=== PATIENT | female | born 1980 | race Caucasian/White ===

== ENCOUNTER 2023-01-30 20:04 | Outpatient (REF) | payer OTHER, SELFPAY ==
[2023-02-04 21:07] LABS: Age Gdln ACOG Testing Note (.); HPV Aptima Negative (Negative); IGP, Aptima HPV, rfx 16/18,45 Note (.)
== END 2023-01-30 20:05 | disposition home or self-care (01) ==
LOC: LAB 20:04
PROVIDERS: PCP Family Medicine; Visit Provider Obstetrics & Gynecology
DX: Z12.4 Encounter for screening for malignant neoplasm of cervix (principal); Z11.51 Encounter for screening for human papillomavirus (HPV)
CPT/HCPCS: 87624; G0145

== ENCOUNTER 2023-10-17 07:52 | Outpatient (OUT) | payer OTHER, SELFPAY ==
[2023-10-17 08:34] LABS: Basophils Absolute Auto 0.1 10^3/uL (0.0-0.1); Basophils Percent Auto 1.1 % (0.2-2.0); Eosinophils Absolute Auto 0.3 10^3/uL (0.0-0.7); Hematocrit 36.7 % (36.0-48.0); Hemoglobin 11.1 g/dL (12.0-16.0); Immature Granulocytes Abs Auto 0.08 10^3/uL (0.00-0.03); Immature Granulocytes Pct Auto 0.9 % (0.0-0.5); Lymphocytes Absolute Auto 2.3 10^3/uL (1.2-3.8); Lymphocytes Percent Auto 27.1 % (20.5-60.0); Mean Corpuscular HGB Conc 30.2 g/dL (29.9-35.2); Mean Corpuscular Hemoglobin 24.9 pg (26.7-34.0); Mean Corpuscular Volume 82.5 fL (81.0-99.0); Mean Platelet Volume 9.1 fL (9.5-13.5); Monocytes Absolute Auto 0.6 10^3/uL (0.3-0.8); Monocytes Percent Auto 6.9 % (1.7-12.0); Neutrophils Absolute Auto 5.2 10^3/uL (1.4-6.5); Platelet Count 395 10^3/uL (150-450); Red Blood Count 4.45 10^6/uL (4.20-5.40); Red Cell Distribution Width 15.3 % (11.0-15.0); White Blood Count 8.4 10^3/uL (4.0-11.0)
[2023-10-17 09:47] LABS: Alanine Aminotransferase 35 U/L (14-59); Albumin Globulin Ratio 0.8; Albumin Level 3.2 g/dL (3.4-5.0); Alkaline Phosphatase 93 U/L (46-116); Anion Gap 12.9; Aspartate Amino Transferase 21 U/L (15-37); BUN Creatinine Ratio 9.9; Bilirubin Total 0.5 mg/dL (0.2-1.0); Calcium 8.5 mg/dL (8.5-10.1); Carbon Dioxide 27.2 mmol/L (21.0-32.0); Chloride 104 mmol/L (98-107); Cholesterol 186 mg/dL (<=200); Estimated GFR (African America >60 (>=60); Estimated GFR (Non-African Ame >60 (>=60); Globulin 4.1 g/dL; Glucose 149 mg/dL (74-106); HDL Cholesterol 46 mg/dL (40-60); LDL Cholesterol Calculated 112.2 mg/dL; Potassium 4.1 mmol/L (3.5-5.1); Sodium 140 mmol/L (136-145); Thyroid Stimulating Hormone 2.534 uIU/mL (0.358-3.740); Total Protein 7.3 g/dL (6.4-8.2); Triglycerides 139 mg/dL (<=150); VLDL CHOLESTEROL 27.8 mg/dL
[2023-10-17 09:58] LABS: Mono Screen NEGATIVE (NEGATIVE)
[2023-10-17 10:27] LABS: Free T4 0.98 ng/dL (0.76-1.46)
[2023-10-17 11:26] LABS: Estimated Average Glucose 148 mg/dL; Glycohemoglobin A1C 6.8 % (4.5-6.2)
== END 2023-10-17 07:53 | disposition home or self-care (01) ==
LOC: LAB 07:55
PROVIDERS: PCP Family Medicine; Visit Provider Family Medicine
DX: Z00.00 Encounter for general adult medical examination without abnormal findings (principal); M79.7 Fibromyalgia; R53.83 Other fatigue
CPT/HCPCS: 36415; 80053; 80061; 83036; 84439; 84443; 85025; 86308

== ENCOUNTER 2024-03-03 18:29 | Outpatient (REF) | payer OTHER, SELFPAY | END 2024-03-03 18:30 | disposition home or self-care (01) | LOC: LAB 18:29 | PROVIDERS: PCP Family Medicine; Visit Provider Obstetrics & Gynecology | DX: Z01.419 Encounter for gynecological examination (general) (routine) without abnormal findings (principal) | CPT/HCPCS: 87624; 88175 ==

== ENCOUNTER 2024-10-14 08:58 | Outpatient (OUT) | payer OTHER, SELFPAY ==
[2024-10-14 09:41] LABS: Basophils Absolute Auto 0.1 10^3/uL (0.0-0.1); Eosinophils Absolute Auto 0.3 10^3/uL (0.0-0.7); Hemoglobin 12.5 g/dL (12.0-16.0); Immature Granulocytes Abs Auto 0.16 10^3/uL (0.00-0.03); Immature Granulocytes Pct Auto 1.4 % (0.0-0.5); Lymphocytes Absolute Auto 2.7 10^3/uL (1.2-3.8); Lymphocytes Percent Auto 23.2 % (20.5-60.0); Mean Corpuscular HGB Conc 31.3 g/dL (29.9-35.2); Mean Corpuscular Hemoglobin 25.2 pg (26.7-34.0); Mean Corpuscular Volume 80.5 fL (81.0-99.0); Mean Platelet Volume 9.2 fL (9.5-13.5); Monocytes Absolute Auto 0.7 10^3/uL (0.3-0.8); Monocytes Percent Auto 6.1 % (1.7-12.0); Neutrophils Absolute Auto 7.5 10^3/uL (1.4-6.5); Neutrophils Percent Auto 65.3 % (43.0-75.0); Platelet Count 383 10^3/uL (150-450); Red Blood Count 4.97 10^6/uL (4.20-5.40); Red Cell Distribution Width 14.9 % (11.0-15.0); White Blood Count 11.4 10^3/uL (4.0-11.0)
[2024-10-14 10:11] LABS: Estimated Average Glucose 217 mg/dL; Glycohemoglobin A1C 9.2 % (4.5-6.2)
[2024-10-14 10:34] LABS: Anion Gap 12.9; BUN Creatinine Ratio 10.3; Carbon Dioxide 26.1 mmol/L (21.0-32.0); Chloride 100 mmol/L (98-107); Estimated GFR (African America >60 (>=60 mL/min/1.73m^2); Estimated GFR (Non-African Ame >60 (>=60 mL/min/1.73m^2); Glucose 216 mg/dL (74-106); Sodium 135 mmol/L (136-145); TSH W/ REFLEX FT4 3.381 uIU/mL (0.358-3.740)
== END 2024-10-14 08:59 | disposition home or self-care (01) ==
LOC: LAB 09:02
PROVIDERS: PCP Family Medicine; Visit Provider Family Medicine
DX: R53.82 Chronic fatigue, unspecified (principal); E11.65 Type 2 diabetes mellitus with hyperglycemia
CPT/HCPCS: 36415; 80048; 83036; 84443; 85025

== ENCOUNTER 2024-10-17 08:33 | Outpatient (OUT) | payer OTHER, SELFPAY ==
--- OUTSIDE RECORDS SUMMARY | 2024-10-17 08:37 | XMS_ITS | CCD ---
Author Organization [facility] Care Team Providers Care [place] Manager Name Role Phone Caitlin Coronel Unavailable Jessica Ruiz Unavailable Unavailable Unavailable Sara, Dr. Jessica Mcconnell Primary Care Unav ailable Juvenal, Julieta Attending Unavailable RUIZ, DR JESSICA Manuel Admitting Unavailable RUIZ, DR JESSICA Manuel Attending Unavailable ALVIN, DR SAMANTHA Wolfe Consulting Unavailable RUIZ, DR JESSICA Manuel Primary Care Unavailable RUIZ, DR JESSICA Manuel Consulting Unavailable RUIZ, DR JESSICA Manuel Attending Unavailable RUIZ, DR JESSICA Manuel Consulting Unavailable RUIZ, DR JESSICA Manuel Primary Care Unavailable RUIZ, DR JESSICA Manuel Admitting Unavailable NORMA, DAVID Admitting Unavailable NORMA, DAVID Attending Unavailable NORMA, DAVID Consulting Unavailable RUIZ, DR JESSICA Manuel Primary Care Unavailable RUSSELL ., DR COTO Attending Unavailable HAY ., DR COTO Consulting Unavailable HAY ., DR COTO Admitting Unavailable RUIZ, DR JESSICA Manuel Primary Care Unavailable JUAN ALBERTO MATHEW Consulting Unavailable Jessica Ruiz Unavailable Sara, Dr. Jessica Mcconnell Primary Care Unav ailpresley Sanford, Dr. Rendon Attending Unavailable Sara, Dr. Jessica Mcconnell Referring Unav ailable aSra, Dr. Jessica Mcconnell Primary Care Unav ailpresley Sanford, Dr. Rendon Referring Unavailable Juvenal, Dr. Rendon Attending Unavailable Sara, Dr. Jessica Mcconnell Primary Care Unav MD Jessica Thomson Primary Care Provider MONIQUE Mckeon Attending Provider Jessica Ruiz MD Primary Care Provider [phone] Jessica Ruiz MD Unavailable MD Jessica Ruiz Attending Provider [facility] Attending Unavailable JOHNNY OLEA Attending Unavailable JOHNNY OLEA Referring Unavailable JESSICA RUIZ Primary Care Unavailable SAMANTHA PITTS JR Attending Unavailable JESSICA RUIZ Primary Care Unavailable SAMANTHA PITTS JR Referring Unavailable SAMANTHA PITTS JR Attending Unavailable SAMANTHA PITTS JR Attending Unavailable JESSICA RUIZ Primary Care Unavailable Jessica Ruiz MD Primary Care Provider Jayden Pineda DO Emergency Provider [phone] Jessica Ruiz Attending Unavailable Jessica Ruiz Primary Care Unavailable Jessica Ruiz Admitting Unavailable Neha Mckeon Attending Unavailable Neha Mckeon Admitting Unavailable Jessica Ruiz Primary Care Unavailable Jayden Pineda Attending Unavailable Jayden Pineda Admitting Unavailable Jessica Ruiz Primary Care Unavailable Allergies Allergy Classification Reported Allergen(s) Allergy Type Date of Onset Reaction(s) Facility (2 sources) patient allergy list reviewed by nurse or physicia Propensity to adverse reactions Comment:Done [facility] Other (2 sources) Allergies Reconciled Propensity to adverse reactions Unknown [facility] Other Medications Current Medications Medication Drug Class(es) Dates Sig (Normalized) Sig (Original) Blood Sugar Diagnostic (1 source) Start: 02-18-2024 Blood Sugar Diagnostic Active 0 .Route February 18, 2024 12:00am As directed - test daily Blood-Glucose Meter (2 sources) Start: 11-14-2023 Blood-Glucose Meter Active 0 .Route November 14, 2023 12:00am As directed Blood-Glucose Meter kit (1 source) Start: 11-14-2023 Blood-Glucose Meter kit Active 0 .Route November 14, 2023 12:00am As directed dicyclomine hydrochloride 20 mg oral tablet (5 sources) Anticholinergic Start: 02-18-2024 End: 05-18-2024 take 1 tablet by mouth twice daily dicyclomine (BENTYL) 20 mg tablet Take 1 tablet by mouth two times a day. 60 tablet 2 02/18/2024 05/18/2024 Active DULoxetine 60 mg delayed release oral capsule (20 sources) Serotonin and Norepinephrine Reuptake Inhibitor Start: 09-25-2023 End: 10-14-2024 take 1 capsule by mouth once daily Duloxetine 60 mg capsule,delayed release(DR/EC) Active 0 .ROUTE .COMPLEX October 14, 2024 8:25am TAKE 1 CAPSULE BY MOUTH EVERY DAY Start: 02-19-2015 End: 09-25-2023 take 1 capsule by mouth once daily Duloxetine 60 mg capsule,delayed release(DR/EC) Discontinued 60 MG PO Daily September 23, 2023 1:00am September 25, 2023 3:27pm take 1 capsule by [facility] every twenty-four hours Cymbalta 30 MG 1 cap(s) Orally Once a day Active glipiZIDE er 5 mg 24 hr extended release oral tablet (10 sources) Sulfonylurea Start: 03-31-2024 End: 04-28-2024 take 1 tablet by mouth once daily Glipizide 5 mg tablet extended release 24hr Active 0 .ROUTE .COMPLEX April 28, 2024 8:23am TAKE 1 TABLET BY MOUTH EVERY DAY Start: 02-18-2024 End: 08-07-2024 take 1 tablet by mouth once daily Glipizide 5 mg tablet extended release 24hr Discontinued 5 MG PO Daily February 18, 2024 12:00am March 31, 2024 8:38am hyoscyamine sulfate 0.125 mg sublingual tablet (1 source) Start: 08-07-2024 take 0.125 mg under the tongue every four hours as needed hyoscyamine sublingual (LEVSIN/SL) 0.125 mg Dissolve 1 tablet under the tongue every 4 hours as needed. 60 tablet 2 08/07/2024 Active Multivitamin Adult - (3 sources) Multivitamin Socrates lt - Orally Active omeprazole 40 mg delayed release oral capsule (20 sources) Proton Pump Inhibitor Start: 04-30-2024 take 1 capsule by mouth twice daily omeprazole (PRILOSEC) 40 mg capsule take 1 capsule by mouth twice a day 60 capsule 3 04/30/2024 Active Start: 12-02-2023 End: 07-09-2024 take 1 capsule by mouth once daily Omeprazole 40 mg capsule,delayed release(DR/EC) Active 0 .ROUTE .COMPLEX July 09, 2024 9:51am TAKE 1 CAPSULE BY MOUTH EVERY DAY Start: 09-23-2023 End: 12-02-2023 take 1 capsule by mouth once daily Omeprazole 40 mg capsule,delayed release(DR/EC) Discontinued 40 MG PO Daily September 23, 2023 1:00am December 02, 2023 12:46pm Start: 02-17-2017 End: 04-18-2024 take 1 capsule by mouth twice daily omeprazole (PRILOSEC) 40 mg capsule Take 1 capsule by mouth two times a day. 60 capsule 1 02/18/2024 04/18/2024 Active Start: 02-29-2016 take 1 capsule by mo uth every twenty-four hours Omeprazole 40 mg 1 capsule Orally Once a day for 30 days inform patient need follow up office visit no more refills Feb, Active Start: 01-04-2016 End: 02-18-2024 take 1 tablet by mouth once daily Omeprazole Magnesium (PRILOSEC OTC) 20 mg tablet Take 1 tablet by mouth once daily. 0 01/04/2016 02/18/2024 Discontinued paxlovid (300/100) 20 x 150 mg & 10 x 100mg tablet therapy pack (1 source) Start: 08-23-2023 take 3 tablets by mouth every twelve hours Paxlovid (300/100) 20 x 150 MG & 10 x 100MG 3 tablets Orally Twice a day for 5 day(s) Aug, Active Semaglutide (1 source) Start: 10-14-2024 Semaglutide (O zempic) 0.25 mg or 0.5 mg (2 mg/3 mL) pen injector Active 0.5 MG SUBCUT every week October 14, 2024 12:00am for 4 weeks Completed/Discontinued Medications Medication Drug Class(es) Dates Sig (Normalized) Sig (Original) Blood-Glucose Sensor (Dexcom G6 Sensor) device (3 sources) Start: 11-12-2023 End: 11-14-2023 Blood-Glucose Sensor (Dexcom G6 Sensor) device Discontinued 0 .Route November 12, 2023 12:00am November 14, 2023 11:00am As directed busPIRone hydrochloride 5 mg oral tablet (3 sources) Start: 09-24-2023 End: 05-21-2024 take 1 tablet by mouth twice daily Buspirone 5 mg tablet Discontinued 5 MG PO Twice daily September 24, 2023 1:00am May 21, 2024 3:06pm metFORMIN hydrochloride 1000 mg oral tablet (20 sources) Biguanide Start: 12-10-2023 End: 02-18-2024 take 1 tablet by mouth twice daily Metformin 1,000 mg tablet Discontinued 1000 MG PO Twice daily 60 December 26, 2023 11:47am February 18, 2024 9:27am Start: 11-13-2023 End: 08-07-2024 take 2 tablets by mouth every hour metFORMIN ER (GLUCOPHAGE XR) 500 mg 24 hr tablet Take 2 tablets by mouth every afternoon. 11/13/2023 08/07/2024 Discontinued Start: 11-12-2023 End: 12-10-2023 take 1 tablet by mouth once daily Metformin 1,000 mg tablet extended release 24 hr Discontinued 1000 MG PO Daily December 09, 2023 3:17pm December 10, 2023 1:22pm metFORMIN HCl Ac tive Metoprolol (3 sources) beta-Adrenergic Edyta Metoprol ol Succinate Not-Taking/PRN Metoprolol Succi viv Not-Taking Metoprolol Succi viv Active Ozempic (0.25 or 0.5 MG/DOSE) 2 MG/3ML Subcutaneous Solution Pen-injector (1 source) Start: 10-23-2022 Ozempic (0.25 or 0.5 MG/DOSE) 2 MG/3ML Subcutaneous Solution Pen-injector Quantity: 3 Refills: 0 Ordered: 23-Oct-2022 DO Start : 23-Oct-2022 Active predniSONE 20 mg oral tablet (3 sources) Start: 10-03-2023 End: 02-18-2024 take 1 tablet by mouth twice daily Prednisone 20 mg tablet Discontinued 20 MG PO Twice daily October 03, 2023 12:00am February 18, 2024 9:18am 1000 ml sodium chloride 9 mg/ml injection (1 source) Start: 03-10-2024 End: 03-27-2024 take 30 mL intravenously every hour 30 mL/hr, INTRAVENOUS, CONTINUOUS, Starting on Sat03/10/24 at 0830, Until Sat03/27/24 at 1749, Preprocedure spironolactone 25 mg oral tablet (5 sources) Aldosterone Antagonist Start: 10-08-2022 take 1 tablet by mouth once daily Spironolactone 25 MG Oral Tablet TAKE 1 TABLET DAILY. Quantity: 90 Refills: 3 Ordered: 08-Oct-2022 Julieta Sanford MD Start : 08-Oct-2022 Active sucralfate 1000 mg oral tablet (3 sources) Aluminum Complex Start: 03-13-2024 End: 08-07-2024 take 1 tablet by mouth three times daily sucralfate (CARAFATE) 1 gram tablet Take 1 tablet by mouth three times a day. 90 tablet 03/13/2024 08/07/2024 Discontinued Tirzepatide (3 sources) Start: 10-19-2023 End: 02-18-2024 Tirzepatide (Mounjaro) 2.5 mg/0.5 mL pen injector Discontinued 2.5 MG SUBCUT every week 2 October 19, 2023 12:00am February 18, 2024 9:19am Start: 10-19-2023 Tirzepatide (M ounjaro) 2.5 mg/0.5 mL pen injector Active 2.5 MG SUBCUT every week 2 October 19, 2023 12:00am Problems Active Problems Problem Classification Problem Date Documented Da te Episodic/Chronic Abdominal hernia (3 sources) Hiatal hernia; Translations: [Diaphragmatic hernia without obstruction or gangrene] Episodic Abdominal pain (8 sources) Right upper quadrant pain; Translations: [Right upper quadrant pain] 09-23-2023 Episodic Acute bronchitis (2 sources) Acute bronchitis; Translations: [Acute bronchitis, unspecified] Episodic Administrative/social admission (1 source) Follow-up status; Translations: [Other specified counseling] Episodic Anxiety disorders (5 sources) Anxiety disorder; Translations: [Anxiety disorder, unspecified] 09-23-2023 Chronic Cardiac dysrhythmias (16 sources) Palpitations; Translations: [Palpitations] Onset: 6 09-23-2023 Episodic Conditions associated with dizziness or vertigo (5 sources) Dizziness and giddiness; Translations: [Dizziness and giddiness] 09-23-2023 Episodic Diabetes mellitus with complications (7 sources) Hyperglycemia due to type 2 diabetes mellitus; Translations: [Type 2 diabetes mellitus with hyperglycemia] 09-23-2023 Chronic Diabetes mellitus without complication (6 sources) Increased glucose level; Translations: [Other abnormal glucose] 10-15-2024 Episodic Esophageal disorders (20 sources) Diffuse spasm of esophagus; Translations: [Dyskinesia of esophagus] Onset: 3 09-23-2023 Chronic Essential hypertension (6 sources) Essential (primary) hypertension; Translations: [Essential hypertension] Onset: 2 09-23-2023 Chronic Gastrointestinal hemorrhage (3 sources) Hematochezia; Translations: [Melena] Episodic Headache; including migraine (1 source) Migraine without aura; Translations: [Migraine without aura, not intractable, without status migrainosus] 06-01-2024 Chronic Inflammation; infection of eye (except that caused by tuberculosis or sexually transmitteddisease) (2 sources) Chronic allergic conjunctivitis; Translations: [Other chronic allergic conjunctivitis] Onset: 4 Chronic Malaise and fatigue (4 sources) Fatigue; Translations: [Other fatigue] 09-24-2023 Episodic Menstrual disorders (6 sources) Dysmenorrhea; Translations: [Dysmenorrhea, unspecified] Onset: 6 Chronic Mood disorders (5 sources) Moderate recurrent major depression; Translations: [Major depressive disorder, recurrent, moderate] Onset: 8 09-23-2023 Chronic Mycoses (2 sources) Candidiasis; Translations: [Candidiasis, unspecified] Episodic Neoplasms of unspecified nature or uncertain behavior (5 sources) Carcinoid tumor of stomach; 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, intestines, and rectum] Onset: 6 Resolved: 2 09-23-2023 Episodic Other acquired deformities (2 sources) Spondylolysis; Translations: [Spondylolysis, lumbar region] 02-18-2024 Episodic Other aftercare (1 source) 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 supervisor intermediates (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; Translations: [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] Onset: 3 Episodic Other aftercare (2 sources) History and physical examination, follow-up; Translations: [Encounter for follow-up examination after completed treatment for conditions other than malignant neoplasm] Episodic Other and unspecified benign neoplasm (3 sources) History of polyp of colon; Translations: [Personal history of colonic polyps] 02-18-2024 Episodic Other circulatory disease (10 sources) Elevated blood-pressure reading without diagnosis of hypertension; Translations: [Elevated blood pressure reading without diagnosis of hypertension] 09-23-2023 Episodic Other connective tissue disease (5 sources) Fibromyalgia; Translations: [Fibromyalgia] 09-23-2023 Episodic Other connective tissue disease (1 source) Fibromyalgia; Translations: [Myalgia and myositis, unspecified] 02-18-2024 Episodic Other female genital disorders (2 sources) Dyspareunia; Translations: [Unspecified dyspareunia] Chronic Other female genital disorders (2 sources) Noninflammatory disorder of the vagina; Translations: [Other specified noninflammatory disorders of vagina] Episodic Other female genital disorders (5 sources) Cyst of vulva; Translations: [Vulvar cyst] 09-23-2023 Episodic Other gastrointestinal disorders (3 sources) Irritable bowel syndrome; Translations: [Irritable bowel syndrome without diarrhea] 02-18-2024 Chronic Other gastrointestinal disorders (1 source) Irritable bowel syndrome with diarrhea; Translations: [Irritable bowel syndrome with diarrhea] 08-07-2024 Chronic Other gastrointestinal disorders (3 sources) Diarrhea; Translations: [Diarrhea, unspecified] Episodic Other gastrointestinal disorders (6 sources) Urgent desire for stool; Translations: [Fecal urgency] 09-23-2023 Episodic Other injuries and conditions due to external causes (1 source) Other injury of unspecified body region, initial encounter Episodic Other liver diseases (1 source) Inflammatory disease of liver; Translations: [Inflammatory liver disease, unspecified] 10-15-2024 Chronic Other lower respiratory disease (5 sources) Dyspnea on exertion; Translations: [Shortness of breath] Episodic Other lower respiratory disease (1 source) Shortness of breath; Translations: [Shortness of breath] Onset: 3 Episodic Other nutritional; endocrine; and metabolic disorders (3 sources) Obese class I; Translations: [Body mass index (BMI) 34.0-34.9, adult] Chronic Other nutritional; endocrine; and metabolic disorders (11 sources) Obese class II; Translations: [Body mass index (BMI) 36.0-36.9, adult] Onset: 8 Chronic Other nutritional; endocrine; and metabolic disorders (7 sources) Obesity; Translations: [Obesity, unspecified] Onset: 2 Chronic Other nutritional; endocrine; and metabolic disorders (2 sources) Morbid obesity; Translations: [Morbid (severe) obesity due to excess calories] Onset: 7 Chronic Other nutritional; endocrine; and metabolic disorders (2 sources) Body mass index 30+ - obesity; Translations: [Body mass index 36.0-36.9, adult] Onset: 7 Chronic Other screening for suspected conditions (not mental disorders or infectious disease) (17 sources) Electrocardiogram abnormal; Translations: [Nonspecific abnormal electrocardiogram [ECG] [EKG]] Onset: 2 Episodic Residual codes; unclassified (2 sources) Postprocedural state finding; Translations: [Other specified postprocedural states] Episodic Residual codes; unclassified (5 sources) Insomnia; Translations: [Insomnia, unspecified] 09-23-2023 Episodic Residual codes; unclassified (3 sources) Acquired absence of cervix and uterus; Translations: [Acquired absence of both cervix and uterus] 09-23-2023 Episodic Viral infection (2 sources) Herpes zoster without complication; Translations: [Zoster without complications] Episodic Past or Other Problems Problem Classification Problem Date Documented Da te Episodic/Chronic Headache; including migraine (5 sources) Headache; Translations: [Headache, unspecified] Onset: 11-11-2015 09-23-2023 Episodic Nonspecific chest pain (18 sources) Chest pain; Translations: [Chest pain, unspecified] Onset: 01-04-2016 Episodic Other acquired deformities (2 sources) Spondylolysis, lumbar region; Translations: [Acquired spondylolisthesis] Onset: 03-16-2024 02-18-2024 Episodic Other and unspecified benign neoplasm (1 source) Personal history of colonic polyps; Translations: [Personal history of colonic polyps] Onset: 03-10-2024 Episodic Other inflammatory condition of skin (2 sources) Generalized pruritus ; Translations: [Other pruritus] Onset: 12-05-2016 Episodic Other nervous system disorders (2 sources) Altered sensation of skin; Translations: [Disturbance of skin sensation] Onset: 11-11-2015 Episodic Other nutritional; endocrine; and metabolic disorders (5 sources) Abnormal weight gain; Translations: [Abnormal weight gain] Onset: 10-30-2021 09-23-2023 Episodic Unclassified (5 sources) Patient status finding; Translations: [Patient new to provider] Unclassified (5 sources) Never smoked tobacco; Translations: [Never a smoker] Viral infection (1 source) COVID-19 Results Test Name Value Interpretation Reference Range Facility Alanine aminotransferase [En zymatic activity/volume] in Serum or PlasmaOrdered By: Jayden Pineda on 10-15-2024 ALT [Catalytic activity/Vol] Alanine aminotransferase [Enzymatic activity/volume] in Serum or Plasma High 7-52 [facility] Albumin [Mass/volume] in Ser um or Plasma by Bromocresol green (BCG) dye binding methoOrdered By: Jayden Pineda on 10-15-2024 Albumin BCG dye [Mass/Vol] Albumin [Mass/volume] in Serum or Plasma by Bromocresol green (BCG) dye binding metho 3.5-5.7 [facility] Alkaline phosphatase [Enzyma tic activity/volume] in Serum or PlasmaOrdered By: Jayden Pineda on 10-15-2024 ALP [Catalytic activity/Vol] Alkaline phosphatase [Enzymatic activity/volume] in Serum or Plasma High 34-104 [facility] Appearance of UrineOrdered B y: Jayden Pineda on 10-15-2024 Appearance (U) Urine appearance Abnormal Clear [facility] Aspartate aminotransferase [ Enzymatic activity/volume] in Serum or PlasmaOrdered By: Jayden Pineda on 10-15-2024 AST [Catalytic activity/Vol] Aspartate aminotransferase [Enzymatic activity/volume] in Serum or Plasma High 13-39 [facility] Bacteria [Presence] in Urine by AutomatedOrdered By: Jayden Pineda on 10-15-2024 Bacteria Auto Ql (U) Bacteria [Presence] in Urine by Automated None Seen [facility] Basic Metabolic Panelon 09-20 Anion gap [Moles/Vol] 10.8 mmol/L Normal 6.0-15.0 [facility] Comment on above: Performed By: #### H EPATIC, LIPASE, BMP, CBC #### [facility] [address] Calcium [Mass/Vol] 9.2 mg/dL Normal 8.6-10.3 [facility] Comment on above: Performed By: #### H EPATIC, LIPASE, BMP, CBC #### [address] Chloride [Moles/Vol] 102 mmol/L Normal 98-107 [facility] Comment on above: Performed By: #### H EPATIC, LIPASE, BMP, CBC #### [address] CO2 [Moles/Vol] 25.2 mmol/L Normal 21.0-31.0 [facility] Comment on above: Performed By: #### H EPATIC, LIPASE, BMP, CBC #### [address] Creatinine [Mass/Vol] 0.81 mg/dL Normal 0.60-1.20 [facility] Comment on above: Performed By: #### H EPATIC, LIPASE, BMP, CBC #### [place] [address] [place] Creatinine Clr Calc Pharmacy 112.84 Normal [facility] Comment on above: Performed By: #### H EPATIC, LIPASE, BMP, CBC #### [place] [address] [place] GFR/1.73 sq M.predicted MDRD (S/P/Bld) [Vol rate/Area] mL/min/{1.73_m2} Normal [facility] Comment on above: Performed By: #### H EPATIC, LIPASE, BMP, CBC #### [address] Glucose [Mass/Vol] 209 mg/dL High 70-100 [facility] Comment on above: Result Comment: [place] Glucose Reference Range is dependent on time and content of last meal. Glucose of more than 200 mg/dL in a nonstressed, ambulatory subject supports the diagnosis of Diabetes Mellitus. ADA recommended reference range Performed By: #### H EPATIC, LIPASE, BMP, CBC #### [address] Potassium [Moles/Vol] 4.0 mmol/L Normal 3.5-5.1 [facility] Comment on above: Performed By: #### H EPATIC, LIPASE, BMP, CBC #### [address] [place] [address] [place] Sodium [Moles/Vol] 134 mmol/L Low 136-145 [facility] Comment on above: Performed By: #### H EPATIC, LIPASE, BMP, CBC #### [facility] [address] Urea nitrogen [Mass/Vol] 11 mg/dL Normal 7-25 [facility] Comment on above: Performed By: #### H EPATIC, LIPASE, BMP, CBC #### [facility] [address] Basophils Auto (Bld) [#/Vol] Ordered By: Jayden Pinead on 10-15-2024 Basophils (Bld) [#/Vol] Automated basoph il count 0.0-0.2 [facility] Basophils/100 WBC Auto (Bld) Ordered By: Jayden Pineda on 10-15-2024 Basophils/100 WBC (Bld) Automated basophil % . [facility] Bilirubin Test strip Ql (U)O rdered By: Jayden Pineda on 10-15-2024 Bilirubin Ql (U) Bilirubin.total [Presence] in Urine by Test strip Negative [facility] Bilirubin.direct [Mass/volum e] in Serum or PlasmaOrdered By: Jayden Pineda on 10-15-2024 Bilirubin.direct [Mass/Vol] Bilirubin.direct [Mass/volume] in Serum or Plasma 0.03-0.18 [facility] Bilirubin.total [Mass/volume ] in Serum or PlasmaOrdered By: Jayden Pienda on 10-15-2024 Bilirubin [Mass/Vol] Bilirubin.total [Mass/volume] in Serum or Plasma 0.3-1.0 [facility] Calcium [Mass/volume] in Ser um or PlasmaOrdered By: Jayden Pineda on 10-15-2024 Calcium [Mass/Vol] Calcium [Mass/volume ] in Serum or Plasma 8.6-10.3 [facility] Carbon dioxide, total [Moles /volume] in Serum or PlasmaOrdered By: Jayden Pineda on 10-15-2024 CO2 [Moles/Vol] Carbon dioxide, tota l [Moles/volume] in Serum or Plasma 21.0-31.0 [facility] Chloride [Moles/volume] in S luis alberto or PlasmaOrdered By: Jayden Pineda on 10-15-2024 Chloride [Moles/Vol] Chloride [Moles/volume] in Serum or Plasma 98-107 [facility] Color Auto (U)Ordered By: Pierce Pineda on 10-15-2024 Color (U) Color of Urine by Auto Yellow [facility]Former[facility] Complete Blood Count Auto Di ffon 10-15-2024 Basophils (Bld) [#/Vol] 0.0 10*3/uL Normal 0.0-0.2 [facility] Comment on above: Result Comment: PERF ORMED BY: [place] [address] PATHOLOGIST ANIMAL GENETICIST BERNIE VICK M.D. Performed By: #### H EPATIC, LIPASE, BMP, CBC #### [address] Basophils/100 WBC (Bld) 0.2 % Normal . T rajinder [facility] Comment on above: Performed By: #### H EPATIC, LIPASE, BMP, CBC #### [address] Eosinophils (Bld) [#/Vol] 0.2 10*3/uL Normal 0.0-0.45 [facility] Comment on above: Performed By: #### H EPATIC, LIPASE, BMP, CBC #### [address] Eosinophils/100 WBC (Bld) 2.2 % Normal . [facility] Comment on above: Performed By: #### H EPATIC, LIPASE, BMP, CBC #### [address] Erythrocyte distribution width (RBC) [Ratio] 15.8 % High 11.9-15.3 [facility] Comment on above: Performed By: #### H EPATIC, LIPASE, BMP, CBC #### [address] Hematocrit (Bld) [Volume fraction] 38.0 % Normal 34.0-46.4 [facility] Comment on above: Performed By: #### H EPATIC, LIPASE, BMP, CBC #### [address] Hemoglobin (Bld) [Mass/Vol] 12.2 g/dL Normal 11.8-15.4 [facility] Comment on above: Performed By: #### H EPATIC, LIPASE, BMP, CBC #### [address] Lymphocytes (Bld) [#/Vol] 2.4 10*3/uL Normal 1.00-4.8 [facility] Comment on above: Performed By: #### H EPATIC, LIPASE, BMP, CBC #### [address] Lymphocytes/100 WBC (Bld) 25.1 % Normal . [facility] Comment on above: Performed By: #### H EPATIC, LIPASE, BMP, CBC #### [address] MCH (RBC) [Entitic mass] 25.2 pg Normal 24.7-34.3 [facility] Comment on above: Performed By: #### H EPATIC, LIPASE, BMP, CBC #### [address] MCV (RBC) [Entitic vol] 78.5 fL Low 80-100 T [facility] Comment on above: Performed By: #### H EPATIC, LIPASE, BMP, CBC #### [address] Mean Corpuscular HGB Conc 32.1 g/dL Normal 32.0-35.0 [facility] Comment on above: Performed By: #### H EPATIC, LIPASE, BMP, CBC #### [address] Monocytes (Bld) [#/Vol] 0.6 10*3/uL Normal 0.0-0.8 [facility] Comment on above: Performed By: #### H EPATIC, LIPASE, BMP, CBC #### [address] Monocytes/100 WBC (Bld) 22.59 % High 0.00-20.00 [facility] Comment on above: Result Comment: For adults in ED, MDW > 20.0 may be associated with a higher risk of sepsis during the first 12 hrs of hospital admission Performed By: #### H EPATIC, LIPASE, BMP, CBC #### [address] Monocytes/100 WBC (Bld) 5.7 % Normal . [facility] Comment on above: Performed By: #### H EPATIC, LIPASE, BMP, CBC #### [address] Neutrophils (Bld) [#/Vol] 6.5 10*3/uL Normal 1.8-7.7 [facility] Comment on above: Performed By: #### H EPATIC, LIPASE, BMP, CBC #### [address] Neutrophils/100 WBC (Bld) 66.8 % Normal . [facility] Comment on above: Performed By: #### H EPATIC, LIPASE, BMP, CBC #### [address] NRBC% 0.1 /100{WBC} Normal 0-0.5 [facility] Comment on above: Performed By: #### H EPATIC, LIPASE, BMP, CBC #### [address] Platelet mean volume (Bld) [Entitic vol] 7.0 fL Normal 6.3-10.7 [facility] Comment on above: Performed By: #### H EPATIC, LIPASE, BMP, CBC #### [place] [address] [place] Platelets (Bld) [#/Vol] 366 10*3/uL Normal 150-450 [facility] Comment on above: Performed By: #### H EPATIC, LIPASE, BMP, CBC #### [facility] [address] [place] [address] [place] RBC (Bld) [#/Vol] 4.84 10*6/uL Normal 3.60-5.00 [facility] Comment on above: Performed By: #### H EPATIC, LIPASE, BMP, CBC #### [facility] [address] [place] [address] [place] WBC (Bld) [#/Vol] 9.7 10*3/uL Normal 3.8-11.6 [facility] Comment on above: Performed By: #### H EPATIC, LIPASE, BMP, CBC #### [facility] [address] [place] [address] [place] Creatinine [Mass/volume] in Serum or PlasmaOrdered By: Jayden Pineda on 10-15-2024 Creatinine [Mass/Vol] Creatinine [Mass/volume] in Serum or Plasma 0.60-1.20 [facility] Crystals.amorphous [Presence ] in Urine by Computer assisted methodOrdered By: Jayden Pineda on 10-15-2024 Crystals.amorphous Computer assisted Ql (U) Crystals.amorphous [Presence] in Urine by Computer assisted method [facility] Dipstick and Microscopicon 0 10-15-2024 Amorphous Crystal,Urine Rare Normal T he [facility] Comment on above: Order Comment: Name Collection Type:: Clean-Voided Midstream Performed By: #### U HCG, ADDONUAPLUS, CUU #### [address] Appearance (U) Cloudy Critically abnormal Clear [facility] Comment on above: Order Comment: Name Collection Type:: Clean-Voided Midstream Performed By: #### U HCG, ADDONUAPLUS, CUU #### [facility] [address] [place] [address] [place] Bacteria,Urine None Seen Normal None Seen [facility] Comment on above: Order Comment: Name Collection Type:: Clean-Voided Midstream Performed By: #### U HCG, ADDONUAPLUS, CUU #### [place] [address] [place] Bilirubin,Urine Negative Normal Negative [facility] Comment on above: Order Comment: Name Collection Type:: Clean-Voided Midstream Performed By: #### U HCG, ADDONUAPLUS, CUU #### [facility] [address] [place] [address] Color (U) Yellow Normal Yellow [facility] Comment on above: Order Comment: Name Collection Type:: Clean-Voided Midstream Performed By: #### U HCG, ADDONUAPLUS, CUU #### [facility] [address] [place] [address] Glucose Ql (U) 50 mg/dL High Normal [facility] Comment on above: Order Comment: Name Collection Type:: Clean-Voided Midstream Performed By: #### U HCG, ADDONUAPLUS, CUU #### [facility] [address] [place] [address] [place] Hyaline Casts,Urine 0-8 Normal 0-8 [facility] Comment on above: Order Comment: Name Collection Type:: Clean-Voided Midstream Performed By: #### U HCG, ADDONUAPLUS, CUU #### [facility] [address] [place] [address] [place] Ketones Ql (U) 1+ High Negative [facility] Comment on above: Order Comment: Name Collection Type:: Clean-Voided Midstream Performed By: #### U HCG, ADDONUAPLUS, CUU #### [facility] [address] [place] [address] [place] Leukocyte esterase Test strip Ql (U) 1+ High Negative [facility] Comment on above: Order Comment: Name Collection Type:: Clean-Voided Midstream Performed By: #### U HCG, ADDONUAPLUS, CUU #### [facility] [address] [place] [address] [place] Mucus,Urine 2+ Critically abnormal [facility] Comment on above: Order Comment: Name Collection Type:: Clean-Voided Midstream Performed By: #### U HCG, ADDONUAPLUS, CUU #### [facility] [address] [place] [address] [place] Nitrite,Urine Negative Normal Negative [facility] Comment on above: Order Comment: Name Collection Type:: Clean-Voided Midstream Performed By: #### U HCG, ADDONUAPLUS, CUU #### [address] Occult Blood,Urine Negative Normal Negative [facility] Comment on above: Order Comment: Name Collection Type:: Clean-Voided Midstream Performed By: #### U HCG, ADDONUAPLUS, CUU #### [address] pH (U) 5.5 [pH] Normal 5.0-9.0 [facility] Comment on above: Order Comment: Name Collection Type:: Clean-Voided Midstream Performed By: #### U HCG, ADDONUAPLUS, CUU #### [address] Protein (U) [Mass/Vol] 20 mg/dL High Negative Th e [facility] Comment on above: Order Comment: Name Collection Type:: Clean-Voided Midstream Performed By: #### U HCG, ADDONUAPLUS, CUU #### [address] RBC,Urine 5-9 High 0-4 [facility] Comment on above: Order Comment: Name Collection Type:: Clean-Voided Midstream Performed By: #### U HCG, ADDONUAPLUS, CUU #### [place] [address] [place] Specificy [place],Urine 1.026 Normal 1.001-1.030 [facility] Comment on above: Order Comment: Name Collection Type:: Clean-Voided Midstream Performed By: #### U HCG, ADDONUAPLUS, CUU #### [place] [address] [place] Squamous Epithelial Cell,Urine 5-9 High 0-2 [facility] Comment on above: Order Comment: Name Collection Type:: Clean-Voided Midstream Performed By: #### U HCG, ADDONUAPLUS, CUU #### [address] Urobilinogen,Urine 2 mg/dL High Normal [facility] Comment on above: Order Comment: Name Collection Type:: Clean-Voided Midstream Performed By: #### U HCG, ADDONUAPLUS, CUU #### [facility] [address] [place] [address] [place] WBC,Urine 10-19 High 0-4 [facility] Comment on above: Order Comment: Name Collection Type:: Clean-Voided Midstream Performed By: #### U HCG, ADDONUAPLUS, CUU #### [facility] [address] [place] [address] [place] Eosinophils Auto (Bld) [#/Vo l]Ordered By: Jayden Pineda on 10-15-2024 Eosinophils (Bld) [#/Vol] Automated eosinophil count 0.0-0.45 [facility] Eosinophils/100 WBC Auto (Bl d)Ordered By: Jayden Pineda on 10-15-2024 Eosinophils/100 WBC (Bld) Automated eosinophil % . [facility] Epithelial cells.squamous [# /area] in Urine sediment by Automated countOrdered By: Jayden Pineda on 10-15-2024 Epithelial cells.squamous Auto (Urine sed) [#/Area] Epithelial cells.squamous [#/area] in Urine sediment by Automated count High 0-2 [facility] Erythrocyte distribution wid th Auto (RBC) [Ratio]Ordered By: Jayden Pineda on 10-15-2024 Erythrocyte distribution width (RBC) [Ratio] Erythrocyte distribution width [Ratio] by Automated count High 11.9-15.3 [facility] Erythrocytes [#/area] in Uri ne sediment by Automated countOrdered By: Jayden Pineda on 10-15-2024 RBC Auto (Urine sed) [#/Area] Erythrocytes [#/area] in Urine sediment by Automated count High 0-4 [facility] Globulin Calc (S) [Mass/Vol] Ordered By: Jayden Pineda on 10-15-2024 Globulin (S) [Mass/Vol] Serum globulin measurement by calculation (mass/volume) [facility] Glucose Poct Glucometerson 0 10-15-2024 Glucose [Mass/Vol] 167 mg/dL Normal [facility] Comment on above: Result Comment: [place] Glucose Reference Range is dependent on time and content of last meal. Glucose of more than 200 mg/dL in a nonstressed, ambulatory subject supports the diagnosis of Diabetes Mellitus. PERFORMED BY: [place] [address] PATHOLOGIST ANIMAL GENETICIST BERNIE VICK M.D. Performed By: #### U HCG, ADDONUAPLUS, CUU #### [facility] [address] [place] [address] Glucose [Mass/Vol] 234 mg/dL Normal [facility] Comment on above: Result Comment: [facility] Glucose Reference Range is dependent on time and content of last meal. Glucose of more than 200 mg/dL in a nonstressed, ambulatory subject supports the diagnosis of Diabetes Mellitus. PERFORMED BY: [place] [id number] PATHOLOGIST ANIMAL GENETICIST BERNIE VICK M.D. Performed By: #### U HCG, ADDONUAPLUS, CUU #### [facility] [address] [place], [place] [id number] [facility] Glucose [Mass/volume] in Ser um or PlasmaOrdered By: Jayden Pineda on 10-15-2024 Glucose [Mass/Vol] Glucose [Mass/volume ] in Serum or Plasma High 70-100 [facility] Comment on above: ADA recommended refe rence rangeRandom Glucose Reference Range is dependent on time and content of last meal. Glucose of more than 200 mg/dL in a nonstressed, ambulatory subject supports the diagnosis of Diabetes Mellitus. Glucose [Mass/volume] in Uri ne by Test stripOrdered By: Jayden Pineda on 10-15-2024 Glucose Test strip (U) [Mass/Vol] Glucose [Mass/volume] in Urine by Test strip High Normal [facility] HCG ( test) IA.rapi d Ql (U)Ordered By: Jayden Pineda on 10-15-2024 HCG ( test) Ql (U) Urine human chorionic gonadotropin (hCG) detection by immunoassay [facility] HCG,Urineon 10-15-2024 Beta HCG ( test) Ql (U) Negative Normal [facility] Comment on above: Order Comment: Name Collection Type:: Clean-Voided Midstream Result Comment: PERF ORMED BY: [place] [address] PATHOLOGIST ANIMAL GENETICIST BERNIE VICK M.D. Performed By: #### U HCG, ADDONUAPLUS, CUU #### [address] Hematocrit Auto (Bld) [Volum e fraction]Ordered By: Jayden Pineda on 10-15-2024 Hematocrit (Bld) [Volume fraction] Hematocrit [Volume Fraction] of Blood by Automated count 34.0-46.4 [facility] Hemoglobin Test strip Ql (U) Ordered By: Jayden Pineda on 10-15-2024 Hemoglobin Ql (U) Hemoglobin [Presence ] in Urine by Test strip Negative [facility] Hemoglobin [Mass/volume] in BloodOrdered By: Jayden Pineda on 10-15-2024 Hemoglobin (Bld) [Mass/Vol] Hemoglobin [Mass/volume] in Blood 11.8-15.4 [facility] Hepatic Panelon 10-15-2024 Albumin [Mass/Vol] 4.1 g/dL Normal 3.5-5.7 [facility] Comment on above: Performed By: #### H EPATIC, LIPASE, BMP, CBC #### [address] Albumin/Globulin [Mass ratio] 1.1 {ratio} Normal [facility] Comment on above: Performed By: #### H EPATIC, LIPASE, BMP, CBC #### [place] [address] [place] ALP [Catalytic activity/Vol] 110 U/L High 34-104 [facility] Comment on above: Performed By: #### H EPATIC, LIPASE, BMP, CBC #### [address] ALT [Catalytic activity/Vol] 67 U/L High 7-52 [facility] Comment on above: Performed By: #### H EPATIC, LIPASE, BMP, CBC #### [address] AST [Catalytic activity/Vol] 106 U/L High 13-39 [facility] Comment on above: Performed By: #### H EPATIC, LIPASE, BMP, CBC #### [address] Bilirubin [Mass/Vol] 0.6 mg/dL Normal 0.3-1.0 [facility] Comment on above: Performed By: #### H EPATIC, LIPASE, BMP, CBC #### [address] Bilirubin,Indirect 0.5 mg/dL Normal [facility] Comment on above: Performed By: #### H EPATIC, LIPASE, BMP, CBC #### [address] Bilirubin.indirect [Mass/Vol] 0.10 mg/dL Normal 0.03-0.18 [facility] Comment on above: Performed By: #### H EPATIC, LIPASE, BMP, CBC #### [address] Globulin (S) [Mass/Vol] 3.7 g/dL Normal T he [facility] Comment on above: Performed By: #### H EPATIC, LIPASE, BMP, CBC #### [address] Protein [Mass/Vol] 7.8 g/dL Normal 6.4-8.9 [facility] Comment on above: Performed By: #### H EPATIC, LIPASE, BMP, CBC #### [address] Hyaline casts [#/area] in Ur ine sediment by Automated countOrdered By: Jayden Pineda on 10-15-2024 Hyaline casts Auto (Urine sed) [#/Area] Hyaline casts [#/area] in Urine sediment by Automated count 0-8 [facility] Ketones Test strip Ql (U)Ord ered By: Jayden Pineda on 10-15-2024 Ketones Ql (U) Ketones [Presence] i n Urine by Test strip High Negative [facility] Leukocyte esterase [Presence ] in Urine by Test stripOrdered By: Jayden Pineda on 10-15-2024 Leukocyte esterase Test strip Ql (U) Leukocyte esterase [Presence] in Urine by Test strip High Negative [facility] Leukocytes [#/area] in Urine sediment by Automated countOrdered By: Jayden Pineda on 10-15-2024 WBC Auto (Urine sed) [#/Area] Leukocytes [#/area] in Urine sediment by Automated count High 0-4 [facility] Leukocytes [#/volume] correc jeff for nucleated erythrocytes in Blood by Automated counOrdered By: Jayden Pineda on 10-15-2024 WBC corrected for nucl RBC Auto (Bld) [#/Vol] Leukocytes [#/volume] corrected for nucleated erythrocytes in Blood by Automated coun 3.8-11.6 [facility] Lipaseon 10-15-2024 Lipase [Catalytic activity/Vol] 10.0 U/L Low 11.0-82.0 [facility] Comment on above: Result Comment: PERF ORMED BY: [place] [address] PATHOLOGIST ANIMAL GENETICIST BERNIE VICK M.D. Performed By: #### U COLLEEN NULL CUU #### [address] Lipase [Enzymatic activity/v olume] in Serum or PlasmaOrdered By: Jayden Pineda on 10-15-2024 Lipase [Catalytic activity/Vol] Lipase [Enzymatic activity/volume] in Serum or Plasma Low 11.0-82.0 [facility] Lymphocytes Auto (Bld) [#/Vo l]Ordered By: Jayden Pineda on 10-15-2024 Lymphocytes (Bld) [#/Vol] Lymphocytes [#/volume] in Blood by Automated count 1.00-4.8 [facility] Lymphocytes/100 WBC Auto (Bl d)Ordered By: Jayden Pineda on 10-15-2024 Lymphocytes/100 WBC (Bld) Lymphocytes/100 leukocytes in Blood by Automated count . [facility] MCH Auto (RBC) [Entitic mass ]Ordered By: Jayden Pineda on 10-15-2024 MCH (RBC) [Entitic mass] MCH [Entitic mass] by Automated count 24.7-34.3 [facility] MCHC Auto (RBC) [Mass/Vol]Or dered By: Jayden Pineda on 10-15-2024 MCHC (RBC) [Mass/Vol] MCHC [Mass/volume] by Automated count 32.0-35.0 [facility] MCV Auto (RBC) [Entitic vol] Ordered By: Jayden Pineda on 10-15-2024 MCV (RBC) [Entitic vol] MCV [Entitic vol ume] by Automated count Low 80-100 [facility] Monocyte distribution width [Entitic volume] in Blood by AutomatedOrdered By: Jayden Pineda on 10-15-2024 Monocyte distribution width Auto (Bld) [Entitic vol] Monocyte distribution width [Entitic volume] in Blood by Automated High 0.00-20.00 [facility] Comment on above: For adults in ED, MD W > 20.0 may be associated with a higher risk of sepsis during the first 12 hrs of hospital admission Monocytes Auto (Bld) [#/Vol] Ordered By: Jayden Pineda on 10-15-2024 Monocytes (Bld) [#/Vol] Automated blood monocyte count 0.0-0.8 [facility] Monocytes/100 WBC Auto (Bld) Ordered By: Jayden Pineda on 10-15-2024 Monocytes/100 WBC (Bld) Automated monocyte % . [facility] Mucus [Presence] in Urine by AutomatedOrdered By: Jayden Pineda on 10-15-2024 Mucus Auto Ql (U) Mucus [Presence] in Urine by Automated Abnormal [facility] Neutrophils Auto (Bld) [#/Vo l]Ordered By: Jayden Pineda on 10-15-2024 Neutrophils (Bld) [#/Vol] Neutrophils [#/volume] in Blood by Automated count 1.8-7.7 [facility] Neutrophils/100 WBC Auto (Bl d)Ordered By: Jayden Pineda on 10-15-2024 Neutrophils/100 WBC (Bld) Automated neutrophil % . [facility] Nitrite Test strip Ql (U)Ord ered By: Jayden Pineda on 03-27-2025 Nitrite Ql (U) Nitrite [Presence] i n Urine by Test strip Negative [facility] No Panel InformationOrdered By: Jayden Pineda on 10-15-2024 Estimated GFR (CKD-EPI) > 60.0 mL/Min [facility] Creatinine Clearance (Chem 112.84 [facility] Nucleated erythrocytes [Pres ence] in Blood by Automated countOrdered By: Jayden Pineda on 10-15-2024 Nucleated RBC Auto Ql (Bld) Nucleated erythrocytes [Presence] in Blood by Automated count 0-0.5 [facility] Platelet mean volume Auto (B ld) [Entitic vol]Ordered By: Jayden Pineda on 10-15-2024 Platelet mean volume (Bld) [Entitic vol] Platelet mean volume [Entitic volume] in Blood by Automated count 6.3-10.7 [facility] Platelets Auto (Bld) [#/Vol] Ordered By: Jayedn Pineda on 10-15-2024 Platelets (Bld) [#/Vol] Platelets [#/vol ume] in Blood by Automated count 150-450 [facility] Potassium [Moles/volume] in Serum or PlasmaOrdered By: Jayden Pineda on 10-15-2024 Potassium [Moles/Vol] Potassium [Moles/volume] in Serum or Plasma 3.5-5.1 [facility] Protein Test strip (U) [Mass /Vol]Ordered By: Jayden Pineda on 10-15-2024 Protein (U) [Mass/Vol] Protein [Mass/vol ume] in Urine by Test strip High Negative [facility] Protein [Mass/volume] in Ser um or PlasmaOrdered By: Jayden Pineda on 10-15-2024 Protein [Mass/Vol] Protein [Mass/volume ] in Serum or Plasma 6.4-8.9 [facility] RBC Auto (Bld) [#/Vol]Ordere d By: Jayden Pineda on 10-15-2024 RBC (Bld) [#/Vol] Erythrocytes [#/volume] in Blood by Automated count 3.60-5.00 [facility] Serum or plasma albumin/glob ulin mass ratioOrdered By: Jayden Pineda on 10-15-2024 Albumin/Globulin [Mass ratio] Serum or plasma albumin/globulin mass ratio [facility] Serum or plasma anion gap de terminationOrdered By: Jayden Pineda on 10-15-2024 Anion gap [Moles/Vol] Serum or plasma an ion gap determination 6.0-15.0 [facility] Serum or plasma non-glucuron idated bilirubin measurement (mass/volume)Ordered By: Jayden Pineda on 10-15-2024 Bilirubin.indirect [Mass/Vol] Serum or plasma non-glucuronidated bilirubin measurement (mass/volume) [facility] Sodium [Moles/volume] in Ser um or PlasmaOrdered By: Jayden Pineda on 10-15-2024 Sodium [Moles/Vol] Sodium [Moles/volume ] in Serum or Plasma Low 136-145 [facility] Specific gravity Test strip (U) [Rel density]Ordered By: Jayden Pineda on 10-15-2024 Specific gravity (U) [Rel density] Specific gravity of Urine by Test strip 1.001-1.030 [facility] Urea nitrogen [Mass/volume] in Serum or PlasmaOrdered By: Jayden Pineda on 10-15-2024 Urea nitrogen [Mass/Vol] Urea nitrogen [Mass/volume] in Serum or Plasma 7-25 [facility] Urine Cultureon 10-15-2024 Bacteria identified Cx Nom (U) 75,000 colonies/ml mixed bacterial skin contaminants 1 Day PERFORMED BY: [place] [address] PATHOLOGIST ANIMAL GENETICIST BERNIE VICK M.D. Normal [facility] Comment on above: Performed By: #### U HCG, ADDONUAPLUS, CUU #### [facility] [address] [place] [address] Urobilinogen Test strip (U) [Mass/Vol]Ordered By: Jayden Pineda on 10-15-2024 Urobilinogen (U) [Mass/Vol] Urobilinogen [Mass/volume] in Urine by Test strip High Normal [facility] WBC Auto (Bld) [#/Vol]Ordere d By: Jayden Pineda on 10-15-2024 WBC (Bld) [#/Vol] Leukocytes [#/volume ] in Blood by Automated count 3.8-11.6 [facility] pH Test strip (U)Ordered By: Jayden Pineda on 10-15-2024 pH (U) pH of Urine by Test strip 5.0-9.0 [facility] Basophils Auto (Bld) [#/Vol] on 10-14-2024 Basophils (Bld) [#/Vol] Automated basoph il count 0.0-0.1 [facility] Basophils/100 WBC Auto (Bld) on 10-14-2024 Basophils/100 WBC (Bld) Automated basophil % 0. 2-2.0 [facility] Eosinophils/100 WBC Auto (Bl d)on 10-14-2024 Eosinophils/100 WBC (Bld) Automated eosinophil % 0.9-7.0 [facility] Erythrocyte distribution wid th Auto (RBC) [Ratio]on 10-14-2024 Erythrocyte distribution width (RBC) [Ratio] Erythrocyte distribution width [Ratio] by Automated count 11.0-15.0 [facility] Estimated glomerular filtrat ion rate (GFR) non- Americanon 10-14-2024 GFR/1.73 sq M.predicted among non-blacks MDRD (S/P/Bld) [Vol rate/Area] Estimated glomerular filtration rate (GFR) non- >=60 mL/min/1.73 m 2 [facility] Glucose mean value [Mass/vol ume] in Blood Estimated from glycated hemoglobinon 10-14-2024 Average glucose Estimated from glycated hemoglobin (Bld) [Mass/Vol] Glucose mean value [Mass/volume] in Blood Estimated from glycated hemoglobin [facility] Hematocrit Auto (Bld) [Volum e fraction]on 10-14-2024 Hematocrit (Bld) [Volume fraction] Hematocrit [Volume Fraction] of Blood by Automated count 36.0-48.0 [facility] Hemoglobin A1c percentageon 10-14-2024 HbA1c (Bld) [Mass fraction] Hemoglobin A1c percentage High 4.5-6.2 [facility] Comment on above: ADA RECOMMENDED LIMI T 4.0 - 6.0ADA THERAPEUTIC TARGET < 7.0ACTION SUGGESTED> 7.0 Hemoglobin [Mass/volume] in Bloodon 10-14-2024 Hemoglobin (Bld) [Mass/Vol] Hemoglobin [Mass/volume] in Blood 12.0-16.0 [facility] Laboratory - Chemistry and C hemistry - challengeon 10-14-2024 Calcium [Mass/Vol] 9.0 mg/dL 8.5-10.1 [facility] Chloride [Moles/Vol] 100 mmol/L 98-107 [facility] CO2 [Moles/Vol] 26.1 mmol/L 21.0-32.0 [facility] Creatinine [Mass/Vol] 0.97 mg/dL 0.55-1.02 [facility] GFR/1.73 sq M.predicted MDRD (S/P/Bld) [Vol rate/Area] mL/min/{1.73_m2} >=60 mL/min/1.73 m 2 [facility] Glucose [Mass/Vol] 216 mg/dL High 74-106 [facility] Potassium [Moles/Vol] 4.0 mmol/L 3.5-5.1 [facility] Sodium [Moles/Vol] 135 mmol/L Low 136-145 [facility] TSH Qn 3.381 m[IU]/L 0.358-3.740 [facility] Urea nitrogen [Mass/Vol] 10.0 mg/dL 7.0-18.0 [facility] Urea nitrogen/Creatinine [Mass ratio] 10.3 mg/mg [facility] Laboratory - Hematology and Cell countson 10-14-2024 Immature granulocytes/100 WBC (Bld) 1.4 % High 0.0-0.5 [facility] Leukocytes [#/volume] correc jeff for nucleated erythrocytes in Blood by Automated counon 10-14-2024 WBC corrected for nucl RBC Auto (Bld) [#/Vol] Leukocytes [#/volume] corrected for nucleated erythrocytes in Blood by Automated coun High 4.0-11.0 [facility] Lymphocytes Auto (Bld) [#/Vo l]on 10-14-2024 Lymphocytes (Bld) [#/Vol] Lymphocytes [#/volume] in Blood by Automated count 1.2-3.8 [facility] Lymphocytes/100 WBC Auto (Bl d)on 10-14-2024 Lymphocytes/100 WBC (Bld) Lymphocytes/100 leukocytes in Blood by Automated count 20.5-60.0 [facility] MCH Auto (RBC) [Entitic mass ]on 10-14-2024 MCH (RBC) [Entitic mass] MCH [Entitic mass] by Automated count Low 26.7-34.0 [facility] MCHC Auto (RBC) [Mass/Vol]on 10-14-2024 MCHC (RBC) [Mass/Vol] MCHC [Mass/volume] by Automated count 29.9-35.2 [facility] MCV Auto (RBC) [Entitic vol] on 10-14-2024 MCV (RBC) [Entitic vol] MCV [Entitic vol ume] by Automated count Low 81.0-99.0 [facility] Monocytes Auto (Bld) [#/Vol] on 10-14-2024 Monocytes (Bld) [#/Vol] Automated blood monocyte count 0.3-0.8 [facility] Monocytes/100 WBC Auto (Bld) on 10-14-2024 Monocytes/100 WBC (Bld) Automated monocyte % 1. 7-12.0 [facility] Neutrophils Auto (Bld) [#/Vo l]on 10-14-2024 Neutrophils (Bld) [#/Vol] Neutrophils [#/volume] in Blood by Automated count High 1.4-6.5 [facility] Neutrophils/100 WBC Auto (Bl d)on 10-14-2024 Neutrophils/100 WBC (Bld) Automated neutrophil % 43.0-75.0 [facility] No Panel Informationon 10-14 Eosinophils # (Auto) 0.3 10 3/uL 0.0-0.7 [facility] Immature Granulocyte # (Auto) 0.16 10 3/uL High 0.00-0.03 [facility] Platelet mean volume Auto (B ld) [Entitic vol]on 10-14-2024 Platelet mean volume (Bld) [Entitic vol] Platelet mean volume [Entitic volume] in Blood by Automated count Low 9.5-13.5 [facility] Platelets Auto (Bld) [#/Vol] on 10-14-2024 Platelets (Bld) [#/Vol] Platelets [#/vol ume] in Blood by Automated count 150-450 [facility] RBC Auto (Bld) [#/Vol]on RBC (Bld) [#/Vol] Erythrocytes [#/volume] in Blood by Automated count 4.20-5.40 [facility] Serum or plasma anion gap de terminationon 10-14-2024 Anion gap [Moles/Vol] Serum or plasma an ion gap determination [facility] CNOVon 08-07-2024 CNOV [facility] MAMADOU LOWERY ([id number]) 1980 F Date Time Provider Department 08/07/24 9:40 AM SAMANTHA PITTS JR [facility] During your visit today, we recorded the following information about you: Pulse Blood pressure Weight Height 92/minute 125/83 113.4 kg 1.651 m Samantha Pitts Jr., DO 08/07/2024 10:24 AM Signed Patient presents with: Follow Up HPI: Mamadou Lowery, 43 year old female, with personal history of colon polyps and GERD. In 2015 she underwent a colonoscopy revealing a large villous adenoma. Followup colonoscopy in 2016 was unremarkable. EGD in 2015 showed esophagitis. Repeat EGD and colonoscopy in February revealed GERD, gastric polyps, small hiatal hernia, and unremarkable colonoscopy. She remains on omeprazole 40 mg twice daily and GERD is stable. IBS-D stable with dietary control. Previously on dicyclomine which did provide some benefit. History of cholecystectomy but limited benefit with colestipol. Negative family history. Past GI workup 03/10/24 Upper GI endoscopy/colonoscopy were done for Heartburn, Esophageal reflux, High risk colon cancer surveillance: Personal history of colonic polyps per Samantha Pitts Jr, DO - Normal esophagus. - Z-line variable, 36 cm from the incisors. Biopsied. - Small hiatal hernia. - Multiple gastric polyps. Resected and retrieved. - Normal examined duodenum The digital rectal exam was normal. The terminal ileum appeared normal. A few small-mouthed diverticula were found in the sigmoid colon. No additional abnormalities were found on retroflexion. Path as follows: A. Gastric polyp, biopsy: - Fundic gland polyp. - Negative for dysplasia. B. Distal esophagus, biopsy: - Fragments of unremarkable squamous mucosa and mildly inflamed cardiofundic-type mucosa. - No evidence of intestinal metaplasia or dysplasia. - No evidence of eosinophilia. 02/18/24 Last office visit notes as follows: Mamadou Lowery, 43 year old female, presents in the office today for personal history of colon polyps and GERD. In 2015 she underwent a colonoscopy revealing a large villous adenoma. Followup colonoscopy in 2017 was unremarkable and due for colonoscopy now. Last EGD was 2015 showing esophagitis. She remains on omeprazole 40 mg daily but having breakthrough. She also has issues with alternating constipation and diarrhea since cholecystectomy. Limited benefit with colestipol previously. Negative family history. 09/11/23 -noted in care everywhere Pt reports she has to get colonoscopy every 5 years d.t hx of villous adenoma polyp. Sees Dr. Pitts/GI next colonoscopy is due this year. PAST MEDICAL HISTORY Diagnosis Date Diabetes (HCC) Fibromyalgia IBS (irritable bowel syndrome) Palpitations Spondylosis PAST SURGICAL HISTORY Procedure Laterality Date ABDOMINAL SURGERY HX CHOLECYSTECTOMY 07/22/2005 HYSTERECTOMY HX Current Outpatient Medications on File Prior to Visit Medication Sig omeprazole (PRILOSEC) 40 mg capsule take 1 capsule by mouth twice a day sucralfate (CARAFATE) 1 gram tablet Take 1 tablet by mouth three times a day. DULoxetine (CYMBALTA) 60 mg capsule TAKE 1 CAPSULE BY MOUTH EVERY DAY Oral for 90 Days metFORMIN ER (GLUCOPHAGE XR) 500 mg 24 hr tablet Take 2 tablets by mouth every afternoon. glipiZIDE (GLUCOTROL XL) 5 mg 24 hr tablet Take 5 mg by mouth once daily. No current facility-administered medications on file prior to visit. Allergies: No Known Allergies Review of Systems Constitutional: Negative for chills, fatigue and fever. HENT: Negative for hearing loss, nosebleeds, tinnitus and trouble swallowing. Eyes: Negative for visual disturbance. Respiratory: Negative for cough, shortness of breath and wheezing. Cardiovascular: Negative for chest pain and palpitations. Gastrointestinal: Positive for abdominal pain and diarrhea. Negative for abdominal distention, blood in stool, constipation, nausea and vomiting. Endocrine: Negative for polyphagia. Genitourinary: Negative for dysuria, frequency and hematuria. Musculoskeletal: Negative for arthralgias and joint swelling. Skin: Negative for pallor and rash. Neurological: Negative for dizziness, tremors, seizures, syncope and headaches. Hematological: Does not bruise/bleed easily. BP 125/83 Pulse 92 Ht 165.1 cm (5' 5 ) Wt 113.4 kg (250 lb) SpO2 100% BMI 41.60 kg/m? Physical Exam Constitutional: General: She is not in acute distress. HENT: Mouth/Throat: Pharynx: Oropharynx is clear. Eyes: Conjunctiva/sclera: Conjunctivae normal. Cardiovascular: Rate and Rhythm: Normal rate and regular rhythm. Pulmonary: Effort: Pulmonary effort is normal. Breath sounds: Normal breath sounds. Abdominal: General: Bowel sounds are normal. There is no distension. Palpations: Abdomen is soft. Tenderness: There is no abdomin (more content not included)... Normal [facility] BI MAMMOGRAM SCREENING TOMOS YNTHESIS BILATERALon 05-18-2024 BI MAMMOGRAM SCREENING TOMOSYNTHESIS BILATERAL This is a summary report. The complete report is available in the patient's medical record. If you cannot access the medical record, please contact the sending organization for a detailed fax or copy. Examination: BI MAMMOGRAM SCREENING TOMOSYNTHESIS BILATERAL Clinical History: screen for breast cancer Technique: Screening digital mammography study of both breasts was performed with 2-D and 3-D tomosynthesis imaging. Study was compared to the prior exam dated 05/08/2023. Findings: There is no evidence of interval dominant spiculated mass, grouped microcalcifications, or skin thickening which would be suggestive of malignancy. IMPRESSION: Impression: No specific evidence of malignancy seen in either breast. Breast Density: The breasts are almost entirely fatty BiRads: BIRADS 2 - Benign Recommended follow-up: Routine Screening Mamm ELECTRONICALLY SIGNED BY: Emmanuel Gamboa M.D. Normal Not Available Jm 03-17-2024 [facility] MAMADOU LOWERY ([id number]) 1980 F Date Time Provider Department 03/17/24 SAMANTHA PITTS JR During your visit today, we recorded the following information about you: Indira Drake MA 03/17/2024 12:51 PM Signed ----- Message from Liv Romeo sent at 03/13/2024 1:49 PM EDT ----- ----- Message ----- From: Samantha Pitts Jr., DO Sent: 03/13/2024 7:57 AM EDT To: Liv Castelan RN Esophagitis noted, maintain omeprazole, start Carafate for 4 wks. Colonoscopy recommended in 5 yrs. DO Brian Lincoln Jr., Renee, MA 03/17/2024 12:51 PM Signed Recall entered Allergies As of Date: 03/17/2024 (No Known Allergies) Date Reviewed: 03/10/2024 Reviewed by: Dakotah Del Castillo, RN - Fully Assessed Prescriptions as of 03/17/2024 - sucralfate (CARAFATE) 1 gram tablet Take 1 tablet by mouth three times a day. - DULoxetine (CYMBALTA) 60 mg capsule TAKE 1 CAPSULE BY MOUTH EVERY DAY Oral for 90 Days - metFORMIN ER (GLUCOPHAGE XR) 500 mg 24 hr tablet Take 2 tablets by mouth every afternoon. - glipiZIDE (GLUCOTROL XL) 5 mg 24 hr tablet Take 5 mg by mouth once daily. - omeprazole (PRILOSEC) 40 mg capsule Take 1 capsule by mouth two times a day. - dicyclomine (BENTYL) 20 mg tablet Take 1 tablet by mouth two times a day. Facility-Administered Medications as of 03/17/2024 - lidocaine (PF) 10 mg/mL (1 %) 1-2 mg injection (XYLOCAINE) - NaCl 0.9% iv infusion Problem List As Of Date 03/17/2024 Noted Resolved Palpitations [R00.2] 01/04/2016 Precordial pain [R07.2] 01/04/2016 Encounter Status:Closed by INDIRA DRAKE on 03/17/24 [facility] 03-16-2024 [facility] Telephone (AMADO) SKYLERMAMADOU Ashley ([id number]) 1980 F Date Time Provider Department 03/16/24 SAMANTHA PITTS JR During your visit today, we recorded the following information about you: Indira Drake MA 03/16/2024 9:10 AM Signed ----- Message from Liv Romeo sent at 03/13/2024 1:49 PM EDT ----- ----- Message ----- From: Samantha Pitts Jr., DO Sent: 03/13/2024 7:57 AM EDT To: Liv Castelan RN Esophagitis noted, maintain omeprazole, start Carafate for 4 wks. Colonoscopy recommended in 5 yrs. DO Brian Lincoln Jr., Renee, MA 03/16/2024 9:10 AM Signed Recall entered Allergies As of Date: 03/16/2024 (No Known Allergies) Date Reviewed: 03/10/2024 Reviewed by: Dakotah Del Castillo, RN - Fully Assessed Prescriptions as of 03/16/2024 - sucralfate (CARAFATE) 1 gram tablet Take 1 tablet by mouth three times a day. - DULoxetine (CYMBALTA) 60 mg capsule TAKE 1 CAPSULE BY MOUTH EVERY DAY Oral for 90 Days - metFORMIN ER (GLUCOPHAGE XR) 500 mg 24 hr tablet Take 2 tablets by mouth every afternoon. - glipiZIDE (GLUCOTROL XL) 5 mg 24 hr tablet Take 5 mg by mouth once daily. - omeprazole (PRILOSEC) 40 mg capsule Take 1 capsule by mouth two times a day. - dicyclomine (BENTYL) 20 mg tablet Take 1 tablet by mouth two times a day. Facility-Administered Medications as of 03/16/2024 - lidocaine (PF) 10 mg/mL (1 %) 1-2 mg injection (XYLOCAINE) - NaCl 0.9% iv infusion Problem List As Of Date 03/16/2024 Noted Resolved Palpitations [R00.2] 01/04/2016 Precordial pain [R07.2] 01/04/2016 Encounter Status:Closed by INDIRA DRAKE on 03/16/24 Normal [facility] XR lumbar spine AP/LAT/FLX/E XTon 03-16-2024 XR lumbar spine AP/LAT/FLX/EXT [facility] [place] [address] [place] [address] XRay Report Signed Patient: Mamadou Lowery MR#: [id number] : 1980 Acct:[id number] Age/Sex: 43 / F ADM Date: 03/16/24 Loc: XD Room: Type: [facility] Attending Dr: Jessica Ruiz MD Copies to: Jessica Ruiz MD Ordering Provider: Jessica Ruiz MD Date of Service: 03/16/24 XR/XR lumbar spine AP/LAT/FLX/EXT: 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 There is subtle rotatory dextroscoliotic curvature. L5 limbus vertebra is again visualized. No developing compression fractures are seen. No displacement or instability is noted. There is slight disc space narrowing at L4-5. Tiny endplate spurs are seen, greatest in the thoracolumbar region. There is lower lumbar facet hypertrophy. The SI joints are intact and show minimal sclerosis. No paraspinal soft tissue abnormalities are present. 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 MILD DEGENERATIVE CHANGE. Impression dictated by: Pat Lee M.D.03/16/2024 7:40 PM Dictation Location: [facility] Transcribed By: [facility] 03/16/241939 Dictated By: Pat Lee MD 03/16/241936 Signed By: 03/16/241939 [facility] SURGICAL PATHOLOGYOrdered By : Truman Arroyo on 03-12-2024 Case Report Surgical Pathology Report Case: [id number] Authorizing Provider: Samantha Pitts Jr., DO Collected: 03/10/2024 08:58 AM Ordering Location: [facility] Received: 03/10/2024 10:36 PM [facility] Pathologist: Truman Arroyo MD Specimens: A) - Stomach, Polyp, Biopsy B) - Esophagus, Distal, Biopsy, hx of gerd [facility] Work Phone: FINAL DIAGNOSIS [id number] Ml udcyLjSPBveXRbL3Xsyiyq AEoiAA8lDL8vzQbrmSSeqG OiIQQiUcRmh3fov661vJPm s3udLNZOjxkmsSx4lFntK8 6eb6T8KljtR13dfLJwZEB6 DDZvMQRzkMOvLNHvMOD3FT PbzOBgO1fbQNApDE2snsus FHyvPMauJCYlaIO1GUDpvE NaP8JqWFOaPBdyYNCreqw6 ZqSqMq0yeKZkhXrsIHijXO AcRMQeQGboKUBtTqXkWN6f B7EukOErUtIhn9i6kXdcXw zjbTN5LytxMSUcPRCyGOP0 itZvXsXukXFfXJNbk4g7yZ 2krXRhTG3jHCFTYTiznJp3 DBWfv1AqBFydnLznl6yiPd nrHBFnlENwANStOCBgh1Kh oALqy40xwHKvpNWaMXAva8 DucWjijRZuTQ4vZJCVroVs nTWvwSVan2UjqF1vAM4vul taNvueWWIukOQtx3JgPP23 B28nTXIravQjuUguXDd5DG nbDerfmJGxFQOkbtLge4N6 coIaNz62lUCoBN48C85wPX 5gcYHtEL7pZJLCctLohztu DL7jPMIgHiPywpMnd4Wazs XwWJ9pgGDbmXNcvCKfg5Ag VEnmpOnjd7jnQdQskJGvPG 3dYVZJkkUvqhiiTW9kPLOh CzGav6Pvhe7uuXdimZDgAS FudnrvXKNzSfFYD44oFmL7 LzIyLzIwMjQgXHBhcn0= [facility] Work Phone: Gross Description n6wnmPSrIGBjyWXAVJD0 MD PiLI2hxDbswYg0uGcbJSXv plU2rJRwENkaf8uoJBJ3c7 gxfaHYVjvwXDKjKV1xEUrt VZPrWJ4sObZpXOUkHvHtEQ BhcGVydzEyMjQwXHBhcGVy qJS3OTIjXR4kyiqqNYpaGY beMYBtiuO0VIRmwUWwB5Hm QPOxZM0hxgjcNVZ5VFJLWk dbWc8anQSwyHbnGmPwEaBz ODRoJNWpNTKke9ptwnQAez yaaNr9lF2LTTEjH7GpJB8J w9kcBXUroTHoGUI1ARkjg4 ajIJlmLMH0LVLaMAWrROLl LU9ALqIrLHioBQi2QmQ1Vc C6SFu8ZOLLPHWqNIJ2WgF6 KKFyOKp1YQxiCTlqgNEbSP HpVMHfGDRuCPcxonM5i7tp AKPplMDzOUD3UMubw3zvHP nqPGF2WIAtKxRuHSJqBE2R YvGwGPqsLLe7XyF1KdO5AV h4UIVNQvDoPrItZXR4FYQ4 VhMxFAh8BYl5FOwYSeQtBy N7FCVlWUT5VQK4SPU5DOQp XHQgMiBcXHNzIDMgXFxmbC DvKW1blWxaCLBkLH1TTIVl CUscJAOcUnIdCF8vJ2LbvI SvvXaoNX6dkMPqAGWhl3Fg eVxsdHJjaFxwYXIgDQpccG FyZCANClxwbGFpblxsdHJj kGfnjgYpCYVnjPMXCSW4AH 0bZOXAZmsiwHHpCDQab9Cm MFxlcGljWHNhMzAgDQpcZn MyMCBSZWNlaXZlZCBpbiBm m4KqWFyoepRvpvNpxShbKA GsDYMmqpZdOoT0WJ3rTHYb DvAkaDzto0AbPQGdU1ErO0 K9hD3kVKJyJSXtDSZ2SCLy GrZ3KUHcFGSecJ0pPW80LI zysOUvwEKqvMQ0YZPueW4w q72rWUIcz8RfpYGwUv5SAU HhzVGQSGC8XJ6eSCheSNCm F3JlW4AfieE7OMDkvfPUTr oaQbtmkQqdy9GogSCtSRWp IFxcaWQgNTEwMDIgXFxkYi FUCdTuUgC9YVJ1VqY4BHSb KCp6PVosB7SRHIAwVXU7QW niZTE1BtY4KZa0UROCZd0k MGS5CcSpHmg2XXwjPMA6XV rnORh9GIYgMZckwtOcHAqv TlukGPsxW43ogOEjSVraVa EyVGheeApeXHFkGYB7DF9V KKPmVcHaLn8aXDVroKtrF2 WaBXNLhDW1SYpyEGLpk3Wm eVxwYXIgDQpccGFyZCANCl xwbGFpblxsdHJjaFxmczIy DRZggRRZITD0GW3zYYGGGz ittXNiIWMoc6IsCEalfFxg WHNiMzAgDQpcZnMyMCBSZW OcwTTbYWYmpxKis8QuVHba biBhcmUgdHdvIHBpZWNlcy WiTeC5ST3jgT5vePVzFPwo tWEeFMIpv5K8DBWaa1F6EM MmS4ebXBjtuOpjUaP0tvNy LjYgeCAwLjIgeCAwLjEgY2 1nGPXxhMMdhJaus0LncKu5 xXUpOCkjAM9hKFCyEHTiFQ V5BC0wVMEtjgHLJjbfUPKa RJt3afMljlIUBedfMOIwFP oWJtJNjWh3e5LgFyKtLERp MjQgMjowNCBBTVxwYXIgDQ xhgOUbZK4ZWHLvZpWvYWPa W6bwZCEmYP0FQ1Mnw4InYY pjkJuiTGZbq77mvAVhPf1b oUKqIFR1USPwDPGuwPSdSQ KHdLpkhRZrSLy3UGDfRKIz iVuaSES8BT2iYBFrCCWxnD BeNLrjW3izLIAeVQZGBcnl qTblVnVbpQZmQaR5BXSbzW FcFWA7QZ9apVncUAViW4Tp Z4KehsU8YOYktlVJDzfdTA SzXJ9ZFCArGyCfWRw3 [facility] Work Phone: Performing Lab e9pbyVOlZFOkmOHiFtXs AZ ZsPTBvz9joCHKfuEZeUnIa MzNcZnRuYmpcdWMxXGRlZm Iar5ume965kQEiy7waKMBk KlU8vBZyNUKloNQvS211NQ DrHZzya3had0FlZTOudXGg k4M3MPPUetiqwKt2hOhbL7 9jl8B3IcbyC4foDCBvZZRj U4WlCQ8kFWFiXre3TSS8MN K7XLBtUIRjG0RvGJ9xWZCe pJKxVGs6x2pewLicXLHlRA S5t9dsRBvsfyByTF3oxm7x gYf9i5iopaJpXZFwDYWdcO UYMFRgN6ZiaSdiWc8uoWs8 rNlbPuprYOZ2Cti3EO6vqc 41ddn7cEohLHXbtyrvKbI4 AItxJXObkbagBEj6JJssSP OoiGF7HGUeiVDwZ3VcPVQd XR8jwzx4DVA7BEltMJMsUr O6XWQptNEsSVKzvDerMHox v677PWO4YeMsGQ8mH3Tbz7 B2gQ1iiNMhDOXtuIXnZiVn ECFyqu1kuCIuMSfys2DlEX J9xuE7zUFfwIUtKEKqTK01 Xatcj6FkRafcu9PvC73nwH D5VNzuw0qrGY3mKtB0vcVk QKnqx7ymeI2qMpC9DCrvCL 8kQC5zQWQfaX0skzsiPFHd YnJkcmhlYWRccGdicmRyZm 1rtZmdSFF5NAtwK6goqT3n AaY6AZjfB7xauJ0qYNr7RE xuiDN9DLGjoS2nNI3bqrhw u9zsHLqxYBquYKOxjvB3by O7ZLUsoTKhG1TomG8uQUPh RI4kmnpxs5xtVBJ3PFkdQO IuNST7AvHzBUOvw5Nwpzm8 RuKkk0KcfRQaCOrpT15ms4 87ZFMscvDkA8xveCJxviql cETpyesqCRmahaJ9TQHsRU BsYWluXGYxXGZzMjJcbGFu ZzEwMzNcaGljaFxmMVxkYm FzRWIjXErwW7mlAxAyNuPa XcHLoFXkpl7vhCqyXRsweS JnsKAywNL4aC2jDZVjodSy jj9qJWEjbWXZuIW1CMdovg IdY4ztxjvsBJJdHUUpd78c FYeuYeI8KBGeU1BbXHGcTu 9lSEakYwOcZ6v7i81eLGXI QRJ4RDCdCpRaSHUTWCtCGo PfFnXiJSu4JAn4MCIcqxhs VFTsjSmwcS9uHqRnLiHuQo syLO7cNPRqK4majAPfABRv AOIkW5lyEhPdaG4mbGvbVH xjZjJcZnMyMlxsdHJjaCBM OLYybbO6x1P4CYdqlZWbds xmMVxmczIyXGxhbmcxMDMz JLokQ8jdPlAeWLCubOocGH ldy1ImBMGkPOGdWwEuBArl GCT5b1H5TD8cktbnTGpdnE IouY1xNP4eJJ9ixSSkaB== [facility] Work Phone: [facility] Work Phone: ANES POSTPROC EVALon 024 ANES POSTPROC EVAL HNO ID: [id number] Author: KARTHIKEYAN SILVA APRN.NAIL STICKER Service: ? Author Type: Nurse Engineering Surveyor Type: Anesthesia Postprocedure Evaluation Filed: 03/10/2024 09:28 Note Text: POST ANESTHESIA EVALUATION NOTE : 1980 Procedure Summary Date: 03/10/24 Room / Location: [facility] Anesthesia Start: 853 Anesthesia Stop: 920 Procedures: EGD DIAGNOSTIC COLONOSCOPY DIAGNOSTIC Diagnosis: Gastroesophageal reflux disease, unspecified whether esophagitis present Personal history of colonic polyps (Heartburn) (High risk colon cancer surveillance: Personal history of colonic polyps) Scheduled Providers: Samantha Pitts Jr., DO; Paulette Monroe RN Responsible Provider: Karthikeyan Silva APRN.NAIL STICKER Anesthesia Type: MAC ASA Status: 3 Anesthesia Type: MAC Last Vitals Vitals Value Taken Time BP 139/88 03/10/24 0926 Temp 03/10/24 0926 Pulse 86 03/10/24 0926 Resp 24 03/10/24 0926 SpO2 97 03/10/24 09 Post Anesthesia Patient Status Patient Evaluation: bedside. Anticipated Disposition: phase 2 then home. Neurological Status: aware and responsive. Pulmonary Status: breathing comfortably on room air Airway Control: returned to baseline unsupported. Cardiovascular Status: stable. Pain Management: clinically adequate Postoperative Hydration: acceptable. Intraoperative Events: no significant anesthesia events Post Operative Nausea/Vomiting Status: no significant post operative nausea or vomiting Recommendation: continue current plan of care. Anesthesia Observations No Documentation SIGNATURE: Karthikeyan Silva APRN.NAIL STICKER PATIENT NAME: Mamadou Lowery DATE: March 10, 2024 TIME: 9:26 AM CSN: [id number] Normal [facility] ANES PRE-OPon 03-10-2024 ANES PRE-OP HNO ID: [id number] Author: KARTHIKEYAN SILVA APRN.NAIL STICKER Service: ? Author Type: Nurse Engineering Surveyor Type: Anesthesia Preprocedure Evaluation Filed: 03/10/2024 08:47 Note Text: ANESTHESIOLOGY DAY OF SURGERY NOTE : 1980 Procedure Information Date/Time: 03/10/24 0845 Scheduled providers: Samantha Pitts Jr., DO; Pauletet Monroe RN Procedures: EGD DIAGNOSTIC COLONOSCOPY DIAGNOSTIC Location: [facility] [place] Estimated body mass index is 41.27 kg/m? as calculated from the following: Height as of this encounter: 165.1 cm (5' 5 ). Weight as of this encounter: 112.5 kg (248 lb). Most recent hematocrit and potassium results: No results found for this basename: HCT,HEMATOCRIT,K,POTAS SIUM Relevant Problems No relevant active problems GERD Diabetes, morbid obesity I - PHYSICAL EVALUATION AIRWAY Patient intubated: No. Tracheostomy tube not present Mallampati: III. TM distance: >3 FB. Neck ROM: full ROM without neurological symptoms. Mouth opening: adequate. Short neck: no. Thick neck: no Isabel present: no DENTAL Dental findings: teeth intact. II - ANESTHESIA PLAN ASA Score: 3 Anesthetic Plan: MAC The patient is not a current smoker. NPO Status: adequate Beta Edyta Monitoring Plan Monitoring plan: standard ASA. Post Procedure Analgesic Plan Postoperative analgesic plan: per surgical service. Informed Consent Anesthetic risks, benefits, alternatives, personnel and consent discussed: yes. Patient / Responsible [employer] Party agrees to proceed: yes Patient / Surrogate agrees to blood products: blood products not planned DNR status not reviewed with patient and/or family prior to surgery. Significant changes in the patient condition since the History and Physical, not otherwise documented in primary service progress note: no. Potential Anesthesia issues that may suggest increased risk of complications or contraindication to planned procedure: none. Vitals Value Taken Time BP 155/87 03/10/24 0816 Pulse 85 03/10/24 0816 Resp 16 03/10/24 0816 Temp SpO2 99 % 03/10/24 0816 Outpatient Medications as of 03/10/2024 Medication Sig metFORMIN ER (GLUCOPHAGE XR) 500 mg 24 hr tablet Take 2 tablets by mouth every afternoon. glipiZIDE (GLUCOTROL XL) 5 mg 24 hr tablet Take 5 mg by mouth once daily. omeprazole (PRILOSEC) 40 mg capsule Take 1 capsule by mouth two times a day. dicyclomine (BENTYL) 20 mg tablet Take 1 tablet by mouth two times a day. DULoxetine (CYMBALTA) 60 mg capsule TAKE 1 CAPSULE BY MOUTH EVERY DAY Oral for 90 Days Facility-Administered Medications as of 03/10/2024 Medication Dose Route Frequency lidocaine (PF) 10 mg/mL (1 %) 1-2 mg injection (XYLOCAINE) 0.1-0.2 mL INTRADERMAL PRN NaCl 0.9% iv infusion 30 mL/hr INTRAVENOUS CONTINUOUS I have interviewed and examined the patient. I have reviewed the medical record and/or the pre-anesthesia evaluation, pertinent labs, and test results. This contains updated information obtained within 48 hours of Surgery/Procedure. SIGNATURE: Karthikeyan Silva APRN.[employer] PATIENT NAME: Mamadou Lowery DATE: March 10, 2024 TIME: 8:44 AM CSN: [id number] Normal [facility] Colonoscopyon 03-10-2024 Colonoscopy [facility] Patient Name: Mamadou Lowery Procedure Date: 03/10/2024 9:05 AM Date of : 1980 Admit Type: Outpatient Age: 43 Gender: Female Note Status: Finalized Attending MD: Samantha Pitts Jr, DO, [id number] Procedure: Colonoscopy Indications: High risk colon cancer surveillance: Personal history of colonic polyps Providers: Samantha Pitts Jr, DO Patient Profile: This is a 43 year old female. Refer to note in patient chart for documentation of history and physical. Last Colonoscopy: 5 years ago. Referring Physician: Samantha Pitts Jr, DO (Referring MD) Medicines: Propofol per Anesthesia, Monitored Anesthesia Care Complications: No immediate complications. Requesting Provider: Procedure: Pre-Anesthesia Assessment: - Prior to the procedure, a History and Physical was performed, and patient medications and allergies were reviewed. The patient's tolerance of previous anesthesia was also reviewed. The risks and benefits of the procedure and the sedation options and risks were discussed with the patient. All questions were answered, and informed consent was obtained. Prior Anticoagulants: The patient has taken no anticoagulant or antiplatelet agents. ASA Grade Assessment: III - A patient with severe systemic disease. After reviewing the risks and benefits, the patient was deemed in satisfactory condition to undergo the procedure. After I obtained informed consent, the scope was passed under direct vision. Throughout the procedure, the patient's blood pressure, pulse, and oxygen saturations were monitored continuously. The Colonoscope was introduced through the anus and advanced to the terminal ileum, with identification of the appendiceal orifice and IC valve. The colonoscopy was performed without difficulty. The patient tolerated the procedure well. The quality of the bowel preparation was excellent. The entire colon was well visualized. The terminal ileum, ileocecal valve, appendiceal orifice, and rectum were photographed. Scope Withdrawal Time: 0 hours 8 minutes 13 seconds Total Procedure Duration: 0 hours 12 minutes 52 seconds Findings: The digital rectal exam was normal. The terminal ileum appeared normal. A few small-mouthed diverticula were found in the sigmoid colon. No additional abnormalities were found on retroflexion. Moderate Sedation: MAC anesthesia was administered by the anesthesia team. Impression: - The examined portion of the ileum was normal. - Diverticulosis in the sigmoid colon. - No specimens collected. Recommendation: - Discharge patient to home. - Resume regular diet. - Continue present medications. - Repeat colonoscopy in 5 years for surveillance. - Patient has a contact number available for emergencies. The signs and symptoms of potential delayed complications were discussed with the patient. Return to normal activities tomorrow. Written discharge instructions were provided to the patient. Procedure Code(s): --- Professional --- G0105, Colorectal cancer screening; colonoscopy on individual at high risk Diagnosis Code(s): --- Professional --- Z12.11, Encounter for screening for malignant neoplasm of colon Z86.010, Personal history of colonic polyps K57.30, Diverticulosis of large intestine without perforation or abscess without bleeding CPT copyright 2020 [employer]. All rights reserved. The codes documented in this report are preliminary and upon web development manager review may be revised to meet current compliance requirements. Attending Participation: I personally performed the entire procedure. MD Samantha Santa Jr, DO 03/10/2024 9:25:11 AM This report has been signed electronically by Samantha Pitts Jr, DO Number of Addenda: 0 Note Initiated On: 03/10/2024 9:05 AM Procedure Start: 9:07:08 AM Procedure End: 9:20:00 AM Normal [facility] EGD Study observation Narrat rafa 03-10-2024 [facility] Gastrointestinal Endoscopy Patient Name: Mamadou Lowery Procedure Date: 03/10/2024 8:41 AM Date of : 1980 Admit Type: Outpatient Age: 43 Gender: Female Note Status: Finalized Attending MD: Samantha Pitts Jr, DO, [id number] Procedure: Upper GI endoscopy Indications: Heartburn, Esophageal reflux Providers: Samantha Pitts Jr, DO Patient Profile: This is a 43 year old female. Refer to note in patient chart for documentation of history and physical. Referring Physician: Samantha Pitts Jr, DO (Referring MD) Medicines: Propofol per Anesthesia, Monitored Anesthesia Care Complications: No immediate complications. Requesting Provider: Procedure: Pre-Anesthesia Assessment: - Prior to the procedure, a History and Physical was performed, and patient medications and allergies were reviewed. The patient's tolerance of previous anesthesia was also reviewed. The risks and benefits of the procedure and the sedation options and risks were discussed with the patient. All questions were answered, and informed consent was obtained. Prior Anticoagulants: The patient has taken no anticoagulant or antiplatelet agents. ASA Grade Assessment: III - A patient with severe systemic disease. After reviewing the risks and benefits, the patient was deemed in satisfactory condition to undergo the procedure. After obtaining informed consent, the endoscope was passed under direct vision. Throughout the procedure, the patient's blood pressure, pulse, and oxygen saturations were monitored continuously. The Endoscope was introduced through the mouth, and advanced to the second part of duodenum. The upper GI endoscopy was accomplished without difficulty. The patient tolerated the procedure well. Total Procedure Duration: 0 hours 3 minutes 34 seconds Findings: The examined esophagus was normal. The Z-line was variable and was found 36 cm from the incisors. Biopsies were taken with a cold forceps for histology. A small hiatal hernia was present. Multiple medium hyperplastic polyps with no bleeding and no stigmata of recent bleeding were found in the gastric fundus and in the gastric body. The polyp was removed with a jumbo cold forceps. The examined duodenum was normal. Moderate Sedation: MAC anesthesia was administered by the anesthesia team. Impression: - Normal esophagus. - Z-line variable, 36 cm from the incisors. Biopsied. - Small hiatal hernia. - Multiple gastric polyps. Resected and retrieved. - Normal examined duodenum. Recommendation: - Discharge patient to home. - Resume regular diet. - Continue present medications. (omeprazole) - Await pathology results. - Consider Carafate pending pathology. Procedure Code(s): --- Professional --- 63867, Esophagogastroduodenos copy, flexible, transoral; with biopsy, single or multiple Diagnosis Code(s): --- Professional --- K22.89, Other specified disease of esophagus K44.9, Diaphragmatic hernia without obstruction or gangrene K31.7, Polyp of stomach and duodenum R12, Heartburn K21.9, Gastro-esophageal reflux disease without esophagitis CPT copyright 2020 [employer]. All rights reserved. The codes documented in this report are preliminary and upon web development manager review may be revised to meet current compliance requirements. Attending Participation: I personally performed the entire procedure. MD Samantha Santa Jr, DO 03/10/2024 9:05:35 AM This report has been signed electronically by Samantha Pitts Jr, DO Number of Addenda: 0 Note Initiated On: 03/10/2024 8:41 AM Procedure Start: 8:57:05 AM Procedure End: 9:00:39 AM [facility] Radiology Study observation (narrative) [facility] Flexible sigmoidoscopy study on 03-10-2024 [facility]oscopy Patient Name: Mamadou Lowery Procedure Date: 03/10/2024 9:05 AM Date of : 1980 Admit Type: Outpatient Age: 43 Gender: Female Note Status: Finalized Attending MD: Samantha Pitts Jr, DO, [id number] Procedure: Colonoscopy Indications: High risk colon cancer surveillance: Personal history of colonic polyps Providers: Samantha Pitts Jr, DO Patient Profile: This is a 43 year old female. Refer to note in patient chart for documentation of history and physical. Last Colonoscopy: 5 years ago. Referring Physician: Samantha Pitts Jr, DO (Referring MD) Medicines: Propofol per Anesthesia, Monitored Anesthesia Care Complications: No immediate complications. Requesting Provider: Procedure: Pre-Anesthesia Assessment: - Prior to the procedure, a History and Physical was performed, and patient medications and allergies were reviewed. The patient's tolerance of previous anesthesia was also reviewed. The risks and benefits of the procedure and the sedation options and risks were discussed with the patient. All questions were answered, and informed consent was obtained. Prior Anticoagulants: The patient has taken no anticoagulant or antiplatelet agents. ASA Grade Assessment: III - A patient with severe systemic disease. After reviewing the risks and benefits, the patient was deemed in satisfactory condition to undergo the procedure. After I obtained informed consent, the scope was passed under direct vision. Throughout the procedure, the patient's blood pressure, pulse, and oxygen saturations were monitored continuously. The Colonoscope was introduced through the anus and advanced to the terminal ileum, with identification of the appendiceal orifice and IC valve. The colonoscopy was performed without difficulty. The patient tolerated the procedure well. The quality of the bowel preparation was excellent. The entire colon was well visualized. The terminal ileum, ileocecal valve, appendiceal orifice, and rectum were photographed. Scope Withdrawal Time: 0 hours 8 minutes 13 seconds Total Procedure Duration: 0 hours 12 minutes 52 seconds Findings: The digital rectal exam was normal. The terminal ileum appeared normal. A few small-mouthed diverticula were found in the sigmoid colon. No additional abnormalities were found on retroflexion. Moderate Sedation: MAC anesthesia was administered by the anesthesia team. Impression: - The examined portion of the ileum was normal. - Diverticulosis in the sigmoid colon. - No specimens collected. Recommendation: - Discharge patient to home. - Resume regular diet. - Continue present medications. - Repeat colonoscopy in 5 years for surveillance. - Patient has a contact number available for emergencies. The signs and symptoms of potential delayed complications were discussed with the patient. Return to normal activities tomorrow. Written discharge instructions were provided to the patient. Procedure Code(s): --- Professional --- G0105, Colorectal cancer screening; colonoscopy on individual at high risk Diagnosis Code(s): --- Professional --- Z12.11, Encounter for screening for malignant neoplasm of colon Z86.010, Personal history of colonic polyps K57.30, Diverticulosis of large intestine without perforation or abscess without bleeding CPT copyright 2020 [employer]. All rights reserved. The codes documented in this report are preliminary and upon web development manager review may be revised to meet current compliance requirements. Attending Participation: I personally performed the entire procedure. MD Samantha Santa Jr, DO 03/10/2024 9:25:11 AM This report has been signed electronically by Samantha Pitts Jr (more content not included)... [facility] Radiology Study observation (narrative) [facility] HISTORY PHYSICALon HISTORY PHYSICAL HNO ID: [id number] Author: SAMANTHA PITTS JR, DO Service: Gastroenterology Author Type: Physician Type: H&P Filed: 03/10/2024 08:37 Note Text: HISTORY AND PHYSICAL EXAMINATION SERVICE DATE: 03/10/2024 SERVICE TIME: 8:36 AM Chief Complaint: GERD and history of colon polyps HPI:This is a 43 year old female with personal history of colon polyps and GERD. In 2016 she underwent a colonoscopy revealing a large villous adenoma. Followup colonoscopy in 2017 was unremarkable and due for colonoscopy now. Last EGD was 2016 showing esophagitis. She remains on omeprazole 40 mg daily but having breakthrough. She also has issues with alternating constipation and diarrhea since cholecystectomy. Limited benefit with colestipol previously. Negative family history. PAST MEDICAL HISTORY No date: Diabetes (HCC) No date: Fibromyalgia No date: IBS (irritable bowel syndrome) No date: Palpitations No date: Spondylosis PAST SURGICAL HISTORY No date: ABDOMINAL SURGERY HX 07/22/2005: CHOLECYSTECTOMY No date: HYSTERECTOMY HX FAMILY HISTORY Problem Relation Age of Onset Cancer Mother Diabetes Mother COPD Mother Social History Tobacco Use Smoking status: Never Smokeless tobacco: Never Substance Use Topics Alcohol use: Yes Comment: occasionally Drug use: No (Not in a hospital admission) ALLERGIES No Known Allergies COMPLETE REVIEW OF SYSTEMS: GENERAL: No weight loss, malaise or fevers RESPIRATORY: Negative for cough, hemoptysis, wheezing, COPD, dyspnea or shortness of breath CARDIOVASCULAR: Negative for chest pain, leg swelling, hypertension, CHF or palpitations GI: Positive for heart burn BP 155/87 Pulse 85 Resp 16 Ht 5' 5 (1.65m) Wt 248 lb (112.5kg) SpO2 99% BMI 41.27 kg/(m2). O2 Therapy: Room Air PHYSICAL EXAM: Physical Exam Performed: GENERAL: Alert, no distress, cooperative LUNGS: Lungs clear to auscultation, Good diaphragmatic excursion CARDIAC: Normal S1 and S2; no rubs, murmurs, or gallops ABDOMEN: Abdomen soft, non-tender, BS normal, No masses or organomegaly EXTREMITIES: Extremities normal, no deformities, edema, clubbing or skin discoloration. Good capillary refill., No ulcers (K21.9) Gastroesophageal reflux disease, unspecified whether esophagitis present Plan: EGD DIAGNOSTIC, EGD DIAGNOSTIC (Z86.010) Personal history of colonic polyps Plan: COLONOSCOPY DIAGNOSTIC, COLONOSCOPY DIAGNOSTIC SIGNATURE: Samantha Pitts Jr., DO PATIENT NAME: Mamadou Lowery DATE: March 10, 2024 TIME: 8:36 AM PAGER/CONTACT #: [facility] NURSING PROGon 03-10-2024 NURSING PROG HNO ID: [id number] Author: DAKOTAH DEL CASTILLO RN Service: Nursing Author Type: Registered Nurse Type: Nursing Progress Note Filed: 03/10/2024 09:27 Note Text: POST OP LEARNING RESPONSE INSTRUCTION PROVIDED TO: Patient METHOD OF INSTRUCTION: Individual instruction PATIENT / FAMILY RESPONSE: Information received as demonstrated by interest and questions FOLLOW-UP PLAN: Patient instructed to call with any further issues SUPPLEMENTAL MATERIAL: None REFERRAL (RECOMMENDATION): None Electronically Signed By: Dakotah Del Castillo RN In Department: [facility] [place] Normal [facility] NURSING PROG HNO ID: [id number] Author: ALMA DELIA BOLIVAR RN Service: ? Author Type: Registered Nurse Type: Nursing Progress Note Filed: 03/10/2024 08:00 Note Text: PRE OP LEARNING ASSESSMENT PROCEDURE/SURGERY: GI PROCEDURES: EGD AND Colonoscopy READINESS TO LEARN COGNITIVE ABILITY: Alert and oriented MOTIVATION TO LEARN: Interested FAMILY SUPPORT: Unable to assess - Family not present PATIENT LEARNS BEST BY: Individual Instruction Verbal Instruction FACTORS AFFECTING LEARNING: None PHYSICAL LIMITATIONS AFFECTING LEARNING: None Electronically Signed By: Alma Delia Bolivar RN, RN In Department: [facility] [place] Normal [facility] SURGICAL PATHOLOGYon 024 CASE REPORT Normal [facility] Comment on above: Order Comment: Speci men Type: TISSUE SPECIMENOrdering Facility: [facility] Address: [address] [place] [address] Result Comment: Surg ica Pathology Report Case: [id number] Authorizing Provider: Samantha Pitts Jr., DO Collected: 03/10/2024 08:58 AM Ordering Location: [facility] Received: 03/10/2024 10:36 PM [facility] Pathologist: Truman Arroyo MD Specimens: A) - Stomach, Polyp, Biopsy B) - Esophagus, Distal, Biopsy, hx of gerd Performed By: #### S ####[facility] LABCLIA [id number] [address] LABCLIA [id number] [address] FINAL DIAGNOSIS Normal [facility] Comment on above: Order Comment: Speci men Type: TISSUE SPECIMENOrdering Facility: [facility] Address: [address] [place] [address] Result Comment: A. G astric polyp, biopsy: - Fundic gland polyp. - Negative for dysplasia. B. Distal esophagus, biopsy: - Fragments of unremarkable squamous mucosa and mildly inflamed cardiofundic-type mucosa. - No evidence of intestinal metaplasia or dysplasia. - No evidence of eosinophilia. SAHRA/debora/03/12/2024 Performed By: #### S ####[facility] LABCLIA [id number] [place] [id number] R [facility] LABCLIA [id number] [address] OF [place] FINAL PERFORMING LAB Normal [facility] Comment on above: Order Comment: Speci men Type: TISSUE SPECIMENOrdering Facility: [facility] Address: [address] [place] [address] Result Comment: Diag nostic interpretation performed at [facility], [address] [place] [address] CLIA# [id number] Director Of Coding: Sherwin Zavaleta M.D. Performed By: #### S ####[facility] LABCLIA [id number] [place] [address] [place] [facility] LAB[facility] [id number] [place] [address] [place] GROSS DESCRIPTION Normal [place] Comment on above: Order Comment: Speci men Type: TISSUE SPECIMENOrdering Facility: [facility] Address: [address] [place] [address] Result Comment: A. S tomach, Polyp, Biopsy Received in formalin are two pieces of sosa, soft tissue aggregating to 0.4 x 0.2 x 0.1 cm. Totally submitted in one cassette. B. Esophagus, Distal, Biopsy Received in formalin are two pieces of sosa to sosa-white, soft tissue aggregating to 0.6 x 0.2 x 0.1 cm. Totally submitted in one cassette. DB March 11, 2024 2:04 AM Gross examination performed at [facility], [address] [place] [address] Performed By: #### S ####[facility] LABCLIA [id number] [place] [address] [place] [facility] LABCLIA [id number] [place] [address] [place] Upper GI endoscopy 03-10-2 024 Upper GI endoscopy [facility] Patient Name: Mamadou Lowery Procedure Date: 03/10/2024 8:41 AM Date of : 1980 Admit Type: Outpatient Age: 43 Gender: Female Note Status: Finalized Attending MD: Samantha Pitts Jr , , [id number] Procedure: Upper GI endoscopy Indications: Heartburn, Esophageal reflux Providers: Samantha Pitts Jr, DO Patient Profile: This is a 43 year old female. Refer to note in patient chart for documentation of history and physical. Referring Physician: Samantha Pitts Jr, DO (Referring MD) Medicines: Propofol per Anesthesia, Monitored Anesthesia Care Complications: No immediate complications. Requesting Provider: Procedure: Pre-Anesthesia Assessment: - Prior to the procedure, a History and Physical was performed, and patient medications and allergies were reviewed. The patient's tolerance of previous anesthesia was also reviewed. The risks and benefits of the procedure and the sedation options and risks were discussed with the patient. All questions were answered, and informed consent was obtained. Prior Anticoagulants: The patient has taken no anticoagulant or antiplatelet agents. ASA Grade Assessment: III - A patient with severe systemic disease. After reviewing the risks and benefits, the patient was deemed in satisfactory condition to undergo the procedure. After obtaining informed consent, the endoscope was passed under direct vision. Throughout the procedure, the patient's blood pressure, pulse, and oxygen saturations were monitored continuously. The Endoscope was introduced through the mouth, and advanced to the second part of duodenum. The upper GI endoscopy was accomplished without difficulty. The patient tolerated the procedure well. Total Procedure Duration: 0 hours 3 minutes 34 seconds Findings: The examined esophagus was normal. The Z-line was variable and was found 36 cm from the incisors. Biopsies were taken with a cold forceps for histology. A small hiatal hernia was present. Multiple medium hyperplastic polyps with no bleeding and no stigmata of recent bleeding were found in the gastric fundus and in the gastric body. The polyp was removed with a jumbo cold forceps. The examined duodenum was normal. Moderate Sedation: MAC anesthesia was administered by the anesthesia team. Impression: - Normal esophagus. - Z-line variable, 36 cm from the incisors. Biopsied. - Small hiatal hernia. - Multiple gastric polyps. Resected and retrieved. - Normal examined duodenum. Recommendation: - Discharge patient to home. - Resume regular diet. - Continue present medications. (omeprazole) - Await pathology results. - Consider Carafate pending pathology. Procedure Code(s): --- Professional --- 99639, Esophagogastroduodenos copy, flexible, transoral; with biopsy, single or multiple Diagnosis Code(s): --- Professional --- K22.89, Other specified disease of esophagus K44.9, Diaphragmatic hernia without obstruction or gangrene K31.7, Polyp of stomach and duodenum R12, Heartburn K21.9, Gastro-esophageal reflux disease without esophagitis CPT copyright 2020 [employer]. All rights reserved. The codes documented in this report are preliminary and upon web development manager review may be revised to meet current compliance requirements. Attending Participation: I personally performed the entire procedure. MD Samantha Santa Jr, DO 03/10/2024 9:05:35 AM This report has been signed electronically by Samantha Pitts Jr, DO Number of Addenda: 0 Note Initiated On: 03/10/2024 8:41 AM Procedure Start: 8:57:05 AM Procedure End: 9:00:39 AM Normal [facility] Human papilloma virus 16+18+ 31+33+35+39+45+51+52+56+58+59+66+68 DNA [Presence] in [place] 03-03-2024 HPV 16+18+31+33+35+39+45+51 +52+56+58+59+66+68 DNA Probe+sig amp Ql (Cvx) Negative Negative [facility] Comment on above: This nucleic acid am plification test detects fourteen high-risk HPV types (16,18,31,33,35,39,45,51,52,56,58,59,66,68)without differentiation.Performed at: =G - [facility] [address] [id number] Director: Melba Yao MD, Phone: [phone] at: - [facility] [address] [id number] Director: Melba Yao MD, Phone: [phone] No Panel Informationon 03-03 HPV High Risk Other Comment Note . [facility] Comment on above: TESTS RESULT FLAG UN ITS REF RANGE LAB -DIAGNOSIS: 02 NEGATIVE FOR INTRAEPITHELIAL LESION OR MALIGNANCY.Specimen adequacy: 02 Satisfactory for evaluation.Performed by: 02 Thanh Alvarenga, Luncheonette Operator ([facility]). 02Note: Note 02 The Pap smear is a screening test designed to aid in the detection of premalignant and malignant conditions of the uterine cervix. It is not a diagnostic procedure and should not be used as the sole means of detecting cervical cancer. Both false-positive and false-negative reports do occur.Test Methodology: Note 02 The WiSpry(R) Csr was unable to read this specimen. Therefore a manual review was performed. -------- FLAG LEGEND: L-Low Normal,H-High Normal,LL-Alert Low,HH-Alert High <-Panic Low,>-Panic High,A-Abnormal,AA-Critical Abnormal ------Performed at:[address] [place] [address] Melba Yao MD, PSH Genotype Reflex Note 02 Criteria not met, HPV Genotype not performed.Criteria not met, HPV Genotype not performed. Reference Lab Test Patient Age Note . [facility] Comment on above: TESTS RESULT FLAG UN ITS REF RANGE LAB - Clinician Provided Cytology Information Source.............Vagina No. of containers..01 ThinPrep VialAge Jareto ROJAS Alba... 31 FLAG LEGEND: L-Low Normal,H-High Normal,LL-Alert Low,HH-Alert High <-Panic Low,>-Panic High,A-Abnormal,AA-Critical Abnormal ------Performed at:01 =G [address] [place] [address] Melba Yao MD, [facility] 02[facility]-20[facility] MAMADOU LOWERY ([id number]) 1980 F Date Time Provider Department 02/19/24 SAMANTHA PITTS JR [facility] During your visit today, we recorded the following information about you: Taryn Isabel MA 02/19/2024 11:28 AM Signed Received records from [facility] physicians and scanned into patients chart. 2016 Colonoscopy record received and scanned in. Taryn Isabel MA Allergies As of Date: 02/19/2024 (No Known Allergies) Date Reviewed: 02/18/2024 Reviewed by: Bettye Valdivia MA - Fully Assessed Reason for Visit: Received Outside Medical Records [[id number]] Prescriptions as of 02/20/2024 - DULoxetine (CYMBALTA) 60 mg capsule TAKE 1 CAPSULE BY MOUTH EVERY DAY Oral for 90 Days - metFORMIN ER (GLUCOPHAGE XR) 500 mg 24 hr tablet Take 2 tablets by mouth every afternoon. - glipiZIDE (GLUCOTROL XL) 5 mg 24 hr tablet Take 5 mg by mouth once daily. - omeprazole (PRILOSEC) 40 mg capsule Take 1 capsule by mouth two times a day. - dicyclomine (BENTYL) 20 mg tablet Take 1 tablet by mouth two times a day. Problem List As Of Date 02/19/2024 Noted Resolved Palpitations [R00.2] 01/04/2016 Precordial pain [R07.2] 01/04/2016 Encounter Status:Closed by TARYN ISABEL on 02/20/24 Normal [facility] CNOVon 02-18-2024 CNOV Office Visit ([facility] ) MAMADOU LOWERY ([id number]) 1980 F Date Time Provider Department 02/18/24 1:20 PM SAMANTHA PITTS JR [facility] During your visit today, we recorded the following information about you: Temperature Pulse Blood pressure Weight 97.6 degrees 84/minute 137/85 112.5 kg Height 1.651 m Samantha Pitts Jr., DO 02/18/2024 1:20 PM Addendum Records release from [facility] Bowel Preparation Instructions for: Miralax-Gatorade Preparations IF YOU DO NOT FOLLOW THESE DIRECTIONS, YOUR COLONOSCOPY WILL BE CANCELLED. [place] Instructions: Your bowel must be empty so that your doctor can clearly view your colon. Follow all of the instructions in this handout EXACTLY as they are written. Do NOT eat any solid food the ENTIRE day before your colonoscopy. Buy your bowel preparation at least 5 days before your colonoscopy. Four (4) Dulcolax laxative tablets containing 5mg of bisacodyl each (NOT Dulcolax stool softener) One (1) 8.3oz. bottle Miralax (238 grams) or generic equivalent 2 x 32oz. Bottles of Gatorade (NOT RED) Diabetic Patients: Use G2 (Gatorade 2) TRANSPORTATION on the Day of Your Exam A responsible adult MUST be present with you at Check In prior to your colonoscopy and REMAIN in the endoscopy area until you are discharged. You are NOT ALLOWED to drive, take a taxi or bus, or leave the Endoscopy Center ALONE. If you do not have a responsible fuel truck driver (family member or friend) with you to take you home, your exam cannot be done with sedation and will be cancelled. Please bring a list of all of your current medications, including any Kgef-yol-Adenbtv medications with you. Medications If you take insulin, diabetic medications or blood thinners such as Coumadin (warfarin), Plavix (clopidogrel), Ticlid (ticlopidine hydrochloride), Agrylin (anagrelide), Xarelto (Rivaroxaban), Pradaxa (Dabigatran), Eliquis (Apixaban), and Effient (Prasugrel). You MUST call the doctors who orders those medicines for instructions on altering the dosage before your colonoscopy. All other medications should be taken the day of the exam with a sip of water including ASPIRIN. Five (5) Days Before Your Colonoscopy Do NOT take medicines that stop diarrhea - such as Imodium, Kaopectate, or Pepto Bismol. Do NOT take fiber supplements - such as Metamucil, Citrucel, or Perdiem. Do NOT take products that contain iron - such as multi-vitamins (the label lists what is in the products). Three (3) Days Before Your Colonoscopy Do NOT eat high-fiber foods - such as popcorn, beans, seeds (flax, sunflower, quinoa), multigrain bread, nuts, salad/vegetables, or fresh and dried fruit. 1 Bowel Preparation Instructions for: Miralax-Gatorade Preparations One (1) Day Before Your Colonoscopy Only drink clear liquids the ENTIRE DAY before your colonoscopy. Do NOT eat any solid foods. Drink at least 8 ounces of clear liquids every hour after waking up. The clear liquids you can drink include: Clear Liquid (NO RED LIQUIDS) DO NOT DRINK Gatorade, Pedialyte or Powerade Clear broth or bouillon Coffee or tea (no milk or non-dairy creamer) Carbonated and non-carbonated soft drinks Alejo-Aid or other fruit flavored drinks Strained fruit juices (no pulp) Jell-O, popsicles, hard candy Water Alcohol Milk or non-dairy creamers Noodles or vegetables in soup Juice with pulp Liquid you cannot see through Do not use tobacco/vaping products Mix 1/2 of Miralax bottle (119 grams) in each 32 ounces of Gatorade bottle until dissolved. Keep cool in the refrigerator. DO NOT ADD ICE. The bowel preparation solution will be consumed in two parts. Part 1 5:00 PM - Evening before your colonoscopy Take 4 Dulcolax tablets. 6 PM - Evening before your colonoscopy Drink 32 oz. of the mixed solution. Drink an 8 oz. glass of bowel preparation every 15 minutes for a total of 4 glasses. Fifteen (15) minutes later, drink an 8 oz. glass of of clear liquids every 15 minutes for a total of 2 glasses. You may continue to drink clear liquids till midnight. Part 2 On the day of your colonoscopy you may drink clear liquids up to (three) 3 hours prior to procedure. 4 1/2 hours before your colonoscopy Take another 32 oz. bottle of mixed solution. Drink an 8 oz. glass of bowel prep every 15 minutes for a total of 4 glasses. Fifteen (15) minutes later, drink an 8 oz. glass of clear liquids every 15 minutes for a total of 2 glasses. You may continue to drink clear liquids up to (three) 3 hours before your exam. 2 06/2019 Samantha Pitts Jr., DO 02/18/2024 1:33 PM Signed Patient presents with: Establish Care: Want to re establish as a pt again Previous patient from [facility] HPI: Mamadou Lowery, 43 year old female, presents in the office today for personal history of colon polyps and GERD. In 2016 she underwent a c (more content not included)... Normal [facility] Basic Metabolic Dawson w/Rfx A1 Con 01-31-2024 GFR/1.73 sq M.predicted MDRD (S/P/Bld) [Vol rate/Area] mL/min/{1.73_m2} Normal [facility] Comment on above: Performed By: #### E BS A1C, EMP BMP, EBS LIPID #### [facility] [address] [place] [address] Calcium [Mass/volume] in Ser um or PlasmaOrdered By: Neha Mckeon on 01-31-2024 Calcium [Mass/Vol] 9.5 mg/dL Normal 8.6-10.3 [facility] Comment on above: Performed By: #### E BS A1C, EMP BMP, EBS LIPID #### [facility] [address] [place] [address] [place] Carbon dioxide, total [Moles /volume] in Serum or PlasmaOrdered By: Neha Mckeon on 01-31-2024 CO2 [Moles/Vol] 25.4 mmol/L Normal 21.0-31.0 [facility] Comment on above: Performed By: #### E BS A1C, EMP BMP, EBS LIPID #### [facility] [address] [place] [address] [place] Chloride [Moles/volume] in S luis alberto or PlasmaOrdered By: Neha Mckeon on 01-31-2024 Chloride [Moles/Vol] 103 mmol/L Normal 98-107 [facility] Comment on above: Performed By: #### E BS A1C, EMP BMP, EBS LIPID #### [facility] [address] [place] [address] [place] Cholesterol [Mass/volume] in Serum or PlasmaOrdered By: Neha Mckeon on 01-31-2024 Cholesterol [Mass/Vol] 212 mg/dL High 140-200 [facility] Comment on above: Chol less than 200 m g/dl low riskChol 201-239 mg/dl borderline riskChol 240 mg/dl and greater high risk Result Comment: Chol less than 200 mg/dl low risk Chol 201-239 mg/dl borderline risk Chol 240 mg/dl and greater high risk Performed By: #### E BS A1C, EMP BMP, EBS LIPID #### [facility] [address] [place] [address] [place] Cholesterol in LDL Calc [Mas s/Vol]Ordered By: Neha Mckeon on 01-31-2024 Cholesterol in LDL [Mass/Vol] 128 mg/dL High 0-100 [facility] Comment on above: LDL ATP III CLASSIFI CATIONLDL less than 100 mg/dL OptimalLDL 100-129 mg/dL Near or above optimalLDL 130-159 mg/dL Borderline highLDL 160-189 mg/dL HighLDL greater than 189 mg/dL Very high Cholesterol in VLDL Calc [Ma ss/Vol]Ordered By: Neha Mckeon on 01-31-2024 Cholesterol in VLDL [Mass/Vol] 30 mg/dL [facility] Creatinine [Mass/volume] in Serum or PlasmaOrdered By: Neha Mckeon on 01-31-2024 Creatinine [Mass/Vol] 0.80 mg/dL Normal 0.60-1.20 [facility] Comment on above: Performed By: #### E BS A1C, EMP BMP, EBS LIPID #### [facility] [address] EBS A1C with Estimated Ave G luon 01-31-2024 Glucose [Mass/Vol] 151 mg/dL Normal [facility] Comment on above: Result Comment: PERF ORMED BY: [facility] [address] [place] [address] PATHOLOGIST ANIMAL GENETICIST SUDHAKAR HERRON M.D. Performed By: #### E BS A1C, EMP BMP, EBS LIPID #### [facility] [address] EBS A1C with Estimated Ave G luOrdered By: Neha Mckeon on 01-31-2024 HbA1c (Bld) [Mass fraction] 6.9 % High 4.3-5.6 [facility] Comment on above: Increased risk for d iabetes: 5.7 - 6.4diabetes: >6.4glycemic control for adults with diabetes: <7.0 Result Comment: Incr eased risk for diabetes: 5.7 - 6.4 diabetes: >6.4 glycemic control for adults with diabetes: <7.0 Performed By: #### E BS A1C, EMP BMP, EBS LIPID #### [facility] [address] [place] [address] [place] Glucose [Mass/volume] in Ser um or PlasmaOrdered By: Neha Mckeon on 01-31-2024 Glucose [Mass/Vol] 127 mg/dL High 70-100 [facility] Comment on above: ADA recommended refe rence range Result Comment: ADA recommended reference range Performed By: #### E BS A1C, EMP BMP, EBS LIPID #### [facility] [address] [place] [address] [place] Glucose mean value [Mass/vol ume] in Blood Estimated from glycated hemoglobinOrdered By: Neha Mckeon on 01-31-2024 Average glucose Estimated from glycated hemoglobin (Bld) [Mass/Vol] 151 mg/dL [facility] Lipid Profileon 01-31-2024 LDL Cholesterol,Calculated 128 mg/dL High 0-100 [facility] Comment on above: Result Comment: LDL ATP III CLASSIFICATION LDL less than 100 mg/dL Optimal LDL 100-129 mg/dL Near or above optimal LDL 130-159 mg/dL Borderline high LDL 160-189 mg/dL High LDL greater than 189 mg/dL Very high Performed By: #### E BS A1C, EMP BMP, EBS LIPID #### [facility] [address] Triglyceride w/Reflex 150 mg/dL High 0-149 [facility] Comment on above: Result Comment: TRIG ATP III CLASSIFICATION TRIG less than 150 mg/dL Normal TRIG 150-199 mg/dL Borderline high TRIG 200-500 mg/dL High TRIG greater than 500 mg/dL Very high Standard traceable to the Center for Disease Conrtrol and Prevention (CDC) test method. Performed By: #### E BS A1C, EMP BMP, EBS LIPID #### [facility] [address] VLDL CHOLESTEROL 30 mg/dL Normal [facility] Comment on above: Performed By: #### E BS A1C, EMP BMP, EBS LIPID #### [facility] [address] No Panel InformationOrdered By: Neha Mckeon on 01-31-2024 Estimated GFR (CKD-EPI) > 60.0 mL/Min [facility] Creatinine Clearance (Chem N/A [facility] Potassium [Moles/volume] in Serum or PlasmaOrdered By: Neha Mckeon on 01-31-2024 Potassium [Moles/Vol] 4.4 mmol/L Normal 3.5-5.1 [facility] Comment on above: Performed By: #### E BS A1C, EMP BMP, EBS LIPID #### [facility] [address] Serum or plasma anion gap de terminationOrdered By: Neha Mckeon on 01-31-2024 Anion gap [Moles/Vol] 12.0 mmol/L Normal 6.0-15.0 [facility] Comment on above: Performed By: #### E BS A1C, EMP BMP, EBS LIPID #### [facility] [address] Serum or plasma high density lipoprotein (HDL) cholesterol measurementOrdered By: Neha Mckeon on 01-31-2024 Cholesterol in HDL [Mass/Vol] 54 mg/dL Normal 23-92 [facility] Comment on above: HDL CHOL ATP-III CLA SSIFICATION Cardiovascular RiskHDL > or equal to 60 mg/dL LOWHDL < 40 mg/dL HIGH Result Comment: HDL CHOL ATP-III CLASSIFICATION Cardiovascular Risk HDL > or equal to 60 mg/dL LOW HDL < 40 mg/dL HIGH Performed By: #### E BS A1C, EMP BMP, EBS LIPID #### [facility] [address] Serum or plasma total choles terol/high density lipoprotein (HDL) cholesterol mass ratOrdered By: Neha Mckeon on 01-31-2024 Cholesterol.total/Poncho sterol in HDL [Mass ratio] 3.9 {ratio} Normal <5.0 [facility] Comment on above: Result Comment: PERF ORMED BY: [place] [address] PATHOLOGIST ANIMAL GENETICIST SUDHAKAR HERRON M.D. Performed By: #### E BS A1C, EMP BMP, EBS LIPID #### [facility] [address] [place] [address] [place] Sodium [Moles/volume] in Ser um or PlasmaOrdered By: Neha Mckeon on 01-31-2024 Sodium [Moles/Vol] 136 mmol/L Normal 136-145 [facility] Comment on above: Performed By: #### E BS A1C, EMP BMP, EBS LIPID #### [facility] [address] [place] [address] [place] Triglyceride [Mass/volume] i n Serum or PlasmaOrdered By: Neha Mckeon on 01-31-2024 Triglyceride [Mass/Vol] 150 mg/dL High 0-149 [facility] Comment on above: TRIG ATP III CLASSIF ICATIONTRIG less than 150 mg/dL NormalTRIG 150-199 mg/dL Borderline highTRIG 200-500 mg/dL High TRIG greater than 500 mg/dL Very highStandard traceable to the Center for Disease Conrtrol and Prevention (CDC) test method. Urea nitrogen [Mass/volume] in Serum or PlasmaOrdered By: Neha Mckeon on 01-31-2024 Urea nitrogen [Mass/Vol] 11 mg/dL Normal 7-25 [facility] Comment on above: Performed By: #### E BS A1C, EMP BMP, EBS LIPID #### [facility] [address] Office Visit (Cardiology)on 11-26-2022 Follow-up visit Diagnoses/Problems Assessed Screening, lipid (V77.91) (Z13.220) GERD (gastroesophageal reflux disease) (530.81) (K21.9) Class 2 obesity with body mass index (BMI) of 39.0 to 39.9 in adult (278.00,V85.39) (E66.9,Z68.39) Encounter to discuss test results (V65.49) (Z71.2) Never a smoker Orders Class 2 obesity with body mass index (BMI) of 39.0 to 39.9 in adult Healthy Weight Tips; Status:Complete - Retrospective Authorization; Done: [id number] Some eating tips that can help you lose weight.; Status:Complete - Retrospective Authorization; Done: [id number] SocHx: Never a smoker Tobacco Use Screening; Status:Complete; Done: [id number] Patient Instructions Please bring all medicines, vitamins, and herbal supplements with you when you come to the office. Prescriptions will not be filled unless you are compliant with your follow up appointments or have a follow up appointment scheduled as per instruction of your physician. Refills should be requested at the time of your visit. Follow-up as needed only Chief Complaint MAMADOU LOWERY is being seen for follow up GXT. History of Present Illness Patient presents for follow-up after testing. She says that her chest discomfort is now very infrequent. Her palpitations are also improving. Results of the echo and stress test were reviewed, at this time there is no evidence of flow-limiting coronary artery disease based on testing. Given preserved LV systolic function, likelihood for flow-limiting coronary artery disease remains very low. We talked about the dynamic nature of coronary artery disease and the importance of seeking medical attention for new symptoms, and we talked about the symptoms that would warrant medical attention. Patient is currently on Ozempic, and she is beginning to lose weight. Assessment: 1. Palpitations 2. Chest discomfort-best described as atypical, could be GI for cardiac or combination 3. Status postcholecystectomy 4. Episodes of elevated blood pressure without diagnosis of hypertension 5. Hypokalemia-etiology unclear 6. Status post partial hysterectomy 7. Status postcholecystectomy 8. Increased BMI 9. Exertional shortness of breath functional class II 10. Echocardiogram October 2022-LVEF 65% impaired relaxation pattern of LV diastolic filling mild mitral regurgitation left atrial diameter 3.3 cm RV systolic pressure not estimated because there was no appreciable tricuspid regurgitation. 11. Treadmill stress test October 2022-8.5 METS, 98% age-predicted maximum heart rate 12. Hypokalemia-potassium in August 2022 was 3.5. Patient was placed on spironolactone after that. 13. Dyslipidemia-in February 2022 LDL cholesterol 79 HDL 54 total cholesterol 183 and triglycerides 99. Recommendations: 1. We talked about ongoing factor modification Olivia about the fact that coronary artery disease is a dynamic process, and that if she develops new symptoms she should seek prompt medical attention and we talked about the symptoms. 2. Given that she is on spironolactone, will check another basic metabolic profile. 3. Her last lipid profile was in February 2022, LDL goal for her is 70 or below given that she is diabetic. I recommend that she repeat her lipid profile in 4 to 6 months, and if lipids are not at goal she would be a candidate for statin therapy. 4. At this point I will plan to see her on an as-needed basis and she will continue regular medical care per Dr. Ruiz. Thank you Dr. Ruiz for allowing me to participate in Mamadou's care, please do not hesitate to call if further questions arise, Sincerely, Julieta Sanford MD [facility] Surgical History Problems History of Ablation History of Cholecystectomy History of Colonoscopy Managed By: Samantha Pitts DO; Resolved Date: 22 Jul 2016 History of Hysterectomy Current Meds Medication NameInstruction Cymbalta 60 MG Oral Capsule Delayed Release ParticlesTAKE 1 CAPSULE Daily Omeprazole 40 MG Oral Capsule Delayed ReleaseTAKE 1 CAPSULE Daily Ozempic (0.25 or 0.5 MG/DOSE) 2 MG/3ML Subcutaneous Solution Pen-injector Spironolactone 25 MG Oral TabletTAKE 1 TABLET DAILY. Allergies Medication No Known Drug Allergies Recorded By: Liv Baum; 10/08/2022 11:05:05 AM Social History Problems Denied: History of Caffeine use Never a smoker No illicit drug use Social alcohol use (V49.89) (Z78.9) Review of Systems Constitutional: Denies: fever, chills, malaise Eye: Denies: discharge from eyes, eye pain, changes in vision HEENT: Denies: headache,nasal discharge, sore throat, ear pain Gastrointestinal: Denies: nausea, vomiting, diarrhea, abdominal pain Integument: Denies: rash, itching, new skin lesions Neurologic: Denies: muscular weakness, tingling, numbness, tremors, loss of balance Endocrine: Denies: polyuria, polydipsia, cold intolerance, heat intolerance Psychiatric: Denies: anxiety, depression, suicidal ideation Heme -lymph: Denies: easy bruising, petechia, lymph nod (more content not included)... Normal [address] Tobacco Screening.on 023 Tobacco use status [facility] b) No [facility] [place] [address] DO Work Phone: Cardiac Stress Teston 2022 Cardiac Stress Test [address], [address] [place] [address] Exercise Stress Test Patient Name: MAMADOU LOWERY Ordering Physician: [id number] Julieta Sanford MD Study Date: 11/01/2022 Reading Physician: [id number] Diamante Sauceda MD, [facility] MRN/PID: [id number] Supervising Physician: [id number] Ernie Negrete MD Accession/Order#: [id number] Referring Physician: JULIETA SANFORD Date of : 1980 PCP: Jessica Ruiz Gender: F Fellow: Height: 165.10 cm Nurse: Raphael Chaparro RN Weight: 108.86 kg Rotary Helper: SYLVIA BSA: 2.14 m2 Technologist: BMI: 39.94 kg/m2 Additional Staff: Age: 42 years cc report to: Patient Location: cc report to: [id number] Julieta Sanford MD Study Type: Cardiac Stress Test Diagnosis/ICD: R94.31-Abnormal electrocardiogram [ECG] [EKG]; R07.9-Chest pain, unspecified; R06.02-Shortness of breath Indication: Abnormal EKG Procedure/CPT: Stress Test Interpretation-[id number]; Stress Test Supervision-[id number] Falls Risk: Low: Patient has low risk for sustaining a fall; environmental safety interventions in place. Study Details: Correct procedure and correct patient verified verbally. Patient History: Allergies: None. Patient Performance: The peak heart rate achieved was 176 bpm, which was 98 % of the age predicted target heart rate of 179 bpm. The resting blood pressure was 118/82 mmHg with a heart rate of 86 bpm. The standing blood pressure was 116/82 mmHg with a heart rate of 86 bpm. The patient's functional capacity was average. The patient developed fatigue during the stress exam. The symptoms resolved with rest. The blood pressure response was normal. The test was terminated due to: fatigue. Baseline ECG: Resting ECG showed normal sinus rhythm. Stress Stage Data: + +--- +------+-------+ HR Sys BP Castanon BP + +--- +------+-------+ Baseline Resting 86 118 82 + +--- +------+-------+ Baseline Standing 86 116 82 + +--- +------+-------+ Stage I 137 146 82 + +--- +------+-------+ Stage II 166 158 78 + +--- +------+-------+ Stage III 176 162 76 + +--- +------+-------+ Recovery ECG: The heart rate recovery was normal. + +---+---- --+-------+ HR Sys BP Castanon BP + +---+---- --+-------+ Recovery I 176 162 76 + +---+---- --+-------+ Recovery II 169 158 76 + +---+---- --+-------+ Recovery III 127 128 82 + +---+---- --+-------+ Recovery IV 111 118 84 + +---+---- --+-------+ Recovery V 99 + +---+---- --+-------+ Summary: 1. 1_normal graded exercise tolerance test after completing 7 minutes on a Avelino protocol and achieving 98% of predicted max heart rate and workload of 8.5 METS. 2_no chest pain, cardiac arrhythmias or ischemic EKG changes induced by exercise with appropriate hemodynamic response to exercise and normal heart rate recovery. Patient achieved Mejias treadmill score of 7+ which is favorable. 2. The adequate level of stress was achieved. [id number] Diamante Sauceda MD, [facility] Electronically signed on 11/01/2022 at 6:22:45 PM Final Normal [facility] Cardiac Stress [facility] [address] DO Work Phone: Office Visit (Cardiology)on 10-08-2022 Follow-up visit Diagnoses/Problems Assessed Chest pain (786.50) (R07.9) GERD (gastroesophageal reflux disease) (530.81) (K21.9) Patient new to provider Abnormal EKG (794.31) (R94.31) Palpitation (785.1) (R00.2) SOB (shortness of breath) on exertion (786.05) (R06.02) Never a smoker Class 2 obesity with body mass index (BMI) of 39.0 to 39.9 in adult (278.00,V85.39) (E66.9,Z68.39) Screening, lipid (V77.91) (Z13.220) Elevated glucose level (790.29) (R73.09) Elevated blood pressure reading without diagnosis of hypertension (796.2) (R03.0) Orders Abnormal EKG, Chest pain, Palpitation, SOB (shortness of breath) on exertion Basic Metabolic Panel; Status:Active; Requested for:17Oct2022; T3 - Free Triiodothyronine, Serum; Status:Active; Requested for:17Oct2022; T4 - Free Thyroxine, Serum; Status:Active; Requested for:17Oct2022; TSH - Thyroid Stimulating Hormone, Serum; Status:Active; Requested for:17Oct2022; Abnormal EKG, Chest pain, SOB (shortness of breath) on exertion Cardiac Stress Test; Status:Hold For - Scheduling; Requested for:08Oct2022; Echocardiogram; Status:Hold For - Scheduling; Requested for:08Oct2022; Chest pain, SOB (shortness of breath) on exertion Start: Spironolactone 25 MG Oral Tablet; TAKE 1 TABLET DAILY IO EKG Electrocardiogram- 12 Lead; Status:Complete; Done: 08Oct2022 Class 2 obesity with body mass index (BMI) of 39.0 to 39.9 in adult Healthy Weight Tips; Status:Complete; Done: 08Oct2022 Some eating tips that can help you lose weight.; Status:Complete; Done: 08Oct2022 Elevated glucose level Hemoglobin A1C; Status:Active; Requested for:17Oct2022; SOB (shortness of breath) on exertion Brain Natriuretic Peptide BNP; Status:Active; Requested for:17Oct2022; SocHx: Never a smoker Tobacco Use Screening; Status:Complete; Done: [id number] Tobacco Use Screening; Status:Complete; Done: [id number] Tobacco Use Screening; Status:Complete; Done: [id number] Patient Instructions Please bring all medicines, vitamins, and herbal supplements with you when you come to the office. Prescriptions will not be filled unless you are compliant with your follow up appointments or have a follow up appointment scheduled as per instruction of your physician. Refills should be requested at the time of your visit Follow-up after testing completed Patient will bring a log of BP readings to next Office visit. Chief Complaint MAMADOU LOWERY is being seen for a cardiovascular evaluation . SARA SAM LABILE BP. History of Present Illness 41-year-old is being seen in cardiology consultation regarding shortness of breath and palpitations. 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 Ruiz. In April 2022, random blood pressure checks were noted to be elevated, 180s systolic. Primary then put her on metoprolol for a couple of weeks. She is now off the metoprolol. She described bouts of anterior chest discomfort, pressure sensation, one of the episodes was particularly bothersome, sought medical attention in the emergency department, she received a GI cocktail, cardiac biomarkers and D-dimer were negative, she was discharged home. She has GERD which is not particularly problematic at this time, and takes omeprazole. Laboratory data during ER visit showed potassium of 3.5, she is not on any diuretics. BMI is excessive. Patient is status postcholecystectomy and partial hysterectomy. She is never a smoker. Family history is not available, she notes that her mother at age 46 from noncardiac causes, and that she is the oldest of the siblings. She describes her palpitations as a sensation of heart racing, flupirtine flopping, not associated with lightheadedness presyncope or syncope. Patient has also noticed a decrease in functional status, with shortness of breath consistently occurring with activity such as 1 flight of stairs. Denies orthopnea PND lower extremity edema or claudication. Denies any bleeding diathesis. Denies history of COVID. Her EKG shows normal sinus rhythm low volts normal intervals. No evidence of atrial abnormality. Patient reports that her blood pressures have been labile. She admits to significant situational stress partly related to her new job. She tries to stay hydrated. Assessment: 1. Palpitations 2. Chest discomfort-best described as atypical, could be GI for cardiac or combination 3. Status postcholecystectomy 4. Episodes of elevated blood pressure without diagnosis of hypertension 5. Hypokalemia-etiology unclear 6. Status post partial hysterectomy 7. Status postcholecystectomy 8. Increased BMI 9. Exertional shortness of breath functional class II Recommendations: 1. Extensive discussion about weight loss and methods of weight loss, patient to check with primary care as to whether she can be on Ozempic or Mounjaro or Rybelsus. Alternatively she could be on a combination of metformin and farxiga.. 2. Aldactone 25 mg p.o. daily 3. (more content not included)... Normal [address] Tobacco Screening.on 023 Adult depression screening assessment No [facility] [address] DO Work Phone: Tobacco use status CP b) No [facility] [address] DO Work Phone: Adult depression screening assessment No [facility] [address] DO Work Phone: Tobacco use status [facility] b) No [facility] [address] DO Work Phone: CBC AUTO DIFFon 09-12-2022 BASO # 0.1 103/ul Normal 0.0-0.1 [facility] Comment on above: Performed By: #### C BC #### [facility] [address] [place] [address] Dr. Fabricio Mohr Basophils/100 WBC (Bld) 0.7 % Normal 0.2-2.0 [facility] Comment on above: Performed By: #### C BC #### [facility] [address] [address] [address] Fabricio Mohr EO # 0.3 103/ul Normal 0.0-0.7 [facility] Comment on above: Performed By: #### C BC #### [facility] [address] [place] [address] Dr. Fabricio Mohr Eosinophils/100 WBC (Bld) 2.9 % Normal 0.9-7.0 [facility] Comment on above: Performed By: #### C BC #### [facility] [address] [place] [address] Dr. Fabricio Mohr Erythrocyte distribution width (RBC) [Ratio] 15.4 % Critically high 11.0-15.0 [facility] Comment on above: Performed By: #### C BC #### [facility] [address] [place] [address] Dr. Fabricio Mohr Hematocrit (Bld) [Volume fraction] 36.1 % Normal 36.0-48.0 [facility] Comment on above: Performed By: #### C BC #### [facility] [address] [place] [address] Dr. Fabricio Mohr Hemoglobin (Bld) [Mass/Vol] 11.4 g/dL Critically low 12.0-16.0 [facility] Comment on above: Performed By: #### C BC #### [facility] [address] [place] [address] Dr. Fabricio Mohr IG # 0.13 10e3/ul Critically high 0.00-0.03 [facility] Comment on above: Performed By: #### C BC #### [facility] [address] [place] [address] Dr. Fabricio Mohr IG % 1.2 % Critically high 0.0-0.5 [facility] Comment on above: Performed By: #### C BC #### [facility] [address] [place] [address] Dr. Fabricio Mohr LYMPH # 3.3 103/ul Normal 1.2-3.8 [facility] Comment on above: Performed By: #### C BC #### [facility] [address] [place] [address] Dr. Fabricio Mohr Lymphocytes/100 WBC (Bld) 29.4 % Normal 20.5-60.0 [facility] Comment on above: Performed By: #### C BC #### [facility] [address] [place] [address] Dr. Fabricio Mohr MANUAL DIFF REQ NO Normal [facility] Comment on above: Performed By: #### C BC #### [facility] [address] [place] [address] Dr. Fabricio Mohr MCH (RBC) [Entitic mass] 25.1 pg Critically low 26.7-34.0 [facility] Comment on above: Performed By: #### C BC #### [facility] [address] [place] [address] Dr. Fabricio Mohr MCHC (RBC) [Mass/Vol] 31.6 g/dL Normal 29.9-35.2 [facility] Comment on above: Performed By: #### C BC #### [facility] [address] [place] [address] Dr. Fabricio Mohr MCV (RBC) [Entitic vol] 79.3 fL Critically low 81.0-99. 0 [facility] Comment on above: Performed By: #### C BC #### [facility] [address] [place] [address] Dr. Farbicio Mohr MONO # 0.9 103/ul Critically high 0.3-0.8 [facility] Comment on above: Performed By: #### C BC #### [facility] [address] [place] [address] Dr. Fabricio Mohr Monocytes/100 WBC (Bld) 8.1 % Normal 1.7-12.0 [facility] Comment on above: Performed By: #### C BC #### [facility] [address] [place] [address] Dr. Fabricio Mohr NEUT # 6.5 103/ul Normal 1.4-6.5 [facility] Comment on above: Performed By: #### C BC #### [facility] [address] [place] [address] Dr. Fabricio Mohr Neutrophils/100 WBC (Bld) 57.7 % Normal 43.0-75.0 [facility] Comment on above: Performed By: #### C BC #### [facility] [address] [place] [address] Dr. Fabricio Mohr Platelet mean volume (Bld) [Entitic vol] 8.7 fL Critically low 9.5-13.5 [facility] Comment on above: Performed By: #### C BC #### [facility] [address] [place] [address] Dr. Fabricio Mohr PLT 374 103/ul Normal 150-450 [facility] Comment on above: Performed By: #### C BC #### [facility] [address] [address] [address] Fabricio Mohr RBC 4.55 106/ul Normal 4.20-5.40 [facility] Comment on above: Performed By: #### C BC #### [facility] [address] [address] [address] Fabricio Mohr WBC 11.3 103/ul Critically high 4.0-11.0 [facility] Comment on above: Performed By: #### C BC #### [facility] [address] [place] [address] Dr. Fabricio Mohr PROF 14(COMP METB)on 023 Albumin [Mass/Vol] 3.6 g/dL Normal 3.4-5.0 [facility] Comment on above: Performed By: #### H NANDO, CMP #### [facility] [address] [place] [address] Dr. Fabricio Mohr Albumin/Globulin [Mass ratio] 0.9 {ratio} Normal [facility] Comment on above: Performed By: #### H SANTAPN, CMP #### [facility] [address] [place] [address] Dr. Fabricio Mohr ALP [Catalytic activity/Vol] 88 U/L Normal 46-116 [facility] Comment on above: Performed By: #### H SANTAPN, CMP #### [facility] [address] [place] [address] Dr. Fabricio Mohr ALT [Catalytic activity/Vol] 43 U/L Normal 14-59 [facility] Comment on above: Performed By: #### H SANTAPN, CMP #### [facility] [address] [place] [address] Dr. Fabricio Mohr Anion gap [Moles/Vol] 11.9 mmol/L Normal [facility] Comment on above: Performed By: #### H STROPN, CMP #### [facility] [address] [address] [address] Fabricio Mohr AST [Catalytic activity/Vol] 24 U/L Normal 15-37 [facility] Comment on above: Performed By: #### H STROPN, CMP #### [facility] [address] [address] [address] Fabricio Mohr Bilirubin [Mass/Vol] 0.4 mg/dL Normal 0.2-1.0 [facility] Comment on above: Performed By: #### H STROPN, CMP #### [facility] [address] [address] [address] Fabricio Mohr Calcium [Mass/Vol] 8.9 mg/dL Normal 8.5-10.1 [facility] Comment on above: Performed By: #### H STROPN, CMP #### [facility] [address] [place] [address] Dr. Fabricio Mohr Chloride [Moles/Vol] 101 mmol/L Normal 98-107 [facility] Comment on above: Performed By: #### H STROPN, CMP #### [facility] [address] [place] [address] Dr. Fabricio Mohr CO2 [Moles/Vol] 26.6 mmol/L Normal 21.0-32.0 [facility] Comment on above: Performed By: #### H STROPN, CMP #### [facility] [address] [place] [address] Dr. Fabricio Mohr Creatinine [Mass/Vol] 0.84 mg/dL Normal 0.55-1.02 [facility] Comment on above: Performed By: #### H STROPN, CMP #### [facility] [address] [place] [address] Dr. Fabricio Mohr EGFR-AF MALAGASY >60 Normal >=60 [facility] Comment on above: Performed By: #### H STROPN, CMP #### [facility] [address] [place] [address] Dr. Fabricio Mohr EGFR-NON AF MALAGASY >60 Normal >=60 [facility] Comment on above: Performed By: #### H STROPN, CMP #### [facility] [address] [address] [address] Fabricio Mohr Globulin (S) [Mass/Vol] 4.1 g/dL Normal [facility] Comment on above: Performed By: #### H STROPN, CMP #### [facility] [address] [address] [address] Fabricio Mohr Glucose [Mass/Vol] 165 mg/dL Critically high 74-106 [facility] Comment on above: Performed By: #### H STROPN, CMP #### [facility] [address] [address] [address] Fabricio Mohr Potassium [Moles/Vol] 3.5 mmol/L Normal 3.5-5.1 [facility] Comment on above: Performed By: #### H STROPN, CMP #### [facility] [address] [place] [address] Dr. Fabricio Mohr Protein [Mass/Vol] 7.7 g/dL Normal 6.4-8.2 [facility] Comment on above: Performed By: #### H STROPN, CMP #### [facility] [address] [place] [address] Dr. Fabricio Mohr Sodium [Moles/Vol] 136 mmol/L Normal 136-145 [facility] Comment on above: Performed By: #### H STROPN, CMP #### [facility] [address] [place] [address] Dr. Fabricio Mohr Urea nitrogen [Mass/Vol] 10.0 mg/dL Normal 7.0-18.0 [facility] Comment on above: Performed By: #### H STROPN, CMP #### [facility] [address] [place] [address] Dr. Fabricio Mohr Urea nitrogen/Creatinine [Mass ratio] 11.9 mg/mg Normal [facility] Comment on above: Performed By: #### H STROPN, CMP #### [facility] [address] [place] [address] Dr. Fabricio Mohr TROPONIN, HIGH SENSITIVITYon 09-12-2022 HSTROP <4.0 Normal 4.0-51.3 [facility] Comment on above: Result Comment: CUT- OFF POINTS HAVE BEEN ESTABLISHED BASED ON THE FOURTH UNIVERSAL DEFINITIONS OF MYOCARDIAL INFARCTION. THE UPPER REFERENCE LIMIT (URL) OF TROPONIN, DEFINED THE 99TH PERCENTILE OF cTnI DISTRIBUTION IN A REFERENCE POPULATION, HAS BEEN CONFIRMED THE DECISION THRESHOLD FOR LA DIAGNOSIS. Performed By: #### H STROPN, CMP #### [facility] [address] [address] [address] Fabricio Mohr XR CHEST 1 Von 09-12-2022 XR CHEST 1 V EXAM: XR CHEST 1 V HISTORY: CHEST PAIN, UNSPECIFIED COMPARISON: None. TECHNIQUE: AP portable upright view of the chest is obtained. FINDINGS: Cardiomediastinal silhouette is nonenlarged. Pulmonary vascular markings are within normal limits. There is no focal airspace consolidation, sizable effusion or pneumothorax. The osseous structures appear grossly intact. IMPRESSION: No acute cardiopulmonary process identified. Electronically authenticated by: JUAN ALBERTO MATHEW Date: 2022-09-12 02:20 Normal [facility] QUANTIFERON TB GOLD PLUSon 0 04-10-2022 QuantiFERON Criteria Comment Normal [facility] Comment on above: Result Comment: Tony tiFERON-TB Gold Plus is a qualitative indirect test for M tuberculosis infection (including disease) and is intended for use in conjunction with risk assessment, radiography, and other medical and diagnostic evaluations. The QuantiFERON-TB Gold Plus result is determined by subtracting the Nil value from either TB antigen (Ag) value. The Mitogen tube serves as a control for the test. Performed By: #### Q NTTB #### [facility] [address] [place] [address] Dr. Fabricio Mohr QuantiFERON Incubation Incubation performed. Normal [facility] Comment on above: Performed By: #### Q NTTB #### [facility] [address] [address] [address] Fabricio Mohr QuantiFERON Mitogen Value >10.00 Normal [facility] Comment on above: Performed By: #### Q NTTB #### [facility] [address] [address] [address] Fabricio Mohr QuantiFERON Nil Value 0.06 IU/mL Normal [facility] Comment on above: Performed By: #### Q NTTB #### [facility] [address] [place] [address] Dr. Fabricio Mohr QuantiFERON TB1 Ag Value 0.07 IU/mL Normal [facility] Comment on above: Performed By: #### Q NTTB #### [facility] [address] [place] [address] Dr. Fabricio Mohr QuantiFERON TB2 Ag Value 0.05 IU/mL Normal [facility] Comment on above: Performed By: #### Q NTTB #### [facility] [address] [place] [address] Dr. Fabricio Mohr QuantiFERON-TB Gold Plus Negative Normal Negative [facility] Comment on above: Result Comment: No r esponse to M tuberculosis antigens detected. Infection with M tuberculosis is unlikely, but high risk individuals should be considered for additional testing (ATS/IDSA/CDC Clinical Practice Guidelines, 2017). The reference range is an Antigen minus Nil result of <0.35 IU/mL. Chemiluminescence immunoassay methodology Performed By: #### Q NTTB #### [facility] [address] [place] [address] Dr. Fabricio Mohr HEPATITIS B SURFACE ANTIBODY , QUANTon 04-07-2022 Hepatitis B Surf AB Quant >1000.0 Normal Immunity>9. 9 [facility] Comment on above: Result Comment: Stat us of Immunity Anti-HBs Level Inconsistent with Immunity 0.0 - 9.9 Consistent with Immunity >9.9 Performed By: #### H EPBSRF #### [facility] [address] [place] [address] Dr. Fabricio Mohr MMR IMMUNITYon 04-07-2022 Mumps Abs, IgG 142.0 AU/mL Normal Immune >10.9 [facility] Comment on above: Result Comment: Nega tive <9.0 Equivocal 9.0 - 10.9 Positive >10.9 A positive result generally indicates past exposure to Mumps virus or previous vaccination. Performed By: #### H NANDO, CMP #### [facility] [address] [address] [address] Fabricio Morh Rubella Antibodies, IgG 4.85 index Normal Immu ne >0.99 [facility] Comment on above: Result Comment: Non- immune <0.90 Equivocal 0.90 - 0.99 Immune >0.99 Performed By: #### H NANDO, CMP #### [facility] [address] [place] [address] Dr. Fabricio Mohr Rubeola Ab, IgG 110.0 AU/mL Normal Immune >16.4 [facility] Comment on above: Result Comment: Nega tive <13.5 Equivocal 13.5 - 16.4 Positive >16.4 Presence of antibodies to Rubeola is presumptive evidence of immunity except when acute infection is suspected. Performed By: #### H NANDO, CMP #### [facility] [address] [place] [address] Dr. Fabricio Mohr VARICELLA IGG ABon 2 Varicella Zoster IgG 441 index Normal Immune >165 [facility] Comment on above: Result Comment: Nega tive <135 Equivocal 135 - 165 Positive >165 A positive result generally indicates exposure to the pathogen or administration of specific immunoglobulins, but it is not indication of active infection or stage of disease. Performed By: #### H NANDO, CMP #### [facility] [address] [place] [address] Dr. Fabricio Mohr MG MAMM SCREEN 3D MASON CADon 03-23-2022 MG MAMM SCREEN 3D MASON CAD Patient: MAMADOU LOWERY Exam Date: 03/23/2022 : 1980 Gender:F Ordering : DR JESSICA RUIZ M.D. Admission #: [id number] Family : Order #: [id number] CLICK HERE TO VIEW EXAM RADIOLOGY REPORT PROCEDURE: MAMMOGRAM SCREENING 3D BILATERAL CAD COMPARISON: MG MAMM MASON SCRN W CAD DIG, 01/24/2016. INDICATIONS: Screening mammography Calculator Name NCI Breast Cancer Risk Assessment Tool 5 Year Breast Cancer Risk 0.50% Lifetime Breast Cancer Risk 9.90% Personal Breast Cancer No Personal Ovarian Cancer No Treatments None Family Cancers Aunt-maternal with breast cancer at age 45; Aunt-maternal with breast cancer at age 58; Aunt-maternal with breast cancer at age 59; Mother with lung,liver,brain cancer at age 44. LOCATION: [facility] BREAST COMPOSITION: Scattered areas fibroglandular density. FINDINGS: DIAGNOSTIC CATEGORY 1--NEGATIVE. NO CHANGE FROM COMPARISON ASSESSMENT. RIGHT BREAST: No significant suspicious finding. LEFT BREAST: No significant suspicious finding. RECOMMENDATIONS: ROUTINE MAMMOGRAM AND CLINICAL EVALUATION IN 12 MONTHS. PLEASE NOTE: A NORMAL MAMMOGRAM DOES NOT EXCLUDE THE POSSIBILITY OF BREAST CANCER. A CLINICALLY SUSPICIOUS PALPABLE LUMP SHOULD BE BIOPSIED. Dictated by: Samantha De La Paz MD on 03/23/2022 at 09:04 Approved by: Samantha De La Paz MD on 03/23/2022 at 09:05 Normal [facility] CBC AUTO DIFFon 03-16-2022 BASO # 0.1 103/ul Normal 0.0-0.1 [facility] Comment on above: Performed By: #### C BC #### [facility] [address] [place] [address] Dr. Fabricio Mohr Basophils/100 WBC (Bld) 1.1 % Normal 0.2-2.0 [facility] Comment on above: Performed By: #### C BC #### [facility] [address] [place] [address] Dr. Fabricio Mohr EO # 0.2 103/ul Normal 0.0-0.7 [facility] Comment on above: Performed By: #### C BC #### [facility] [address] [place] [address] Dr. Fabricio Mohr Eosinophils/100 WBC (Bld) 2.0 % Normal 0.9-7.0 [facility] Comment on above: Performed By: #### C BC #### [facility] [address] [place] [address] Dr. Fabricio Mohr Erythrocyte distribution width (RBC) [Ratio] 15.0 % Normal 11.0-15.0 [facility] Comment on above: Performed By: #### C BC #### [facility] [address] [place] [address] Dr. Fabricio Mohr Hematocrit (Bld) [Volume fraction] 37.5 % Normal 36.0-48.0 [facility] Comment on above: Performed By: #### C BC #### [facility] [address] [place] [address] Dr. Fabricio Mohr Hemoglobin (Bld) [Mass/Vol] 11.4 g/dL Critically low 12.0-16.0 [facility] Comment on above: Performed By: #### C BC #### [facility] [address] [place] [address] Dr. Fabricio Mohr IG # 0.07 10e3/ul Critically high 0.00-0.03 [facility] Comment on above: Performed By: #### C BC #### [facility] [address] [place] [address] Dr. Fabricio Mohr IG % 0.8 % Critically high 0.0-0.5 [facility] Comment on above: Performed By: #### C BC #### [facility] [address] [place] [address] Dr. Fabricio Mohr LYMPH # 2.2 103/ul Normal 1.2-3.8 [facility] Comment on above: Performed By: #### C BC #### [facility] [address] [place] [address] Dr. Fabricio Mohr Lymphocytes/100 WBC (Bld) 26.1 % Normal 20.5-60.0 [facility] Comment on above: Performed By: #### C BC #### [facility] [address] [place] [address] Dr. Fabricio Mohr MANUAL DIFF REQ NO Normal [facility] Comment on above: Performed By: #### C BC #### [facility] [address] [place] [address] Dr. Fabricio Mohr MCH (RBC) [Entitic mass] 25.0 pg Critically low 26.7-34.0 [facility] Comment on above: Performed By: #### C BC #### [facility] [address] [place] [address] Dr. Fabricio Mohr MCHC (RBC) [Mass/Vol] 30.4 g/dL Normal 29.9-35.2 [facility] Comment on above: Performed By: #### C BC #### [facility] [address] [address] [address] Fabricio Mohr MCV (RBC) [Entitic vol] 82.2 fL Normal 81.0-99.0 [facility] Comment on above: Performed By: #### C BC #### [facility] [address] [address] [address] Fabricio Mohr MONO # 0.6 103/ul Normal 0.3-0.8 [facility] Comment on above: Performed By: #### C BC #### [facility] [address] [place] [address] Dr. Fabricio Mohr Monocytes/100 WBC (Bld) 7.0 % Normal 1.7-12.0 [facility] Comment on above: Performed By: #### C BC #### [facility] [address] [place] [address] Dr. Fabricio Mohr NEUT # 5.4 103/ul Normal 1.4-6.5 [facility] Comment on above: Performed By: #### C BC #### [facility] [address] [place] [address] Dr. Fabricio Mohr Neutrophils/100 WBC (Bld) 63.0 % Normal 43.0-75.0 [facility] Comment on above: Performed By: #### C BC #### [facility] [address] [place] [address] Dr. Fabricio Mohr Platelet mean volume (Bld) [Entitic vol] 9.1 fL Critically low 9.5-13.5 [facility] Comment on above: Performed By: #### C BC #### [facility] [address] [place] [address] Dr. Fabricio Mohr PLT 386 103/ul Normal 150-450 [facility] Comment on above: Performed By: #### C BC #### [facility] [address] [place] [address] Dr. Fabricio Mohr RBC 4.56 106/ul Normal 4.20-5.40 [facility] Comment on above: Performed By: #### C BC #### [facility] [address] [address] [address] Fabricio Mohr WBC 8.6 103/ul Normal 4.0-11.0 [facility] Comment on above: Performed By: #### C BC #### [facility] [address] [address] [address] Fabricio Mohr LIPID PROFILEon 03-16-2022 CHOL-HDL RATIO NORM SEE BELOW Normal [facility] Comment on above: Result Comment: 3.3 - 4.4 LOW RISK 4.4 - 7.1 AVERAGE RISK 7.1 - 11.0 MODERATE RISK >11.0 HIGH RISK Performed By: #### L IPID, TSH, BMP #### [facility] [address] [place] [address] Dr. Fabricio Mohr Cholesterol [Mass/Vol] 183 mg/dL Normal <=200 [facility] Comment on above: Performed By: #### L IPID, TSH, BMP #### [facility] [address] [place] [address] Dr. Fabricio Mohr Cholesterol in HDL [Mass/Vol] 54 mg/dL Normal 40-60 [facility] Comment on above: Performed By: #### L IPID, TSH, BMP #### [facility] [address] [place] [address] Dr. Fabricio Mohr Cholesterol in LDL [Mass/Vol] 109.2 mg/dL Normal [facility] Comment on above: Performed By: #### L IPID, TSH, BMP #### [facility] [address] [place] [address] Dr. Fabricio Mohr Cholesterol.total/Poncho sterol in HDL [Mass ratio] 3.4 {ratio} Normal [facility] Comment on above: Performed By: #### L IPID, TSH, BMP #### [facility] [address] [place] [address] Dr. Fabricio Mohr HDL NORMAL > or = 60 mg/dl - LO W CARDIOVASCULAR RISK <40 mg/dl - HIGH CARDIOVASCULAR RISK Normal [facility] Comment on above: Performed By: #### L IPID, TSH, BMP #### [facility] [address] [place] [address] Dr. Fabricio Mohr LDL CALC NORMAL SEE BELOW Normal [facility] Comment on above: Result Comment: <100 mg/dl OPTIMAL 100 - 129 mg/dl NEAR OR ABOVE OPTIMAL 130 - 159 mg/dl BORDERLINE HIGH 160 - 189 mg/dl HIGH >190 mg/dl VERY HIGH Performed By: #### L IPID, TSH, BMP #### [facility] [address] [place] [address] Dr. Fabricio Mohr Triglyceride [Mass/Vol] 99 mg/dL Normal <=150 [facility] Comment on above: Performed By: #### L IPID, TSH, BMP #### [facility] [address] [place] [address] Dr. Fabricio Mohr VLDL CALC 19.8 mg/dL Normal [facility] Comment on above: Performed By: #### L IPID, TSH, BMP #### [facility] [address] [place] [address] Dr. Fabricio Mohr PROF CHEM 8 (BAS METB)on Anion gap [Moles/Vol] 13.5 mmol/L Normal [facility] Comment on above: Performed By: #### L IPID, TSH, BMP #### [facility] [address] [place] [address] Dr. Fabricio Mohr Calcium [Mass/Vol] 8.8 mg/dL Normal 8.5-10.1 [facility] Comment on above: Performed By: #### L IPID, TSH, BMP #### [facility] [address] [place] [address] Dr. Fabricio Mohr Chloride [Moles/Vol] 100 mmol/L Normal 98-107 [facility] Comment on above: Performed By: #### L IPID, TSH, BMP #### [facility] [address] [place] [address] Dr. Fabricio Mohr CO2 [Moles/Vol] 28.4 mmol/L Normal 21.0-32.0 [facility] Comment on above: Performed By: #### L IPID, TSH, BMP #### [facility] [address] [address] [address] Fabricio Mohr Creatinine [Mass/Vol] 0.85 mg/dL Normal 0.55-1.02 [facility] Comment on above: Performed By: #### L IPID, TSH, BMP #### [facility] [address] [address] [address] Fabricio Mohr EGFR-AF MALAGASY >60 Normal >=60 [facility] Comment on above: Performed By: #### L IPID, TSH, BMP #### [facility] [address] [address] [address] Fabricio Mohr EGFR-NON AF MALAGASY >60 Normal >=60 [facility] Comment on above: Performed By: #### L IPID, TSH, BMP #### [facility] [address] [address] [address] Fabricio Mohr Glucose [Mass/Vol] 136 mg/dL Critically high 74-106 [facility] Comment on above: Performed By: #### L IPID, TSH, BMP #### [facility] [address] [address] [address] Fabricio Mohr Potassium [Moles/Vol] 3.9 mmol/L Normal 3.5-5.1 [facility] Comment on above: Performed By: #### L IPID, TSH, BMP #### [facility] [address] [address] [address] Fabricio Mohr Sodium [Moles/Vol] 138 mmol/L Normal 136-145 [facility] Comment on above: Performed By: #### L IPID, TSH, BMP #### [facility] [address] [address] [address] Fabricio Mohr Urea nitrogen [Mass/Vol] 8.0 mg/dL Normal 7.0-18.0 [facility] Comment on above: Performed By: #### L IPID, TSH, BMP #### [facility] [address] [address] [address] Fabricio Mohr Urea nitrogen/Creatinine [Mass ratio] 9.4 mg/mg Normal [facility] Comment on above: Performed By: #### L IPID, TSH, BMP #### [facility] [address] [place], [place] [address] Dr. Fabricio Mohr TSHon 03-16-2022 TSH 3.137 uIU/mL Normal 0.358-3.740 [facility] [place] [facility] Comment on above: Performed By: #### H STROPN, CMP #### [facility] [address] [place], [place] [address] Dr. Fabricio Mohr Quantiferon-TB Plus (Client Incubated)on 03-15-2021 Gamma interferon background IA Qn (Bld) 0.01 International_Unit/mL Invalid Interpretation Code [facility] Comment on above: Performed By: #### 1 [id number] #### [facility] [address] [place] [address] M. tuberculosis stim IFN-g by CD4+ CD8+ T-cells corrected for background Qn (Bld) 0.04 International_Unit/mL Invalid Interpretation Code [facility] Comment on above: Performed By: #### 1 [id number] #### [facility] [address] [place] [address] M. tuberculosis stim IFN-g by CD4+ T-cells corrected for background Qn (Bld) 0.03 International_Unit/mL Invalid Interpretation Code [facility] Comment on above: Performed By: #### 1 [id number] #### [facility] [address] [place] [address] M. tuberculosis stim IFN-g Ql (Bld) [Interp] Negative Invalid Interpretation Code Negative [facility] Comment on above: Result Comment: The specimen received for QuantiFERON testing was incubated by the ordering institution. Specific procedures outlined in our Directory of Services and in the package insert for the QuantiFERON Gold (In Tube) test must be followed to enable for proper stimulation of cells for the production of interferon gamma. Chemiluminescence immunoassay methodology Performed at: [address] [id number] PhD Tremaine Purdy Performed By: #### 1 [id number] #### [facility] [address] [place] [address] Mitogen stimulated gamma interferon Qn (Bld) >10.00 Invalid Interpretation Code [facility] Comment on above: Performed By: #### 1 [id number] #### [facility] [address] [place] [address] Service comment (Unsp spec) [Interp] Comment Invalid Interpretation Code [facility] Comment on above: Result Comment: The QuantiFERON-TB Gold Plus result is determined by subtracting the Nil value from either TB antigen (Ag) tube. The mitogen tube serves as a control for the test. Performed By: #### 1 [id number] #### [facility] [address] [place] [id number] Hep Bs Abon 03-09-2021 HBV surface Ab Ql (S) Non-Reactive Invalid Interpretation Code [facility] Comment on above: Result Comment: Non Reactive: Inconsistent with immunity, less than 10 mIU/mL Reactive: Consistent with immunity, greater than 9.9 mIU/mL Performed at: [facility] [address] [place], [place] [id number] PhD Tremaine Purdy Performed By: #### 1 [id number], [id number] #### [facility] [address] [place] [address] Measles/Mumps/Rubella Immuni tyon 03-09-2021 MeV IgG IA Qn (S) 128.0 A unit/mL Invalid Interpretation Code Immune >16.4 [facility] Comment on above: Result Comment: Nega tive <13.5 Equivocal 13.5 - 16.4 Positive >16.4 Presence of antibodies to Rubeola is presumptive evidence of immunity except when acute infection is suspected. Performed By: #### 1 [id number], [id number] #### [facility] [address] [place] [address] MuV IgG IA Qn (S) 137.0 A unit/mL Invalid Interpretation Code Immune >10.9 [facility] Comment on above: Result Comment: Nega tive <9.0 Equivocal 9.0 - 10.9 Positive >10.9 A positive result generally indicates past exposure to Mumps virus or previous vaccination. Performed at: [address] [id number] PhD Tremaine Purdy Performed By: #### 1 [id number], [id number] #### [facility] [address] [place] [address] Rubella virus IgG Qn (S) 5.01 [IU]/mL Invalid Interpretation Code Immune >0.99 [facility] Comment on above: Result Comment: Non- immune <0.90 Equivocal 0.90 - 0.99 Immune >0.99 Performed By: #### 1 [id number] #### [facility] [address] [place] [address] Varic IgGon 03-09-2021 VZV IgG IA Qn (S) 289 Invalid Interpretation Code Immune >165 [facility] Comment on above: Result Comment: Nega tive <135 Equivocal 135 - 165 Positive >165 A positive result generally indicates exposure to the pathogen or administration of specific immunoglobulins, but it is not indication of active infection or stage of disease. Performed at: [address] [id number] PhD Tremaine Purdy Performed By: #### 1 [id number] #### [facility] [address] [place] [address] Consent for Treatmenton 02-19 Consent for Treatment [id number] [facility] [id number] 0CD:127 Normal [facility] Physician Orderon 03-08-2021 Physician Order [id number] 0CD:127 Normal [facility] Vital Signs Date Time Vital Sign Value Performing Clinician Facility 10-15-2024 14:07-0400 Body temperature 98 [degF] Jessica Ruiz MD Work Phone: [facility] 10-15-2024 14:07-0400 Diastolic blood pressure 92 mm[Hg] Jessica Ruiz MD Work Phone: [facility] 10-15-2024 14:07-0400 Heart rate 91 /min Jessica Ruiz MD Work Phone: [facility] 10-15-2024 14:07-0400 Respiratory rate 16 /min Jessica Ruiz MD Work Phone: [facility] 10-15-2024 14:07-0400 SaO2% (BldA) [Mass fraction] 99 % Jessica Ruiz MD Work Phone: [facility] 10-15-2024 14:07-0400 Systolic blood pressure 137 mm[Hg] Jessica Ruiz MD Work Phone: [facility] 10-15-2024 11:21-0400 Body height 165.1 cm Jessica Ruiz MD Work Phone: [facility] 10-15-2024 11:21-0400 Body weight 112 kg Jessica Ruiz MD Work Phone: [facility] 10-14-2024 08:10-0400 Body height 165.1 cm Jessica Ruiz MD Work Phone: [facility] 10-14-2024 08:10-0400 Body mass index (BMI) [Ratio] 41.4 kg/m2 Jessica Ruiz MD Work Phone: [facility] 10-14-2024 08:10-0400 Body weight 112.94 kg Jessica Ruiz MD Work Phone: [facility] 10-14-2024 08:10-0400 Diastolic blood pressure 81 mm[Hg] Jessica Ruiz MD Work Phone: [facility] 10-14-2024 08:10-0400 Heart rate 88 /min Jessica Ruiz MD Work Phone: [facility] 10-14-2024 08:10-0400 Systolic blood pressure 114 mm[Hg] Jessica Ruiz MD Work Phone: [facility] 08-07-2024 09:36-0500 Body height 165.1 cm Samantha Pitts Jr., DO Work Phone: [facility] 08-07-2024 09:36-0500 Body mass index (BMI) [Ratio] 41.6 kg/m2 Samantha Pitts Jr., DO Work Phone: [facility] 08-07-2024 09:36-0500 Body weight 113.4 kg Samantha Pitts Jr., DO Work Phone: [facility] 08-07-2024 09:36-0500 Diastolic blood pressure 83 mm[Hg] Samantha Pitts Jr., DO Work Phone: [facility] 08-07-2024 09:36-0500 Heart rate 92 /min Samantha Pitts Jr., DO Work Phone: [facility] 08-07-2024 09:36-0500 SaO2% (BldA) [Mass fraction] 100 % Samantha Pitts Jr., DO Work Phone: [facility] 08-07-2024 09:36-0500 Systolic blood pressure 125 mm[Hg] Samantha Pitts Jr., DO Work Phone: [facility] 03-10-2024 09:40-0400 Diastolic blood pressure 90 mm[Hg] Samantha Pitts Jr., DO Work Phone: [facility] 03-10-2024 09:40-0400 Heart rate 75 /min Samantha Pitts Jr., DO Work Phone: [facility] 03-10-2024 09:40-0400 Respiratory rate 16 /min Samantha Pitts Jr., DO Work Phone: [facility] 03-10-2024 09:40-0400 SaO2% (BldA) [Mass fraction] 98 % Samantha Pitts Jr., DO Work Phone: [facility] 03-10-2024 09:40-0400 Systolic blood pressure 140 mm[Hg] Samantha Pitts Jr., DO Work Phone: [facility] 03-10-2024 08:16-0400 Body height 165.1 cm Samantha Pitts Jr., DO Work Phone: [facility] 03-10-2024 08:16-0400 Body mass index (BMI) [Ratio] 41.27 kg/m2 Samantha Pitts Jr., DO Work Phone: [facility] 03-10-2024 08:16-0400 Body weight 112.49 kg Samantha Pitts Jr., DO Work Phone: [facility] 02-18-2024 12:56-0400 Body height 165.1 cm Samantha Pitts Jr., DO Work Phone: [facility] 02-18-2024 12:56-0400 Body mass index (BMI) [Ratio] 41.27 kg/m2 Samantha Pitts Jr., DO Work Phone: [facility] 02-18-2024 12:56-0400 Body temperature 97.59 [degF] Samantha Pitts Jr., DO Work Phone: [facility] 02-18-2024 12:56-0400 Body weight 112.49 kg Samantha Pitts Jr., DO Work Phone: [facility] 02-18-2024 12:56-0400 Diastolic blood pressure 85 mm[Hg] Samantha Pitts Jr., DO Work Phone: [facility] 02-18-2024 12:56-0400 Heart rate 84 /min Samantha Pitts Jr., DO Work Phone: [facility] 02-18-2024 12:56-0400 SaO2% (BldA) [Mass fraction] 98 % Samantha Pitts Jr., DO Work Phone: [facility] 02-18-2024 12:56-0400 Systolic blood pressure 137 mm[Hg] Samantha Pitts Jr., DO Work Phone: [facility] 02-18-2024 08:53-0400 Body height 165.1 cm MD Jessica Ruiz Work Phone: [facility] 02-18-2024 08:53-0400 Body mass index (BMI) [Ratio] 41.2 kg/m2 MD Jessica Ruiz Work Phone: [facility] 02-18-2024 08:53-0400 Body weight 112.49 kg MD Jessica Ruiz Work Phone: [facility] 02-18-2024 08:53-0400 Diastolic blood pressure 89 mm[Hg] MD Jessica Ruiz Work Phone: [facility] 02-18-2024 08:53-0400 Heart rate 78 /min MD Jessica Ruiz Work Phone: [facility] 02-18-2024 08:53-0400 Systolic blood pressure 130 mm[Hg] MD Jessica Ruiz Work Phone: [facility] 11-26-2022 14:28-0400 Body height 165.1 cm Jessica Ruiz Work Phone: [facility] DO Work Phone: 11-26-2022 14:28-0400 Body mass index (BMI) [Ratio] 39.61 kg/m2 Jessica Ruiz Work Phone: [facility] DO Work Phone: 11-26-2022 14:28-0400 Body surface area Derived from formula 2.13 m2 Jessica Ruiz Work Phone: [facility] DO Work Phone: 11-26-2022 14:28-0400 Body weight 107.96 kg Jessica Ruiz Work Phone: [facility] DO Work Phone: 11-26-2022 14:28-0400 Diastolic blood pressure 80 mm[Hg] Jessica Ruiz Work Phone: [facility] DO Work Phone: 11-26-2022 14:28-0400 Heart rate 72 /min Jessica Ruiz Work Phone: [facility] DO Work Phone: 11-26-2022 14:28-0400 Systolic blood pressure 121 mm[Hg] Jessica Ruiz Work Phone: [facility] DO Work Phone: 10-08-2022 11:15-0400 Body height 165.1 cm Jessica Ruiz Work Phone: [facility] DO Work Phone: 10-08-2022 11:15-0400 Body mass index (BMI) [Ratio] 39.94 kg/m2 Jessica Ruiz Work Phone: [facility] DO Work Phone: 10-08-2022 11:15-0400 Body surface area Derived from formula 2.14 m2 Jessica Ruiz Work Phone: [facility] DO Work Phone: 10-08-2022 11:15-0400 Body weight 108.86 kg Jessica Ruiz Work Phone: [facility] DO Work Phone: 10-08-2022 11:15-0400 Diastolic blood pressure 80 mm[Hg] Jessica Ruiz Work Phone: [facility] DO Work Phone: 10-08-2022 11:15-0400 Heart rate 82 /min Jessica Ruiz Work Phone: [facility] DO Work Phone: 10-08-2022 11:15-0400 Systolic blood pressure 122 mm[Hg] Jessica Ruiz Work Phone: [facility] DO Work Phone: 10-08-2022 11:06-0400 Body height 165.1 cm Jessica Ruiz Work Phone: [facility] DO Work Phone: 10-08-2022 11:06-0400 Body mass index (BMI) [Ratio] 39.94 kg/m2 Jessica Ruiz Work Phone: [facility] DO Work Phone: 10-08-2022 11:06-0400 Body surface area Derived from formula 2.14 m2 Jessica Ruiz Work Phone: [facility] DO Work Phone: 10-08-2022 11:06-0400 Body weight 108.86 kg Jessica Ruiz Work Phone: [facility] DO Work Phone: 10-08-2022 11:06-0400 Diastolic blood pressure 80 mm[Hg] Jessica Ruiz Work Phone: [facility] DO Work Phone: 10-08-2022 11:06-0400 Systolic blood pressure 118 mm[Hg] Jessica Ruiz Work Phone: [facility] DO Work Phone: 05-03-2022 17:20-0400 Body height 165.1 cm Caitlin Coronel Other [facility] Other 05-03-2022 17:20-0400 Body mass index (BMI) [Ratio] 36.27 kg/m2 Caitlin Coronel Other [facility] Other 05-03-2022 17:20-0400 Body temperature 98.1 [degF] Caitlin Coronel Other [facility] Other 05-03-2022 17:20-0400 Body weight 98.88 kg Caitlin Coronel Other [facility] Other 05-03-2022 17:20-0400 Diastolic blood pressure 82 mm[Hg] Caitlin Coronel Other [facility] Other 05-03-2022 17:20-0400 Respiratory rate 18 /min Caitlin Coronel Other [facility] Other 05-03-2022 17:20-0400 SaO2% (BldA) [Mass fraction] 99 % Caitlin Coronel Other [facility] Other 05-03-2022 17:20-0400 Systolic blood pressure 126 mm[Hg] Caitlin Coronel Other [facility] Other Encounters Encounter Date Encounter Type Care Provider Facility Start: 10-15-2024 End: 10-15-2024 Emergency department patient visit Jessica Ruiz MD Work Phone: [facility] Work Phone: Start: 10-14-2024 End: 10-14-2024 Patient encounter procedure Jessica Ruiz MD [facility] Phone[facility] Work Phone: Start: 08-07-2024 End: 08-07-2024 ambulatory SAMANTHA PITTS JR Facility:[facility] Start: 08-07-2024 End: 08-07-2024 Patient encounter procedure Samantha Pitts DO Work Phone: Gastroenterology Comment on above: Gastroesophageal ref lux disease without esophagitis (Primary Dx); Irritable bowel syndrome with diarrhea; Personal history of adenomatous and serrated colon polyps Start: 05-18-2024 End: 05-18-2024 ambulatory JOHNNY TRISH Not Available Start: 03-17-2024 End: 03-17-2024 Telephone encounter Samantha Pitts DO Work Phone: Gastroenterology Start: 03-16-2024 End: 03-16-2024 Patient encounter procedure MD Jessica Ruiz Work Phone: [facility] Work Phone: Start: 03-16-2024 End: 03-16-2024 ambulatory MD Jessica Ruiz Work Phone: [facility] Work Phone: Start: 03-16-2024 End: 03-16-2024 Telephone encounter Samantha Pitts DO Work Phone: Gastroenterology Start: 03-10-2024 End: 03-10-2024 ambulatory JESSICA RUIZ Facility:[facility] Start: 03-10-2024 End: 03-10-2024 Subsequent hospital visit by physician Samantha Pitts DO Work Phone: [facility] Comment on above: Gastroesophageal ref lux disease, unspecified whether esophagitis present [K21.9] Start: 03-03-2024 Non-patient / Non-visit MD Sandra Ruiz Work Phone: [facility] Work Phone: Start: 03-03-2024 End: 03-03-2024 ambulatory JOHNNY TRISH Not Available Start: 02-19-2024 Telephone encounter Samantha ramirez DO Work Phone: [facility] Comment on above: Received Outside Med ical Records Start: 02-18-2024 End: 02-18-2024 ambulatory JESSICA RUIZ Facility:[facility] Start: 02-18-2024 End: 02-18-2024 Patient encounter procedure Samantha Pitts DO Work Phone: Gastroenterology Comment on above: Personal history of colonic polyps (Primary Dx); Gastroesophageal reflux disease, unspecified whether esophagitis present; Irritable bowel syndrome with both constipation and diarrhea Start: 02-18-2024 End: 02-18-2024 Patient encounter procedure MD Jessica Ruiz Work Phone: [facility] Work Phone: Start: 01-31-2024 End: 01-31-2024 Departed Referred MD Jessica Ruiz Work Phone: [facility] Work Phone: Start: 01-31-2024 End: 01-31-2024 ambulatory MD Jessica Ruiz Work Phone: [facility] Work Phone: Start: 09-24-2023 Patient encounter status MD Socorro Ruiz Work Phone: [facility] Start: 08-23-2023 End: 08-23-2023 ambulatory Jessica Ruiz Other [facility] Other Start: 08-23-2023 Office outpatient vi sit 15 minutes Jessica Ruiz [facility] Start: 08-20-2023 End: 08-20-2023 ambulatory [facility] Not Available Start: 03-26-2023 End: 03-26-2023 ambulatory Jessica Ruiz Other [facility] Other Start: 03-26-2023 Telephone encounter Jessica Ruiz [facility] Start: 11-26-2022 Office outpatient vi sit 15 minutes Jessica Ruiz Work Phone: [facility] DO Work Phone: Start: 11-26-[address] Jessica Ruiz Facility: Start: 11-16-2022 Chart Update Jessica Ruiz Work Phone: [facility] DO Work Phone: Start: 11-08-2022 Chart Update Jessica Ruiz Work Phone: [facility] [place] 250 DO Work Phone: Start: 11-01-[address] Jessica Ruiz Facility:44 Start: 10-08-2022 Office consultation new/estab patient 60 min Jessica Ruiz Work Phone: [facility] 250 DO Work Phone: Start: 10-08-2022 Patient encounter procedure Jessica Ruiz Work Phone: [facility] 250 DO Work Phone: Start: 10-08-[address] Jessica Ruiz Facility: Start: 09-18-[address] Jessica Ruiz Facility:[facility] Start: 09-12-2022 End: 09-12-[address] CHICA Tobin Facility: Start: 06-22-2022 Adult health examination Shanda Ruiz Other [employer] [facility] [employer] Other Start: 05-03-2022 End: 05-03-2022 ambulatory Caitlin Coronel Other [facility] Other Start: 05-03-2022 Office outpatient ne w 20 minutes Caitlin Coronel [facility] Start: 04-06-2022 End: 04-06-2022 ambulatory DAVID GREEN Facility: Start: 03-23-2022 End: 03-24-[address] JESSICA RUIZ Facility: Start: 03-18-2022 Encounter for genera l adult medical examination without abnormal findings DR JESSICA RUIZ [facility] Start: 03-16-2022 Pre-procedure evalua tion check Jessica Ruiz Other [facility] Other Start: 03-16-2022 End: 03-17-[address] JESSICA RUIZ Facility:[facility]1 Start: 03-16-2022 End: 03-17-2022 Encounter for general adult medical examination without abnormal findings DR JESSICA RUIZ Facility:[facility] Start: 10-31-2021 Gynecological examin ation normal Jessica Ruiz Other [facility] Other Procedures Date Procedure Procedure Detail Performing Clinician Start: 03-16-2024 X-ray of lumbar spine, four views MD Sandra Ruiz Work Phone: Start: 03-10-2024 Colonoscopy flx dx w/collj spec when pfrmd Samantha Pitts DO Work Phone: Start: 03-10-2024 Level iv surg pathology gross&microscopic exam Samantha Pitts DO Work Phone: Start: 03-10-2024 Esophagogastroduodenoscopy transoral diagnostic Samantha Pitts DO Work Phone: Start: 11-16-2022 Echocardiography Jessica Ruiz Work Phone: Start: 10-14-2017 General examination of patient Jessica whitley Other Start: 01-19-2016 Screening mammography Jessica Ruiz Other Cholecystectomy Jessica mims Work Phone: Colonoscopy Jessica Ruiz Work Phone: Destructive procedure Jessica Ruiz Work Phone: Hysterectomy Jessica Ruiz Work Phone: Hysterectomy Jessica Ruiz Other Ligation of fallopian tube Tommie Ruiz Other Screening for malign ant neoplasm of breast Jessica Ruiz Other Plan of Treatment Date Care Activity Detail Author Start: 05-03-2032 Urine microalbumin profile DTaP,Tdap,Td Vaccine (2 - Td or Tdap) [facility] Start: 05-18-2025 Screening for malignant neoplasm of breast Mammogram Screening [facility] Start: 10-15-2024 [facility] Start: 10-15-2024 Bacteria identified in Urine by Culture Urine Culture [facility] Start: 10-15-2024 Urine culture [facility] Start: 08-07-2024 End: 08-07-2024 Patient encounter procedure 08/07/2024 9:40 AM EST Office Visit Gastroenterology [address] [place] [address] Samantha Pitts Jr., DO [address] [place] [address] 4 month follow Gastroenterology Comment on above: 4 month follow Start: 05-08-2024 Screening for malignant neoplasm of breast Mammogram Screening [facility] Start: 03-22-2024 Covid-19 Vaccine ( season) Covid-19 Vaccine () [facility] Start: 03-22-2024 Covid-19 Vaccine ( season) Covid-19 Vaccine ( season) [facility] Start: 03-22-2024 Influenza vaccination Influ[facility] (#[facility] Start: 03-10-2024 End: 03-10-2024 Patient encounter procedure 03/10/2024 8:45 AM EDT Appointment [facility] [address] [place] [id number] Samantha Pitts Jr., DO [address] [place] [address] Personal history of colonic polyps [Z86.010] [facility] Comment on above: Personal history of colonic polyps [Z86. 010] Start: 03-22-2023 Covid-19 Vaccine ( season) Covid-19 Vaccine ( season) [facility] Start: 11-26-2022 FUV, Provider: Julieta Sanford, Status: Pen, Time: 2:15 PM FUV, Provider: Julieta Sanford, Status: Pen, Time: 2:15 PM -[facility] [place] 250 DO Work Phone: Start: 11-16-2022 ECHO, Provider: GEMMA MARTINEZI ULTRASOUND 01,[id number], Status: Pen, Time: 7:45 AM ECHO, Provider: GEMMA HHVI ULTRASOUND 01,[id number], Status: Pen, Time: 7:45 AM [facility]oub-[facility] [employer] 250 DO Work Phone: Start: 11-01-2022 STRESS LINDA, Provider: GEMMA HHVI NUCLEAR 01,[id number], Status: Pen, Time: 2:00 PM STRESS LINDA, Provider: GEMMA MARTINEZI NUCLEAR 01,[id number], Status: Pen, Time: 2:00 PM [facility] [place] 250 DO Work Phone: Start: 2002 Screening for malignant neoplasm of cervix Cervical Cancer Screening [facility] Start: 2000 Hepatitis B Vaccine (1 of 3 - 19+ 3-dose series) Hepatitis B Vaccine (1 of 3 - 19+ 3-dose series) [facility] Start: 10-27-1999 Anxiety Screening Anxiety Screening [facility] Start: 10-27-1999 Depression Screening Depression Screening [facility] Start: 10-27-1999 Hepatitis C screening Hepatitis C Screening [facility] Start: 10-27-1999 HIV screening HIV Screening [facility] End: 02-17-2025 EGD DIAGNOSTIC EGD DIAGNOSTIC Endoscopy Routine Gastroesophageal reflux disease, unspecified whether esophagitis present 1 Occurrences starting 02/18/2024 until 02/17/2025 [facility] [email or web address] Work Phone: Comment on above: 1 Occurrences starting 02/18/2024 until 02/17/2025 End: 02-17-2025 Flexible sigmoidoscopy study COLONOSCOPY DIAGNOSTIC Endoscopy Routine Personal history of colonic polyps 1 Occurrences starting 02/18/2024 until 02/17/2025 [facility] Comment on above: 1 Occurrences starting 02/18/2024 until 02/17/2025 Glucose measurement estimated from glycated hemoglobin [facility] Hepatitis A virus antibody, IgM type [facility] Hepatitis B core antibody measurement, IgM type [facility] Hepatitis B virus surface Ag [Presence] in Serum or Plasma by Immunoassay [facility] Hepatitis C virus Ig G Ab [Presence] in Serum or Plasma by Immunoassay [facility] Hepatitis C virus RN A [log units/volume] (viral load) in Serum or Plasma by RELL with probe detection [facility] Hepatitis C virus RN A [Units/volume] (viral load) in Serum or Plasma by RELL with probe detection [facility] Patient Education High blood sug ar in adults - ED discharge instructions [facility] Work Phone: Patient referral [facility] Work Phone: [facility] Immunizations Immunization Date Immunization Notes Care Provider Fa cili 05-03-2022 tetanus toxoid, reduced diphtheria toxoid, and acellular pertussis vaccine, adsorbed Caitlin Coronel Other [facility] 04-28-2020 influenza virus vaccine, split virus (incl. purified surface antigen) Jessica Ruiz Other [facility] Other 04-28-2020 influenza virus vaccine, unspecified formulation MD Jessica Ruiz Work Phone: [facility] 06-12-2017 tetanus and diphther ia toxoids, adsorbed, preservative free, for adult use (5 Lf of tetanus toxoid and 2 Lf of diphtheria toxoid) Jessica Ruiz Other [facility] Payers Date Payer Category Payer Unknown 2024 Unknown [id number] 2023 Unknown [id number] 2022 Medicaid [place] MEDICA[employer] [employer] MEDICAID [id number] 2022-Present [phone] [address] [place] [address] Medicaid [id number] 1981 Unknown [id number]. 1068 1981 Unknown [id number] [id number]. 593 1981 Unknown [id number] [id number]. 593 1981 Unknown [id number] 2.16.840.1.057261.3.579.2. 593 1981 Unknown [id number] 2.16.840.1.746775.3.579.2. 356 1981 Unknown [id number] 2.16840.1.465225.3.579.2. 356 1981 Unknown [id number] 2.16.840.1.149586.3.579.2. 1259 1981 Unknown [id number] 2.16.840.1.597030.3.579.2. 1259 1981 Unknown [id number] 2.16.840.1.317869.3.579.2. 1259 1959 Private Health Insurance [id number] 1959 Self-pay 1959 Unknown [id number] Blue Cross Blue Shield [id number] Medicaid [place] Advantage [id number] Private Health Insurance [id number] Private Health Insurance [id number] Unknown [id number] [id number]. 593 Unknown [id number] [id number]. 531 Unknown [id number] 2.16.840.1.330476.3.579.2. 531 Unknown [id number] [id number]. 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 (finding) [facility] Adult Depression Screening Assessment 2 [facility] Start: 05-16-2022 Gender identity Identifies as female gender (finding) [facility] Start: 03-10-2024 End: 08-07-2024 Alcoholic beverage intake Current drinker of alcohol (finding) [facility] Start: 03-10-2024 Alcohol Comment occasionally [facility] Start: 10-15-2024 Sex Female (finding) [facility] NEGATED: Highlighted row Denies Caffeine use Denies Caffeine use [facility] 250 DO Work Phone: Medical Equipment Procedure Code Equipment Code Equipment Origin al Text Equipment Identifier Dates Blood Sugar Diagnostic (Onetouch Ultra Test) strip Start: 05-18-2024 Blood Sugar Diagnostic strip Start: 02-18-2024 End: 05-18-2024 Clinical Notes 05-03-2022 to 10-14-2024 Note Date & Type Note Facility 10-14-2024 Evaluation note Diagnosis Onset Date Resolution Fatigue acute October 14 8:04am Type 2 diabetes mellitus with hyperglycemia acute October 14 8:04am [facility] Work Phone: [phone] 630-205401-17-2025 Instructions* Patient Instructions* Samantha Pitts Jr., - 08/07/2024 10:16 AM EST Maintain omeprazole 40 mg twice daily Start Levsin as needed for abd pain / IBS [facility] History of Present illness Narrative* Samantha Pitts Jr., - 08/07/2024 9:40 AM EST Patient presents with: Follow Up HPI: Mamadou Lowery, 43 year old female, with personal history of colon polyps and GERD. In 2015 she underwent a colonoscopy revealing a large villous adenoma. Followup colonoscopy in 2016 wasunremarkable. EGD in 2015 showed esophagitis. Repeat EGD and colonoscopy in February revealed GERD, gastric polyps, small hiatal hernia, and unremarkable colonoscopy. She remains on omeprazole 40 mg twice daily and GERD is stable. IBS-D stable with dietary control. Previously on dicyclomine which didprovide some benefit. History of cholecystectomy but limited benefit with colestipol. Negative family history. Past GI workup 03/10/24 Upper GI endoscopy/colonoscopy were done for Heartburn, Esophageal reflux, High risk colon cancer surveillance: Personal history of colonic polyps per Samantha Pitts Jr, DO - Normal esophagus. - Z-line variable, 36 cm from the incisors. Biopsied. - Small hiatal hernia. - Multiple gastric polyps. Resected and retrieved. - Normal examined duodenum The digital rectal exam was normal. The terminal ileum appeared normal. A few small-mouthed diverticula were found in the sigmoid colon. No additional abnormalities were found on retroflexion. Path as follows: A. Gastric polyp, biopsy: - Fundic gland polyp. - Negative for dysplasia. B. Distal esophagus, biopsy: - Fragments of unremarkable squamous mucosa and mildly inflamed cardiofundic- type mucosa. - No evidence of intestinal metaplasia or dysplasia. - No evidence of eosinophilia. 02/18/24 Last office visit notes as follows: Mamadou Lowery, 43 year old female, presents in the office today for personal history of colon polyps and GERD. In 2016 she underwent a colonoscopy revealing a large villous adenoma. Followup colonoscopy in 2017 was unremarkable and due for colonoscopy now. Last EGD was 2016 showing esophagitis. She remains on omeprazole 40 mg daily but having breakthrough. She also has issues with alternating constipation and diarrhea since cholecystectomy. Limited benefit with colestipol previously. Negative family history. 09/11/23 -noted in care everywhere Pt reports she has to get colonoscopy every 5 years d.t hx of villous adenoma polyp. Sees Dr. Pitts/GI next colonoscopy is due this year. PAST MEDICAL HISTORY Diagnosis Date Diabetes (HCC) Fibromyalgia IBS (irritable bowel syndrome) Palpitations Spondylosis PAST SURGICAL HISTORY Procedure Laterality Date ABDOMINAL SURGERY HX CHOLECYSTECTOMY 07/22/2005 HYSTERECTOMY HX Current Outpatient Medications on File Prior to Visit Medication Sig omeprazole (PRILOSEC) 40 mg capsule take 1 capsule by mouth twice a day sucralfate (CARAFATE) 1 gram tablet Take 1 tablet by mouth three times a day. DULoxetine (CYMBALTA) 60 mg capsule TAKE 1 CAPSULE BY MOUTH EVERY DAY Oral for 90 Days metFORMIN ER (GLUCOPHAGE XR) 500 mg 24 hr tablet Take 2 tablets by mouth every afternoon. glipiZIDE (GLUCOTROL XL) 5 mg 24 hr tablet Take 5 mg by mouth once daily. No current facility-administered medications on file prior to visit. Allergies: No Known Allergies Review of Systems Constitutional: Negative for chills, fatigue and fever. HENT: Negative for hearing loss, nosebleeds, tinnitus and trouble swallowing. Eyes: Negative for visual disturbance. Respiratory: Negative for cough, shortness of breath and wheezing. Cardiovascular: Negative for chest pain and palpitations. Gastrointestinal: Positive for abdominal pain and diarrhea. Negative for abdominal distention, blood in stool, constipation, nausea and vomiting. Endocrine: Negative for polyphagia. Genitourinary: Negative for dysuria, frequency and hematuria. Musculoskeletal: Negative for arthralgias and joint swelling. Skin: Negative for pallor and rash. Neurological: Negative for dizziness, tremors, seizures, syncope and headaches. Hematological: Does not bruise/bleed easily. BP 125/83 Pulse 92 Ht 165.1 cm (5' 5 ) Wt 113.4 kg (250 lb) SpO2 100% BMI 41.60 kg/m Physical Exam Constitutional: General: She is not in acute distress. HENT: Mouth/Throat: Pharynx: Oropharynx is clear. Eyes: Conjunctiva/sclera: Conjunctivae normal. Cardiovascular: Rate and Rhythm: Normal rate and regular rhythm. Pulmonary: Effort: Pulmonary effort is normal. Breath sounds: Normal breath sounds. Abdominal: General: Bowel sounds are normal. There is no distension. Palpations: Abdomen is soft. Tenderness: There is no abdominal tenderness. There is no guarding or rebound. Musculoskeletal: General: No swelling. Skin: General: Skin is warm and dry. Coloration: Skin is not jaundiced. Neurological: Mental Status: She is alert. Mental status is at baseline. ASSESSMENT/PLAN: 43 y/o female with GERD, IBS-D, and personal history of colon polyps. Maintain omeprazole for GERD.Start Levsin as needed for IBS-D. In recall for colonoscopy in 5 yrs. 1. Gastroesophageal reflux disease without esophagitis - ICD9: 530.81, ICD10: K21.9 (primary diagnosis) 2. Irritable bowel syndrome with diarrhea - ICD9: 564.1, ICD10: K58.0 3. Personal history of adenomatous and serrated colon polyps - ICD9: V12.72, ICD10: Z86.0101 Samantha Pitts Jr. documented in this encounterGrant [facility]01-17-[facility]25 NoteHNO ID: [id number] Author: SAMANTHA PITTS JR, DO Service: ? Author Type: Physician Type: Progress Notes Filed: 08/07/2024 10:24 Note Text: Patient presents with: Follow Up HPI: Mamadou Lowery, 43 year old female, with personal history of colon polyps and GERD. In 2015 she underwent a colonoscopy revealing a large villous adenoma. Followup colonoscopy in 2016 was unremarkable. EGD in 2015 showed esophagitis. Repeat EGD and colonoscopy in February revealed GERD, gastric polyps, small hiatal hernia, and unremarkable colonoscopy. She remains on omeprazole 40 mg twice daily and GERD is stable. IBS-D stable with dietary control. Previously on dicyclomine which did provide some benefit. History of cholecystectomy but limited benefit with colestipol. Negative family history. Past GI workup 03/10/24 Upper GI endoscopy/colonoscopy were done for Heartburn, Esophageal reflux, High risk colon cancer surveillance: Personal history of colonic polyps per Samantha Pitts Jr, DO - Normal esophagus. - Z-line variable, 36 cm from the incisors. Biopsied. - Small hiatal hernia. - Multiple gastric polyps. Resected and retrieved. - Normal examined duodenum The digital rectal exam was normal. The terminal ileum appeared normal. A few small-mouthed diverticula were found in the sigmoid colon. No additional abnormalities were found on retroflexion. Path as follows: A. Gastric polyp, biopsy: - Fundic gland polyp. - Negative for dysplasia. B. Distal esophagus, biopsy: - Fragments of unremarkable squamous mucosa and mildly inflamed cardiofundic-type mucosa. - No evidence of intestinal metaplasia or dysplasia. - No evidence of eosinophilia. 02/18/24 Last office visit notes as follows: Mamadou Lowery, 43 year old female, presents in the office today for personal history of colon polyps and GERD. In 2015 she underwent a colonoscopy revealing a large villous adenoma. Followup colonoscopy in 2016 was unremarkable and due for colonoscopy now. Last EGD was 2015 showing esophagitis. She remains on omeprazole 40 mg daily but having breakthrough. She also has issues with alternating constipation and diarrhea since cholecystectomy. Limited benefit with colestipol previously. Negative family history. 09/11/23 -noted in care everywhere Pt reports she has to get colonoscopy every 5 years d.t hx of villous adenoma polyp. Sees Dr. Pitts/GI next colonoscopy is due this year. PAST MEDICAL HISTORY Diagnosis Date Diabetes (HCC) Fibromyalgia IBS (irritable bowel syndrome) Palpitations Spondylosis PAST SURGICAL HISTORY Procedure Laterality Date ABDOMINAL SURGERY HX CHOLECYSTECTOMY 07/22/2005 HYSTERECTOMY HX Current Outpatient Medications on File Prior to Visit Medication Sig omeprazole (PRILOSEC) 40 mg capsule take 1 capsule by mouth twice a day sucralfate (CARAFATE) 1 gram tablet Take 1 tablet by mouth three times a day. DULoxetine (CYMBALTA) 60 mg capsule TAKE 1 CAPSULE BY MOUTH EVERY DAY Oral for 90 Days metFORMIN ER (GLUCOPHAGE XR) 500 mg 24 hr tablet Take 2 tablets by mouth every afternoon. glipiZIDE (GLUCOTROL XL) 5 mg 24 hr tablet Take 5 mg by mouth once daily. No current facility-administered medications on file prior to visit. Allergies: No Known Allergies Review of Systems Constitutional: Negative for chills, fatigue and fever. HENT: Negative for hearing loss, nosebleeds, tinnitus and trouble swallowing. Eyes: Negative for visual disturbance. Respiratory: Negative for cough, shortness of breath and wheezing. Cardiovascular: Negative for chest pain and palpitations. Gastrointestinal: Positive for abdominal pain and diarrhea. Negative for abdominal distention, blood in stool, constipation, nausea and vomiting. Endocrine: Negative for polyphagia. Genitourinary: Negative for dysuria, frequency and hematuria. Musculoskeletal: Negative for arthralgias and joint swelling. Skin: Negative for pallor and rash. Neurological: Negative for dizziness, tremors, seizures, syncope and headaches. Hematological: Does not bruise/bleed easily. BP 125/83 Pulse 92 Ht 165.1 cm (5' 5 ) Wt 113.4 kg (250 lb) SpO2 100% BMI 41.60 kg/m? Physical Exam Constitutional: General: She is not in acute distress. HENT: Mouth/Throat: Pharynx: Oropharynx is clear. Eyes: Conjunctiva/sclera: Conjunctivae normal. Cardiovascular: Rate and Rhythm: Normal rate and regular rhythm. Pulmonary: Effort: Pulmonary effort is normal. Breath sounds: Normal breath sounds. Abdominal: General: Bowel sounds are normal. There is no distension. Palpations: Abdomen is soft. Tenderness: There is no abdominal tenderness. There is no guarding or rebound. Musculoskeletal: General: No swelling. Skin: General: Skin is warm and dry. Coloration: Skin is not jaundiced. Neurological: Mental Status: She is alert. Mental status is at baseline. ASSESSMENT/PLAN: 43 y/o female (more content not included)...[facility]08-27-2024 Telephone encounter Note* Telephone Encounter - Indira Drake MA - 03/17/2024 12:51 PM EDT Recall entered [facility]08-27-2024 Telephone encounter Note* Telephone Encounter - Indira Drake MA - 03/17/2024 12:51 PM EDT ----- Message from Liv Romeo sent at 03/13/2024 1:49 PM EDT ----- ----- Message ----- From: Samantha Pitts Jr., DO Sent: 03/13/2024 7:57 AM EDT To: Liv Castelan RN Esophagitis noted, maintain omeprazole, start Carafate for 4 wks. Colonoscopy recommended in 5 yrs. Samantha Pitts Jr., DO [facility]08-27-2024 Miscellaneous Notes* Telephone Encounter - Indira Drake MA - 03/17/2024 12:51 PM EDT Recall entered * Telephone Encounter - Indira Drake MA - 03/17/2024 12:51 PM EDT ----- Message from Liv Romeo sent at 03/13/2024 1:49 PM EDT ----- ----- Message ----- From: Samantha Pitts Jr., DO Sent: 03/13/2024 7:57 AM EDT To: Liv Castelan RN Esophagitis noted, maintain omeprazole, start Carafate for 4 wks. Colonoscopy recommended in 5 yrs. Samantha Pitts Jr., DO documented in [facility] encounter[facility]24 Telephone encounter Note * Telephone Encounter - Indira Drake MA - 03/16/2024 9:10 AM EDT Recall entered [facility]08-26-2024 Telephone encounter Note* Telephone Encounter - Indira Drake MA - 03/16/2024 9:10 AM EDT ----- Message from Liv Romeo sent at 03/13/2024 1:49 PM EDT ----- ----- Message ----- From: Samantha Pitts Jr., DO Sent: 03/13/2024 7:57 AM EDT To: Liv Castelan RN Esophagitis noted, maintain omeprazole, start Carafate for 4 wks. Colonoscopy recommended in 5 yrs. Samantha Pitts Jr., DO [facility]08-26-2024 Miscellaneous Notes* Telephone Encounter - Indira Drake MA - 03/16/2024 9:10 AM EDT Recall entered * Telephone Encounter - Indira Drake MA - 03/16/2024 9:10 AM EDT ----- Message from Liv Romeo sent at 03/13/2024 1:49 PM EDT ----- ----- Message ----- From: Samantha Pitts Jr., DO Sent: 03/13/2024 7:57 AM EDT To: Liv Castelan RN Esophagitis noted, maintain omeprazole, start Carafate for 4 wks. Colonoscopy recommended in 5 yrs. Samantha Pitts Jr., DO documented in this encounterGrant Hospital08-20-2024 Nurse Note* Dakotah Del Castillo RN - 03/10/2024 9:27 AM EDT POST OP LEARNING RESPONSE INSTRUCTION PROVIDED TO: Patient METHOD OF INSTRUCTION: Individual instruction PATIENT / FAMILY RESPONSE: Information received as demonstrated by interest and questions FOLLOW-UP PLAN: Patient instructed to call with any further issues SUPPLEMENTAL MATERIAL: None REFERRAL (RECOMMENDATION): None Electronically Signed By: Dakotah Del Castillo RN In Department: [facility]08-20-2024 Nurse Note* Dakotah Del Castillo RN - 03/10/2024 9:27 AM EDT POST OP LEARNING RESPONSE INSTRUCTION PROVIDED TO: Patient METHOD OF INSTRUCTION: Individual instruction PATIENT / FAMILY RESPONSE: Information received as demonstrated by interest and questions FOLLOW-UP PLAN: Patient instructed to call with any further issues SUPPLEMENTAL MATERIAL: None REFERRAL (RECOMMENDATION): None Electronically Signed By: Dakotah Del Castillo RN In Department: [facility] * Alma Delia Bolivar RN - 03/10/2024 8:45 AM EDT PRE OP LEARNING ASSESSMENT PROCEDURE/SURGERY: GI PROCEDURES: EGD & Colonoscopy READINESS TO LEARN COGNITIVE ABILITY: Alert and oriented MOTIVATION TO LEARN: Interested FAMILY SUPPORT: Unable to assess - Family not present PATIENT LEARNS BEST BY: Individual Instruction Verbal Instruction FACTORS AFFECTING LEARNING: None PHYSICAL LIMITATIONS AFFECTING LEARNING: None Electronically Signed By: Alma Delia Bolivar RN, RN In Department: [facility] ENDOSCOPY [facility] documented in this encounter[facility] Hospital08-20-[facility]24 History and physical note * Samantha Pitts Jr., - 03/10/2024 8:45 AM EDT HISTORY AND PHYSICAL EXAMINATION SERVICE DATE: 03/10/2024 SERVICE TIME: 8:36 AM Chief Complaint: GERD and history of colon polyps HPI:This is a 43 year old female with personal history of colon polyps and GERD. In 2016 she underwent a colonoscopy revealing a large villous adenoma. Followup colonoscopy in 2017 was unremarkable and due for colonoscopy now. Last EGD was 2016 showing esophagitis. She remains on omeprazole 40 mg daily but having breakthrough. She also has issues with alternating constipation and diarrhea since cholecystectomy. Limited benefit with colestipol previously. Negative family history. PAST MEDICAL HISTORY No date: Diabetes (HCC) No date: Fibromyalgia No date: IBS (irritable bowel syndrome) No date: Palpitations No date: Spondylosis PAST SURGICAL HISTORY No date: ABDOMINAL SURGERY HX 07/22/2005: CHOLECYSTECTOMY No date: HYSTERECTOMY HX FAMILY HISTORY Problem Relation Age of Onset Cancer Mother Diabetes Mother COPD Mother Social History Tobacco Use Smoking status: Never Smokeless tobacco: Never Substance Use Topics Alcohol use: Yes Comment: occasionally Drug use: No (Not in a hospital admission) ALLERGIES No Known Allergies COMPLETE REVIEW OF SYSTEMS: GENERAL: No weight loss, malaise or fevers RESPIRATORY: Negative for cough, hemoptysis, wheezing, COPD, dyspnea or shortness of breath CARDIOVASCULAR: Negative for chest pain, leg swelling, hypertension, CHF or palpitations GI: Positive for heart burn BP 155/87 Pulse 85 Resp 16 Ht 5' 5 (1.65m) Wt 248 lb (112.5kg) SpO2 99% BMI 41.27 kg/(m^2). O2 Therapy: Room Air PHYSICAL EXAM: Physical Exam Performed: GENERAL: Alert, no distress, cooperative LUNGS: Lungs clear to auscultation, Good diaphragmatic excursion CARDIAC: Normal S1 and S2; no rubs, murmurs, or gallops ABDOMEN: Abdomen soft, non-tender, BS normal, No masses or organomegaly EXTREMITIES: Extremities normal, no deformities, edema, clubbing or skin discoloration. Good capillary refill., No ulcers (K21.9) Gastroesophageal reflux disease, unspecified whether esophagitis present Plan: EGD DIAGNOSTIC, EGD DIAGNOSTIC (Z86.010) Personal history of colonic polyps Plan: COLONOSCOPY DIAGNOSTIC, COLONOSCOPY DIAGNOSTIC SIGNATURE: Samantha Pitts Jr., DO PATIENT NAME: Mamadou Lowery DATE: March 10, 2024 TIME: 8:36 AM PAGER[facility]CONTACT #: [facility] History and physical note* Samantha Pitts Jr., DO - 03/10/2024 8:45 AM EDT HISTORY AND PHYSICAL EXAMINATION SERVICE DATE: 03/10/2024 SERVICE TIME: 8:36 AM Chief Complaint: GERD and history of colon polyps HPI:This is a 43 year old female with personal history of colon polyps and GERD. In 2016 she underwent a colonoscopy revealing a large villous adenoma. Followup colonoscopy in 2017 was unremarkable and due for colonoscopy now. Last EGD was 2015 showing esophagitis. She remains on omeprazole 40 mg daily but having breakthrough. She also has issues with alternating constipation and diarrhea since cholecystectomy. Limited benefit with colestipol previously. Negative family history. PAST MEDICAL HISTORY No date: Diabetes (HCC) No date: Fibromyalgia No date: IBS (irritable bowel syndrome) No date: Palpitations No date: Spondylosis PAST SURGICAL HISTORY No date: ABDOMINAL SURGERY HX 07/22/2005: CHOLECYSTECTOMY No date: HYSTERECTOMY HX FAMILY HISTORY Problem Relation Age of Onset Cancer Mother Diabetes Mother COPD Mother Social History Tobacco Use Smoking status: Never Smokeless tobacco: Never Substance Use Topics Alcohol use: Yes Comment: occasionally Drug use: No (Not in a hospital admission) ALLERGIES No Known Allergies COMPLETE REVIEW OF SYSTEMS: GENERAL: No weight loss, malaise or fevers RESPIRATORY: Negative for cough, hemoptysis, wheezing, COPD, dyspnea or shortness of breath CARDIOVASCULAR: Negative for chest pain, leg swelling, hypertension, CHF or palpitations GI: Positive for heart burn BP 155/87 Pulse 85 Resp 16 Ht 5' 5 (1.65m) Wt 248 lb (112.5kg) SpO2 99% BMI 41.27 kg/(m^2). O2 Therapy: Room Air PHYSICAL EXAM: Physical Exam Performed: GENERAL: Alert, no distress, cooperative LUNGS: Lungs clear to auscultation, Good diaphragmatic excursion CARDIAC: Normal S1 and S2; no rubs, murmurs, or gallops ABDOMEN: Abdomen soft, non-tender, BS normal, No masses or organomegaly EXTREMITIES: Extremities normal, no deformities, edema, clubbing or skin discoloration. Good capillary refill., No ulcers (K21.9) Gastroesophageal reflux disease, unspecified whether esophagitis present Plan: EGD DIAGNOSTIC, EGD DIAGNOSTIC (Z86.010) Personal history of colonic polyps Plan: COLONOSCOPY DIAGNOSTIC, COLONOSCOPY DIAGNOSTIC SIGNATURE: Samantha Pitts Jr., DO PATIENT NAME: Mamadou Lowery DATE: March 10, 2024 TIME: 8:36 AM PAGER/CONTACT #: documented in this encounterGrant Hospital08-20-2024 Nurse Note* Alma Delia Bolivar RN - 03/10/2024 8:45 AM EDT PRE OP LEARNING ASSESSMENT PROCEDURE/SURGERY: GI PROCEDURES: EGD & Colonoscopy READINESS TO LEARN COGNITIVE ABILITY: Alert and oriented MOTIVATION TO LEARN: Interested FAMILY SUPPORT: Unable to assess - Family not present PATIENT LEARNS BEST BY: Individual Instruction Verbal Instruction FACTORS AFFECTING LEARNING: None PHYSICAL LIMITATIONS AFFECTING LEARNING: None Electronically Signed By: Alma Delia Bolivar RN, RN In Department: [facility] [place] [facility] Telephone encounter Note* Telephone Encounter - Taryn Isabel MA - 02/19/2024 11:24 AM EDT Received records from [facility] physicians and scanned into patients chart. 2016 Colonoscopy record received and scanned in. Taryn Isabel MA [facility]07-[facility] Miscellaneous Notes* Telephone Encounter - Taryn Isabel MA - 02/19/2024 11:24 AM EDT Received records from [facility] physicians and scanned into patients chart. 2017 Colonoscopy record received and scanned in. Taryn Isabel MA documented in this encounterGrant Hospital07-30-2024 History of Present illness Narrative* Samantha Pitts Jr., DO - 02/18/2024 1:20 PM EDT Patient presents with: Establish Care: Want to re establish as a pt again Previous patient from [facility] / [place] HPI: Mamadou Lowery, 43 year old female, presents in the office today for personal history of colon polyps and GERD. In 2016 she underwent a colonoscopy revealing a large villous adenoma. Followup colonoscopy in 2017 was unremarkable and due for colonoscopy now. Last EGD was 2016 showing esophagitis. She remains on omeprazole 40 mg daily but having breakthrough. She also has issues with alt ernating constipation and diarrhea since cholecystectomy. Limited benefit with colestipol previously. Negative family history. Past GI workup 09/11/23 -noted in care everywhere Pt reports she has to get colonoscopy every 5 years d.t hx of villous adenoma polyp. Sees Dr. Pitts/GI next colonoscopy is due this year. PAST MEDICAL HISTORY Diagnosis Date Fibromyalgia IBS (irritable bowel syndrome) Palpitations Spondylosis PAST SURGICAL HISTORY Procedure Laterality Date CHOLECYSTECTOMY 07/22/2005 HYSTERECTOMY HX Current Outpatient Medications on File Prior to Visit Medication Sig Omeprazole Magnesium (PRILOSEC OTC) 20 mg tablet Take 1 tablet by mouth once daily. No current facility-administered medications on file prior to visit. Allergies: No Known Allergies Review of Systems Constitutional: Negative for chills, fatigue and fever. HENT: Negative for hearing loss, nosebleeds, tinnitus and trouble swallowing. Eyes: Negative for visual disturbance. Respiratory: Negative for cough, shortness of breath and wheezing. Cardiovascular: Negative for chest pain and palpitations. Gastrointestinal: Positive for constipation and diarrhea. Negative for abdominal distention, abdominal pain, blood in stool, nausea and vomiting. Endocrine: Negative for polyphagia. Genitourinary: Negative for dysuria, frequency and hematuria. Musculoskeletal: Negative for arthralgias and joint swelling. Skin: Negative for pallor and rash. Neurological: Negative for dizziness, tremors, seizures, syncope and headaches. Hematological: Does not bruise/bleed easily. BP 137/85 Pulse 84 Temp 36.4 C (97.6 F) (Temporal) Ht 165.1 cm (5' 5 ) Wt 112.5 kg (248 lb) SpO2 98% BMI 41.27 kg/m Physical Exam Constitutional: General: She is not in acute distress. HENT: Mouth/Throat: Pharynx: Oropharynx is clear. Eyes: Conjunctiva/sclera: Conjunctivae normal. Cardiovascular: Rate and Rhythm: Normal rate and regular rhythm. Pulmonary: Effort: Pulmonary effort is normal. Breath sounds: Normal breath sounds. Abdominal: General: Bowel sounds are normal. There is no distension. Palpations: Abdomen is soft. Tenderness: There is no abdominal tenderness. There is no guarding or rebound. Musculoskeletal: General: No swelling. Skin: General: Skin is warm and dry. Coloration: Skin is not jaundiced. Neurological: Mental Status: She is alert. Mental status is at baseline. ASSESSMENT/PLAN: 43 y/o female with GERD, IBS, and personal history of colon polyps (villous adenoma). Will increaseomeprazole to twice daily for GERD and proceed with EGD. Personal history of colon polyps and due for colonoscopy; setup for colonoscopy. Start dicyclomine for IBS. Followup in 4 months. 1. Personal history of colonic polyps - ICD9: V12.72, ICD10: Z86.010 (primary diagnosis) - COLONOSCOPY DIAGNOSTIC 2. Gastroesophageal reflux disease, unspecified whether esophagitis present - ICD9: 530.81, ICD10: K21.9 - EGD DIAGNOSTIC - omeprazole twice daily 3. Irritable bowel syndrome with both constipation and diarrhea - ICD9: 564.1, ICD10: K58.2 - dicyclomine Samantha Pitts Jr. documented in this encounterGrant Hospital07-30-2024 NoteHNO ID: [id number] Author: SAMANTHA PITTS JR, DO Service: ? Author Type: Physician Type: Progress Notes Filed: 02/18/2024 13:33 Note Text: Patient presents with: Establish Care: Want to re establish as a pt again Previous patient from [facility] / [place] HPI: Mamadou Lowery, 43 year old female, presents in the office today for personal history of colon polyps and GERD. In 2016 she underwent a colonoscopy revealing a large villous adenoma. Followup colonoscopy in 2017 was unremarkable and due for colonoscopy now. Last EGD was 2015 showing esophagitis. She remains on omeprazole 40 mg daily but having breakthrough. She also has issues with alternating constipation and diarrhea since cholecystectomy. Limited benefit with colestipol previously. Negative family history. Past GI workup 09/11/23 -noted in care everywhere Pt reports she has to get colonoscopy every 5 years d.t hx of villous adenoma polyp. Sees Dr. Pitts/GI next colonoscopy is due this year. PAST MEDICAL HISTORY Diagnosis Date Fibromyalgia IBS (irritable bowel syndrome) Palpitations Spondylosis PAST SURGICAL HISTORY Procedure Laterality Date CHOLECYSTECTOMY 07/22/2005 HYSTERECTOMY HX Current Outpatient Medications on File Prior to Visit Medication Sig Omeprazole Magnesium (PRILOSEC OTC) 20 mg tablet Take 1 tablet by mouth once daily. No current facility-administered medications on file prior to visit. Allergies: No Known Allergies Review of Systems Constitutional: Negative for chills, fatigue and fever. HENT: Negative for hearing loss, nosebleeds, tinnitus and trouble swallowing. Eyes: Negative for visual disturbance. Respiratory: Negative for cough, shortness of breath and wheezing. Cardiovascular: Negative for chest pain and palpitations. Gastrointestinal: Positive for constipation and diarrhea. Negative for abdominal distention, abdominal pain, blood in stool, nausea and vomiting. Endocrine: Negative for polyphagia. Genitourinary: Negative for dysuria, frequency and hematuria. Musculoskeletal: Negative for arthralgias and joint swelling. Skin: Negative for pallor and rash. Neurological: Negative for dizziness, tremors, seizures, syncope and headaches. Hematological: Does not bruise/bleed easily. BP 137/85 Pulse 84 Temp 36.4 ?C (97.6 ?F) (Temporal) Ht 165.1 cm (5' 5 ) Wt 112.5 kg (248 lb) SpO2 98% BMI 41.27 kg/m? Physical Exam Constitutional: General: She is not in acute distress. HENT: Mouth/Throat: Pharynx: Oropharynx is clear. Eyes: Conjunctiva/sclera: Conjunctivae normal. Cardiovascular: Rate and Rhythm: Normal rate and regular rhythm. Pulmonary: Effort: Pulmonary effort is normal. Breath sounds: Normal breath sounds. Abdominal: General: Bowel sounds are normal. There is no distension. Palpations: Abdomen is soft. Tenderness: There is no abdominal tenderness. There is no guarding or rebound. Musculoskeletal: General: No swelling. Skin: General: Skin is warm and dry. Coloration: Skin is not jaundiced. Neurological: Mental Status: She is alert. Mental status is at baseline. ASSESSMENT/PLAN: 43 y/o female with GERD, IBS, and personal history of colon polyps (villous adenoma). Will increase omeprazole to twice daily for GERD and proceed with EGD. Personal history of colon polyps and due for colonoscopy; setup for colonoscopy. Start dicyclomine for IBS. Followup in 4 months. 1. Personal history of colonic polyps - ICD9: V12.72, ICD10: Z86.010 (primary diagnosis) - COLONOSCOPY DIAGNOSTIC 2. Gastroesophageal reflux disease, unspecified whether esophagitis present - ICD9: 530.81, ICD10: K21.9 - EGD DIAGNOSTIC - omeprazole twice daily 3. Irritable bowel syndrome with both constipation and diarrhea - ICD9: 564.1, ICD10: K58.2 - dicyclomine [facility] Instructions* Patient Instructions* Samantha Pitts Nay Friend., DO - 02/18/2024 1:17 PM EDT Images from the original note were not included. Records release from [facility] Bowel Preparation Instructions for: Miralax-Gatorade Preparations IF YOU DO NOT FOLLOW THESE DIRECTIONS, YOUR COLONOSCOPY WILL BE CANCELLED. [place] Instructions: Your bowel must be empty so that your doctor can clearly view your colon. Follow all of the instructions in this handout EXACTLY as they are written. Do NOT eat any solid food the ENTIRE day before your colonoscopy. Buy your bowel preparation at least 5 days before your colonoscopy. Four (4) Dulcolax laxative tablets containing 5mg of bisacodyl each (NOT Dulcolax stool softener) One (1) 8.3oz. bottle Miralax (238 grams) or generic equivalent 2 x 32oz. Bottles of Gatorade (NOT RED) Diabetic Patients: Use G2 (Gatorade 2) TRANSPORTATION on the Day of Your Exam A responsible adult MUST be present with you at Check In prior to your colonoscopy and REMAIN in the endoscopy area until you are discharged. You are NOT ALLOWED to drive, take a taxi or bus, or leave the Endoscopy Center ALONE. If you do not have a responsible fuel truck driver (family member or friend) withyou to take you home, your exam cannot be done with sedation and will be cancelled. Please bring a list of all of your current medications, including any [id number] medications with you. Medications If you take insulin, diabetic medications or blood thinners such as Coumadin (warfarin), Plavix (clopidogrel), Ticlid (ticlopidine hydrochloride), Agrylin (anagrelide), Xarelto (Rivaroxaban), Pradaxa(Dabigatran), Eliquis (Apixaban), and Effient (Prasugrel). You MUST call the doctors who orders those medicines for instructions on altering the dosage before your colonoscopy. All other medications should be taken the day of the exam with a sip of water including ASPIRIN. Five (5) Days Before Your Colonoscopy Do NOT take medicines that stop diarrhea - such as Imodium, Kaopectate, or Pepto Bismol. Do NOT take fiber supplements - such as Metamucil, Citrucel, or Perdiem. Do NOT take products that contain iron - such as multi-vitamins (the label lists what is in the products). Three (3) Days Before Your Colonoscopy Do NOT eat high-fiber foods - such as popcorn, beans, seeds (flax, sunflower, quinoa), multigrain bread, nuts, salad/vegetables, or fresh and dried fruit. 1 Bowel Preparation Instructions for: Miralax-Gatorade Preparations One (1) Day Before Your Colonoscopy Only drink clear liquids the ENTIRE DAY before your colonoscopy. Do NOT eat any solid foods. Drink at least 8 ounces of clear liquids every hour after waking up. The clear liquids you can drink include: Clear Liquid (NO RED LIQUIDS) DO NOT DRINK Gatorade, Pedialyte or Powerade Clear broth or bouillon Coffee or tea (no milk or non-dairy creamer) Carbonated and non-carbonated soft drinks Alejo-Aid or other fruit flavored drinks Strained fruit juices (no pulp) Jell-O, popsicles, hard candy Water Alcohol Milk or non-dairy creamers Noodles or vegetables in soup Juice with pulp Liquid you cannot see through Do not use tobacco/vaping products Mix 1/2 of Miralax bottle (119 grams) in each 32 ounces of Gatorade bottle until dissolved. Keep cool in the refrigerator. DO NOT ADD ICE. The bowel preparation solution will be consumed in two parts. Part 1 5:00 PM - Evening before your colonoscopy Take 4 Dulcolax tablets. 6 PM - Evening before your colonoscopy Drink 32 oz. of the mixed solution. Drink an 8 oz. glass of bowel preparation every 15 minutes for a total of 4 glasses. Fifteen (15) minutes later, drink an 8 oz. glass of of clear liquids every 15 minutes for a total of 2 glasses. You may continue to drink clear liquids till midnight. Part 2 On the day of your colonoscopy you may drink clear liquids up to (three) 3 hours prior to procedure. 4 1/2 hours before your colonoscopy Take another 32 oz. bottle of mixed solution. Drink an 8 oz. glass of bowel prep every 15 minutes for a total of 4 glasses. Fifteen (15) minutes later, drink an 8 oz. glass of clear liquids every 15 minutes for a total of 2glasses. You may continue to drink clear liquids up to (three) 3 hours before your exam. 2 06/2019 documented in this encounterGrant Hospital02-02-2024 Evaluation note* Encounter Date Diagnosis Assessment Notes Treatment Notes Treatment Clinical Notes Aug, Acute COVID-19 (ICD-10 - U07.1) Pt agrees to paxlovid. Reviewed quarantine protocol per the CDC. States her breathing is ok, just notes increased fatigue. [facility] Other 10-22-2022 History of Present illness Narrative* 41-year-old is being seen in cardiology consultation regarding shortness of breath and palpitations. 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 Ruiz. * In April 2022, random blood pressure checks were noted to be elevated, 180s systolic. Primary then put her on metoprolol for a couple of weeks. She is now off the metoprolol. * She described bouts of anterior chest discomfort, pressure sensation, one of the episodes was particularly bothersome, sought medical attention in the emergency department, she received a GI cocktail, cardiac biomarkers and D- dimer were negative, she was discharged home. She has GERD which is not pa rticularly problematic at this time, and takes omeprazole. * Laboratory data during ER visit showed potassium of 3.5, she is not on any diuretics. * BMI is excessive. * Patient is status postcholecystectomy and partial hysterectomy. * She is never a smoker. * Family history is not available, she notes that her mother at age 46 from noncardiac causes, and that she is the oldest of the siblings. * She describes her palpitations as a sensation of heart racing, flupirtine flopping, not associated with lightheadedness presyncope or syncope. Patient has also noticed a decrease in functional status, with shortness of breath consistently occurring with activity such as 1 flight of stairs. Denies or thopnea PND lower extremity edema or claudication. Denies any bleeding diathesis. Denies history ofCOVID. * Her EKG shows normal sinus rhythm low volts normal intervals. No evidence of atrial abnormality. Patient reports that her blood pressures have been labile. * She admits to significant situational stress partly related to her new job. She tries to stay hydrated. * Assessment: * 1. Palpitations * 2. Chest discomfort-best described as atypical, could be GI for cardiac or combination * 3. Status postcholecystectomy * 4. Episodes of elevated blood pressure without diagnosis of hypertension * 5. Hypokalemia-etiology unclear * 6. Status post partial hysterectomy * 7. Status postcholecystectomy * 8. Increased BMI * 9. Exertional shortness of breath functional class II * Recommendations: * 1. Extensive discussion about weight loss and methods of weight loss, patient to check with primarycare as to whether she can be on Ozempic or Mounjaro or Rybelsus. Alternatively she could be on a combination of metformin and farxiga.. * 2. Aldactone 25 mg p.o. daily * 3. Echocardiogram * 4. Treadmill stress test, does not require perfusion * 5. Basic metabolic profile hemoglobin A1c Free T4 TSH lipid profile in 7 to 10 days * 6. Talked about calorie restriction staying well-hydrated increasing the intake of lean protein andminimizing intake of simple sugars and carbohydrates. * 7. Follow-up after testing sooner if interval problems arise * 8. Patient was told that sometimes esophageal spasm can mimic an acute coronary syndrome. Chest x-ray during ER visit did not suggest any hiatal hernia. This however does not exclude a sliding hiatalhernia. If okay with primary service, patient can temporarily increase the omeprazole to 40 mg p.o. twice daily. * Thank you for allowing us to participate in patient's care, please do not hesitate to callif further questions arise, * Sincerely, -[facility] [address] DO Work Phone: [phone] Evaluation note* Encounter Date Diagnosis Assessment Notes Treatment Notes Treatment Clinical Notes Apr, Scratches (ICD-10 - T14.8XXA) TdaP updated in office today, Recommend keep area clean and dry. May use bacitracin as needed. [facility] Other Chief complaint Narrative - ReportedMAMADOU LOWERY is being seen for a cardiovascular evaluation . SARA SAM LABILE BP. [facility] [address] DO Work Phone: Chief complaint Narrative - ReportedMAMADOU LOWERY is being seen for a cardiovascular evaluation . SARA CP LABILE BP. [facility] [address] DO Work Phone: Evaluation noteNo InformationNortWashington Health System [employer] Other Evaluation noteNo assessment information available [facility] Work Phone: Evaluation note* Diagnosis Personal history of colonic polyps- Primary Gastroesophageal reflux disease, unspecified whether esophagitis present Irritable bowel syndrome with both constipation and diarrhea [facility]* Diagnosis Onset Date Resolution Status Fibromyalgia acute Lumbar spondylolysis acute Type 2 diabetes mellitus with hyperglycemia acute [facility] Work Phone: Evaluation note* Diagnosis Gastroesophageal reflux disease, unspecified whether esophagitis present Personal history of colonic polyps [facility]* Diagnosis Gastroesophageal reflux disease without esophagitis- Primary Esophageal reflux Irritable bowel syndrome with diarrhea Irritable bowel syndrome Personal history of adenomatous and serrated colon polyps documented in this encounter [facility] general Narrative - Reported* Type Description Date Medical History GERD Medical History villous colon polyp Surgical History LAB PONCHO 2006 Surgical History hysterectomy 2020 Hospitalization History see above [facility] Other History of Present illness Narrative* Patient presents for follow-up after testing. She says that her chest discomfort is now very infrequent. Her palpitations are also improving. Results of the echo and stress test were reviewed, at this time there is no evidence of flow-limiting coronary artery disease based on testing. Given preserved LV systolic function, likelihood for flow-limiting coronary artery disease remains very low. We talked about the dynamic nature of coronary artery disease and the importance of seeking medical attention for new symptoms, and we talked about the symptoms that would warrant medical attention. * Patient is currently on Ozempic, and she is beginning to lose weight. * Assessment: * 1. Palpitations * 2. Chest discomfort-best described as atypical, could be GI for cardiac or combination * 3. Status postcholecystectomy * 4. Episodes of elevated blood pressure without diagnosis of hypertension * 5. Hypokalemia-etiology unclear * 6. Status post partial hysterectomy * 7. Status postcholecystectomy * 8. Increased BMI * 9. Exertional shortness of breath functional class II * 10. Echocardiogram October 2022-LVEF 65% impaired relaxation pattern of LV diastolic filling mild mitral regurgitation left atrial diameter 3.3 cm RV systolic pressure not estimated because there was no appreciable tricuspid regurgitation. * 11. Treadmill stress test October 2022-8.5 METS, 98% age-predicted maximum heart rate * 12. Hypokalemia-potassium in August 2022 was 3.5. Patient was placed on spironolactone after that. * 13. Dyslipidemia-in February 2022 LDL cholesterol 79 HDL 54 total cholesterol 183 and triglycerides 99. * Recommendations: * 1. We talked about ongoing factor modification Olivia about the fact that coronary artery disease is a dynamic process, and that if she develops new symptoms she should seek prompt medical attentionand we talked about the symptoms. * 2. Given that she is on spironolactone, will check another basic metabolic profile. * 3. Her last lipid profile was in February 2022, LDL goal for her is 70 or below given that she is diabetic. I recommend that she repeat her lipid profile in 4 to 6 months, and if lipids are not at goalshe would be a candidate for statin therapy. * 4. At this point I will plan to see her on an as-needed basis and she will continue regular medicalcare per Dr. Ruiz. Thank you Dr. Ruiz for allowing me to participate in Mamadou's care, please do not hesitate to call if further questions arise, * Sincerely, * Julieta Sanford MD [facility] [address] DO Work Phone: Hospital Discharge instructions Additional Instructions Please talk to your provider about possible causes of liver inflammation and possibly discontinuing your Ozempic.[facility] Work Phone: Reason for referral (narrative)* Outpatient Procedure (Routine) - Authorized Specialty Diagnoses / Procedures Referred By Indira t Referred To Contact [facility] Diagnoses Personal history of colonic polyps Procedures COLONOSCOPY DIAGNOSTIC COLONOSCOPY FLX DX W/COLLJ SPEC WHEN Samantha Joseph Jr., DO [address] [place] [address] [address] Referral ID Status Reason Start Date Expiration Date Visits Requested Visits Authorized [id number] Authorized Auto-Generat ed Referral 02/18/2024 02/17/2025 1 1 * Outpatient Procedure (Routine) - Authorized Specialty Diagnoses / Procedures Referred By Contac t Referred To Contact [facility] Diagnoses Gastroesophageal reflux disease, unspecified whether esophagitis present Procedures EGD DIAGNOSTIC ESOPHAGOGASTRODUODENOSC OPY TRANSORAL DIAGNOSTIC Samantha Pitts Jr., DO [address] [id number] [address] Referral ID Status Reason Start Date Expiration Date Visits Requested Visits Authorized [id number] Authorized Auto-Generat ed Referral 02/18/2024 02/17/2025 1 1 [facility] for referral (narrative)* Outpatient Procedure (Routine) - Closed Specialty Diagnoses / Procedures Referred By Contac t Referred To Contact [facility] Diagnoses Personal history of colonic polyps Procedures COLONOSCOPY DIAGNOSTIC COLONOSCOPY FLX DX W/COLLJ SPEC WHEN Samantha Joseph Jr., DO [address] [place] [id number] [address] Referral ID Status Reason Start Date Expiration Date V isits Requested Visits Authorized [id number] Closed Auto-Generate d Referral 02/18/2024 02/17/2025 1 1 * Outpatient Procedure (Routine) - Closed Specialty Diagnoses / Procedures Referred By Contac t Referred To Contact [facility] Diagnoses Gastroesophageal reflux disease, unspecified whether esophagitis present Procedures EGD DIAGNOSTIC ESOPHAGOGASTRODUODENOSC OPY TRANSORAL DIAGNOSTIC Samantha Pitts Jr., DO [id number] [facility] Disease [place] [address] [place] [address] Referral ID Status Reason Start Date Expiration Date V isits Requested Visits Authorized [id number] Closed Auto-Generate d Referral 02/18/2024 02/17/2025 1 1 [facility] for visit Narrative* Outpatient Procedure (Routine) - Closed Specialty Diagnoses / Procedures Referred By Contac t Referred To Contact [facility] Diagnoses Personal history of colonic polyps Procedures COLONOSCOPY DIAGNOSTIC COLONOSCOPY FLX DX W/COLLJ SPEC WHEN Samantha Joseph Jr., DO [address] [place] [address] [facility] Disease [address] [place] [address] Referral ID Status Reason Start Date Expiration Date V isits Requested Visits Authorized [id number] Closed Auto-Generate d Referral 02/18/2024 02/17/2025 1 1 [facility] Summary Purpose Family History No Family History Records FoundUnknown Family Member Name Dates Details Family history of malignant neoplasm: Mother(V16.9, Z80.9) Status:Active Unknown Family Member Name Dates Details Family history of malignant neoplasm: Mother(V16.9, Z80.9) Status:Active Unknown Family Member Name Dates Details Family history of malignant neoplasm: Mother(V16.9, Z80.9) Status:Active Unknown Family Member Name Dates Details Family history of malignant neoplasm: Mother(V16.9, Z80.9) Status:Active Relationship Condition Age at Onset Recorded Date/T marcela father Unknown mother Unknown Malignant neoplasm Unknown Unknown Family Member Name Dates Details Family history of malignant neoplasm: Mother(V16.9, Z80.9) Status:Active Advance Directives No Advanced Directives Records Found Advance Directive Response Recorded Date/ Time Advance Directives Yes May 09, 2017 11:00am Chief Complaint MAMADOU LOWERY is being seen for follow up GXT. Chief Complaint and Reason for Visit Chief Complaint [facility] new emp- yes on ins Chief Complaint [facility] new emp- yes on ins Recheck for DM M43.06 Reason for Visit Fibromyalgia Lumbar spondylolysis Type 2 diabetes mellitus with hyperglycemia Chief Complaint Admit Date Blood surgar concerns October 14, 2024 8 :04am blood sugar elevated October 15, 2024 11 :13am Reason for Visit Admit Date Fatigue October 14, 2024 8:0 4am Type 2 diabetes mellitus with hyperglyce [place] October 14, 2024 8:04am Additional Source Comments INFORMATION SOURCE (unrecogn ized section and content) DATE CREATED AUTHOR 03/16/2021 [facility] DATE CREATED AUTHOR AUTHOR'S ORGANIZ ATION 11/03/2022 [facility] DATE CREATED AUTHOR AUTHOR'S ORGANIZ ATION 11/08/2022 [facility] DATE CREATED AUTHOR AUTHOR'S ORGANIZ ATION 11/28/2022 [facility] DATE CREATED AUTHOR AUTHOR'S ORGANIZ ATION 06/08/2023 [facility] DATE CREATED AUTHOR AUTHOR'S ORGANIZ ATION 05/24/2024 [facility] DATE CREATED AUTHOR AUTHOR'S ORGANIZ ATION 08/10/2024 [facility] DATE CREATED AUTHOR AUTHOR'S ORGANIZ ATION 10/16/2024 [facility] REASON FOR VISIT (unrecogniz ed section and content) Reason Comments Establish Care Want to re establish as a pt again Reason Comments Received Outside Medical Records Reason Comments Follow Up Care Teams (unrecognized sec tion and content) Team Status: Active Member Role Status Dates Daniel Estrada DO Family Provider Active Jessica Ruiz MD Primary Care Provider Active Team Status: Inactive Member Role Status Dates Jessica Ruiz MD Primary Care Provider Active Start: January 31, 2024 End: January 31, 2024 Neha Mckeon APRN Attending Provider Active Start: January 31, 2024 End: January 31, 2024 [employer] Relationship Specialty Start Date End Date Jessica Ruiz MD [address] [place] [phone] PCP - General Family Medicine 12/28/15 Jessica Ruiz MD [address] [place] [address] Referring Family Medicine 10/03/23 [employer] Manager Relationship Specialty Start Date End Date Jessica Ruiz MD [address] [place] [phone] PCP - General Family Medicine 12/28/15 Jessica Ruiz MD [address] [place] [address] Referring Family Medicine 10/03/23 [employer] Manager Relationship Specialty Start Date End Date Jessica Ruiz MD [address] [place] [phone] PCP - General Family Medicine 12/28/15 Jessica Ruiz MD [address] [place] [id number] Referring Family Medicine 10/03/23 Team Status: Inactive Member Role Status Dates Jessica Ruiz MD Primary Care Provide r, Attending Provider Active Start: February 18, 2024 End: February 18, 2024 Team Status: Active Member Role Status Dates Jessica Ruiz MD Primary Care Provider Active Start: March 03, 2024 Johnny Olea DO Attending Provider Active Start : March 03, 2024 Team Status: Inactive Member Role Status Dates Jessica Ruiz MD Primary Care Provide r, Attending Provider Active Start: March 16, 2024 End: March 16, 2024 [employer] Manager Relationship Specialty Start Date End Date Jessica Ruiz MD [address] [place] [phone] PCP - General Family Medicine 12/28/15 Jessica Ruiz MD [address] [place] [address] Referring Family Medicine 10/03/23 [employer] Plant[employer] Manager Relationship Specialty Start Date End Date Jessica Ruiz MD [address] [facility] [phone] PCP - General Family Medicine 12/28/15 [place] [address] [place] [address] [place] [address] Referring Family Medicine 10/03/23 Team Status: Inactive Member Role Status Dates Jessica Ruiz MD Primary Care Provide r, Attending Provider Active Start: October 14, 2024 End: October 14, 2024 Team Status: Inactive Member Role Status Dates Jessica Ruiz MD Primary Care Provider Active Start: October 15, 2024 End: October 15, 2024 Jayden Pineda DO Emergency Provider Active St art: October 15, 2024 End: October 15, 2024 Goals (unrecognized section and content) Goals may be documented in a n alternate section Source Comments (unrecognize d section and content) In the event this informatio n is protected by the Federal Confidentiality of Alcohol and Drug Abuse Patient Records regulations: The Federal rules restrict any use of the information to criminally investigate or prosecute any alcohol or drug abuse patient.[facility] event this information is protected by the Federal Confidentiality of Alcohol and Drug Abuse Patient Records regulations: The Federal rules restrict any use of the information to criminally investigate or prosecute any alcohol or drug abuse patient.[facility] the event this information is protected by the Federal Confidentiality of Alcohol and Drug Abuse Patient Records regulations: The Federal rules restrict any use of the information to criminally investigate or prosecute any alcohol or drug abuse patient.[facility] the event this information is protected by the Federal Confidentiality of Alcohol and Drug Abuse Patient Records regulations: The Federal rules restrict any use of the information to criminally investigate or prosecute any alcohol or drug abuse patient.[facility] the event this information is protected by the Federal Confidentiality of Alcohol and Drug Abuse Patient Records regulations: The Federal rules restrict any use of the information to criminally investigate or prosecute any alcohol or drug abuse patient.[facility] the event this information is protected by the Federal Confidentiality of Alcohol and Drug Abuse Patient Records regulations: The Federal rules restrict any use of the information to criminally investigate or prosecute any alcohol or drug abuse patient.[facility] FOR RECORDS PERTAINING TO PATIENTS WHO ARE OR HAVE BEEN ENROLLED IN A CHEMICAL DEPENDENCY/SUBSTANCEABUSE PROGRAM, SOME INFORMATION MAY BE OMITTED. This clinical summary was aggregated from multiple sources. Caution should be exercised in using it in the provision of clinical care. This summary normalizes information from multiple sources, and as a consequence, information in this document may materially change the coding, format and clinical context of patient data. In addition, data may be omitted in some cases. CLINICAL DECISIONS SHOULD BE BASED ON THE PRIMARY CLINICAL RECORDS. [facility] [employer] [facility]. provides no warranty or guarantee of the accuracy or completeness of information in this document.
[2024-10-17 09:32] LABS: Alanine Aminotransferase 102 U/L (14-59); Albumin Globulin Ratio 0.7; Albumin Level 3.5 g/dL (3.4-5.0); Alkaline Phosphatase 133 U/L (46-116); Anion Gap 16.3; Aspartate Amino Transferase 117 U/L (15-37); BUN Creatinine Ratio 12.2; Bilirubin Total 0.4 mg/dL (0.2-1.0); Carbon Dioxide 22.9 mmol/L (21.0-32.0); Chloride 102 mmol/L (98-107); Estimated GFR (African America >60 (>=60 mL/min/1.73m^2); Estimated GFR (Non-African Ame >60 (>=60 mL/min/1.73m^2); Globulin 4.7 g/dL; Glucose 208 mg/dL (74-106); Potassium 4.2 mmol/L (3.5-5.1); Sodium 137 mmol/L (136-145); Total Protein 8.2 g/dL (6.4-8.2)
== END 2024-10-17 08:34 | disposition home or self-care (01) ==
PROVIDERS: PCP Family Medicine; Visit Provider Family Medicine
DX: R79.89 Other specified abnormal findings of blood chemistry (principal)
CPT/HCPCS: 36415; 80053

== ENCOUNTER 2025-03-09 16:06 | Outpatient (REF) | payer OTHER, SELFPAY ==
--- OUTSIDE RECORDS SUMMARY | 2025-03-09 16:44 | XMS_ITS | CCD ---
Author Organization [facility] Care Team Providers Care Rn Unit Manager Name Role Phone Caitlin Coronel Unavailable Jessica Ruiz Unavailable Unavailable Unavailable Sara, Dr. Jessica Mcconnell Primary Care Unav ailable Julieta Sanford Attending Unavailable RUIZ, DR JESSICA Manuel Admitting Unavailable RUIZ, DR JESSICA Manuel Attending Unavailable BRIGGSDALE, DR SAMANTHA Wolfe Consulting Unavailable RUIZ, DR JESSICA Manuel Primary Care Unavailable RUIZ, DR JESSICA Manuel Consulting Unavailable RUIZ, DR JESSICA Manuel Attending Unavailable RUIZ, DR JESSICA Manuel Consulting Unavailable RUIZ, DR JESSICA Manuel Primary Care Unavailable RUIZ, DR JESSICA Manuel Admitting Unavailable NORMA, DAVID Admitting Unavailable NORMA, DAVID Attending Unavailable NORMA, DAVID Consulting Unavailable RUIZ, DR JESSICA Manuel Primary Care Unavailable HAY ., DR COTO Attending Unavailable HAY ., DR COTO Consulting Unavailable HAY ., DR COTO Admitting Unavailable RUIZ, DR JESSICA Manuel Primary Care Unavailable JUAN ALBERTO MATHEW Consulting Unavailable Jessica Ruiz Unavailable Sara, Dr. Jessica Mcconnell Primary Care Unav ailpresley Sanford, Dr. Rendon Attending Unavailable Sara, Dr. Jessica Mcconnell Referring Unav ailable Sara, Dr. Jessica Mcconnell Primary Care Unav ailpresley Sanford, Dr. Rendon Referring Unavailable Juvenal, Dr. Rendon Attending Unavailable Sara, Dr. Jessica Mcconnell Primary Care Unav MD Jessica Thomson Primary Care Provider MONIQUE Mckeon Attending Provider [phone] Jessica Ruiz MD Primary Care Provider Jessica Ruiz MD Unavailable [phone] MD Jessica Ruiz Attending Provider [facility] UMANA Attending Unavailable JOHNNY OLEA Attending Unavailable JOHNNY OLEA Referring Unavailable Jessica Ruiz MD Primary Care Provider Jayden Pineda DO Emergency Provider JESSICA RUIZ Primary Care Unavailable SAMANTHA TRNIH JR Attending Unavailable JESSICA RUIZ Primary Care Unavailable SAMANTHA TRINH JR Referring Unavailable HYSAMANTHA RAMIREZ JR Attending Unavailable HYSAMANTHA RAMIREZ JR Attending Unavailable JESSICA RUIZ Primary Care Unavailable Samantha Trinh DO Attending Provider Samantha Trinh Jr Admitting Unavailable Samantha Trinh Jr Attending Unavailable Jessica Ruiz Primary Care Unavailable HySamantha ramirez Jr Admitting Unavailable Samantha Trinh Jr Attending Unavailable Jessica Ruiz Primary Care Unavailable Jessica Ruiz Primary Care Unavailable Jessica Ruiz Attending Unavailable Jessica Ruiz Admitting Unavailable Jayden Pineda Attending Unavailable Jessica Ruiz Primary Care Unavailable Jayden Pineda Admitting Unavailable Jessica Ruiz Primary Care Unavailable Neha Mckeon Admitting Unavailable Neha Mckeon Attending Unavailable Allergies Allergy Classification Reported Allergen(s) Allergy Type Date of Onset Reaction(s) Facility (2 sources) patient allergy list reviewed by nurse or physicia Propensity to adverse reactions 5 Comment:Done Ignite100 Other (2 sources) Allergies Reconciled Propensity to adverse reactions Unknown Ignite100 Other Medications Current Medications Medication Drug Class(es) Dates Sig (Normalized) Sig (Original) Blood Sugar Diagnostic (1 source) Start: 02-18-2024 Blood Sugar Diagnostic Active 0 .Route February 18, 2024 12:00am As directed - test daily Blood-Glucose Meter (2 sources) Start: 11-14-2023 Blood-Glucose Meter Active 0 .Route November 14, 2023 12:00am As directed Blood-Glucose Meter kit (4 sources) Start: 11-14-2023 Blood-Glucose Meter kit Active 0 .Route November 14, 2023 12:00am As directed dicyclomine hydrochloride 20 mg oral tablet (6 sources) Anticholinergic Start: 11-11-2024 take 1 tablet by mouth twice daily dicyclomine (BENTYL) 20 mg tablet TAKE 1 TABLET BY MOUTH TWICE A DAY 60 tablet 2 11/11/2024 Active Start: 02-18-2024 End: 05-18-2024 take 1 tablet by mouth twice daily dicyclomine (BENTYL) 20 mg tablet Take 1 tablet by mouth two times a day. 60 tablet 2 02/18/2024 05/18/2024 Active hyoscyamine sulfate 0.125 mg sublingual tablet (3 sources) Start: 08-07-2024 take 0.125 mg under the [...] capsule 3 04/30/2024 Active Start: 12-02-2023 End: 10-20-2024 take 1 capsule by mouth once daily Omeprazole 40 mg capsule,delayed release(DR/EC) Discontinued 0 .ROUTE .COMPLEX 90 July 09, 2024 9:51am October 20, 2024 8:52am TAKE 1 CAPSULE BY MOUTH EVERY DAY [...] Active Start: 02-29-2016 take 1 capsule by [facility] every twenty-four hours Omeprazole 40 mg 1 [...] day for 5 day(s) Aug, Active Semaglutide (4 sources) Start: 10-14-2024 Semaglutide (O zempic) 0.25 mg or 0.5 mg (2 mg/3 mL) pen injector Active 0.5 MG SUBCUT every week October 14, 2024 12:00am for 4 weeks Completed/Discontinued Medications Medication Drug Class(es) Dates Sig (Normalized) Sig (Original) Blood-Glucose Sensor (Dexcom G6 Sensor) device (6 sources) Start: 11-12-2023 End: 11-14-2023 Blood-Glucose Sensor (Dexcom G6 Sensor) device Discontinued 0 .Route 3 November 12, 2023 12:00am November 14, 2023 11:00am As directed busPIRone hydrochloride 5 mg oral tablet (6 sources) Start: 09-24-2023 End: 05-21-2024 take 1 tablet by mouth twice daily Buspirone 5 mg tablet Discontinued 5 MG PO Twice daily September 24, 2023 1:00am May 21, 2024 3:06pm DULoxetine 60 mg delayed release oral capsule (20 sources) Serotonin and Norepinephrine Reuptake Inhibitor Start: 09-25-2023 End: 10-14-2024 take 1 capsule by mouth once daily Duloxetine 60 mg capsule,delayed release(DR/EC) Discontinued 0 .ROUTE .COMPLEX April 01, 2024 8:04am October 14, 2024 8:25am TAKE 1 CAPSULE BY MOUTH EVERY DAY Start: 02-19-2015 End: 09-25-2023 take 1 capsule by mouth once daily DULoxetine (CYMBALTA) 60 mg capsule TAKE 1 CAPSULE BY MOUTH EVERY DAY Oral for 90 Days 02/19/2015 Active take 1 capsule by [facility] every twenty-four hours Cymbalta 30 MG 1 cap(s) Orally Once a day Active glipiZIDE er 5 mg 24 hr extended release oral tablet (19 sources) Sulfonylurea Start: 03-31-2024 End: 12-03-2024 take 1 tablet by mouth once daily Glipizide 5 mg tablet extended release 24hr Discontinued 0 .ROUTE .COMPLEX April 28, 2024 8:23am December 03, 2024 3:00pm TAKE 1 TABLET BY MOUTH EVERY DAY Start: 02-18-2024 End: 08-07-2024 take 1 tablet by mouth once daily Glipizide 5 mg tablet extended release 24hr Discontinued 5 MG PO Daily February 18, 2024 12:00am March 31, 2024 8:38am Insulin Glargine (Lantus U-100 Insulin) 100 unit/mL solution (3 sources) Start: 10-20-2024 End: 12-03-2024 inject 10 [IU] by subcutaneous injection once daily in the evening Insulin Glargine (Lantus U-100 Insulin) 100 unit/mL solution Discontinued 10 UNIT SUBCUT Every evening October 20, 2024 12:00am December 03, 2024 3:05pm Start: 10-20-2024 inject 10 [IU] by scott bcutaneous injection once daily in the evening Insulin Glargine (Lantus U-100 Insulin) 100 unit/mL solution Active 10 UNIT SUBCUT Every evening October 20, 2024 12:00am metFORMIN hydrochloride 1000 mg oral tablet (20 sources) Biguanide Start: 12-10-2023 End: 12-03-2024 take 1 tablet by mouth twice daily Metformin 1,000 mg tablet Discontinued 1000 MG PO Twice daily February 18, 2024 9:27am December 03, 2024 3:00pm Start: 11-13-2023 End: 08-07-2024 take 2 tablets [...] 23-Oct-2022 Active predniSONE 20 mg oral tablet (6 sources) Start: 10-03-2023 End: 02-18-2024 take 1 [...] day. 90 tablet 03/13/2024 08/07/2024 Discontinued Tirzepatide (6 sources) Start: 10-19-2023 End: 02-18-2024 Tirzepatide (Mounjaro) 2.5 mg/0.5 mL pen injector Discontinued 2.5 MG SUBCUT every week 2 October 19, 2023 12:00am February 18, 2024 9:19am Start: 10-19-2023 Tirzepatide (M leathadesijamila) 2.5 mg/0.5 mL pen injector Active 2.5 MG SUBCUT every week 2 October 19, 2023 12:00am Problems Active Problems Problem Classification Problem Date Documented Da te Episodic/Chronic Abdominal hernia (3 sources) Hiatal hernia; Translations: [Diaphragmatic hernia without obstruction or gangrene] Episodic Abdominal pain (12 sources) Right upper quadrant pain; Translations: [Right upper quadrant pain] Onset: 5 09-23-2023 Episodic Acute bronchitis (2 sources) Acute bronchitis; Translations: [Acute bronchitis, unspecified] Episodic Administrative/social admission (2 sources) Follow-up status; Translations: [Other specified counseling] 11-12-2024 Episodic Anxiety disorders (8 sources) Anxiety disorder; Translations: [Anxiety disorder, unspecified] 09-23-2023 Chronic Conditions associated with dizziness or vertigo (8 sources) Dizziness and giddiness; Translations: [Dizziness and giddiness] 09-23-2023 Episodic Diabetes mellitus with complications (17 sources) Hyperglycemia due to type 2 diabetes mellitus; Translations: [Type 2 diabetes mellitus with hyperglycemia] Onset: 5 09-23-2023 Chronic Diabetes mellitus without complication (9 sources) Increased glucose level; Translations: [Other abnormal glucose] 10-15-2024 Episodic Disorders of lipid metabolism (1 source) Hyperlipidemia; Translations: [Hyperlipidemia, unspecified] 11-12-2024 Chronic Esophageal disorders (20 sources) Diffuse spasm of esophagus; Translations: [Dyskinesia of esophagus] Onset: 3 09-23-2023 Chronic Essential hypertension (9 sources) Essential (primary) hypertension; Translations: [Essential hypertension] Onset: 2 09-23-2023 Chronic Gastrointestinal hemorrhage (3 sources) Hematochezia; Translations: [Melena] Episodic Headache; including migraine (4 sources) Migraine without aura; Translations: [Migraine without aura, not intractable, without status migrainosus] 06-01-2024 Chronic Inflammation; infection of eye (except that caused by tuberculosis or sexually transmitteddisease) (2 sources) Chronic allergic conjunctivitis; Translations: [Other chronic allergic conjunctivitis] Onset: 4 Chronic Malaise and fatigue (10 sources) Fatigue; Translations: [Other fatigue] 09-24-2023 Episodic Menstrual disorders (6 sources) Dysmenorrhea; Translations: [Dysmenorrhea, unspecified] Onset: 6 Chronic Mood disorders (8 sources) Moderate recurrent major depression; Translations: [Major depressive disorder, recurrent, moderate] Onset: 8 09-23-2023 Chronic Mycoses (2 sources) Candidiasis; Translations: [Candidiasis, unspecified] Episodic Neoplasms of unspecified nature or uncertain behavior (8 sources) Carcinoid tumor of stomach; 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, intestines, and rectum] Onset: 6 Resolved: 2 09-23-2023 Episodic Nutritional deficiencies (1 source) Cobalamin deficiency; Translations: [Deficiency of other specified B group vitamins] 11-12-2024 Episodic Other acquired deformities (5 sources) Spondylolysis; Translations: [Spondylolysis, lumbar region] 02-18-2024 Episodic Other aftercare (2 sources) Other terminal gauger (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; Translations: [OTH [facility] CURRENT DRUG THERAPY] Onset: 3 Episodic Other aftercare (2 sources) History and physical examination, follow-up; Translations: [Encounter for follow-up examination after completed treatment for conditions other than malignant neoplasm] Episodic Other aftercare (1 source) long term care pharmacist (current) use of oral hypoglycemic drugs; Translations: [snf (current) use of oral hypoglycemic drugs] Onset: 5 Episodic Other and unspecified benign neoplasm (3 sources) History of polyp of colon; Translations: [Personal history of colonic polyps] 02-18-2024 Episodic Other circulatory disease (13 sources) Elevated blood-pressure reading without diagnosis of hypertension; Translations: [Elevated blood pressure reading without diagnosis of hypertension] 09-23-2023 Episodic Other connective tissue disease (8 sources) Fibromyalgia; Translations: [Fibromyalgia] 09-23-2023 Episodic Other connective tissue disease (1 source) Fibromyalgia; Translations: [Myalgia and myositis, unspecified] 02-18-2024 Episodic Other female genital disorders (2 sources) Dyspareunia; Translations: [Unspecified dyspareunia] Chronic Other female genital disorders (2 sources) Noninflammatory disorder of the vagina; Translations: [Other specified noninflammatory disorders of vagina] Episodic Other female genital disorders (8 sources) Cyst of vulva; Translations: [Vulvar cyst] 09-23-2023 Episodic Other gastrointestinal disorders (3 sources) Irritable bowel syndrome; Translations: [Irritable bowel syndrome without diarrhea] 02-18-2024 Chronic Other gastrointestinal disorders (1 source) Irritable bowel syndrome with diarrhea; Translations: [Irritable bowel syndrome with diarrhea] 08-07-2024 Chronic Other gastrointestinal disorders (3 sources) Diarrhea; Translations: [Diarrhea, unspecified] Episodic Other gastrointestinal disorders (9 sources) Urgent desire for stool; Translations: [Fecal urgency] 09-23-2023 Episodic Other injuries and conditions due to external causes (1 source) Other injury of unspecified body region, initial encounter Episodic Other liver diseases (4 sources) Inflammatory disease of liver; Translations: [Inflammatory liver [...] conditions (not mental disorders or infectious disease) (20 sources) Electrocardiogram abnormal; Translations: [Nonspecific abnormal electrocardiogram [ECG] [EKG]] Onset: 2 Episodic Residual codes; unclassified (2 sources) Postprocedural state finding; Translations: [Other specified postprocedural states] Episodic Residual codes; unclassified (8 sources) Insomnia; Translations: [Insomnia, unspecified] 09-23-2023 Episodic Residual codes; unclassified (6 sources) Acquired absence of cervix and uterus; Translations: [Acquired absence of both cervix and uterus] 09-23-2023 Episodic Viral infection (2 sources) Herpes zoster without complication; Translations: [Zoster without complications] Episodic Past or Other Problems Problem Classification Problem Date Documented Da te Episodic/Chronic Cardiac dysrhythmias (20 sources) Palpitations; Translations: [Palpitations] Onset: 01-04-2016 09-23-2023 Episodic Headache; including migraine (8 sources) Headache; Translations: [Headache, unspecified] Onset: 11-11-2015 09-23-2023 Episodic Nonspecific chest pain (20 sources) Chest pain; Translations: [Chest pain, unspecified] [...] Episodic Other nutritional; endocrine; and metabolic disorders (8 sources) Abnormal weight gain; Translations: [Abnormal weight gain] Onset: 10-30-2021 09-23-2023 Episodic Unclassified (5 sources) Patient status finding; Translations: [Patient new to provider] Unclassified (5 sources) Never smoked tobacco; Translations: [Never a smoker] Viral infection (1 source) COVID-19 Results Test Name Value Interpretation Reference Range Facility US abdomen limited [address] [place] [address] Ultrasound Report Signed Patient: Mamadou Murphy MR#: [id number] [birth year] Acct:[id number] Age/Sex: 44 / F ADM Date: 11/11/24 Loc: Room: Type: [facility] Attending Dr: Samantha Trinh Jr, DO Ordering Provider: Samantha Trinh Jr, DO Date of Service: 11/11/24 US/US abdomen limited: R79.89 Copies to: Samantha Trinh Jr, DO LIMITED ABDOMINAL ULTRASOUND: CLINICAL HISTORY: Right upper quadrant pain, elevated liver enzymes COMPARISON: None TECHNIQUE: Grayscale and color Doppler images of the right upper quadrant organs were obtained. FINDINGS: Pancreas: Suboptimally visualized pancreas appears grossly unremarkable as visualized. Liver: 20 cm in length with increased echogenicity suggestive of fatty infiltration. Gallbladder: Surgically absent CBD: 8.3 US/US abdomen limited IMPRESSION: Fatty infiltration liver. 8mm common bile duct likely due to physiologic ectasia Impression dictated by: Kris Apodaca M.D.11/11/2024 9:33 AM Dictation Location: [place] [address] Tech: Missy Nietocesario Transcribed By: IVA 11/11/24932 Dictated By: Kris Apodaca MD 11/11/2431 Signed By: 11/11/24932 Normal [facility] GILLIAN Antinuclear Antibodieson 10-29-2024 Antinuclear Abs, IFA Negative Normal . [facility] Comment on above: Result Comment: Nega tive <1:80 Borderline 1:80 Positive >1:80 ICAP nomenclature: AC-0 For more information about Hep-2 cell patterns use ANApatterns.org, the official website for the International Consensus on Antinuclear Antibody (GILLIAN) Patterns (ICAP). Performed at: - [facility] [address] [id number] Craft Coordinator: Gurwinder Penaloza PhD, Phone: [phone] Performed By: #### H EPACUTE, CERULOP, SMAB, MITOM2, CELIAC, GILLIAN ####[facility] ,#### HEPATIC, FE PRO ####[facility] [id number] Actin smooth muscle IgG Ab [ Units/volume] in SerumOrdered By: Samantha Trinh on 10-29-2024 Actin smooth muscle IgG Qn (S) Actin smooth muscle IgG Ab [Units/volume] in Serum 0-19 [facility] Comment on above: Negative 0 - 19 Weak positive 20 - 30 Moderate to strong positive >30 Actin Antibodies are found in 52-85% of patients with autoimmune hepatitis or chronic active hepatitis and in 22% of patients with primary biliary cirrhosis. Alanine aminotransferase [En zymatic activity/volume] in Serum or PlasmaOrdered By: Samantha Trinh on 10-29-2024 ALT [Catalytic activity/Vol] Alanine aminotransferase [Enzymatic activity/volume] in Serum or Plasma High 7-52 [facility] Albumin [Mass/volume] in Ser um or Plasma by Bromocresol green (BCG) dye binding methoOrdered By: Samantha Trinh on 10-29-2024 Albumin BCG dye [Mass/Vol] Albumin [Mass/volume] in Serum or Plasma by Bromocresol green (BCG) dye binding metho 3.5-5.7 [facility] Alkaline phosphatase [Enzyma tic activity/volume] in Serum or PlasmaOrdered By: Samantha Trinh on 10-29-2024 ALP [Catalytic activity/Vol] Alkaline phosphatase [Enzymatic activity/volume] in Serum or Plasma High 34-104 [facility] Aspartate aminotransferase [ Enzymatic activity/volume] in Serum or PlasmaOrdered By: Samantha Trinh on 10-29-2024 AST [Catalytic activity/Vol] Aspartate aminotransferase [Enzymatic activity/volume] in Serum or Plasma High 13-39 [facility] Bilirubin.direct [Mass/volum e] in Serum or PlasmaOrdered By: Samantha Trinh on 10-29-2024 Bilirubin.direct [Mass/Vol] Bilirubin.direct [Mass/volume] in Serum or Plasma 0.03-0.18 [facility] Bilirubin.total [Mass/volume ] in Serum or PlasmaOrdered By: Samantha Trinh on 10-29-2024 Bilirubin [Mass/Vol] Bilirubin.total [Mass/volume] in Serum or Plasma 0.3-1.0 [facility] Celiacon 10-29-2024 Deamidated Gliadin Abs, IgA 5 Normal 0-19 [facility] Comment on above: Result Comment: Nega tive 0 - 19 Weak Positive 20 - 30 Moderate to Strong Positive >30 Performed By: #### H EPACUTE, CERULOP, SMAB, MITOM2, CELIAC, GILLIAN ####[facility] ,#### HEPATIC, FE PRO ####[address] Deamidated Gliadin Abs, IgG 1 Normal 0-19 [facility] Comment on above: Result Comment: Nega tive 0 - 19 Weak Positive 20 - 30 Moderate to Strong Positive >30 Performed By: #### H EPACUTE, CERULOP, SMAB, MITOM2, CELIAC, GILLIAN ####[facility] ,#### HEPATIC, FE PRO ####[address] Endomysial Antibody IgA Negative Normal Negative [facility] Comment on above: Performed By: #### H EPACUTE, CERULOP, SMAB, MITOM2, CELIAC, GILLIAN ####[facility] ,#### HEPATIC, FE PRO ####[address] Immunoglobulin A, Qn, Serum 495 mg/dL High 87-352 [facility] Comment on above: Result Comment: Perf ormed at: [facility] [id number] Craft Coordinator: Gurwinder Penaloza PhD, Phone: [phone] Performed By: #### H EPACUTE, CERULOP, SMAB, MITOM2, CELIAC, GILLIAN ####[facility] ,#### HEPATIC, FE PRO ####[address] T-Transglutaminase (tTG) IgA <2 Normal 0-3 [facility] Comment on above: Result Comment: Nega tive 0 - 3 Weak Positive 4 - 10 Positive >10 Tissue Transglutaminase (tTG) has been identified as the endomysial antigen. Studies have demonstr- ated that endomysial IgA antibodies have over 99% specificity for gluten sensitive enteropathy. Performed By: #### H EPACUTE, CERULOP, SMAB, MITOM2, CELIAC, GILLIAN ####[facility] ,#### HEPATIC, FE PRO ####[place] [id number] [address] T-Transglutaminase (tTG) IgG <2 Normal 0-5 [facility] Comment on above: Result Comment: Nega tive 0 - 5 Weak Positive 6 - 9 Positive >9 Performed By: #### H EPACUTE, CERULOP, SMAB, MITOM2, CELIAC, GILLIAN ####[facility] ,#### HEPATIC, FE PRO ####[address] Ceruloplasminon 10-29-2024 Ceruloplasmin 19.2 mg/dL Normal 19.0-39.0 [facility] Comment on above: Result Comment: Perf ormed at: - [facility] [place] [id number] Craft Coordinator: Gurwinder Penaloza PhD, Phone: [phone] PERFORMED BY: [facility] [address] [place] [address] PATHOLOGIST SENIOR CONTROLS ENGINEER BERNIE VICK M.D. Performed By: #### H EPACUTE, CERULOP, SMAB, MITOM2, CELIAC, GILLIAN ####[facility] ,#### HEPATIC, FE PRO ####[address] Endomysial IgA antibody assa yOrdered By: Samantha Trinh on 10-29-2024 Endomysial IgA Antibody Negative Negative [facility] FE PROon 10-29-2024 % Iron Saturation 8.3 % Low 20-50 [facility] Comment on above: Performed By: #### H EPACUTE, CERULOP, SMAB, MITOM2, CELIAC, GILLIAN ####[facility] ,#### HEPATIC, FE PRO ####[place] [id number] [address] Ferritin [Mass/Vol] 33.6 ng/mL Normal 11.0-306.8 [facility] Comment on above: Result Comment: PERF ORMED BY: [facility] [address] [place] [address] PATHOLOGIST SENIOR CONTROLS ENGINEER BERNIE VICK M.D. Performed By: #### H EPACUTE, CERULOP, SMAB, MITOM2, CELIAC, GILLIAN ####[facility] ,#### HEPATIC, FE PRO ####[address] Iron [Mass/Vol] 36 ug/dL Low 50-212 [facility] Comment on above: Performed By: #### H EPACUTE, CERULOP, SMAB, MITOM2, CELIAC, GILLIAN ####[facility] ,#### HEPATIC, FE PRO ####[address] Total Iron Binding Capacity 434 ug/dL Normal 255-450 [facility] Comment on above: Performed By: #### H EPACUTE, CERULOP, SMAB, MITOM2, CELIAC, GILLIAN ####[facility] ,#### HEPATIC, FE PRO ####[address] Transferrin [Mass/Vol] 310 mg/dL Normal 203-362 [facility] Comment on above: Performed By: #### H EPACUTE, CERULOP, SMAB, MITOM2, CELIAC, GILLIAN ####[facility] ,#### HEPATIC, FE PRO ####[address] Ferritin [Mass/volume] in Se rum or PlasmaOrdered By: Samantha Trinh on 10-29-2024 Ferritin [Mass/Vol] Ferritin [Mass/volum e] in Serum or Plasma 11.0-306.8 [facility] Globulin Calc (S) [Mass/Vol] Ordered By: Samantha Trinh on 10-29-2024 Globulin (S) [Mass/Vol] Serum globulin measurement by calculation (mass/volume) [facility] Hepatic Panelon 10-29-2024 Albumin [Mass/Vol] 4.3 g/dL Normal 3.5-5.7 [facility] Comment on above: Performed By: #### H EPACUTE, CERULOP, SMAB, MITOM2, CELIAC, GILLIAN ####[facility] ,#### HEPATIC, FE PRO ####[address] Albumin/Globulin [Mass ratio] 1.4 {ratio} Normal [facility] Comment on above: Performed By: #### H EPACUTE, CERULOP, SMAB, MITOM2, CELIAC, GILLIAN ####[facility] ,#### HEPATIC, FE PRO ####[address] ALP [Catalytic activity/Vol] 107 U/L High 34-104 [facility] Comment on above: Performed By: #### H EPACUTE, CERULOP, SMAB, MITOM2, CELIAC, GILLIAN ####[facility] ,#### HEPATIC, FE PRO ####[address] ALT [Catalytic activity/Vol] 64 U/L High 7-52 [facility] Comment on above: Performed By: #### H EPACUTE, CERULOP, SMAB, MITOM2, CELIAC, GILLIAN ####[facility] ,#### HEPATIC, FE PRO ####[address] AST [Catalytic activity/Vol] 62 U/L High 13-39 [facility] Comment on above: Performed By: #### H EPACUTE, CERULOP, SMAB, MITOM2, CELIAC, GILLIAN ####[facility] ,#### HEPATIC, FE PRO ####[address] Bilirubin [Mass/Vol] 0.5 mg/dL Normal 0.3-1.0 [facility] Comment on above: Performed By: #### H EPACUTE, CERULOP, SMAB, MITOM2, CELIAC, GILLIAN ####[facility] ,#### HEPATIC, FE PRO ####[address] Bilirubin,Indirect 0.4 mg/dL Normal [facility] Comment on above: Performed By: #### H EPACUTE, CERULOP, SMAB, MITOM2, CELIAC, GILLIAN ####[facility] ,#### HEPATIC, FE PRO ####[address] Bilirubin.indirect [Mass/Vol] 0.10 mg/dL Normal 0.03-0.18 [facility] Comment on above: Performed By: #### H EPACUTE, CERULOP, SMAB, MITOM2, CELIAC, GILLIAN ####[facility] ,#### HEPATIC, FE PRO ####[address] Globulin (S) [Mass/Vol] 3.0 g/dL Normal [facility] Comment on above: Performed By: #### H EPACUTE, CERULOP, SMAB, MITOM2, CELIAC, GILLIAN ####[facility] ,#### HEPATIC, FE PRO ####[address] Protein [Mass/Vol] 7.3 g/dL Normal 6.4-8.9 [facility] Comment on above: Performed By: #### H EPACUTE, CERULOP, SMAB, MITOM2, CELIAC, GILLIAN ####[facility] ,#### HEPATIC, FE PRO ####[address] Hepatitis A virus IgM antibo dy assayOrdered By: Samantha Trinh on 10-29-2024 Hepatitis A IgM Antibody Negative Negative [facility] Comment on above: A negative anti-HAV IgM result suggests no recent orcurrent HAV infection. Hepatitis Acute Panelon 10-20 HBsAg Screen Negative Normal Negative [facility] Comment on above: Performed By: #### H EPACUTE, CERULOP, SMAB, MITOM2, CELIAC, GILLIAN ####[facility] ,#### HEPATIC, FE PRO ####[address] Hepatitis A Antibody IgM Negative Normal Negative [facility] Comment on above: Result Comment: A ne gative anti-HAV IgM result suggests no recent or current HAV infection. Performed By: #### H EPACUTE, CERULOP, SMAB, MITOM2, CELIAC, GILLIAN ####[facility] ,#### HEPATIC, FE PRO ####[address] Hepatitis B Core Antibody IgM Negative Normal Negative [facility] Comment on above: Performed By: #### H EPACUTE, CERULOP, SMAB, MITOM2, CELIAC, GILLIAN ####[facility] ,#### HEPATIC, FE PRO ####[address] Hepatitis C Virus Antibody Non-Reactive Normal Non Reactive [facility] Comment on above: Performed By: #### H EPACUTE, CERULOP, SMAB, MITOM2, CELIAC, GILLIAN ####[facility] ,#### HEPATIC, FE PRO ####[address] Interpretation Hepatitis C Comment Normal . [facility] Comment on above: Result Comment: Not infected with HCV unless early or acute infection is suspected (which may be delayed in an immunocompromised individual), or other evidence exists to indicate HCV infection. Performed at: [facility] [id number] Craft Coordinator: Gurwinder Penaloza PhD, Phone: [phone] PERFORMED BY: [facility] [address] [place] [address] PATHOLOGIST SENIOR CONTROLS ENGINEER BERNIE VICK M.D. Performed By: #### H EPACUTE, CERULOP, SMAB, MITOM2, CELIAC, GILLIAN ####[facility] ,#### HEPATIC, FE PRO ####[place] [id number] [address] Hepatitis B virus core IgM a ntibody assayOrdered By: Samantha Trinh on 10-29-2024 Hepatitis B Core IgM Antibody Negative Negative [facility] Hepatitis C virus IgG Ab [Pr esence] in Serum or Plasma by ImmunoassayOrdered By: Samantha Trinh on 10-29-2024 HCV IgG IA Ql Hepatitis C virus Ig G Ab [Presence] in Serum or Plasma by Immunoassay Non Reactive [facility] Iron [Mass/volume] in Serum or PlasmaOrdered By: Samantha Trinh on 10-29-2024 Iron [Mass/Vol] Iron [Mass/volume] i n Serum or Plasma Low 50-212 [facility] Mitochondrial (M2) Antibodyo n 10-29-2024 Mitochondrial (M2) Antibody <20.0 Normal 0.0-20.0 [facility] Comment on above: Result Comment: Nega tive 0.0 - 20.0 Equivocal 20.1 - 24.9 Positive >24.9 Mitochondrial (M2) Antibodies are found in 90-96% of patients with primary biliary cirrhosis. Performed at: [facility] [id number] Craft Coordinator: Gurwinder Penaloza PhD, Phone: [phone] Performed By: #### H EPACUTE, CERULOP, SMAB, MITOM2, CELIAC, GILLIAN ####[facility] ,#### HEPATIC, FE PRO ####[place] [id number] [address] No Panel InformationOrdered By: Samantha Trinh on 10-29-2024 Hepatitis C Interpretation Comment . [facility] Comment on above: Not infected with HC V unless early or acute infection issuspected (which may be delayed in an immunocompromisedindividual), or other evidence exists to indicate HCVinfection.Performed at: [facility] [id number] Director: Gurwinder Penaloza PhD, Phone: [phone] Protein [Mass/volume] in Ser um or PlasmaOrdered By: Samantha Trinh on 10-29-2024 Protein [Mass/Vol] Protein [Mass/volume ] in Serum or Plasma 6.4-8.9 [facility] Quantitative serum or plasma hepatitis C virus RNA assay by real-time PCR (units/voluOrdered By: Samantha Trinh on 10-29-2024 HCV RNA RELL+probe Qn Hepatitis C virus R NA [Units/volume] (viral load) in Serum or Plasma by RELL with prob [facility] Serum gliadin peptide IgA an tibody assay (units/volume)Ordered By: Samantha Trinh on 10-29-2024 Gliadin peptide IgA Qn (S) Serum gliadin peptide IgA antibody assay (units/volume) 0-19 [facility] Comment on above: Negative 0 - 19 Weak Positive 20 - 30 Moderate to Strong Positive >30 Serum gliadin peptide IgG an tibody assay (units/volume)Ordered By: Samantha Trinh on 10-29-2024 Gliadin peptide IgG Qn (S) Serum gliadin peptide IgG antibody assay (units/volume) 0-19 [facility] Comment on above: Negative 0 - 19 Weak Positive 20 - 30 Moderate to Strong Positive >30 Serum homogeneous pattern an tinuclear antibody (GILLIAN) titerOrdered By: Samantha Trinh on 10-29-2024 Homogenous nuclear Ab pattern (S) [Titer] Serum homogeneous pattern antinuclear antibody (GILLIAN) titer [facility] Serum mitochondria M2 IgG an tibody assay (units/volume)Ordered By: Samantha Trinh on 10-29-2024 Mitochondria M2 IgG Qn (S) Serum mitochondria M2 IgG antibody assay (units/volume) 0.0-20.0 [facility] Comment on above: Negative 0.0 - 20.0 Equivocal 20.1 - 24.9 Positive >24.9Mitochondrial (M2) Antibodies are found in 90-96% ofpatients with primary biliary cirrhosis.Performed at: [employer] [place], [place] [id number] Director: Gurwinder Penaloza PhD, Phone: [phone] Serum nuclear antibody titer Ordered By: Samantha Trinh on 10-29-2024 Nuclear Ab (S) [Titer] Serum nuclear ant ibody titer . [facility] Comment on above: Negative <1:80 Borde rline 1:80 Positive >1:80ICAP nomenclature: [id number] more information about Hep-2 cell patterns useANApatterns.org, the official website for theInternational Consensus on Antinuclear Antibody (GILLIAN)Patterns (ICAP).Performed at: [employer] [place], [place] [id number] Director: Gurwinder Penaloza PhD, Phone: [phone] Serum or plasma IgA measurem ent (mass/volume)Ordered By: Samantha Trinh on 10-29-2024 IgA [Mass/Vol] IgA [Mass/volume] in Serum or Plasma High [address] [place] [address] Comment on above: Performed at: [employer] [place], [place] [id number] Director: Gurwinder Penaloza PhD, Phone: [phone] Serum or plasma albumin/glob ulin mass ratioOrdered By: Samantha Trinh on 10-29-2024 Albumin/Globulin [Mass ratio] Serum or plasma albumin/globulin mass ratio [facility] Serum or plasma ceruloplasmi n measurement (mass/volume)Ordered By: Samantha Trinh on 10-29-2024 Ceruloplasmin [Mass/Vol] Serum or plasma ceruloplasmin measurement (mass/volume) 19.0-39.0 [facility] Comment on above: Performed at: [employer] [address] [place], [place] [id number] Director: Gurwinder Penaloza PhD, Phone: [phone] Serum or plasma hepatitis B virus surface antigen detection by immunoassayOrdered By: Samantha Trinh on 10-29-2024 HBV surface Ag IA Ql Hepatitis B virus surface Ag [Presence] in Serum or Plasma by Immunoassay Negative [facility] Serum or plasma hepatitis C virus RNA measurement by probe and target amplification mOrdered By: Samantha Trinh on 10-29-2024 HCV RNA RELL+probe [Log units/Vol] Hepatitis C virus RNA [log units/volume] (viral load) in Serum or Plasma by RELL with [facility] Serum or plasma iron binding capacity measurement (mass/volume)Ordered By: Samantha Trinh on 10-29-2024 Iron binding capacity [Mass/Vol] Iron binding capacity [Mass/volume] in Serum or Plasma 255-450 [facility] Serum or plasma iron saturat ion measurement (mass fraction)Ordered By: Samantha Trinh on 10-29-2024 Iron saturation [Mass fraction] Iron saturation [Mass Fraction] in Serum or Plasma Low 20-50 [facility] Serum or plasma non-glucuron idated bilirubin measurement (mass/volume)Ordered By: Samantha Trinh on 10-29-2024 Bilirubin.indirect [Mass/Vol] Serum or plasma non-glucuronidated bilirubin measurement (mass/volume) [facility] Serum tissue transglutaminas e (tTG) IgA antibody assay (units/volume)Ordered By: Samantha Trinh on 10-29-2024 tTG IgA Qn (S) Serum tissue transglutaminase (tTG) IgA antibody assay (units/volume) 0-3 [facility] Comment on above: Negative 0 - 3 Weak Positive 4 - 10 Positive >10 Tissue Transglutaminase (tTG) has been identified as the endomysial antigen. Studies have demonstr- ated that endomysial IgA antibodies have over 99% specificity for gluten sensitive enteropathy. Serum tissue transglutaminas e (tTG) IgG antibody assay (units/volume)Ordered By: Samantha Trinh on 10-29-2024 tTG IgG Qn (S) Serum tissue transglutaminase (tTG) IgG antibody assay (units/volume) 0-5 [facility] Comment on above: Negative 0 - 5 Weak Positive 6 - 9 Positive >9 Smooth Muscle Antibodyon Smooth Muscle Antibody 8 Normal 0-19 [facility] Comment on above: Result Comment: Nega tive 0 - 19 Weak positive 20 - 30 Moderate to strong positive >30 Actin Antibodies are found in 52-85% of patients with autoimmune hepatitis or chronic active hepatitis and in 22% of patients with primary biliary cirrhosis. PERFORMED BY: [place] [address] [place] [address] PATHOLOGIST SENIOR CONTROLS ENGINEER BERNIE VICK M.D. Performed By: #### H EPACUTE, CERULOP, SMAB, MITOM2, CELIAC, GILLIAN ####[facility] ,#### HEPATIC, FE PRO ####[facility] [id number] [place] [id number] [facility] Transferrin [Mass/volume] in Serum or PlasmaOrdered By: Samantha Trinh on 10-29-2024 Transferrin [Mass/Vol] Transferrin [Mass/volume] in Serum or Plasma 203-362 [facility] CNPNon 10-19-2024 CNPN Telephone ([facility]) MAMADOU LOWERY ([id number]) 1980 F Date Time Provider Department 10/19/24 SAMANTHA TRINH JR [facility] During your visit today, we recorded the following information about you: Bernie Mora 10/19/2024 1:58 PM Signed Mamadou is calling Samantha Trinh Jr., DO today to request lab orders and ultrasound orders to be faxed to [facility] fax#[phone]. Patient has been identified by name and birthdate. Duration of symptoms: N/A Person calling: self Call patient at: on cell [phone] (home) [phone] (cell) Was an appointment scheduled: No Closing statement: Results or non-symptom based questions: Thank you for calling [facility], your call will be returned within the next business day. Liv Reyna RN 10/19/2024 3:35 PM Signed Can orders please be sent to [facility]. Thank you Juancarlos Wilkins RN, LPN 10/20/2024 2:33 PM Signed Lab orders and US order faxed to [facility] [phone]. Confirmation received that the fax did go through Juancarlos Murguia LPN Allergies As of Date: 10/19/2024 (No Known Allergies) Date Reviewed: 08/07/2024 Reviewed by: Samantha Trinh Jr., DO - Fully Assessed Reason for Visit: Orders [681] Prescriptions as of 10/20/2024 - hyoscyamine sublingual (LEVSIN/SL) 0.125 mg Dissolve 1 tablet under the tongue every 4 hours as needed. - omeprazole (PRILOSEC) 40 mg capsule take 1 capsule by mouth twice a day - DULoxetine (CYMBALTA) 60 mg capsule TAKE 1 CAPSULE BY MOUTH EVERY DAY Oral for 90 Days Problem List As Of Date 10/19/2024 Noted Resolved Palpitations [R00.2] 01/04/2016 Precordial pain [R07.2] 01/04/2016 Encounter Status:Closed by JUANCARLOS MURGUIA on 10/20/24 Normal [facility] Estimated glomerular filtrat ion rate (GFR) non- Americanon 10-17-2024 GFR/1.73 sq M.predicted among non-blacks MDRD (S/P/Bld) [Vol rate/Area] Estimated glomerular filtration rate (GFR) non- >=60 mL/min/1.73 m 2 [facility] Globulin Calc (S) [Mass/Vol] on 10-17-2024 Globulin (S) [Mass/Vol] Serum globulin measurement by calculation (mass/volume) [facility] Laboratory - Chemistry and C hemistry - challengeon 10-17-2024 Albumin [Mass/Vol] 3.5 g/dL 3.4-5.0 [facility] ALP [Catalytic activity/Vol] 133 U/L High 46-116 [facility] ALT [Catalytic activity/Vol] 102 U/L High 14-59 [facility] AST [Catalytic activity/Vol] 117 U/L High 15-37 [facility] Bilirubin [Mass/Vol] 0.4 mg/dL 0.2-1.0 [facility] Calcium [Mass/Vol] 9.0 mg/dL 8.5-10.1 [facility] Chloride [Moles/Vol] 102 mmol/L 98-107 [facility] CO2 [Moles/Vol] 22.9 mmol/L 21.0-32.0 [facility] Creatinine [Mass/Vol] 0.98 mg/dL 0.55-1.02 [facility] GFR/1.73 sq M.predicted MDRD (S/P/Bld) [Vol rate/Area] mL/min/{1.73_m2} >=60 mL/min/1.73 m 2 [facility] Glucose [Mass/Vol] 208 mg/dL High 74-106 [facility] Potassium [Moles/Vol] 4.2 mmol/L 3.5-5.1 [facility] Protein [Mass/Vol] 8.2 g/dL 6.4-8.2 [facility] Sodium [Moles/Vol] 137 mmol/L 136-145 [facility] Urea nitrogen [Mass/Vol] 12.0 mg/dL 7.0-18.0 [facility] Urea nitrogen/Creatinine [Mass ratio] 12.2 mg/mg [facility] Serum or plasma albumin/glob ulin mass ratioon 10-17-2024 Albumin/Globulin [Mass ratio] Serum or plasma albumin/globulin mass ratio [facility] Serum or plasma anion gap de terminationon 10-17-2024 Anion gap [Moles/Vol] Serum or plasma an ion gap determination [facility] Alanine aminotransferase [En zymatic activity/volume] in Serum or PlasmaOrdered By: Jayden Pineda on 10-15-2024 ALT [Catalytic activity/Vol] Alanine aminotransferase [Enzymatic activity/volume] in Serum or Plasma High 7-52 [facility] Albumin [Mass/volume] in Ser um or Plasma by Bromocresol green (BCG) dye binding methoOrdered By: Jayden Pineda on 10-15-2024 Albumin BCG dye [Mass/Vol] Albumin [Mass/volume] in Serum or Plasma by Bromocresol green (BCG) dye binding metho 3.5-5.7 [facility] Alkaline phosphatase [Enzyma tic activity/volume] in Serum or PlasmaOrdered By: Jayden Pineda on 10-15-2024 ALP [Catalytic activity/Vol] Alkaline phosphatase [Enzymatic activity/volume] in Serum or Plasma High 34-104 [facility] Appearance of UrineOrdered B y: Jayden Pineda on 10-15-2024 Appearance (U) Urine appearance Abnormal Clear [facility] Aspartate aminotransferase [ Enzymatic activity/volume] in Serum or PlasmaOrdered By: Jayden Brothersely on 10-15-2024 AST [Catalytic activity/Vol] Aspartate aminotransferase [Enzymatic activity/volume] in Serum or Plasma High 13-39 [facility] Bacteria [Presence] in Urine by AutomatedOrdered By: Jayden Miriam on 10-15-2024 Bacteria Auto Ql (U) Bacteria [Presence] in Urine by Automated None Seen [facility] Basic Metabolic Panelon 09-20 Anion gap [Moles/Vol] 10.8 mmol/L Normal 6.0-15.0 Th e [facility] Comment on above: Performed By: #### C BC, HEPATIC, LIPASE, BMP #### [facility] [address] [place] [id number] [place] Calcium [Mass/Vol] 9.2 mg/dL Normal 8.6-10.3 [facility] Comment on above: Performed By: #### C BC, HEPATIC, LIPASE, BMP #### [facility] [address] [place] [id number] [place] Chloride [Moles/Vol] 102 mmol/L Normal 98-107 [facility] Comment on above: Performed By: #### C BC, HEPATIC, LIPASE, BMP #### [facility] [address] [place] [address] [place] CO2 [Moles/Vol] 25.2 mmol/L Normal 21.0-31.0 [facility] Comment on above: Performed By: #### C BC, HEPATIC, LIPASE, BMP #### [facility] [address] [place] [address] [place] Creatinine [Mass/Vol] 0.81 mg/dL Normal 0.60-1.20 [facility] Comment on above: Performed By: #### C BC, HEPATIC, LIPASE, BMP #### [facility] [address] [place] [address] [place] Creatinine Clr Calc Pharmacy 112.84 Normal [facility] Comment on above: Performed By: #### C BC, HEPATIC, LIPASE, BMP #### [facility] [address] [place] [address] [place] GFR/1.73 sq M.predicted MDRD (S/P/Bld) [Vol rate/Area] mL/min/{1.73_m2} Normal [facility] Comment on above: Performed By: #### C BC, HEPATIC, LIPASE, BMP #### [facility] [address] [place] [address] [place] Glucose [Mass/Vol] 209 mg/dL High 70-100 [facility] Comment on above: Result Comment: [facility] Glucose Reference Range is dependent on time and content of last meal. Glucose of more than 200 mg/dL in a nonstressed, ambulatory subject supports the diagnosis of Diabetes Mellitus. ADA recommended reference range Performed By: #### C BC, HEPATIC, LIPASE, BMP #### [facility] [address] Potassium [Moles/Vol] 4.0 mmol/L Normal 3.5-5.1 [facility] Comment on above: Performed By: #### C BC, HEPATIC, LIPASE, BMP #### [facility] [address] [place] [address] [place] Sodium [Moles/Vol] 134 mmol/L Low 136-145 [facility] Comment on above: Performed By: #### C BC, HEPATIC, LIPASE, BMP #### [facility] [address] [place] [address] [place] Urea nitrogen [Mass/Vol] 11 mg/dL Normal 7-25 [facility] Comment on above: Performed By: #### C BC, HEPATIC, LIPASE, BMP #### [facility] [address] [place] [id number] [place] Basophils Auto (Bld) [#/Vol] Ordered By: Jayden Pineda on 10-15-2024 Basophils (Bld) [#/Vol] Automated basoph il count 0.0-0.2 [facility] Basophils/100 WBC Auto (Bld) Ordered By: Jayden Pineda on 10-15-2024 Basophils/100 WBC (Bld) Automated basophil % . [facility] Bilirubin Test strip Ql (U)O rdered By: Jayden Pineda on 10-15-2024 Bilirubin Ql (U) Bilirubin.total [Presence] in Urine by Test strip Negative [facility] Bilirubin.direct [Mass/volum e] in Serum or PlasmaOrdered By: Jayden Pineda on 10-15-2024 Bilirubin.direct [Mass/Vol] Bilirubin.direct [Mass/volume] in Serum or Plasma 0.03-0.18 [facility] Bilirubin.total [Mass/volume ] in Serum or PlasmaOrdered By: Jayden Pineda on 10-15-2024 Bilirubin [Mass/Vol] Bilirubin.total [Mass/volume] in Serum or Plasma 0.3-1.0 [facility] Calcium [Mass/volume] in Ser um or PlasmaOrdered By: Jayden Pineda on 10-15-2024 Calcium [Mass/Vol] Calcium [Mass/volume ] in Serum or Plasma 8.6-10.3 [facility] Carbon dioxide, total [Moles /volume] in Serum or PlasmaOrdered By: Jayden Pineda on 10-15-2024 CO2 [Moles/Vol] Carbon dioxide, tota l [Moles/volume] in Serum or Plasma 21.0-31.0 [facility] Chloride [Moles/volume] in S luis alberto or PlasmaOrdered By: Jayden Pineda on 10-15-2024 Chloride [Moles/Vol] Chloride [Moles/volume] in Serum or Plasma 98-107 [facility] Color Auto (U)Ordered By: Ely Pineda on 10-15-2024 Color (U) Color of Urine by Auto Yellow [facility] Complete Blood Count Auto Di ffon 10-15-2024 Basophils (Bld) [#/Vol] 0.0 10*3/uL Normal 0.0-0.2 [facility] Comment on above: Result Comment: PERF ORMED BY: [place] [address] PATHOLOGIST SENIOR CONTROLS ENGINEER BERNIE VICK M.D. Performed By: #### C BC, HEPATIC, LIPASE, BMP #### [place] [address] [place] Basophils/100 WBC (Bld) 0.2 % Normal . T rajinder [facility] Comment on above: Performed By: #### C BC, HEPATIC, LIPASE, BMP #### [address] Eosinophils (Bld) [#/Vol] 0.2 10*3/uL Normal 0.0-0.45 [facility] Comment on above: Performed By: #### C BC, HEPATIC, LIPASE, BMP #### [address] Eosinophils/100 WBC (Bld) 2.2 % Normal . [facility] Comment on above: Performed By: #### C BC, HEPATIC, LIPASE, BMP #### [address] Erythrocyte distribution width (RBC) [Ratio] 15.8 % High 11.9-15.3 [facility] Comment on above: Performed By: #### C BC, HEPATIC, LIPASE, BMP #### [address] Hematocrit (Bld) [Volume fraction] 38.0 % Normal 34.0-46.4 [facility] Comment on above: Performed By: #### C BC, HEPATIC, LIPASE, BMP #### [address] Hemoglobin (Bld) [Mass/Vol] 12.2 g/dL Normal 11.8-15.4 [facility] Comment on above: Performed By: #### C BC, HEPATIC, LIPASE, BMP #### [address] Lymphocytes (Bld) [#/Vol] 2.4 10*3/uL Normal 1.00-4.8 [facility] Comment on above: Performed By: #### C BC, HEPATIC, LIPASE, BMP #### [address] Lymphocytes/100 WBC (Bld) 25.1 % Normal . [facility] Comment on above: Performed By: #### C BC, HEPATIC, LIPASE, BMP #### [address] MCH (RBC) [Entitic mass] 25.2 pg Normal 24.7-34.3 [facility] Comment on above: Performed By: #### C BC, HEPATIC, LIPASE, BMP #### [address] MCV (RBC) [Entitic vol] 78.5 fL Low 80-100 [facility] Comment on above: Performed By: #### C BC, HEPATIC, LIPASE, BMP #### [address] Mean Corpuscular HGB Conc 32.1 g/dL Normal 32.0-35.0 [facility] Comment on above: Performed By: #### C BC, HEPATIC, LIPASE, BMP #### [address] Monocytes (Bld) [#/Vol] 0.6 10*3/uL Normal 0.0-0.8 [facility] Comment on above: Performed By: #### C BC, HEPATIC, LIPASE, BMP #### [address] Monocytes/100 WBC (Bld) 22.59 % High 0.00-20.00 [facility] Comment on above: Result Comment: For adults in ED, MDW > 20.0 may be associated with a higher risk of sepsis during the first 12 hrs of hospital admission Performed By: #### C BC, HEPATIC, LIPASE, BMP #### [address] Monocytes/100 WBC (Bld) 5.7 % Normal . [facility] Comment on above: Performed By: #### C BC, HEPATIC, LIPASE, BMP #### [address] Neutrophils (Bld) [#/Vol] 6.5 10*3/uL Normal 1.8-7.7 [facility] [facility] Comment on above: Performed By: #### C BC, HEPATIC, LIPASE, BMP #### [address] Neutrophils/100 WBC (Bld) 66.8 % Normal . [facility] Comment on above: Performed By: #### C BC, HEPATIC, LIPASE, BMP #### [address] NRBC% 0.1 /100{WBC} Normal 0-0.5 [facility] Comment on above: Performed By: #### C BC, HEPATIC, LIPASE, BMP #### [address] Platelet mean volume (Bld) [Entitic vol] 7.0 fL Normal 6.3-10.7 [facility] Comment on above: Performed By: #### C BC, HEPATIC, LIPASE, BMP #### [address] Platelets (Bld) [#/Vol] 366 10*3/uL Normal 150-450 [facility] Comment on above: Performed By: #### C BC, HEPATIC, LIPASE, BMP #### [address] RBC (Bld) [#/Vol] 4.84 10*6/uL Normal 3.60-5.00 [facility] Comment on above: Performed By: #### C BC, HEPATIC, LIPASE, BMP #### [address] WBC (Bld) [#/Vol] 9.7 10*3/uL Normal 3.8-11.6 [facility] Comment on above: Performed By: #### C BC, HEPATIC, LIPASE, BMP #### [address] Creatinine [Mass/volume] in Serum or PlasmaOrdered By: Jayden Pineda on 10-15-2024 Creatinine [Mass/Vol] Creatinine [Mass/volume] in Serum or Plasma 0.60-1.20 [facility] Crystals.amorphous [Presence ] in Urine by Computer assisted methodOrdered By: Jayden Pineda on 10-15-2024 Crystals.amorphous Computer assisted Ql (U) Crystals.amorphous [Presence] in Urine by Computer assisted method [facility] Dipstick and Microscopicon 0 10-15-2024 Amorphous Crystal,Urine Rare Normal T [facility] Comment on above: Order Comment: Name Collection Type:: Clean-Voided Midstream Performed By: #### C UU, UHCG, ADDONUAPLUS #### [address] Appearance (U) Cloudy Critically abnormal Clear [facility] Comment on above: Order Comment: Name Collection Type:: Clean-Voided Midstream Performed By: #### C UU, UHCG, ADDONUAPLUS #### [address] Bacteria,Urine None Seen Normal None Seen [facility] Comment on above: Order Comment: Name Collection Type:: Clean-Voided Midstream Performed By: #### C UU, UHCG, ADDONUAPLUS #### [address] Bilirubin,Urine Negative Normal Negative [facility] Comment on above: Order Comment: Name Collection Type:: Clean-Voided Midstream Performed By: #### C UU, UHCG, ADDONUAPLUS #### [address] Color (U) Yellow Normal Yellow [facility] Comment on above: Order Comment: Name Collection Type:: Clean-Voided Midstream Performed By: #### C UU, UHCG, ADDONUAPLUS #### [address] Glucose Ql (U) 50 mg/dL High Normal [facility] Comment on above: Order Comment: Name Collection Type:: Clean-Voided Midstream Performed By: #### C UU, UHCG, ADDONUAPLUS #### [place] [address] [place] Hyaline Casts,Urine 0-8 Normal 0-8 [facility] Comment on above: Order Comment: Name Collection Type:: Clean-Voided Midstream Performed By: #### C UU, UHCG, ADDONUAPLUS #### [address] Ketones Ql (U) 1+ High Negative [facility] Comment on above: Order Comment: Name Collection Type:: Clean-Voided Midstream Performed By: #### C UU, UHCG, ADDONUAPLUS #### [address] Leukocyte esterase Test strip Ql (U) 1+ High Negative [facility] Comment on above: Order Comment: Name Collection Type:: Clean-Voided Midstream Performed By: #### C UU, UHCG, ADDONUAPLUS #### [address] Mucus,Urine 2+ Critically abnormal [facility] Comment on above: Order Comment: Name Collection Type:: Clean-Voided Midstream Performed By: #### C UU, UHCG, ADDONUAPLUS #### [address] Nitrite,Urine Negative Normal Negative [facility] Comment on above: Order Comment: Name Collection Type:: Clean-Voided Midstream Performed By: #### C UU, UHCG, ADDONUAPLUS #### [address] Occult Blood,Urine Negative Normal Negative [facility] Comment on above: Order Comment: Name Collection Type:: Clean-Voided Midstream Performed By: #### C UU, UHCG, ADDONUAPLUS #### [address] pH (U) 5.5 [pH] Normal 5.0-9.0 [facility] Comment on above: Order Comment: Name Collection Type:: Clean-Voided Midstream Performed By: #### C UU, UHCG, ADDONUAPLUS #### [address] Protein (U) [Mass/Vol] 20 mg/dL High Negative [facility] Comment on above: Order Comment: Name Collection Type:: Clean-Voided Midstream Performed By: #### C UU, UHCG, ADDONUAPLUS #### [address] RBC,Urine 5-9 High 0-4 [facility] Comment on above: Order Comment: Name Collection Type:: Clean-Voided Midstream Performed By: #### C UU, UHCG, ADDONUAPLUS #### [address] Specificy [place],Urine 1.026 Normal 1.001-1.030 [facility] Comment on above: Order Comment: Name Collection Type:: Clean-Voided Midstream Performed By: #### C UU, UHCG, ADDONUAPLUS #### [address] Squamous Epithelial Cell,Urine 5-9 High 0-2 [facility] Comment on above: Order Comment: Name Collection Type:: Clean-Voided Midstream Performed By: #### C UU, UHCG, ADDONUAPLUS #### [address] Urobilinogen,Urine 2 mg/dL High Normal [facility] Comment on above: Order Comment: Name Collection Type:: Clean-Voided Midstream Performed By: #### C UU, UHCG, ADDONUAPLUS #### [address] WBC,Urine 10-19 High 0-4 [facility] Comment on above: Order Comment: Name Collection Type:: Clean-Voided Midstream Performed By: #### C UU, UHCG, ADDONUAPLUS #### [address] Eosinophils Auto (Bld) [#/Vo l]Ordered By: Jayden Pineda on 10-15-2024 Eosinophils (Bld) [#/Vol] Automated eosinophil count 0.0-0.45 [facility] Eosinophils/100 WBC Auto (Bl d)Ordered By: Jayden Pineda on 10-15-2024 Eosinophils/100 WBC (Bld) Automated eosinophil % . [facility] Epithelial cells.squamous [# /area] in Urine sediment by Automated countOrdered By: Jayden Pineda on 10-15-2024 Epithelial cells.squamous Auto (Urine sed) [#/Area] Epithelial cells.squamous [#/area] in Urine sediment by Automated count High 0-2 [facility] Erythrocyte distribution wid th Auto (RBC) [Ratio]Ordered By: Jayden Pineda on 10-15-2024 Erythrocyte distribution width (RBC) [Ratio] Erythrocyte distribution width [Ratio] by Automated count High 11.9-15.3 [facility] Erythrocytes [#/area] in Uri ne sediment by Automated countOrdered By: Jayden Pineda on 10-15-2024 RBC Auto (Urine sed) [#/Area] Erythrocytes [#/area] in Urine sediment by Automated count High 0-4 [facility] Globulin Calc (S) [Mass/Vol] Ordered By: Jayden Pineda on 10-15-2024 Globulin (S) [Mass/Vol] Serum globulin measurement by calculation (mass/volume) [facility] Glucose Glucometer (BldC) [M ass/Vol]Ordered By: Jayden Pineda on 10-15-2024 Glucose [Mass/Vol] Capillary blood glucose measurement by glucometer (mass/volume) [facility] Comment on above: Random Glucose Refer ence Range is dependent on time and content of last meal. Glucose of more than 200 mg/dL in a nonstressed, ambulatory subject supports the diagnosis of Diabetes Mellitus. Glucose Poct Glucometerson 0 10-15-2024 Glucose [Mass/Vol] 167 mg/dL Normal [facility] Comment on above: Result Comment: [place] Glucose Reference Range is dependent on time and content of last meal. Glucose of more than 200 mg/dL in a nonstressed, ambulatory subject supports the diagnosis of Diabetes Mellitus. PERFORMED BY: [place] [address] PATHOLOGIST SENIOR CONTROLS ENGINEER BERNIE VICK M.D. Performed By: #### C BC, HEPATIC, LIPASE, BMP #### [address] Glucose [Mass/Vol] 234 mg/dL Normal [facility] Comment on above: Result Comment: [place] om Glucose Reference Range is dependent on time and content of last meal. Glucose of more than 200 mg/dL in a nonstressed, ambulatory subject supports the diagnosis of Diabetes Mellitus. PERFORMED BY: [place] [address] PATHOLOGIST SENIOR CONTROLS ENGINEER BERNIE VICK M.D. Performed By: #### G LUDARION #### Point of Care testing , Glucose [Mass/volume] in Ser um or PlasmaOrdered By: Jayden Pineda on 10-15-2024 Glucose [Mass/Vol] Glucose [Mass/volume ] in Serum or Plasma High 70-100 [facility] Comment on above: ADA recommended refe [...] in Urine by Test strip High Normal [facility] HCG ( test) IA.rapi d Ql (U)Ordered By: Jayden Pineda on 10-15-2024 HCG ( test) Ql (U) Urine human chorionic gonadotropin (hCG) detection by immunoassay [facility] HCG,Urineon 10-15-2024 Beta HCG ( test) Ql (U) Negative Normal [facility] Comment on above: Order Comment: Name Collection Type:: Clean-Voided Midstream Result Comment: PERF ORMED BY: [place] [address] PATHOLOGIST SENIOR CONTROLS ENGINEER BERNIE VICK M.D. Performed By: #### C UU, UHCG, ADDONUAPLUS #### [address] Hematocrit Auto (Bld) [Volum e fraction]Ordered By: Jayden Pineda on 10-15-2024 Hematocrit (Bld) [Volume fraction] Hematocrit [Volume Fraction] of Blood by Automated count 34.0-46.4 [facility] Hemoglobin Test strip Ql (U) Ordered By: Jaydenomer Pineda on 10-15-2024 Hemoglobin Ql (U) Hemoglobin [Presence ] in Urine by Test strip Negative [facility] Hemoglobin [Mass/volume] in BloodOrdered By: Jayden Pineda on 10-15-2024 Hemoglobin (Bld) [Mass/Vol] Hemoglobin [Mass/volume] in Blood 11.8-15.4 [facility] Hepatic Panelon 10-15-2024 Albumin [Mass/Vol] 4.1 g/dL Normal 3.5-5.7 [facility] Comment on above: Performed By: #### C BC, HEPATIC, LIPASE, BMP #### [facility] [address] Albumin/Globulin [Mass ratio] 1.1 {ratio} Normal [facility] Comment on above: Performed By: #### C BC, HEPATIC, LIPASE, BMP #### [facility] [address] ALP [Catalytic activity/Vol] 110 U/L High 34-104 [facility] Comment on above: Performed By: #### C BC, HEPATIC, LIPASE, BMP #### [facility] [address] ALT [Catalytic activity/Vol] 67 U/L High 7-52 [facility] Comment on above: Performed By: #### C BC, HEPATIC, LIPASE, BMP #### [facility] [address] [place] [address] [place] AST [Catalytic activity/Vol] 106 U/L High 13-39 [facility] Comment on above: Performed By: #### C BC, HEPATIC, LIPASE, BMP #### [facility] [address] [place] [address] [place] Bilirubin [Mass/Vol] 0.6 mg/dL Normal 0.3-1.0 [facility] Comment on above: Performed By: #### C BC, HEPATIC, LIPASE, BMP #### [facility] [address] [place] [address] [place] Bilirubin,Indirect 0.5 mg/dL Normal [facility] Comment on above: Performed By: #### C BC, HEPATIC, LIPASE, BMP #### [address] Bilirubin.indirect [Mass/Vol] 0.10 mg/dL Normal 0.03-0.18 [facility] Comment on above: Performed By: #### C BC, HEPATIC, LIPASE, BMP #### [address] Globulin (S) [Mass/Vol] 3.7 g/dL Normal T [facility] Comment on above: Performed By: #### C BC, HEPATIC, LIPASE, BMP #### [address] Protein [Mass/Vol] 7.8 g/dL Normal 6.4-8.9 [facility] Comment on above: Performed By: #### C BC, HEPATIC, LIPASE, BMP #### [address] Hepatitis A virus IgM antibo dy assayOrdered By: Jayden Pineda on 10-15-2024 Hepatitis A IgM Antibody Negative Negative [facility] Comment on above: A negative anti-HAV IgM result suggests no recent orcurrent HAV infection. Hepatitis Acute Panelon 09-20 HBsAg Screen Negative Normal Negative [facility] Comment on above: Performed By: #### C BC, HEPATIC, LIPASE, BMP #### [address] Hepatitis A Antibody IgM Negative Normal Negative [facility] Comment on above: Result Comment: A ne gative anti-HAV IgM result suggests no recent or current HAV infection. Performed By: #### C BC, HEPATIC, LIPASE, BMP #### [address] Hepatitis B Core Antibody IgM Negative Normal Negative [facility] Comment on above: Performed By: #### C BC, HEPATIC, LIPASE, BMP #### [address] Hepatitis C Virus Antibody Non-Reactive Normal Non Reactive [facility] Comment on above: Performed By: #### C BC, HEPATIC, LIPASE, BMP #### [facility] [address] Interpretation Hepatitis C Comment Normal . [facility] Comment on above: Result Comment: Not infected with HCV unless early or acute infection is suspected (which may be delayed in an immunocompromised individual), or other evidence exists to indicate HCV infection. Performed at: - [facility] [id number] Craft Coordinator: Gurwinder Penaloza PhD, Phone: [phone] PERFORMED BY: [place] [address] PATHOLOGIST SENIOR CONTROLS ENGINEER BERNIE VICK M.D. Performed By: #### C BC, HEPATIC, LIPASE, BMP #### [facility] [address] [place] [address] Hepatitis B virus core IgM a ntibody assayOrdered By: Jayden Pineda on 10-15-2024 Hepatitis B Core IgM Antibody Negative Negative [facility] Hepatitis C virus IgG Ab [Pr esence] in Serum or Plasma by ImmunoassayOrdered By: Jayden Pineda on 10-15-2024 HCV IgG IA Ql Hepatitis C virus Ig G Ab [Presence] in Serum or Plasma by Immunoassay Non Reactive [facility] Hyaline casts [#/area] in Ur ine sediment by Automated countOrdered By: Jayden Pineda on 10-15-2024 Hyaline casts Auto (Urine sed) [#/Area] Hyaline casts [#/area] in Urine sediment by Automated count 0-8 [facility] Ketones Test strip Ql (U)Ord ered By: Jayden Pineda on 10-15-2024 Ketones Ql (U) Ketones [Presence] i n Urine by Test strip High Negative [facility] Leukocyte esterase [Presence ] in Urine by Test stripOrdered By: Jayden Pineda on 10-15-2024 Leukocyte esterase Test strip Ql (U) Leukocyte esterase [Presence] in Urine by Test strip High Negative [facility] Leukocytes [#/area] in Urine sediment by Automated countOrdered By: Jayden Pineda on 10-15-2024 WBC Auto (Urine sed) [#/Area] Leukocytes [#/area] in Urine sediment by Automated count High 0-4 [facility] Leukocytes [#/volume] correc jeff for nucleated erythrocytes in Blood by Automated counOrdered By: Jayden Pineda on 10-15-2024 WBC corrected for nucl RBC Auto (Bld) [#/Vol] Leukocytes [#/volume] corrected for nucleated erythrocytes in Blood by Automated coun 3.8-11.6 [facility] Lipaseon 10-15-2024 Lipase [Catalytic activity/Vol] 10.0 U/L Low 11.0-82.0 [facility] Comment on above: Result Comment: PERF ORMED BY: [place] [address] PATHOLOGIST SENIOR CONTROLS ENGINEER BERNIE VICK M.D. Performed By: #### C BC, HEPATIC, LIPASE, BMP #### [address] Lipase [Enzymatic activity/v olume] in Serum or PlasmaOrdered By: Jayden Pineda on 10-15-2024 Lipase [Catalytic activity/Vol] Lipase [Enzymatic activity/volume] in Serum or Plasma Low 11.0-82.0 [facility] Lymphocytes Auto (Bld) [#/Vo l]Ordered By: Jayden Pineda on 10-15-2024 Lymphocytes (Bld) [#/Vol] Lymphocytes [#/volume] in Blood by Automated count 1.00-4.8 [facility] Lymphocytes/100 WBC Auto (Bl d)Ordered By: Jayden Pineda on 10-15-2024 Lymphocytes/100 WBC (Bld) Lymphocytes/100 leukocytes in Blood by Automated count . [facility] MCH Auto (RBC) [Entitic mass ]Ordered By: Jayden Pineda on 10-15-2024 MCH (RBC) [Entitic mass] MCH [Entitic mass] by Automated count 24.7-34.3 [facility] MCHC Auto (RBC) [Mass/Vol]Or dered By: Jayden Pineda on 10-15-2024 MCHC (RBC) [Mass/Vol] MCHC [Mass/volume] by Automated count 32.0-35.0 [facility] MCV Auto (RBC) [Entitic vol] Ordered By: Jayden Pineda on 10-15-2024 MCV (RBC) [Entitic vol] MCV [Entitic vol ume] by Automated count Low 80-100 [facility] Monocyte distribution width [Entitic volume] in Blood by AutomatedOrdered By: Jayden Pineda on 10-15-2024 Monocyte distribution width Auto (Bld) [Entitic vol] Monocyte distribution width [Entitic volume] in Blood by Automated High 0.00-20.00 [facility] Comment on above: For adults in ED, MD W > 20.0 may be associated with a higher risk of sepsis during the first 12 hrs of hospital admission Monocytes Auto (Bld) [#/Vol] Ordered By: Jayden Pineda on 10-15-2024 Monocytes (Bld) [#/Vol] Automated blood monocyte count 0.0-0.8 [facility] Monocytes/100 WBC Auto (Bld) Ordered By: Jayden Pineda on 10-15-2024 Monocytes/100 WBC (Bld) Automated monocyte % . [facility] Mucus [Presence] in Urine by AutomatedOrdered By: Jayden Pineda on 10-15-2024 Mucus Auto Ql (U) Mucus [Presence] in Urine by Automated Abnormal [facility] Neutrophils Auto (Bld) [#/Vo l]Ordered By: Jayden Pineda on 10-15-2024 Neutrophils (Bld) [#/Vol] Neutrophils [#/volume] in Blood by Automated count 1.8-7.7 [facility] Neutrophils/100 WBC Auto (Bl d)Ordered By: Jayden Pineda on 10-15-2024 Neutrophils/100 WBC (Bld) Automated neutrophil % . [facility] Nitrite Test strip Ql (U)Ord ered By: Jayden Pineda on 10-15-2024 Nitrite Ql (U) Nitrite [Presence] i n Urine by Test strip Negative [facility] No Panel InformationOrdered By: Jayden Pineda on 10-15-2024 Hepatitis C Interpretation Comment . [facility] Comment on above: Not infected with HC V unless early or acute infection issuspected (which may be delayed in an immunocompromisedindividual), or other evidence exists to indicate HCVinfection.Performed at: [facility], [place], [place] [id number] Director: Gurwinder Penaloza PhD, Phone: [phone] Estimated GFR (CKD-EPI) > 60.0 mL/Min [facility] Creatinine Clearance (Chem 112.84 [facility] Nucleated erythrocytes [Pres ence] in Blood by Automated countOrdered By: Jayden Pineda on 10-15-2024 Nucleated RBC Auto Ql (Bld) Nucleated erythrocytes [Presence] in Blood by Automated count 0-0.5 [facility] Platelet mean volume Auto (B ld) [Entitic vol]Ordered By: Jayden Pineda on 10-15-2024 Platelet mean volume (Bld) [Entitic vol] Platelet mean volume [Entitic volume] in Blood by Automated count 6.3-10.7 [facility] Platelets Auto (Bld) [#/Vol] Ordered By: Jayden Pineda on 10-15-2024 Platelets (Bld) [#/Vol] Platelets [#/vol ume] in Blood by Automated count 150-450 [facility] Potassium [Moles/volume] in Serum or PlasmaOrdered By: Jayden Pineda on 10-15-2024 Potassium [Moles/Vol] Potassium [Moles/volume] in Serum or Plasma 3.5-5.1 [facility] Protein Test strip (U) [Mass /Vol]Ordered By: Jayden Pineda on 10-15-2024 Protein (U) [Mass/Vol] Protein [Mass/vol ume] in Urine by Test strip High Negative [facility] Protein [Mass/volume] in Ser um or PlasmaOrdered By: Jayden Pineda on 10-15-2024 Protein [Mass/Vol] Protein [Mass/volume ] in Serum or Plasma 6.4-8.9 [facility] RBC Auto (Bld) [#/Vol]Ordere d By: Jayden Pineda on 10-15-2024 RBC (Bld) [#/Vol] Erythrocytes [#/volume] in Blood by Automated count 3.60-5.00 [facility] Serum or plasma albumin/glob ulin mass ratioOrdered By: Jayden Pineda on 10-15-2024 Albumin/Globulin [Mass ratio] Serum or plasma albumin/globulin mass ratio [facility] Serum or plasma anion gap de terminationOrdered By: Jayden Pineda on 10-15-2024 Anion gap [Moles/Vol] Serum or plasma an ion gap determination 6.0-15.0 [facility] Serum or plasma hepatitis B virus surface antigen detection by immunoassayOrdered By: Jayden Pineda on 10-15-2024 HBV surface Ag IA Ql Hepatitis B virus surface Ag [Presence] in Serum or Plasma by Immunoassay Negative [facility] Serum or plasma non-glucuron idated bilirubin measurement (mass/volume)Ordered By: Jayden Pineda on 10-15-2024 Bilirubin.indirect [Mass/Vol] Serum or plasma non-glucuronidated bilirubin measurement (mass/volume) [facility] Sodium [Moles/volume] in Ser um or PlasmaOrdered By: Jayden Pineda on 10-15-2024 Sodium [Moles/Vol] Sodium [Moles/volume ] in Serum or Plasma Low 136-145 [facility] Specific gravity Test strip (U) [Rel density]Ordered By: Jayden Pineda on 10-15-2024 Specific gravity (U) [Rel density] Specific gravity of Urine by Test strip 1.001-1.030 [facility] Urea nitrogen [Mass/volume] in Serum or PlasmaOrdered By: Jayden Pineda on 10-15-2024 Urea nitrogen [Mass/Vol] Urea nitrogen [Mass/volume] in Serum or Plasma 7-25 [facility] Urine Cultureon 10-15-2024 Bacteria identified Cx Nom (U) 75,000 colonies/ml mixed bacterial skin contaminants 2 Days PERFORMED BY: [place] [address] PATHOLOGIST SENIOR CONTROLS ENGINEER BERNIE VICK M.D. Normal [facility] Comment on above: Performed By: #### C UU, CG, ADDONUAPLUS #### [address] Urine cultureOrdered By: Linda Pineda on 10-15-2024 Bacteria identified Cx Nom (U) Urine culture [facility] Urobilinogen Test strip (U) [Mass/Vol]Ordered By: Jayden Pineda on 10-15-2024 Urobilinogen (U) [Mass/Vol] Urobilinogen [Mass/volume] in Urine by Test strip High Normal [facility] WBC Auto (Bld) [#/Vol]Ordere d By: Jayden Pineda on 10-15-2024 WBC (Bld) [#/Vol] Leukocytes [#/volume ] in Blood by Automated count 3.8-11.6 [facility] pH Test strip (U)Ordered By: Jayden Pineda on 10-15-2024 pH (U) pH of Urine by Test strip 5.0-9.0 [facility] Basophils Auto (Bld) [#/Vol] on 10-14-2024 Basophils (Bld) [#/Vol] Automated basoph il count 0.0-0.1 [facility] Basophils/100 WBC Auto (Bld) on 10-14-2024 Basophils/100 WBC (Bld) Automated basophil % 0. 2-2.0 [facility] Eosinophils/100 WBC Auto (Bl d)on 10-14-2024 Eosinophils/100 WBC (Bld) Automated eosinophil % 0.9-7.0 [facility] Erythrocyte distribution wid th Auto (RBC) [Ratio]on 10-14-2024 Erythrocyte distribution width (RBC) [Ratio] Erythrocyte distribution width [Ratio] by Automated count 11.0-15.0 [facility] Estimated glomerular filtrat ion rate (GFR) non- Americanon 10-14-2024 GFR/1.73 sq M.predicted among non-blacks MDRD (S/P/Bld) [Vol rate/Area] Estimated glomerular filtration rate (GFR) non- >=60 mL/min/1.73 m 2 [facility] Glucose mean value [Mass/vol ume] in Blood Estimated from glycated hemoglobinon 10-14-2024 Average glucose Estimated from glycated hemoglobin (Bld) [Mass/Vol] Glucose mean value [Mass/volume] in Blood Estimated from glycated hemoglobin [facility] Hematocrit Auto (Bld) [Volum e fraction]on 10-14-2024 Hematocrit (Bld) [Volume fraction] Hematocrit [Volume Fraction] of Blood by Automated count 36.0-48.0 [facility] Hemoglobin A1c percentageon 10-14-2024 HbA1c (Bld) [Mass fraction] Hemoglobin A1c percentage High 4.5-6.2 [facility] Comment on above: ADA RECOMMENDED LIMI T 4.0 - 6.0ADA THERAPEUTIC TARGET < 7.0ACTION SUGGESTED> 7.0 Hemoglobin [Mass/volume] in Bloodon 10-14-2024 Hemoglobin (Bld) [Mass/Vol] Hemoglobin [Mass/volume] in Blood 12.0-16.0 [facility] Laboratory - Chemistry and C hemistry - challengeon 10-14-2024 Calcium [Mass/Vol] 9.0 mg/dL 8.5-10.1 [facility] Chloride [Moles/Vol] 100 mmol/L 98-107 [facility] CO2 [Moles/Vol] 26.1 mmol/L 21.0-32.0 [facility] Creatinine [Mass/Vol] 0.97 mg/dL 0.55-1.02 [facility] GFR/1.73 sq M.predicted MDRD (S/P/Bld) [Vol rate/Area] mL/min/{1.73_m2} >=60 mL/min/1.73 m 2 [facility] Glucose [Mass/Vol] 216 mg/dL High 74-106 [facility] Potassium [Moles/Vol] 4.0 mmol/L 3.5-5.1 [facility] Sodium [Moles/Vol] 135 mmol/L Low 136-145 [facility] TSH Qn 3.381 m[IU]/L 0.358-3.740 [facility] Urea nitrogen [Mass/Vol] 10.0 mg/dL 7.0-18.0 [facility] Urea nitrogen/Creatinine [Mass ratio] 10.3 mg/mg [facility] Laboratory - Hematology and Cell countson 10-14-2024 Immature granulocytes/100 WBC (Bld) 1.4 % High 0.0-0.5 [facility] Leukocytes [#/volume] correc jeff for nucleated erythrocytes in Blood by Automated counon 10-14-2024 WBC corrected for nucl RBC Auto (Bld) [#/Vol] Leukocytes [#/volume] corrected for nucleated erythrocytes in Blood by Automated coun High 4.0-11.0 [facility] Lymphocytes Auto (Bld) [#/Vo l]on 10-14-2024 Lymphocytes (Bld) [#/Vol] Lymphocytes [#/volume] in Blood by Automated count 1.2-3.8 [facility] Lymphocytes/100 WBC Auto (Bl d)on 10-14-2024 Lymphocytes/100 WBC (Bld) Lymphocytes/100 leukocytes in Blood by Automated count 20.5-60.0 [facility] MCH Auto (RBC) [Entitic mass ]on 10-14-2024 MCH (RBC) [Entitic mass] MCH [Entitic mass] by Automated count Low 26.7-34.0 [facility] MCHC Auto (RBC) [Mass/Vol]on 10-14-2024 MCHC (RBC) [Mass/Vol] MCHC [Mass/volume] by Automated count 29.9-35.2 [facility] MCV Auto (RBC) [Entitic vol] on 10-14-2024 MCV (RBC) [Entitic vol] MCV [Entitic vol ume] by Automated count Low 81.0-99.0 [facility] Monocytes Auto (Bld) [#/Vol] on 10-14-2024 Monocytes (Bld) [#/Vol] Automated blood monocyte count 0.3-0.8 [facility] Monocytes/100 WBC Auto (Bld) on 10-14-2024 Monocytes/100 WBC (Bld) Automated monocyte % 1. 7-12.0 [facility] Neutrophils Auto (Bld) [#/Vo l]on 10-14-2024 Neutrophils (Bld) [#/Vol] Neutrophils [#/volume] in Blood by Automated count High 1.4-6.5 [facility] Neutrophils/100 WBC Auto (Bl d)on 10-14-2024 Neutrophils/100 WBC (Bld) Automated neutrophil % 43.0-75.0 [facility] No Panel Informationon 10-14 Eosinophils # (Auto) 0.3 10 3/uL 0.0-0.7 [facility] Immature Granulocyte # (Auto) 0.16 10 3/uL High 0.00-0.03 [facility] Platelet mean volume Auto (B ld) [Entitic vol]on 10-14-2024 Platelet mean volume (Bld) [Entitic vol] Platelet mean volume [Entitic volume] in Blood by Automated count Low 9.5-13.5 [facility] Platelets Auto (Bld) [#/Vol] on 10-14-2024 Platelets (Bld) [#/Vol] Platelets [#/vol ume] in Blood by Automated count 150-450 [facility] RBC Auto (Bld) [#/Vol]on RBC (Bld) [#/Vol] Erythrocytes [#/volume] in Blood by Automated count 4.20-5.40 [facility] Serum or plasma anion gap de terminationon 10-14-2024 Anion gap [Moles/Vol] Serum or plasma an ion gap determination [facility] CNOVon 08-07-2024 CNOV Office Visit ([facility] ) MAMADOU LOWERY ([id number]) 1980 F Date Time Provider Department 08/07/24 9:40 AM SAMANTHA TRINH JR [facility] During your visit today, we recorded the following information about you: Pulse Blood pressure Weight Height 92/minute 125/83 113.4 kg 1.651 m Samantha Trinh Jr., DO 08/07/2024 10:24 AM Signed Patient [...] Personal history of colonic polyps per Samantha Trinh Jr, DO - Normal esophagus. - Z-line [...] hx of villous adenoma polyp. Sees Dr. Trinh/GI next colonoscopy is due this year. PAST [...] no abdomin (more content not included)... Normal [facility] BI MAMMOGRAM SCREENING TOMOS YXAVIIS BILATERALon 05-18-2024 BI MAMMOGRAM SCREENING TOMOSYNTHESIS BILATERAL [...] Normal Not Available Jm 03-17-2024 ERIC Telephone (AMADO) MAMADOU LOWERY ([id number]) 1980 F Date Time Provider Department 03/17/24 SAMANTHA TRINH JR During your visit today, we recorded the following information about you: Indira Torres MA 03/17/2024 12:51 PM Signed ----- Message from Liv Romeo sent at 03/13/2024 1:49 PM EDT ----- ----- Message ----- From: Samantha Trinh Jr., DO Sent: 03/13/2024 7:57 AM EDT [...] pain [R07.2] 01/04/2016 Encounter Status:[facility] ([facility]) MAMADOU LOWERY ([id number]) 1980 F Date Time Provider Department 03/16/24 SAMANTHA TRINH JR During your visit today, we recorded the following information about you: Indira Torres MA 03/16/2024 9:10 AM Signed ----- Message from Liv Romeo sent at 03/13/2024 1:49 PM EDT ----- ----- Message ----- From: Samantha Trinh Jr., DO Sent: 03/13/2024 7:57 AM EDT [...] pain [R07.2] 01/04/2016 Encounter Status:Closed by INDIRA TORRES on 03/16/24 Normal [facility] XR lumbar spine AP/LAT/FLX/E XTon 03-16-2024 XR lumbar spine AP/LAT/FLX/EXT [place] [address] XRay Report Signed Patient: Mamadou Lowery MR#: [id number] : 1980 Acct:[id number] Age/Sex: 43 / F ADM Date: 03/16/24 Loc: XD Room: Type: [facility] Attending Dr: Jessica Ruiz MD Copies to: [...] Pat Lee M.D.03/16/2024 7:40 PM Dictation Location: [place] [address] Transcribed By: [facility] 03/16/241939 Dictated By: Pat Lee MD 03/16/241936 Signed By: 03/16/241939 Normal [facility] SURGICAL PATHOLOGYOrdered By : Truman Arroyo on 03-12-2024 Case Report Surgical Pathology Report Case: [id number] Authorizing Provider: Samantha Trinh Jr., DO Collected: 03/10/2024 08:58 AM Ordering Location: [facility] Endoscopy Received: 03/10/2024 10:36 PM [facility] Pathologist: Truman Arroyo MD Specimens: A) - Stomach, Polyp, Biopsy B) - Esophagus, Distal, Biopsy, hx of gerd [facility] Work Phone: FINAL DIAGNOSIS y8ofcPCvYGJobMZvRFma Ml ecljIlIFVznUStO0Rnmcxi TVypCE1rQK0oqWncvUJhvI AiWRRxAbDcy6ymg995qJBq d3geFQKOkoyujFj5wWffJ9 9lo4D7EbeaA64mbFWzWYV9 KNKePMBrfEZqNWCvVCC2CL KomEFdE4fwXDBkLN2zemwi SPspQFruZJZwrMQ3SJBtqW JqQ8KiWZLqAUizSGHjzkp2 PzEfWd5gmUJufDnhTDgsPC KtOAHzAYdyEQYbBiBaDY5v X3UraRIpGeOsl2w1uAsfNo byzJJ6DdxqARDfPOEkFQK3 xdStRzJutLUvHEHks9g4lP 3flGRrUP4yFHNPHGjnrVk4 QYAbd8CqGTvjiTzrq5uiHc ohJLTdqENzVWDfREFpw6Oc kERtf35wcDSojZCrRDKps3 AceMlcmJOqNP7tNEZHrqEx pLKyiLTca9DqjF6zSV5xyx mvLcmuXTDqwFOta8GvDN16 R86gPAZtcvSknHbtWJi8HR zqLsuoyFIbZATenhIlq7W2 zpSuIi71kKNmEX21E07gWD 0bxHEiMH7bXPWLpkGxdtbx SS6aLPAvRnYbxqTgt4Qjfn FrIH6frPMufDRduDEmt6Ug NTcnjGyfu3eeQzLrmZXqIT 2uFIKIjeSeucnqHV8aMAAc XnYli3Ecrt4weUdhwKDcZJ ZzutqsSLIbSsLVT18cTlR2 LzIyLzIwMjQgXHBhcn0= [facility] Work Phone: Gross Description j4fetCDvFPGptHUHJJW1 MD NeVM3urIwhhSm8dLydADLf deD4qWZsJHocl3yoMMH3f7 roaxSRUbjdDSCySK6wQNud ZIUwHC0iYgXfKRWpXlNmMO BhcGVydzEyMjQwXHBhcGVy kVG2FBPtGF3ljrdsWDxbOF kjMDYldiB8QUJpwFDyO6Sy DRAoSX8lkswrDYC7AZXHBs rsMe3esKXogObuVuDzKgOg VBGbWQBpIZYjj9ztmjQZuf jpiUw4jL6TISFvS4MwXK1Z u2vtNWVklWKjZTZ9TIzkt0 xwPOfiWBP9GTGvEMOiLRSz RB0PFiYlSUxsTSr4QbY1Cm D2UAl6IFFGSXEpWIB3KsP1 QXTtNAu1DGawGAexwDTrLA IoBANdGTLmNLxaseL8n6zt YJBrvPDmZUK6RUngc0okYW ooCRP4SXVcCkGtGLBmHS7V ClKxMIaqJKs2TtF2BtK3MP n8QTGLCqArLmSnLHH8PMZ0 ZrBzASj9CGt3NXeUWjNoMb M4KLRlUBX0EPC7HDG4KRUu XHQgMiBcXHNzIDMgXFxmbC YcAU0kzUzxCCRaBK4TBQAh OVeqODNhXhNsDS8vS4OxoH XpsWgcEX1meZAdQOEbo1Qr eVxsdHJjaFxwYXIgDQpccG FyZCANClxwbGFpblxsdHJj jFnsleTbXWNqmIPRVFZ0TS 9wACUTCljqyKVfHBGin4Gj MFxlcGljWHNhMzAgDQpcZn MyMCBSZWNlaXZlZCBpbiBm h3EnUWwdssNejlArjVphJY IjELAtzmEeHtU0IV0bPHRw AuThhGnyy8FhPDFzV0PsR4 F5jB9eJEYxZOQfUEK8TGMx NtX6CATvTRWeaF4dFL89SM yolONhoSVjlEO0BFVwbY8j t51vICMtb5GthXRhPj6GJJ GygKIIGNL0BF9wGIflKCYw Y6BaZ0CohuA2PVRkfwUJEh ogAnjmhOube1IamWRqCTKg IFxcaWQgNTEwMDIgXFxkYi SGHaWbNlI0UQD1BrN2IVGr DSw4IRhnN6KQSPSeOVN2HV pyNCZ8UbA5JAu0AWWTTo0m YMA1LsWwTqy6VRyqHCR9ZM eaQFf6FQKoSMuksyLkTPfo XoszWPvqY75eqNRkUYplYj IjKIyfzLbaIRGyDKE6BS4F ZOFkHvOqKs2kLQIdcYpiR9 ZyWLCAjWA6EJmrZAInt7Ko eVxwYXIgDQpccGFyZCANCl xwbGFpblxsdHJjaFxmczIy NZVheSBUVNU4GK2bIQDKWq lejQJbNPWcy0ZjQKdjlJpf WHNiMzAgDQpcZnMyMCBSZW CubTFzBIMezjCod7AfUDez biBhcmUgdHdvIHBpZWNlcy RgVaA6VY5tdY8fmSYuVEuo eIDqPEUoa3F1NHVvf5J2FS HvZ1wrAFnyxRniBtK3uzHm LjYgeCAwLjIgeCAwLjEgY2 2xBCRwbPVquFiyx3BjmDw9 xNAtFQxpBA8dWXDmZOZxKE C3HU4vVYGgsxUTNzpzQCYq YJq4ypBoswSZNjhlMEQtNU qXByMZqPz4o7DqRyZqIHFu MjQgMjowNCBBTVxwYXIgDQ ztfZGqHG7TWRDhOrBmIYMp D9beUXQrKA5VU0Rva9OiWN attFpkDWQrx77zjQXdYc1v rJCoRAU4AXNlWSKzwBKuEJ VIuAlpaGPdKKe9YTZrSLJa rZfoQXI1XL2qWWOxGSCrvP OkBDruC9xcGHBzCPVRRpgl tPwoTpQsmTRrVjK9KKJsxH JcNLV5CX7lkEpuYCCmW6Ci X0PuxmM2EQVnnuQABblzPR XzWJ2NYLSrPtNmUYg3 [facility] Work Phone: Performing Lab b9ikdGLcUBJvuSOxRfCk MD NoXVTdo4qfUVHsfURdVtCz MzNcZnRuYmpcdWMxXGRlZm Lvg3ilt378hGEqf0nfRNTw DmV5hYZlPXRngCKbH752HV CbDGywp3dsq8IfDXOujILo o0I5CVNOytuyyAd3xYcoA8 1ry7G9MdikV3akYAOlNWYj G9PbFT7pVUFpOde1ZSR7DA L2INLjYMTmG1KgJQ3bAAMh bPIiJXl2i7thzSnyMFJqSD T1w0iiQWywexNcOL3osd3v rCx1p6ccltGjQSQkNMTolU OBEWOjZ8RkqWcbOr9nwWv9 vFxfSqlpWAU4Nyf1AQ1sel 80zrx3wJysQIJuagjcYhT8 JTraXNRahgyqHFs0DWlvQV CkqMI7DSNzpVSwX7LlCQNg GG0zafa9UUQ5KLbxKBIhNb U7TZErjPWrQRFukFztAChn a331VEO2RaRkAW7kI6Ysu6 S5aN0umKUqAHBhiSZoNyYb FJOveg4zwQYbBNotl3IxRF H9jaJ8lYYflRJvDHDaKB77 Kuelx0RsKaipu5CrR01llQ Y3XFpca1zzVN5rPgX4sbUg FFstt8jrnF9wQwP6LMqaQH 9qTN8aRDZpdJ1kzthuBEWo YnJkcmhlYWRccGdicmRyZm 8gvIfiTZC2CMofF7bqrO6w KeI0ENwjQ6swjW5ePDd6UD bxqAG0DRCbsK4aAX5hnbzw x8uzWNdxKNvmJVAandR4ie I8SSAkcAUuP5FfdO3rQHHv XC7ypkecg4ryPKR9OKclCN JkQCY4SmTlPMYql8Omfas3 YkYsd1IznXSvTXdjS29sq3 76GYKfyjHoG4kmcXAzgtej dMQfknwyLWatveK4UEJyLB BsYWluXGYxXGZzMjJcbGFu ZzEwMzNcaGljaFxmMVxkYm RuOQMvFOtvO2dvDlMkXwJe CcUElBAnhk8ntYbyTKcukT NijRPvpVS7bN0bPYIxonMc md9lQJSpoLWVwAQ5LAhezb RkC9bapldrWUEmRYFnn18n QGahUnD1HTJdN9FuONUfSz 9jROdjCfBxU5e2x75lPSHD THT5ZGRgXaPmPWAAILvOCl HdJxTfRCf7NHg9EOMbnxbv GBWcqGqvnD4fYvJgEzZkHu dfEY3vIECyD0xzkUNhQIGr AWTwH5dnOgMkqI3nsUcgGU xjZjJcZnMyMlxsdHJjaCBM UQLtxhN2n4V0TSucsRDiyv xmMVxmczIyXGxhbmcxMDMz QTjeP9ubZrCbEHXhyQjiAR toi3MzQRZbRRXfRjQuKZvb HUK2c5J5DF6luxxqKHfyoL OfhP4lEA4eGN2pkQVetZ== [facility] Work Phone: [facility] Work Phone: ANES POSTPROC EVALon 024 ANES POSTPROC EVAL HNO ID: [id number] Author: KARTHIKEYAN LOPEZ APRN.CONVEYOR TECHNICIAN Service: ? Author Type: Nurse Environmental Services Aide Type: Anesthesia Postprocedure Evaluation Filed: 03/10/2024 09:28 Note Text: POST ANESTHESIA EVALUATION NOTE : 1980 Procedure Summary Date: 03/10/24 Room / Location: [facility] Endoscopy [facility] Anesthesia Start: 853 Anesthesia Stop: 920 Procedures: EGD DIAGNOSTIC COLONOSCOPY DIAGNOSTIC Diagnosis: Gastroesophageal reflux disease, unspecified whether esophagitis present Personal history of colonic polyps (Heartburn) (High risk colon cancer surveillance: Personal history of colonic polyps) Scheduled Providers: Samantha Trinh Jr., DO; Keressi, Paulette J, RN Responsible Provider: Karthikeyan Lopez APRN.CRNA Anesthesia Type: MAC ASA Status: 3 Anesthesia Type: MAC Last Vitals Vitals Value Taken Time BP 139/88 03/10/24 09 Temp 03/10/24 09 Pulse 86 03/10/24 0926 Resp 24 03/10/24 [...] care. Anesthesia Observations No Documentation SIGNATURE: Karthikeyan Lopez APRN.CRNA PATIENT NAME: Mamadou Lowery DATE: March 10, 2024 TIME: 9:26 AM CSN: [id number] Normal [facility] ANES PRE-OPon 03-10-2024 ANES PRE-OP HNO ID: [id number] Author: KARTHIKEYAN LOPEZ APRN.CONVEYOR TECHNICIAN Service: ? Author Type: Nurse Environmental Services Aide Type: Anesthesia Preprocedure Evaluation Filed: 03/10/2024 08:47 Note Text: ANESTHESIOLOGY DAY OF SURGERY NOTE : 1980 Procedure Information Date/Time: 03/10/24 0845 Scheduled providers: Samantha Trinh Jr., DO; Paulette Monroe RN Procedures: EGD DIAGNOSTIC COLONOSCOPY DIAGNOSTIC Location: [facility] Estimated body mass index is 41.27 kg/m? [...] and consent discussed: yes. Patient / Responsible Libertarian agrees to proceed: yes Patient / Surrogate [...] within 48 hours of Surgery/Procedure. SIGNATURE: Karthikeyan Lopez APRN.CONVEYOR TECHNICIAN PATIENT NAME: Mamadou Lowery DATE: March 10, 2024 TIME: 8:44 AM CSN: [id number] Normal [facility] Colonoscopyon 03-10-2024 Colonoscopy [facility] Gastrointestinal Endoscopy Patient Name: Mamadou Lowery Procedure Date: 03/10/2024 9:05 AM Date of : 1980 Admit Type: Outpatient Age: 43 Gender: Female Note Status: Finalized Attending MD: Samantha Trinh Jr, DO, [id number] Procedure: Colonoscopy Indications: High risk colon cancer surveillance: Personal history of colonic polyps Providers: Samantha Trinh Jr, DO Patient Profile: This is a 43 year old female. Refer to note in patient chart for documentation of history and physical. Last Colonoscopy: 5 years ago. Referring Physician: Samantha Trinh Jr, DO (Referring MD) Medicines: Propofol per [...] or abscess without bleeding CPT copyright 2020 [employer]. All rights reserved. The codes documented in this report are preliminary and upon senior property accountant review may be revised to meet current compliance requirements. Attending Participation: I personally performed the entire procedure. MD Samantha Santa Jr, DO 03/10/2024 9:25:11 AM This report has been signed electronically by Samantha Trinh Jr, DO Number of Addenda: 0 Note Initiated On: 03/10/2024 9:05 AM Procedure Start: 9:07:08 AM Procedure End: 9:20:00 AM Normal [facility] EGD Study observation Narrat rafa 03-10-2024 [facility] Gastrointestinal Endoscopy Patient Name: Mamadou Lowery Procedure Date: 03/10/2024 8:41 AM Date of : 1980 Admit Type: Outpatient Age: 43 Gender: Female Note Status: Finalized Attending MD: Samantha Trinh Jr, DO, [id number] Procedure: Upper GI endoscopy Indications: Heartburn, Esophageal reflux Providers: Samantha Trinh Jr, DO Patient Profile: This is a 43 year old female. Refer to note in patient chart for documentation of history and physical. Referring Physician: Samantha Trinh Jr, DO (Referring MD) Medicines: Propofol per [...] pending pathology. Procedure Code(s): --- Professional --- 04603, Esophagogastroduodenos copy, flexible, transoral; with biopsy, single or multiple Diagnosis Code(s): --- Professional --- K22.89, Other specified disease of esophagus K44.9, Diaphragmatic hernia without obstruction or gangrene K31.7, Polyp of stomach and duodenum R12, Heartburn K21.9, Gastro-esophageal reflux disease without esophagitis CPT copyright 202 [employer]. All rights reserved. The codes documented in this report are preliminary and upon senior property accountant review may be revised to meet current compliance requirements. Attending Participation: I personally performed the entire procedure. MD Samantha Santa Jr, DO 03/10/2024 9:05:35 AM This report has been signed electronically by Samantha Trinh Jr, DO Number of Addenda: 0 Note Initiated On: 03/10/2024 8:41 AM Procedure Start: 8:57:05 AM Procedure End: 9:00:39 AM PROVATION [facility] Radiology Study observation (narrative) [facility] Flexible sigmoidoscopy study on 03-10-2024 [facility] Gastrointestinal Endoscopy Patient Name: Mamadou Lowery Procedure Date: 03/10/2024 9:05 AM Date of : 1980 Admit Type: Outpatient Age: 43 Gender: Female Note Status: Finalized Attending MD: Samantha Trinh Jr, DO, [id number] Procedure: Colonoscopy Indications: High risk colon cancer surveillance: Personal history of colonic polyps Providers: Samantha Trinh Jr, DO Patient Profile: This is a 43 year old female. Refer to note in patient chart for documentation of history and physical. Last Colonoscopy: 5 years ago. Referring Physician: Samantha Trinh Jr, DO (Referring MD) Medicines: Propofol per [...] or abscess without bleeding CPT copyright 2020 [employer]. All rights reserved. The codes documented in this report are preliminary and upon senior property accountant review may be revised to meet current compliance requirements. Attending Participation: I personally performed the entire procedure. MD Samantha Santa Jr, DO 03/10/2024 9:25:11 AM This report has been signed electronically by Samantha Trinh Jr (more content not included)... [employer] [facility] Radiology Study observation (narrative) [facility] HISTORY PHYSICALon HISTORY PHYSICAL HNO ID: [id number] Author: SAMANTHA TRINH JR, DO Service: Gastroenterology Author Type: Physician [...] Plan: COLONOSCOPY DIAGNOSTIC, COLONOSCOPY DIAGNOSTIC SIGNATURE: Samantha Trinh Jr., DO PATIENT NAME: Mamadou Lowery DATE: March 10, 2024 TIME: 8:36 AM PAGER/CONTACT #: [facility] NURSING PROGon 03-10-2024 NURSING PROG HNO ID: [id number] Author: DAKOTAH DEL CASTILLO, ABDIRAHMAN Service: Nursing Author Type: Registered Nurse Type: [...] By: Dakotah Del Castillo RN In Department: [facility] [place] Normal [facility] NURSING PROG HNO ID: [id number] Author: ALMA DELIA CRAWFORD, RN Service: ? Author Type: Registered Nurse [...] LEARNING: None Electronically Signed By: Alma Delia Crawford, RN, RN In Department: [facility] ENDOSCOPY [facility] Normal [facility] SURGICAL PATHOLOGYon 024 CASE REPORT Normal [facility] Comment on above: Order Comment: Speci men Type: TISSUE SPECIMENOrdering Facility: [facility] Address: [address] [place] [address] Result Comment: Surg [facility] Pathology Report Case: [id number] Authorizing Provider: Samantha Trinh Jr., DO Collected: 03/10/2024 08:58 AM Ordering Location: [facility] Endoscopy Received: 03/10/2024 10:36 PM [facility] Pathologist: Truman Arroyo MD Specimens: A) - Stomach, Polyp, Biopsy B) - Esophagus, Distal, Biopsy, hx of gerd Performed By: #### S ####[facility] LABCLIA [id number] [address] OF [facility] LABCLIA [id number] [address] FINAL DIAGNOSIS Normal [facility] Comment on above: Order Comment: Speci men Type: TISSUE SPECIMENOrdering Facility: [facility] Address: [address] [place] [address] Result Comment: A. G astric polyp, biopsy: - Fundic gland polyp. - Negative for dysplasia. B. Distal esophagus, biopsy: - Fragments of unremarkable squamous mucosa and mildly inflamed cardiofundic-type mucosa. - No evidence of intestinal metaplasia or dysplasia. - No evidence of eosinophilia. SAHRA/debora/03/12/2024 Performed By: #### S ####[facility] LABCLIA [id number] [address] LABCLIA [id number] [place] [address] [place] FINAL PERFORMING LAB Normal [facility] Comment on above: Order Comment: Speci men Type: TISSUE SPECIMENOrdering Facility: [facility] Address: [address] [place] [address] Result Comment: Diag nostic interpretation performed at [facility], [address] [place] [address] CLIA# [id number] Wholesaler: Sherwin Zavaleta M.D. Performed By: #### S ####[facility] LABCLIA [id number] [address] LABCLIA [id number] [address] STATES [facility] GROSS DESCRIPTION Normal [facility] Comment on above: Order Comment: Speci men Type: TISSUE SPECIMENOrdering Facility: [facility] Address: [address] [place] [address] Result Comment: A. S tomach, Polyp, Biopsy [...] 2024 2:04 AM Gross examination performed at [facility], [address] [place] [address] Performed By: #### S ####[facility] LABCLIA [id number] [address] LABCLIA [id number] [address] [place] Upper GI endoscopyon [facility] Upper GI endoscopy [facility] Gastrointestinal Endoscopy Patient Name: Mamadou Lowery Procedure Date: 03/10/2024 8:41 AM Date of : 1980 Admit Type: Outpatient Age: 43 Gender: Female Note Status: Finalized Attending MD: Samantha Trinh Jr, DO, [id number] Procedure: Upper GI endoscopy Indications: Heartburn, Esophageal reflux Providers: Samantha Trinh Jr, DO Patient Profile: This is a 43 year old female. Refer to note in patient chart for documentation of history and physical. Referring Physician: Samantha Trinh Jr, DO (Referring MD) Medicines: Propofol per [...] pending pathology. Procedure Code(s): --- Professional --- 12295, Esophagogastroduodenos copy, flexible, transoral; with biopsy, single or multiple Diagnosis Code(s): --- Professional --- K22.89, Other specified disease of esophagus K44.9, Diaphragmatic hernia without obstruction or gangrene K31.7, Polyp of stomach and duodenum R12, Heartburn K21.9, Gastro-esophageal reflux disease without esophagitis CPT copyright 2020 [employer]. All rights reserved. The codes documented in this report are preliminary and upon senior property accountant review may be revised to meet current compliance requirements. Attending Participation: I personally performed the entire procedure. MD Samantha Santa Jr, 03/10/2024 9:05:35 AM This report has been signed electronically by Samantha Trinh Jr, DO Number of Addenda: 0 Note Initiated On: 03/10/2024 8:41 AM Procedure Start: 8:57:05 AM Procedure End: 9:00:39 AM Normal [facility] Human papilloma virus 16+18+ 31+33+35+39+45+51+52+56+58+59+66+68 DNA [Presence] in [place] 03-03-2024 HPV 16+18+31+33+35+39+45+51 +52+56+58+59+66+68 DNA Probe+sig amp Ql (Cvx) Negative Negative [facility] Comment on above: This nucleic acid am plification test detects fourteen high-risk HPV types (16,18,31,33,35,39,45,51,52,56,58,59,66,68)without differentiation.Performed at: = - [address] [id number] Director: Melba Yao MD, Phone: [phone] at: - [facility] [id number] Director: Melba Yao MD, Phone: [phone] No Panel Informationon 03-03 HPV High Risk Other Comment Note . [facility] Comment on above: TESTS RESULT FLAG UN ITS REF RANGE LAB -DIAGNOSIS: 02 NEGATIVE FOR INTRAEPITHELIAL LESION OR MALIGNANCY.Specimen adequacy: 02 Satisfactory for evaluation.Performed by: 02 Thanh Alvarenga, As400 Operator ([facility]). 02Note: Note 02 The Pap smear is a screening test designed to aid in the detection of premalignant and malignant conditions of the uterine cervix. It is not a diagnostic procedure and should not be used as the sole means of detecting cervical cancer. Both false-positive and false-negative reports do occur.Test Methodology: Note 02 The [employer] Software(R) Water Sponger was unable to read this specimen. Therefore a manual review was performed. -------- FLAG LEGEND: L-Low Normal,H-High Normal,LL-Alert Low,HH-Alert High <-Panic Low,>-Panic High,A-Abnormal,AA-Critical Abnormal ------Performed at:[address] [place] [address] Melba Yao MD, BEM Genotype Reflex Note 02 Criteria not met, HPV Genotype not performed.Criteria not met, HPV Genotype not performed. Reference Lab Test Patient Age Note . [facility] Comment on above: TESTS RESULT FLAG UN ITS REF RANGE LAB - Clinician Provided Cytology Information Source.............Vagina No. of containers..01 ThinPrep VialNavin XIE Alba... 3065 FLAG LEGEND: L-Low Normal,H-High Normal,LL-Alert Low,HH-Alert High <-Panic Low,>-Panic High,A-Abnormal,AA-Critical Abnormal ------Performed at:[address] [address] Melba Yao MD, [facility] 02-19-2024 [facility] Telephone ([facility]) MAMADOU LOWERY ([id number]) 1980 F Date Time Provider Department 02/19/24 SAMANTHA TRINH JR [facility] During your visit today, we recorded the following information about you: Taryn Isabel MA 02/19/2024 11:28 AM Signed Received records from [facility] physicians and scanned into patients chart. 2016 Colonoscopy record received and scanned in. Taryn Isabel MA Allergies As of Date: 02/19/2024 (No Known Allergies) Date Reviewed: 02/18/2024 Reviewed by: Bettye Valdivia MA - Fully Assessed Reason for Visit: Received Outside Medical Records [[id number]] Prescriptions as of 02/20/2024 - DULoxetine (CYMBALTA) [...] Encounter Status:Closed by TARYN ISABEL on 02/20/24 [facility] CNOVon 02-18-2024 CNOV Office Visit ([facility] ) MAMADOU LOWERY ([id number]) 1980 F Date Time Provider Department 02/18/24 1:20 PM SAMANTHA TRINH JR [facility] During your visit today, we recorded the following information about you: Temperature Pulse Blood pressure Weight 97.6 degrees 84/minute 137/85 112.5 kg Height 1.651 m Samantha Trinh Jr., 02/18/2024 1:20 PM Addendum Records release from [facility] Bowel Preparation Instructions for: Miralax-Gatorade Preparations IF [...] If you do not have a responsible semi truck driver (family member or friend) with you to take you home, your exam cannot be done with sedation and will be cancelled. Please bring a list of all of your current medications, including any Dhxu-vcw-Oxamnaj medications with you. Medications If you take [...] hours before your exam. 2 06/2019 Samantha Trinh Jr., DO 02/18/2024 1:33 PM Signed Patient presents with: Establish Care: Want to re establish as a pt again Previous patient from [facility] / [place] HPI: Mamadou Lowery, 43 year old female, presents in the office today for personal history of colon polyps and GERD. In 2016 she underwent a c (more content not included)... Normal [facility] Basic Metabolic Dawson w/Rfx A1 Con 01-31-2024 GFR/1.73 sq M.predicted MDRD (S/P/Bld) [Vol rate/Area] mL/min/{1.73_m2} Normal [facility] Comment on above: Performed By: #### E BS A1C, EMP BMP, EBS LIPID ####[id number] [place] [address] [place] Calcium [Mass/volume] in Ser um or PlasmaOrdered By: Neha Mckeon on 01-31-2024 Calcium [Mass/Vol] 9.5 mg/dL Normal 8.6-10.3 [facility] Comment on above: Performed By: #### E BS A1C, EMP BMP, EBS LIPID ####[address] [address] [place] Carbon dioxide, total [Moles /volume] in Serum or PlasmaOrdered By: Neha Mckeon on 01-31-2024 CO2 [Moles/Vol] 25.4 mmol/L Normal 21.0-31.0 [facility] Comment on above: Performed By: #### E BS A1C, EMP BMP, EBS LIPID ####[address] [address] [place] Chloride [Moles/volume] in S luis alberto or PlasmaOrdered By: Neha Mckeon on 01-31-2024 Chloride [Moles/Vol] 103 mmol/L Normal 98-107 [facility] Comment on above: Performed By: #### E BS A1C, EMP BMP, EBS LIPID ####[address] [address] [place] Cholesterol [Mass/volume] in Serum or PlasmaOrdered By: Neha Mckeon on 01-31-2024 Cholesterol [Mass/Vol] 212 mg/dL High 140-200 [facility] Comment on above: Chol less than 200 m g/dl low riskChol 201-239 mg/dl borderline riskChol 240 mg/dl and greater high risk Result Comment: Chol less than 200 mg/dl low risk Chol 201-239 mg/dl borderline risk Chol 240 mg/dl and greater high risk Performed By: #### E BS A1C, EMP BMP, EBS LIPID ####[address] [address] [place] Cholesterol in LDL Calc [Mas s/Vol]Ordered By: Neha Mckeon on 01-31-2024 Cholesterol in LDL [Mass/Vol] 128 mg/dL High 0-100 [facility] Comment on above: LDL ATP III CLASSIFI CATIONLDL less than 100 mg/dL OptimalLDL 100-129 mg/dL Near or above optimalLDL 130-159 mg/dL Borderline highLDL 160-189 mg/dL HighLDL greater than 189 mg/dL Very high Cholesterol in VLDL Calc [Ma ss/Vol]Ordered By: Neha Mckeon on 01-31-2024 Cholesterol in VLDL [Mass/Vol] 30 mg/dL [facility] Creatinine [Mass/volume] in Serum or PlasmaOrdered By: Neha Mckeon on 01-31-2024 Creatinine [Mass/Vol] 0.80 mg/dL Normal 0.60-1.20 [facility] Comment on above: Performed By: #### E BS A1C, EMP BMP, EBS LIPID ####[facility] [address] EBS A1C with Estimated Ave G luon 01-31-2024 Glucose [Mass/Vol] 151 mg/dL Normal [facility] Comment on above: Result Comment: PERF ORMED BY: [facility] [address] [place] [address] PATHOLOGIST SENIOR CONTROLS ENGINEER SUDHAKAR HERRON M.D. Performed By: #### C BC, HEPATIC, LIPASE, BMP #### [facility] [address] EBS A1C with Estimated Ave G luOrdered By: Neha Mckeon on 01-31-2024 HbA1c (Bld) [Mass fraction] 6.9 % High 4.3-5.6 [facility] Comment on above: Increased risk for d iabetes: 5.7 - 6.4diabetes: >6.4glycemic control for adults with diabetes: <7.0 Result Comment: Incr eased risk for diabetes: 5.7 - 6.4 diabetes: >6.4 glycemic control for adults with diabetes: <7.0 Performed By: #### C BC, HEPATIC, LIPASE, BMP #### [facility] [address] Glucose [Mass/volume] in Ser um or PlasmaOrdered By: Neha Mckeon on 01-31-2024 Glucose [Mass/Vol] 127 mg/dL High 70-100 [facility] Comment on above: ADA recommended refe rence range Result Comment: ADA recommended reference range Performed By: #### E BS A1C, EMP BMP, EBS LIPID ####[id number] Glucose mean value [Mass/vol ume] in Blood Estimated from glycated hemoglobinOrdered By: Neha Mckeon on 01-31-2024 Average glucose Estimated from glycated hemoglobin (Bld) [Mass/Vol] 151 mg/dL [facility] Lipid Profileon 01-31-2024 LDL Cholesterol,Calculated 128 mg/dL High 0-100 [facility] Comment on above: Result Comment: LDL ATP III CLASSIFICATION LDL less than 100 mg/dL Optimal LDL 100-129 mg/dL Near or above optimal LDL 130-159 mg/dL Borderline high LDL 160-189 mg/dL High LDL greater than 189 mg/dL Very high Performed By: #### E BS A1C, EMP BMP, EBS LIPID ####[id number] Triglyceride w/Reflex 150 mg/dL High 0-149 [facility] Comment on above: Result Comment: TRIG ATP III CLASSIFICATION TRIG less than 150 mg/dL Normal TRIG 150-199 mg/dL Borderline high TRIG 200-500 mg/dL High TRIG greater than 500 mg/dL Very high Standard traceable to the Center for Disease Conrtrol and Prevention (CDC) test method. Performed By: #### E BS A1C, EMP BMP, EBS LIPID ####[address] VLDL CHOLESTEROL 30 mg/dL Normal [facility] Comment on above: Performed By: #### E BS A1C, EMP BMP, EBS LIPID ####[address] No Panel InformationOrdered By: Neha Mckeon on 01-31-2024 Estimated GFR (CKD-EPI) > 60.0 mL/Min [facility] Creatinine Clearance (Chem N/A [facility] Potassium [Moles/volume] in Serum or PlasmaOrdered By: Neha Mckeon on 01-31-2024 Potassium [Moles/Vol] 4.4 mmol/L Normal 3.5-5.1 [facility] Comment on above: Performed By: #### E BS A1C, EMP BMP, EBS LIPID ####[facility] [id number] [facility] Serum or plasma anion gap de terminationOrdered By: Neha Mckeon on 01-31-2024 Anion gap [Moles/Vol] 12.0 mmol/L Normal 6.0-15.0 [facility] Comment on above: Performed By: #### E BS A1C, EMP BMP, EBS LIPID ####[id number] Serum or plasma high density lipoprotein (HDL) cholesterol measurementOrdered By: Neha Mckeon on 01-31-2024 Cholesterol in HDL [Mass/Vol] 54 mg/dL Normal 23-92 [facility] Comment on above: HDL CHOL ATP-III CLA SSIFICATION Cardiovascular RiskHDL > or equal to 60 mg/dL LOWHDL < 40 mg/dL HIGH Result Comment: HDL CHOL ATP-III CLASSIFICATION Cardiovascular Risk HDL > or equal to 60 mg/dL LOW HDL < 40 mg/dL HIGH Performed By: #### E BS A1C, EMP BMP, EBS LIPID ####[id number] Serum or plasma total choles terol/high density lipoprotein (HDL) cholesterol mass ratOrdered By: Neha Mckeon on 01-31-2024 Cholesterol.total/Poncho sterol in HDL [Mass ratio] 3.9 {ratio} Normal <5.0 [facility] Comment on above: Result Comment: PERF ORMED BY: [facility] [address] [place] [address] PATHOLOGIST SENIOR CONTROLS ENGINEER SUDHAKAR HERRON M.D. Performed By: #### E BS A1C, EMP BMP, EBS LIPID ####[address] [id number] [facility] Sodium [Moles/volume] in Ser um or PlasmaOrdered By: Neha Mckeon on 01-31-2024 Sodium [Moles/Vol] 136 mmol/L Normal 136-145 [facility] Comment on above: Performed By: #### E BS A1C, EMP BMP, EBS LIPID ####[id number] [facility] Triglyceride [Mass/volume] i n Serum or PlasmaOrdered By: Neha Mckeon on 01-31-2024 Triglyceride [Mass/Vol] 150 mg/dL High 0-149 [facility] Comment on above: TRIG ATP III CLASSIF ICATIONTRIG less than 150 mg/dL NormalTRIG 150-199 mg/dL Borderline highTRIG 200-500 mg/dL High TRIG greater than 500 mg/dL Very highStandard traceable to the Center for Disease Conrtrol and Prevention (CDC) test method. Urea nitrogen [Mass/volume] in Serum or PlasmaOrdered By: Neha Mckeon on 01-31-2024 Urea nitrogen [Mass/Vol] 11 mg/dL Normal 7-25 [facility] Comment on above: Performed By: #### E BS A1C, EMP BMP, EBS LIPID ####[facility] [place] [address] [facility] Office Visit (Cardiology)on 11-26-2022 Follow-up visit Diagnoses/Problems [...] Weight Tips; Status:Complete - Retrospective Authorization; Done: 26Nov2022 Some eating tips that can help you lose weight.; Status:Complete - Retrospective Authorization; Done: 26Nov2022 SocHx: Never a smoker Tobacco Use Screening; Status:Complete; Done: 26Nov2022 Patient Instructions Please bring all medicines, vitamins, [...] further questions arise, Sincerely, Julieta Sanford MD [facility] Surgical History Problems History of Ablation History of Cholecystectomy History of Colonoscopy Managed By: Samantha Trinh DO; Resolved Date: 22 Jul 2016 History [...] lymph nod (more content not included)... Normal [employer] Tobacco Screening.on 023 Tobacco use status CPHS b) No M [facility] [place] [address] DO Work Phone: Cardiac Stress Teston 2022 Cardiac Stress Test [facility] [address] [place] [address], [address] [place] [address] Exercise Stress Test Patient Name: MAMADOU LOWERY Ordering Physician: [id number] Julieta Sanford MD Study Date: 11/01/2022 Reading Physician: [id number] Diamante Sauceda MD, [facility] MRN/PID: [id number] Supervising Physician: [id number] Ernie Negrete MD Accession/Order#: [id number] Referring Physician: JULIETA SANFORD Date of : 1980 PCP: Jessica Ruiz Gender: F Fellow: Height: 165.10 cm Nurse: Raphael Chaparro RN Weight: 108.86 kg Fish Pitcher: SYLVIA BSA: 2.14 m2 Technologist: BMI: 39.94 kg/m2 Additional Staff: Age: 42 years cc report to: Patient Location: cc report to: [id number] Julieta Sanford MD Study Type: Cardiac Stress Test Diagnosis/ICD: R94.31-Abnormal electrocardiogram [ECG] [EKG]; R07.9-Chest pain, unspecified; R06.02-Shortness of breath Indication: Abnormal EKG Procedure/CPT: Stress Test Interpretation-[id number]; Stress Test Supervision-[id number] Falls Risk: Low: Patient has low risk [...] The adequate level of stress was achieved. [id number] Diamante Sauceda MD, [facility] Electronically signed on 11/01/2022 at 6:22:45 PM Final Normal [facility] Cardiac Stress Test [facility]-No [facility] [place] [address] DO Work Phone: Office [...] a smoker Tobacco Use Screening; Status:Complete; Done: [id number] Tobacco Use Screening; Status:Complete; Done: [id number] Tobacco Use Screening; Status:Complete; Done: [id number] Patient Instructions Please bring all medicines, vitamins, [...] of breath and palpitations. 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 [...] daily 3. (more content not included)... Normal [employer] Tobacco Screening.on 023 Adult depression screening assessment No [facility] DO Work Phone: Tobacco use status CP b) No M [facility] [place] [address] DO Work Phone: Adult depression screening assessment No [facility] 250 DO Work Phone: Tobacco use status CPHS b) No [facility] 250 DO Work Phone: CBC AUTO DIFFon 09-12-2022 BASO # 0.1 103/ul Normal 0.0-0.1 [facility] Comment on above: Performed By: #### C BC #### [facility] [address] [address] [address] Fabricio Mohr Basophils/100 WBC (Bld) 0.7 % Normal 0.2-2.0 [facility] Comment on above: Performed By: #### C BC #### [facility] [address] [address] [address] Fabricio Mohr EO # 0.3 103/ul Normal 0.0-0.7 [facility] Comment on above: Performed By: #### C BC #### [facility] [address] [address] [address] Fabricio Mohr Eosinophils/100 WBC (Bld) 2.9 % Normal 0.9-7.0 [facility] Comment on above: Performed By: #### C BC #### [facility] [address] [place] [address] Dr. Fabricio Mohr Erythrocyte distribution width (RBC) [Ratio] 15.4 % Critically high 11.0-15.0 [facility] Comment on above: Performed By: #### C BC #### [facility] [address] [place] [address] Dr. Fabricio Mohr Hematocrit (Bld) [Volume fraction] 36.1 % Normal 36.0-48.0 [facility] Comment on above: Performed By: #### C BC #### [facility] [address] [place] [address] Dr. Fabricio Mohr Hemoglobin (Bld) [Mass/Vol] 11.4 g/dL Critically low 12.0-16.0 [facility] Comment on above: Performed By: #### C BC #### [facility] [address] [place] [address] Dr. Fabricio Mohr IG # 0.13 10e3/ul Critically high 0.00-0.03 [facility] Comment on above: Performed By: #### C BC #### [facility] [address] [place] [address] Dr. Fabricio Mohr IG % 1.2 % Critically high 0.0-0.5 [facility] Comment on above: Performed By: #### C BC #### [facility] [address] [place] [address] Dr. Fabricio Mohr LYMPH # 3.3 103/ul Normal 1.2-3.8 [facility] Comment on above: Performed By: #### C BC #### [facility] [address] [address] [address] Fabricio Mohr Lymphocytes/100 WBC (Bld) 29.4 % Normal 20.5-60.0 [facility] Comment on above: Performed By: #### C BC #### [facility] [address] [address] [address] Fabricio Mohr MANUAL DIFF REQ NO Normal [facility] Comment on above: Performed By: #### C BC #### [facility] [address] [place] [address] Dr. Fabricio Mohr MCH (RBC) [Entitic mass] 25.1 pg Critically low 26.7-34.0 [facility] Comment on above: Performed By: #### C BC #### [facility] [address] [place] [address] Dr. Fabricio Mohr MCHC (RBC) [Mass/Vol] 31.6 g/dL Normal 29.9-35.2 [facility] Comment on above: Performed By: #### C BC #### [facility] [address] [place] [address] Dr. Fabricio Mohr MCV (RBC) [Entitic vol] 79.3 fL Critically low 81.0-99. 0 [facility] Comment on above: Performed By: #### C BC #### [facility] [address] [place] [address] Dr. Fabricio Mohr MONO # 0.9 103/ul Critically high 0.3-0.8 [facility] Comment on above: Performed By: #### C BC #### [facility] [address] [place] [address] Dr. Fabricio Mohr Monocytes/100 WBC (Bld) 8.1 % Normal 1.7-12.0 [facility] Comment on above: Performed By: #### C BC #### [facility] [address] [place] [address] Dr. Fabricio Mohr NEUT # 6.5 103/ul Normal 1.4-6.5 [facility] Comment on above: Performed By: #### C BC #### [facility] [address] [place] [address] Dr. Fabricio Mohr Neutrophils/100 WBC (Bld) 57.7 % Normal 43.0-75.0 [facility] Comment on above: Performed By: #### C BC #### [facility] [address] [place] [address] Dr. Fabricio Mohr Platelet mean volume (Bld) [Entitic vol] 8.7 fL Critically low 9.5-13.5 [facility] Comment on above: Performed By: #### C BC #### [facility] [address] [place] [address] Dr. Fabricio Mohr PLT 374 103/ul Normal 150-450 [facility] Comment on above: Performed By: #### C BC #### [facility] [address] [place] [address] Dr. Fabricio Mohr RBC 4.55 106/ul Normal 4.20-5.40 [facility] Comment on above: Performed By: #### C BC #### [facility] [address] [place] [address] Dr. Fabricio Mohr WBC 11.3 103/ul Critically high 4.0-11.0 [facility] Comment on above: Performed By: #### C BC #### [facility] [address] [place] [address] Dr. Fabricio Mohr PROF 14(COMP METB)on 023 Albumin [Mass/Vol] 3.6 g/dL Normal 3.4-5.0 [facility] Comment on above: Performed By: #### H NANDO, CMP #### [facility] [address] [place] [address] Dr. Fabricio Mohr Albumin/Globulin [Mass ratio] 0.9 {ratio} Normal [facility] Comment on above: Performed By: #### H NANDO, CMP #### [facility] [address] [place] [address] Dr. Fabricio Mohr ALP [Catalytic activity/Vol] 88 U/L Normal 46-116 [facility] Comment on above: Performed By: #### H NANDO, CMP #### [facility] [address] [address] [address] Fabricio Mohr ALT [Catalytic activity/Vol] 43 U/L Normal 14-59 [facility] Comment on above: Performed By: #### H STROPN, CMP #### [facility] [address] [address] [address] Fabricio Mohr Anion gap [Moles/Vol] 11.9 mmol/L Normal Th [facility] Comment on above: Performed By: #### H STROPN, CMP #### [facility] [address] [address] [address] Fabricio Mohr AST [Catalytic activity/Vol] 24 U/L Normal 15-37 [facility] Comment on above: Performed By: #### H NANDO, CMP #### [facility] [address] [address] [address] Fabricio Mohr Bilirubin [Mass/Vol] 0.4 mg/dL Normal 0.2-1.0 [facility] Comment on above: Performed By: #### H NANDO, CMP #### [facility] [address] [address] [address] Fabricio Mohr Calcium [Mass/Vol] 8.9 mg/dL Normal 8.5-10.1 [facility] Comment on above: Performed By: #### H SANTAPN, CMP #### [facility] [address] [address] [address] Fabricio Mohr Chloride [Moles/Vol] 101 mmol/L Normal 98-107 [facility] Comment on above: Performed By: #### H STROPN, CMP #### [facility] [address] [address] [address] Fabricio Mohr CO2 [Moles/Vol] 26.6 mmol/L Normal 21.0-32.0 [facility] Comment on above: Performed By: #### H STROPN, CMP #### [facility] [address] [address] [address] Fabricio Mohr Creatinine [Mass/Vol] 0.84 mg/dL Normal 0.55-1.02 [facility] Comment on above: Performed By: #### H STROPN, CMP #### [facility] [address] [address] [address] Fabricio Mohr EGFR-AF [place]THER[place] >60 Normal >=60 [facility] Comment on above: Performed By: #### H STROPN, CMP #### [facility] [address] [address] [address] Fabricio Mohr EGFR-NON AF [place] >60 Normal >=60 [facility] Comment on above: Performed By: #### H STROPN, CMP #### [facility] [address] [address] [address] Fabricio Mohr Globulin (S) [Mass/Vol] 4.1 g/dL Normal [facility] Comment on above: Performed By: #### H STROPN, CMP #### [facility] [address] [address] [address] Fabricio Mohr Glucose [Mass/Vol] 165 mg/dL Critically high 74-106 [facility] Comment on above: Performed By: #### H STROPN, CMP #### [facility] [address] [address] [address] Fabricio Mohr Potassium [Moles/Vol] 3.5 mmol/L Normal 3.5-5.1 [facility] Comment on above: Performed By: #### H STROPN, CMP #### [facility] [address] [address] [address] Fabricio Mohr Protein [Mass/Vol] 7.7 g/dL Normal 6.4-8.2 [facility] Comment on above: Performed By: #### H STROPN, CMP #### [facility] [address] [address] [address] Fabricio Mohr Sodium [Moles/Vol] 136 mmol/L Normal 136-145 [facility] Comment on above: Performed By: #### H STROPN, CMP #### [facility] [address] [address] [address] Fabricio Mohr Urea nitrogen [Mass/Vol] 10.0 mg/dL Normal 7.0-18.0 [facility] Comment on above: Performed By: #### H STROPN, CMP #### [facility] [address] [address] [address] Fabricio Mohr Urea nitrogen/Creatinine [Mass ratio] 11.9 mg/mg Normal [facility] Comment on above: Performed By: #### H NANDO, CMP #### [facility] [address] [address] [address] Fabricio Mohr TROPONIN, HIGH SENSITIVITYon 09-12-2022 HSTROP <4.0 Normal 4.0-51.3 [facility] Comment on above: Result Comment: CUT- OFF POINTS HAVE BEEN ESTABLISHED BASED ON THE FOURTH UNIVERSAL DEFINITIONS OF MYOCARDIAL INFARCTION. THE UPPER REFERENCE LIMIT (URL) OF TROPONIN, DEFINED THE 99TH PERCENTILE OF cTnI DISTRIBUTION IN A REFERENCE POPULATION, HAS BEEN CONFIRMED THE DECISION THRESHOLD FOR NC DIAGNOSIS. Performed By: #### H NANDO, CMP #### [facility] [address] [place] [address] Dr. Fabricio Mohr XR CHEST 1 Von [...] ALBERTO MATHEW Date: 2022-09-12 02:20 Normal [facility] QUANTIFERON TB GOLD PLUSon 0 04-10-2022 QuantiFERON Criteria Comment Normal [facility] Comment on above: Result Comment: Tony tiFERON-TB [...] test. Performed By: #### Q NTTB #### [facility] [address] [address] [address] Fabricio Mohr QuantiFERON Incubation Incubation performed. Normal [facility] Comment on above: Performed By: #### Q NTTB #### [facility] [address] [address] [address] Fabricio Mohr QuantiFERON Mitogen Value >10.00 Normal [facility] Comment on above: Performed By: #### Q NTTB #### [facility] [address] [address] [address] Fabricio Mohr QuantiFERON Nil Value 0.06 IU/mL Normal [facility] Comment on above: Performed By: #### Q NTTB #### [facility] [address] [address] [address] Fabricio Mohr QuantiFERON TB1 Ag Value 0.07 IU/mL Normal [facility] Comment on above: Performed By: #### Q NTTB #### [facility] [address] [address] [address] Fabricio Mohr QuantiFERON TB2 Ag Value 0.05 IU/mL Normal [facility] Comment on above: Performed By: #### Q NTTB #### [facility] [address] [place] [address] Dr. Fabricio Mohr QuantiFERON-TB Gold Plus Negative Normal Negative [facility] Comment on above: Result Comment: No r esponse to M tuberculosis antigens detected. Infection with M tuberculosis is unlikely, but high risk individuals should be considered for additional testing (ATS/IDSA/CDC Clinical Practice Guidelines, 2017). The reference range is an Antigen minus Nil result of <0.35 IU/mL. Chemiluminescence immunoassay methodology Performed By: #### Q NTTB #### [facility] [address] [place] [address] Dr. Fabricio Mohr HEPATITIS B SURFACE ANTIBODY , QUANTon 04-07-2022 Hepatitis B Surf AB Quant >1000.0 Normal Immunity>9. 9 [facility] Comment on above: Result Comment: Stat us of Immunity Anti-HBs Level Inconsistent with Immunity 0.0 - 9.9 Consistent with Immunity >9.9 Performed By: #### H EPBSRF #### [facility] [address] [place] [address] Dr. Fabricio Mohr MMR IMMUNITYon 04-07-2022 Mumps Abs, IgG 142.0 AU/mL Normal Immune >10.9 [facility] Comment on above: Result Comment: Nega tive <9.0 Equivocal 9.0 - 10.9 Positive >10.9 A positive result generally indicates past exposure to Mumps virus or previous vaccination. Performed By: #### H NANDO, CMP #### [facility] [address] [place] [address] Dr. Fabricio Mohr Rubella Antibodies, IgG 4.85 index Normal Immu ne >0.99 [facility] Comment on above: Result Comment: Non- immune <0.90 Equivocal 0.90 - 0.99 Immune >0.99 Performed By: #### H NANDO, CMP #### [facility] [address] [place] [address] Dr. Fabricio Mohr Rubeola Ab, IgG 110.0 AU/mL Normal Immune >16.4 [facility] Comment on above: Result Comment: Nega tive <13.5 Equivocal 13.5 - 16.4 Positive >16.4 Presence of antibodies to Rubeola is presumptive evidence of immunity except when acute infection is suspected. Performed By: #### H NANDO, CMP #### [facility] [address] [place] [address] Dr. Fabricio Mohr VARICELLA IGG ABon Varicella Zoster IgG 441 index Normal Immune >165 [facility] Comment on above: Result Comment: Nega tive <135 Equivocal 135 - 165 Positive >165 A positive result generally indicates exposure to the pathogen or administration of specific immunoglobulins, but it is not indication of active infection or stage of disease. Performed By: #### H NANDO, CMP #### [facility] [address] [place] [address] Dr. Fabricio Mohr MG MAMM SCREEN 3D MASON CADon 03-23-2022 MG MAMM SCREEN 3D MASON CAD Patient: MAMADOU LOWERY Exam Date: 03/23/2022 : 1980 Gender:F Ordering : DR JESSICA RUIZ M.D. Admission #: [id number] Family : Order #: [id number] CLICK HERE TO VIEW EXAM RADIOLOGY REPORT [...] lung,liver,brain cancer at age 45. LOCATION: [facility] BREAST COMPOSITION: Scattered areas fibroglandular density. [...] Paz MD on 03/23/2022 at 09:05 Normal [facility] CBC AUTO DIFFon 03-16-2022 BASO # 0.1 103/ul Normal 0.0-0.1 [facility] Comment on above: Performed By: #### C BC #### [facility] [address] [place] [address] Dr. Fabricio Mohr Basophils/100 WBC (Bld) 1.1 % Normal 0.2-2.0 [facility] Comment on above: Performed By: #### C BC #### [facility] [address] [place] [address] Dr. Fabricio Mohr EO # 0.2 103/ul Normal 0.0-0.7 [facility] Comment on above: Performed By: #### C BC #### [facility] [address] [place] [address] Dr. Fabricio Mohr Eosinophils/100 WBC (Bld) 2.0 % Normal 0.9-7.0 [facility] Comment on above: Performed By: #### C BC #### [facility] [address] [place] [address] Dr. Fabricio Mohr Erythrocyte distribution width (RBC) [Ratio] 15.0 % Normal 11.0-15.0 [facility] Comment on above: Performed By: #### C BC #### [facility] [address] [place] [address] Dr. Fabricio Mohr Hematocrit (Bld) [Volume fraction] 37.5 % Normal 36.0-48.0 [facility] Comment on above: Performed By: #### C BC #### [facility] [address] [place] [address] Dr. Fabricio Mohr Hemoglobin (Bld) [Mass/Vol] 11.4 g/dL Critically low 12.0-16.0 [facility] Comment on above: Performed By: #### C BC #### [facility] [address] [place] [address] Dr. Fabricio Mohr IG # 0.07 10e3/ul Critically high 0.00-0.03 [facility] Comment on above: Performed By: #### C BC #### [facility] [address] [place] [address] Dr. Fabricio Mohr IG % 0.8 % Critically high 0.0-0.5 [facility] Comment on above: Performed By: #### C BC #### [facility] [address] [place] [address] Dr. Fabricio Mohr LYMPH # 2.2 103/ul Normal 1.2-3.8 [facility] Comment on above: Performed By: #### C BC #### [facility] [address] [place] [address] Dr. Fabricio Mohr Lymphocytes/100 WBC (Bld) 26.1 % Normal 20.5-60.0 [facility] Comment on above: Performed By: #### C BC #### [facility] [address] [place] [address] Dr. Fabricio Mohr MANUAL DIFF REQ NO Normal [facility] Comment on above: Performed By: #### C BC #### [facility] [address] [place] [address] Dr. Fabricio Mohr MCH (RBC) [Entitic mass] 25.0 pg Critically low 26.7-34.0 [facility] Comment on above: Performed By: #### C BC #### [facility] [address] [place] [address] Dr. Fabricio Mohr MCHC (RBC) [Mass/Vol] 30.4 g/dL Normal 29.9-35.2 [facility] Comment on above: Performed By: #### C BC #### [facility] [address] [place] [address] Dr. Fabricio Mohr MCV (RBC) [Entitic vol] 82.2 fL Normal 81.0-99.0 [facility] Comment on above: Performed By: #### C BC #### [facility] [address] [place] [address] Dr. Fabricio Mohr MONO # 0.6 103/ul Normal 0.3-0.8 [facility] Comment on above: Performed By: #### C BC #### [facility] [address] [place] [address] Dr. Fabricio Mohr Monocytes/100 WBC (Bld) 7.0 % Normal 1.7-12.0 [facility] Comment on above: Performed By: #### C BC #### [facility] [address] [place] [address] Dr. Fabricio Mohr NEUT # 5.4 103/ul Normal 1.4-6.5 [facility] Comment on above: Performed By: #### C BC #### [facility] [address] [place] [address] Dr. Fabricio Mohr Neutrophils/100 WBC (Bld) 63.0 % Normal 43.0-75.0 [facility] Comment on above: Performed By: #### C BC #### [facility] [address] [place] [address] Dr. Fabricio Mohr Platelet mean volume (Bld) [Entitic vol] 9.1 fL Critically low 9.5-13.5 [facility] Comment on above: Performed By: #### C BC #### [facility] [address] [address] [address] Fabricio Mohr PLT 386 103/ul Normal 150-450 [facility] Comment on above: Performed By: #### C BC #### [facility] [address] [address] [address] Fabricio Mohr RBC 4.56 106/ul Normal 4.20-5.40 [facility] Comment on above: Performed By: #### C BC #### [facility] [address] [address] [address] Fabricio Mohr WBC 8.6 103/ul Normal 4.0-11.0 [facility] Comment on above: Performed By: #### C BC #### [facility] [address] [address] [address] Fabricio Mohr LIPID PROFILEon 03-16-2022 CHOL-HDL RATIO NORM SEE BELOW Normal [facility] Comment on above: Result Comment: 3.3 - 4.4 LOW RISK 4.4 - 7.1 AVERAGE RISK 7.1 - 11.0 MODERATE RISK >11.0 HIGH RISK Performed By: #### L IPID, TSH, BMP #### [facility] [address] [address] [address] Fabricio Mohr Cholesterol [Mass/Vol] 183 mg/dL Normal <=200 [facility] Comment on above: Performed By: #### L IPID, TSH, BMP #### [facility] [address] [address] [address] Fabricio Mohr Cholesterol in HDL [Mass/Vol] 54 mg/dL Normal 40-60 [facility] Comment on above: Performed By: #### L IPID, TSH, BMP #### [facility] [address] [address] [address] Fabricio Mohr Cholesterol in LDL [Mass/Vol] 109.2 mg/dL Normal [facility] Comment on above: Performed By: #### L IPID, TSH, BMP #### [facility] [address] [address] [address] Fabricio Mohr Cholesterol.total/Poncho sterol in HDL [Mass ratio] 3.4 {ratio} Normal [facility] Comment on above: Performed By: #### L IPID, TSH, BMP #### [facility] [address] [address] [address] Fabricio Mohr HDL NORMAL > or = 60 mg/dl - LO W CARDIOVASCULAR RISK <40 mg/dl - HIGH CARDIOVASCULAR RISK Normal [facility] Comment on above: Performed By: #### L IPID, TSH, BMP #### [facility] [address] [address] [address] Fabricio Mohr LDL CALC NORMAL SEE BELOW Normal [facility] Comment on above: Result Comment: <100 mg/dl OPTIMAL 100 - 129 mg/dl NEAR OR ABOVE OPTIMAL 130 - 159 mg/dl BORDERLINE HIGH 160 - 189 mg/dl HIGH >190 mg/dl VERY HIGH Performed By: #### L IPID, TSH, BMP #### [facility] [address] [address] [address] Fabricio Mohr Triglyceride [Mass/Vol] 99 mg/dL Normal <=150 [facility] Comment on above: Performed By: #### L IPID, TSH, BMP #### [facility] [address] [address] [address] Fabricio Mohr VLDL CALC 19.8 mg/dL Normal [facility] Comment on above: Performed By: #### L IPID, TSH, BMP #### [facility] [address] [address] [address] Fabricio Mohr PROF CHEM 8 (BAS METB)on Anion gap [Moles/Vol] 13.5 mmol/L Normal [facility] Comment on above: Performed By: #### L IPID, TSH, BMP #### [facility] [address] [address] [address] Fabricio Mohr Calcium [Mass/Vol] 8.8 mg/dL Normal 8.5-10.1 [facility] Comment on above: Performed By: #### L IPID, TSH, BMP #### [facility] [address] [address] [address] Fabricio Mohr Chloride [Moles/Vol] 100 mmol/L Normal 98-107 [facility] Comment on above: Performed By: #### L IPID, TSH, BMP #### [facility] [address] [address] [address] Fabricio Mohr CO2 [Moles/Vol] 28.4 mmol/L Normal 21.0-32.0 [facility] Comment on above: Performed By: #### L IPID, TSH, BMP #### [facility] [address] [place] [address] Dr. Fabricio Mohr Creatinine [Mass/Vol] 0.85 mg/dL Normal 0.55-1.02 [facility] Comment on above: Performed By: #### L IPID, TSH, BMP #### [facility] [address] [place] [address] Dr. Fabricio Mohr EGFR-AF [place]THER[place] >60 Normal >=60 [facility] Comment on above: Performed By: #### L IPID, TSH, BMP #### [facility] [address] [place] [address] Dr. Fabricio Mohr EGFR-NON AF [place] >60 Normal >=60 [facility] Comment on above: Performed By: #### L IPID, TSH, BMP #### [facility] [address] [place] [address] Dr. Fabricio Mohr Glucose [Mass/Vol] 136 mg/dL Critically high 74-106 [facility] Comment on above: Performed By: #### L IPID, TSH, BMP #### [facility] [address] [place] [address] Dr. Fabricio Mohr Potassium [Moles/Vol] 3.9 mmol/L Normal 3.5-5.1 [facility] Comment on above: Performed By: #### L IPID, TSH, BMP #### [facility] [address] [place] [address] Dr. Fabricio Mohr Sodium [Moles/Vol] 138 mmol/L Normal 136-145 [facility] Comment on above: Performed By: #### L IPID, TSH, BMP #### [facility] [address] [place] [address] Dr. Fabricio Mohr Urea nitrogen [Mass/Vol] 8.0 mg/dL Normal 7.0-18.0 [facility] Comment on above: Performed By: #### L IPID, TSH, BMP #### [facility] [address] [address] [address] Fabricio Mohr Urea nitrogen/Creatinine [Mass ratio] 9.4 mg/mg Normal [facility] Comment on above: Performed By: #### L IPID, TSH, BMP #### [facility] [address] [address] [address] Fabricio Mohr TSHon 03-16-2022 TSH 3.137 uIU/mL Normal 0.358-3.740 [facility] Comment on above: Performed By: #### H STROPN, CMP #### [facility] [address] [place] [address] Dr. Fabricio Mohr Quantiferon-TB Plus (Client Incubated)on 03-15-2021 Gamma interferon background IA Qn (Bld) 0.01 International_Unit/mL Invalid Interpretation Code [facility] Comment on above: Performed By: #### 1 [id number] #### [facility] [address] [place] [address] M. tuberculosis stim IFN-g by CD4+ CD8+ T-cells corrected for background Qn (Bld) 0.04 International_Unit/mL Invalid Interpretation Code [facility] Comment on above: Performed By: #### 1 [id number] #### [facility] [address] [place] [address] M. tuberculosis stim IFN-g by CD4+ T-cells corrected for background Qn (Bld) 0.03 International_Unit/mL Invalid Interpretation Code [facility] Comment on above: Performed By: #### 1 [id number] #### [facility] [address] [place] [address] M. tuberculosis stim IFN-g Ql (Bld) [Interp] Negative Invalid Interpretation Code Negative [facility] Comment on above: Result Comment: The specimen received for QuantiFERON testing was incubated by the ordering institution. Specific procedures outlined in our Directory of Services and in the package insert for the QuantiFERON Gold (In Tube) test must be followed to enable for proper stimulation of cells for the production of interferon gamma. Chemiluminescence immunoassay methodology Performed at: [address] [id number] PhD Tremaine Purdy Performed By: #### 1 [id number] #### [facility] [address] [place] [address] Mitogen stimulated gamma interferon Qn (Bld) >10.00 Invalid Interpretation Code [facility] Comment on above: Performed By: #### 1 [id number], [id number] #### [facility] [address] [place] [address] Service comment (Unsp spec) [Interp] Comment Invalid Interpretation Code [facility] Comment on above: Result Comment: The QuantiFERON-TB Gold Plus result is determined by subtracting the Nil value from either TB antigen (Ag) tube. The mitogen tube serves as a control for the test. Performed By: #### 1 [id number] #### [facility] [address] [place] [address] Hep Bs Abon 03-09-2021 HBV surface Ab Ql (S) Non-Reactive Invalid Interpretation Code [facility] Comment on above: Result Comment: Non Reactive: Inconsistent with immunity, less than 10 mIU/mL Reactive: Consistent with immunity, greater than 9.9 mIU/mL Performed at: [facility] [address] [place] [address] [id number] PhD Tremaine Purdy Performed By: #### 1 [id number] #### [facility] [address] [place] [address] Measles/Mumps/Rubella Immuni tyon 03-09-2021 MeV IgG IA Qn (S) 128.0 A unit/mL Invalid Interpretation Code Immune >16.4 [facility] Comment on above: Result Comment: Nega tive <13.5 Equivocal 13.5 - 16.4 Positive >16.4 Presence of antibodies to Rubeola is presumptive evidence of immunity except when acute infection is suspected. Performed By: #### 1 [id number] #### [facility] [address] [place] [address] MuV IgG IA Qn (S) 137.0 A unit/mL Invalid Interpretation Code Immune >10.9 [facility] Comment on above: Result Comment: Nega tive <9.0 Equivocal 9.0 - 10.9 Positive >10.9 A positive result generally indicates past exposure to Mumps virus or previous vaccination. Performed at: [employer] [id number] PhD Tremaine Purdy Performed By: #### 1 [id number], [id number] #### [facility] [address] [place] [address] Rubella virus IgG Qn (S) 5.01 [IU]/mL Invalid Interpretation Code Immune >0.99 [facility] Comment on above: Result Comment: Non- immune <0.90 Equivocal 0.90 - 0.99 Immune >0.99 Performed By: #### 1 [id number] #### [facility] [address] [place] [address] Varic IgGon 03-09-2021 VZV IgG IA Qn (S) 289 Invalid Interpretation Code Immune >165 [facility] Comment on above: Result Comment: Nega tive <135 Equivocal 135 - 165 Positive >165 A positive result generally indicates exposure to the pathogen or administration of specific immunoglobulins, but it is not indication of active infection or stage of disease. Performed at: [facility] [address] [id number] PhD Tremaine Purdy Performed By: #### 1 [id number] #### [facility] [address] [place] [address] Consent for Treatmenton 02-19 Consent for Treatment [id number] 0CD:127 Normal [facility] Physician Orderon 03-08-2021 Physician Order [id number] 0CD:127 Normal [facility] Vital Signs Date Time Vital Sign Value Performing Clinician Facility 12-03-2024 14:47-0400 Body height 165.1 cm Jessica Ruiz MD Work Phone: [facility] 12-03-2024 14:47-0400 Body mass index (BMI) [Ratio] 40.4 kg/m2 Jessica Ruiz MD Work Phone: [facility] 12-03-2024 14:47-0400 Body weight 110.22 kg Jsesica Ruiz MD Work Phone: [facility] 12-03-2024 14:47-0400 Diastolic blood pressure 93 mm[Hg] Jessica Ruiz MD Work Phone: [facility] 12-03-2024 14:47-0400 Heart rate 73 /min Jessica Ruiz MD Work Phone: [facility] 12-03-2024 14:47-0400 Systolic blood pressure 132 mm[Hg] Jessica Ruiz MD Work Phone: [facility] 10-20-2024 08:28-0400 Body height 165.1 cm Jessica Ruiz MD Work Phone: [facility] 10-20-2024 08:28-0400 Body mass index (BMI) [Ratio] 41.8 kg/m2 Jessica Ruiz MD Work Phone: [facility] 10-20-2024 08:28-0400 Body weight 113.85 kg Jessica Ruiz MD Work Phone: [facility] 10-20-2024 08:28-0400 Diastolic blood pressure 81 mm[Hg] Jessica Ruiz MD Work Phone: [facility] 10-20-2024 08:28-0400 Heart rate 78 /min Jessica Ruiz MD Work Phone: [facility] 10-20-2024 08:28-0400 Systolic blood pressure 130 mm[Hg] Jessica Ruiz MD Work Phone: [facility] 10-15-2024 14:07-0400 Body temperature 98 [degF] Jessica Ruiz MD Work Phone: [facility] 10-15-2024 14:07-0400 Diastolic blood pressure 92 mm[Hg] Jessica Ruiz MD Work Phone: [facility] 10-15-2024 14:07-0400 Heart rate 91 /min Jessica Ruiz MD Work Phone: [facility] 10-15-2024 14:07-0400 Respiratory rate 16 /min Jessica Ruiz MD Work Phone: [facility] 10-15-2024 14:07-0400 SaO2% (BldA) [Mass fraction] 99 % Jessica Ruiz MD Work Phone: [facility] 10-15-2024 14:07-0400 Systolic blood pressure 137 mm[Hg] Jessica Ruiz MD Work Phone: [facility] 10-15-2024 11:21-0400 Body height 165.1 cm Jessica Ruiz MD Work Phone: [facility] 10-15-2024 11:21-0400 Body weight 112 kg Jessica Ruiz MD Work Phone: [facility] 10-14-2024 08:10-0400 Body height 165.1 cm Jessica Ruiz MD Work Phone: [facility] 10-14-2024 08:10-0400 Body mass index (BMI) [Ratio] 41.4 kg/m2 Jessica Ruiz MD Work Phone: [facility] 10-14-2024 08:10-0400 Body weight 112.94 kg Jessica Ruiz MD Work Phone: [facility] 10-14-2024 08:10-0400 Diastolic blood pressure 81 mm[Hg] Jessica Ruiz MD Work Phone: [facility] 10-14-2024 08:10-0400 Heart rate 88 /min Jessica Ruiz MD Work Phone: [facility] 10-14-2024 08:10-0400 Systolic blood pressure 114 mm[Hg] Jessica Ruiz MD Work Phone: [facility] 08-07-2024 09:36-0500 Body height 165.1 cm Samantha Trinh Jr., DO Work Phone: [facility] 08-07-2024 09:36-0500 Body mass index (BMI) [Ratio] 41.6 kg/m2 Samantha Trinh Jr., DO Work Phone: [facility] 08-07-2024 09:36-0500 Body weight 113.4 kg Samantha Trinh Jr., DO Work Phone: [facility] 08-07-2024 09:36-0500 Diastolic blood pressure 83 mm[Hg] Samantha Trinh Jr., DO Work Phone: [facility] 08-07-2024 09:36-0500 Heart rate 92 /min Samantha Trinh Jr., DO Work Phone: [facility] 08-07-2024 09:36-0500 SaO2% (BldA) [Mass fraction] 100 % Samantha Trinh Jr., DO Work Phone: [facility] 08-07-2024 09:36-0500 Systolic blood pressure 125 mm[Hg] Samantha Trinh Jr., DO Work Phone: [facility] 03-10-2024 09:40-0400 Diastolic blood pressure 90 mm[Hg] Samantha Trinh Jr., DO Work Phone: [facility] 03-10-2024 09:40-0400 Heart rate 75 /min Samantha Trinh Jr., DO Work Phone: [facility] 03-10-2024 09:40-0400 Respiratory rate 16 /min Samantha Trinh Jr., DO Work Phone: [facility] 03-10-2024 09:40-0400 SaO2% (BldA) [Mass fraction] 98 % Samantha Trinh Jr., DO Work Phone: [facility] 03-10-2024 09:40-0400 Systolic blood pressure 140 mm[Hg] Samantha Trinh Jr., DO Work Phone: [facility] 03-10-2024 08:16-0400 Body height 165.1 cm Samantha Trinh Jr., DO Work Phone: [facility] 03-10-2024 08:16-0400 Body mass index (BMI) [Ratio] 41.27 kg/m2 Samantha Trinh Jr., DO Work Phone: [facility] 03-10-2024 08:16-0400 Body weight 112.49 kg Samantha Trinh Jr., DO Work Phone: [facility] 02-18-2024 12:56-0400 Body height 165.1 cm Samantha Trinh Jr., DO Work Phone: [facility] [facility] 02-18-2024 12:56-0400 Body mass index (BMI) [Ratio] 41.27 kg/m2 Samantha Trinh Jr., DO Work Phone: [facility] 02-18-2024 12:56-0400 Body temperature 97.59 [degF] Samantha Trinh Jr., DO Work Phone: [facility] 02-18-2024 12:56-0400 Body weight 112.49 kg Samantha Trinh Jr., DO Work Phone: [facility] 02-18-2024 12:56-0400 Diastolic blood pressure 85 mm[Hg] Samantha Trinh Jr., DO Work Phone: [facility] 02-18-2024 12:56-0400 Heart rate 84 /min Samantha Trinh Jr., DO Work Phone: [facility] 02-18-2024 12:56-0400 SaO2% (BldA) [Mass fraction] 98 % Samantha Trinh Jr., DO Work Phone: [facility] 02-18-2024 12:56-0400 Systolic blood pressure 137 mm[Hg] Samantha Trinh Jr., DO Work Phone: [facility] 02-18-2024 08:53-0400 Body height 165.1 cm MD Jessica Ruiz Work Phone: [facility] 02-18-2024 08:53-0400 Body mass index (BMI) [Ratio] 41.2 kg/m2 MD Jessica Ruiz Work Phone: [facility] 02-18-2024 08:53-0400 Body weight 112.49 kg MD Jessica Ruiz Work Phone: [facility] 02-18-2024 08:53-0400 Diastolic blood pressure 89 mm[Hg] MD Jessica Ruiz Work Phone: [facility] 02-18-2024 08:53-0400 Heart rate 78 /min MD Jessica Ruiz Work Phone: [facility] 02-18-2024 08:53-0400 Systolic blood pressure 130 mm[Hg] MD Jessica Ruiz Work Phone: [facility] 11-26-2022 14:28-0400 Body height 165.1 cm Jessica Ruiz Work Phone: [facility] DO Work Phone: 11-26-2022 14:28-0400 Body mass index (BMI) [Ratio] 39.61 kg/m2 Jessica Ruiz Work Phone: [facility] [facility] DO Work Phone: 11-26-2022 14:28-0400 Body surface area Derived from formula 2.13 m2 Jessica Ruiz Work Phone: [facility] [facility] DO Work Phone: 11-26-2022 14:28-0400 Body weight 107.96 kg Jessica Ruiz Work Phone: [facility] DO Work Phone: 11-26-2022 14:28-0400 Diastolic blood pressure 80 mm[Hg] Jessica Ruiz Work Phone: [facility] [facility] DO Work Phone: 11-26-2022 14:28-0400 Heart rate 72 /min Jessica Ruiz Work Phone: [facility] [facility] DO Work Phone: 11-26-2022 14:28-0400 Systolic blood pressure 121 mm[Hg] Jessica Ruiz Work Phone: [facility] DO Work Phone: 10-08-2022 11:15-0400 Body height 165.1 cm Jessica Ruiz Work Phone: [facility] [facility] DO Work Phone: 10-08-2022 11:15-0400 Body mass index (BMI) [Ratio] 39.94 kg/m2 Jessica Ruiz Work Phone: [facility] DO Work Phone: 10-08-2022 11:15-0400 Body surface area Derived from formula 2.14 m2 Jessica Ruiz Work Phone: [facility] 250 DO Work Phone: 10-08-2022 11:15-0400 Body weight 108.86 kg Jessica Ruiz Work Phone: [facility] DO Work Phone: 10-08-2022 11:15-0400 Diastolic blood pressure 80 mm[Hg] Jessica Ruiz Work Phone: [facility] [facility] DO Work Phone: 10-08-2022 11:15-0400 Heart rate 82 /min Jessica Ruiz Work Phone: [facility] DO Work Phone: 10-08-2022 11:15-0400 Systolic blood pressure 122 mm[Hg] Jessica Ruiz Work Phone: [facility] DO Work Phone: 10-08-2022 11:06-0400 Body height 165.1 cm Jessica Ruiz Work Phone: [facility] DO Work Phone: 10-08-2022 11:06-0400 Body mass index (BMI) [Ratio] 39.94 kg/m2 Jessica Ruiz Work Phone: [facility] DO Work Phone: 10-08-2022 11:06-0400 Body surface area Derived from formula 2.14 m2 Jessica Ruiz Work Phone: [facility] [facility] DO Work Phone: 10-08-2022 11:06-0400 Body weight 108.86 kg Jessica Ruiz Work Phone: [facility] [facility] DO Work Phone: 10-08-2022 11:06-0400 Diastolic blood pressure 80 mm[Hg] Jessica Ruiz Work Phone: [facility] DO Work Phone: 10-08-2022 11:06-0400 Systolic blood pressure 118 mm[Hg] Jessica Ruiz Work Phone: [facility] DO Work Phone: 05-03-2022 17:20-0400 Body height 165.1 cm Caitlin Akinsault Other [email or web address] Other 05-03-2022 17:20-0400 Body mass index (BMI) [Ratio] 36.27 kg/m2 Caitlin Akinsault Other [email or web address] Other 05-03-2022 17:20-0400 Body temperature 98.1 [degF] Caitlin Berna Other [email or web address] Other 05-03-2022 17:20-0400 Body weight 98.88 kg Caitlin Akinsault Other [email or web address] Other 05-03-2022 17:20-0400 Diastolic blood pressure 82 mm[Hg] Caitlin Akinsault Other [email or web address] Other 05-03-2022 17:20-0400 Respiratory rate 18 /min Caitlin Berna Other [email or web address] Other 05-03-2022 17:20-0400 SaO2% (BldA) [Mass fraction] 99 % Caitlin Berna Other [email or web address] Other 05-03-2022 17:20-0400 Systolic blood pressure 126 mm[Hg] Caitlin Akinsault Other [email or web address] Other Encounters Encounter Date Encounter Type Care Provider Facility Start: 12-23-2024 End: 01-11-2025 ambulatory Samantha Trinh DO Work Phone: Gastroenterology Comment on above: Test results Start: 12-03-2024 End: 12-03-2024 ambulatory Jessica Ruiz MD Work Phone: [facility] Work Phone: Start: 12-03-2024 End: 12-03-2024 Patient encounter procedure Jessica Ruiz MD Work Phone: [facility] Work Phone: Start: 11-11-2024 End: 11-11-2024 Patient encounter procedure Jessica Ruiz MD Work Phone: [facility] [place] Work Phone: Start: 11-11-2024 End: 11-11-2024 ambulatory Jessica Ruiz MD Work Phone: [facility] Work Phone: Start: 10-29-2024 End: 10-29-2024 Patient encounter procedure Jessica Ruiz MD Work Phone: [facility] [place] Work Phone: Start: 10-29-2024 End: 10-29-2024 ambulatory Jessica Ruiz MD Work Phone: [facility] Work Phone: Start: 10-20-2024 End: 10-20-2024 Patient encounter procedure Jessica Ruiz MD Work Phone: [facility] Work Phone: Start: 10-19-2024 End: 10-20-2024 Telephone encounter Samantha Trinh DO Work Phone: Gastroenterology Comment on above: Orders Start: 10-17-2024 Non-patient / Non-visit Jessica Ruiz MD Work Phone: [facility] Work Phone: Start: 10-15-2024 End: 10-15-2024 Emergency department patient visit Jessica Ruiz MD Work Phone: [facility]Emergency [facility] Work Phone: Start: 10-14-2024 End: 10-14-2024 Patient encounter procedure Jessica Ruiz MD Work Phone: [facility] Work Phone: Start: 08-07-2024 End: 08-07-2024 ambulatory JESSICA RUIZ Facility:[facility] Start: 08-07-2024 End: 08-07-2024 Patient encounter procedure Samantha Trinh DO Work Phone: Gastroenterology Comment on above: Gastroesophageal ref lux disease without esophagitis (Primary Dx); Irritable bowel syndrome with diarrhea; Personal history of adenomatous and serrated colon polyps Start: 05-18-2024 End: 05-18-2024 ambulatory JOHNNY TRSIH Not Available Start: 03-17-2024 End: 03-17-2024 Telephone encounter Samantha Trinh DO Work Phone: Gastroenterology Start: 03-16-2024 End: 03-16-2024 Patient encounter procedure MD Jessica Ruiz Work Phone: [facility] Work Phone: Start: 03-16-2024 End: 03-16-2024 ambulatory MD Jessica Ruiz Work Phone: [facility] Work Phone: Start: 03-16-2024 End: 03-16-2024 Telephone encounter Samantha Trinh DO Work Phone: Gastroenterology Start: 03-10-2024 End: 03-10-2024 ambulatory JESSICA RUIZ Facility:[facility] Start: 03-10-2024 End: 03-10-2024 Subsequent hospital visit by physician Samantha Trinh DO Work Phone: [facility] Comment on above: Gastroesophageal ref lux disease, unspecified whether esophagitis present [K21.9] Start: 03-03-2024 Non-patient / Non-visit MD Sandra Ruiz Work Phone: [facility] Work Phone: Start: 03-03-2024 End: 03-03-2024 ambulatory JOHNNY DE LA ROSAO Not Available Start: 02-19-2024 Telephone encounter Samantha ramirez DO Work Phone: [facility] Comment on above: Received Outside Med ical Records Start: 02-18-2024 End: 02-18-2024 ambulatory SAMANTHA TRINH Facility:[facility] Start: 02-18-2024 End: 02-18-2024 Patient encounter procedure Samantha Trinh DO Work Phone: Gastroenterology Comment on above: Personal history of colonic polyps (Primary Dx); Gastroesophageal reflux disease, unspecified whether esophagitis present; Irritable bowel syndrome with both constipation and diarrhea Start: 02-18-2024 End: 02-18-2024 Patient encounter procedure MD Jessica Ruiz Work Phone: [facility] Work Phone: Start: 01-31-2024 End: 01-31-2024 Departed Referred MD Jessica Ruiz Work Phone: [facility] [place] [address] Work Phone: Start: 01-31-2024 End: 01-31-2024 ambulatory MD Jessica Ruiz Work Phone: [facility] Work Phone: Start: 09-24-2023 Patient encounter status MD Socorro Ruiz Work Phone: [facility] Start: 08-23-2023 End: 08-23-2023 ambulatory Jessica Ruiz Other [facility] [employer] Other Start: 08-23-2023 Office outpatient vi sit 15 minutes Jessica Ruiz [facility] Start: 08-20-2023 End: 08-20-2023 ambulatory [facility] Not Available Start: 03-26-2023 End: 03-26-2023 ambulatory Jessica Ruiz Other [email or web address] Other Start: 03-26-2023 Telephone encounter Jessica Ruiz [facility] Start: 11-26-2022 Office outpatient vi sit 15 minutes Jessica Ruiz Work Phone: [facility] DO Work Phone: Start: 11-26-[address] Jessica Ruiz Facility: Start: 11-16-2022 Chart Update Jessica Ruiz Work Phone: [facility] DO Work Phone: Start: 11-08-2022 Chart Update Jessica Ruiz Work Phone: [facility] [facility] DO Work Phone: Start: 11-01-[address] Jessica Ruiz Facility:[id number] Start: 10-08-2022 Office consultation new/estab patient 60 min Jessica Ruiz Work Phone: [facility] DO Work Phone: Start: 10-08-2022 Patient encounter procedure Jessica Ruiz Work Phone: [facility] DO Work Phone: Start: 10-08-[address] Jessica Ruiz Facility: Start: 09-18-[address] Jessica Ruiz Facility:[facility] Start: 09-12-2022 End: 09-12-[address] CHICA Tobin Facility: Start: 06-22-2022 Adult health examination Shanda Ruiz Other [email or web address] Other Start: 05-03-2022 End: 05-03-2022 ambulatory Caitlin Coronel Other [email or web address] Other Start: 05-03-2022 Office outpatient ne w 20 minutes Caitlin Berna [facility] Start: 04-06-2022 End: 04-06-2022 ambulatory DAVID NORMA Facility:[facility] Start: 03-23-2022 End: 03-24-[address] JESSICA RUIZ Facility:[facility] Start: 03-18-2022 Encounter for genera l adult medical examination without abnormal findings DR JESSICA RUIZ [facility] Start: 03-16-2022 Pre-procedure evalua tion check Jessica Ruiz Other [email or web address] Other Start: 03-16-2022 End: 03-17-[address] JESSICA RUIZ Facility:[facility] Start: 03-16-2022 End: 03-17-2022 Encounter for general adult medical examination without abnormal findings DR JESSICA RUIZ Facility:[facility] Start: 10-31-2021 Gynecological examin ation normal Jessica Ruiz Other [email or web address] Other Procedures Date Procedure Procedure Detail Performing Clinician Start: 11-11-2024 Ultrasonography of abdomen Jessica Ruiz MD Work Phone: Start: 10-15-2024 Urine culture Jessica Ruiz MD Work Phone: Start: 03-16-2024 X-ray of lumbar spine, four views MD Sandra Ruiz Work Phone: Start: 03-10-2024 Colonoscopy flx dx w/collj spec when pfrmd Samantha Trinh DO Work Phone: Start: 03-10-2024 Level iv surg pathology gross&microscopic exam Samantha Trinh DO Work Phone: Start: 03-10-2024 Esophagogastroduodenoscopy transoral diagnostic Samantha Trinh DO Work Phone: Start: 11-16-2022 Echocardiography Jessica Ruiz Work Phone: Start: 10-14-2017 General examination of patient Jessica Dwaine whitley Other Start: 01-19-2016 Screening mammography Jessica Ruiz Other Cholecystectomy Jessica Manuel Jennifer mims Work Phone: Colonoscopy Jessica Ruiz Work Phone: Destructive procedure Jessica Ruiz Work Phone: Hysterectomy Jessica Ruiz Work Phone: Hysterectomy Jessica Riuz Other Ligation of fallopian tube Tommie Ruiz Other Screening for malign ant neoplasm of breast Jessica Ruiz Other Plan of Treatment Date Care Activity Detail Author Start: 05-03-2032 Urine microalbumin profile DTaP,Tdap,Td Vaccine (2 - Td or Tdap) [facility] Start: 05-18-2025 Screening for malignant neoplasm of breast Mammogram Screening [facility] Start: 03-22-2025 Influenza vaccination Influenza Vaccine (Season Ended) [facility] Start: 12-23-2024 End: 03-24-2025 Comprehensive metabolic 2000 panel - Serum or Plasma COMPREHENSIVE METABOLIC PANEL Lab Routine Elevated LFTs Expected: 12/23/2024, Expires: 03/24/2025 [facility] Work Phone: Comment on above: Expected: 12/23/2024, Expires: Start: 10-29-2024 [facility] Start: 10-15-2024 [facility] Start: 10-15-2024 Bacteria identified in Urine by Culture Urine Culture [facility] Start: 10-15-2024 Urine culture [facility] Start: 08-07-2024 End: 08-07-2024 Patient encounter procedure 08/07/2024 9:40 AM EST Office Visit Gastroenterology [address] [place] [address] Samantha Trinh Jr., DO [address] [place] [address] 4 month follow Gastroenterology Comment on above: 4 month follow Start: 05-08-2024 Screening for malignant neoplasm of breast Mammogram Screening [facility] Start: 03-22-2024 Covid-19 Vaccine ( season) Covid-19 Vaccine () [facility] Start: 03-22-2024 Covid-19 Vaccine ( season) Covid-19 Vaccine ( season) [facility] Start: 03-22-2024 Influenza vaccination [facility] Start: 03-10-2024 End: 03-10-2024 Patient encounter procedure 03/10/2024 8:45 AM EDT Appointment [facility] [address] [place] [address] Samantha Trinh Jr., [address] [place] [address] Personal history of colonic polyps [Z86.010] [facility] Comment on above: Personal history of colonic polyps [Z86. 010] Start: 03-22-2023 Covid-19 Vaccine ( season) Covid-19 Vaccine () [facility] Start: 11-26-2022 FUV, Provider: Julieta Sanford, Status: Pen, Time: 2:15 PM FUV, Provider: Julieta Sanford, Status: Pen, Time: 2:15 PM -[facility] DO Work Phone: Start: 11-16-2022 ECHO, Provider: GEMMA MARTINEZI ULTRASOUND 01,[id number], Status: Pen, Time: 7:45 AM ECHO, Provider: GEMMA MARTINEZI ULTRASOUND 01,[id number], Status: Pen, Time: 7:45 AM -[facility] [facility] DO Work Phone: Start: 11-01-2022 STRESS LINDA, Provider: GEMMA MARTINEZI NUCLEAR 01,[id number], Status: Pen, Time: 2:00 PM STRESS LINDA, Provider: GEMMA HHVI NUCLEAR 01,[id number], Status: Pen, Time: 2:00 PM -[facility] [facility] DO Work Phone: Start: 2002 Screening for malignant neoplasm of cervix Cervical Cancer Screening [facility] Start: 2000 Hepatitis B Vaccine (1 of 3 - 19+ 3-dose series) Hepatitis B Vaccine (1 of 3 - 19+ 3-dose series) [facility] Start: 10-27-1999 Anxiety Screening Anxiety Screening [facility] Start: 10-27-1999 Depression Screening Depression Screening [facility] Start: 10-27-1999 Hepatitis C screening Hepatitis C Screening [facility] Start: 10-27-1999 HIV screening HIV Screening [facility] Actin smooth muscle IgG Ab [Units/volume] in Serum [facility] Ceruloplasmin [Mass/volume] in Serum or Plasma [facility] End: 02-17-2025 EGD DIAGNOSTIC EGD DIAGNOSTIC Endoscopy Routine Gastroesophageal reflux disease, unspecified whether esophagitis present 1 Occurrences starting 02/18/2024 until 02/17/2025 [facility] [employer] Work Phone: Comment on above: 1 Occurrences starting 02/18/2024 until 02/17/2025 Endomysial antibody IgA level [facility] End: 02-17-2025 Flexible sigmoidoscopy study COLONOSCOPY DIAGNOSTIC Endoscopy Routine Personal history of colonic polyps 1 Occurrences starting 02/18/2024 until 02/17/2025 [facility] Comment on above: 1 Occurrences starting 02/18/2024 until 02/17/2025 Gliadin peptide IgA Ab [Units/volume] in Serum [facility] Gliadin peptide IgG Ab [Units/volume] in Serum [facility] Glucose measurement estimated from glycated hemoglobin [facility] Hepatitis A virus antibody, IgM type [facility] Hepatitis A virus antibody, IgM type [facility] Hepatitis B core antibody measurement, IgM type [facility] Hepatitis B core antibody measurement, IgM type [facility] Hepatitis B virus surface Ag [Presence] in Serum or Plasma by Immunoassay [facility] Hepatitis B virus surface Ag [Presence] in Serum or Plasma by Immunoassay [facility] Hepatitis C virus Ig G Ab [Presence] in Serum or Plasma by Immunoassay [facility] Hepatitis C virus Ig G Ab [Presence] in Serum or Plasma by Immunoassay [facility] Hepatitis C virus RN A [log units/volume] (viral load) in Serum or Plasma by RELL with probe detection [facility] Hepatitis C virus RN A [log units/volume] (viral load) in Serum or Plasma by RELL with probe detection [facility] Hepatitis C virus RN A [Units/volume] (viral load) in Serum or Plasma by RELL with probe detection [facility] Hepatitis C virus RN A [Units/volume] (viral load) in Serum or Plasma by RELL with probe detection [facility] Homogenous nuclear A b pattern [Titer] in Serum [facility] IgA [Mass/volume] in Serum or Plasma [facility] Mitochondria M2 IgG Ab [Units/volume] in Serum [facility] Nuclear Ab [Titer] i n Serum [facility] Patient Education High blood sug ar in adults - ED discharge instructions [facility] Work Phone: Patient referral [facility] Work Phone: Tissue transglutamin ase IgA Ab [Units/volume] in Serum [facility] Tissue transglutamin ase IgG Ab [Units/volume] in Serum [facility] Immunizations Immunization Date Immunization Notes Care Provider Fa cili 05-03-2022 tetanus toxoid, reduced diphtheria toxoid, and acellular pertussis vaccine, adsorbed Caitlin Coronel Other [facility] 04-28-2020 influenza virus vaccine, split virus (incl. purified surface antigen) Jessica Ruiz Other [email or web address] Other 04-28-2020 influenza virus vaccine, unspecified formulation MD Jessica Ruiz Work Phone: [facility] 06-12-2017 tetanus and diphther ia toxoids, adsorbed, preservative free, for adult use (5 Lf of tetanus toxoid and 2 Lf of diphtheria toxoid) Jessica Ruiz Other [facility] Payers Date Payer Category Payer Private Health Insurance MMO SUP [employer] PPO [id number] 2024 Unknown 2024 Unknown [id number] 2023 Unknown [id number] 2022 Medicaid [id number] 1981 Unknown [id number] [id number]. 1068 1981 Unknown [id number] [id number]. 593 1981 Unknown [id number] 2.16840.1.098399.3.579.2. 593 1981 Unknown [id number] [id number]. 593 1981 Unknown [id number] [id number]. 356 1981 Unknown [id number] 2.16840.1.512031.3.579.2. 356 1981 Unknown [id number] 2.16840.1.491851.3.579.2. 1259 1981 Unknown [id number] 2.16840.1.650743.3.579.2. 1259 1981 Unknown [id number] 2.16840.1.483891.3.579.2. 1259 1959 Private Health Insurance [id number] Self-pay 1959 Unknown [id number] [facility] [id number] Medicaid [employer]age [id number] Private Health Insurance [id number] Private Health Insurance [id number] Unknown [id number] [id number]. 593 Unknown [id number] [id number]. 531 Unknown [id number] [id number]. 531 Unknown [id number] [id number]. 531 Unknown [id number] [id number]. 531 Unknown [id number]. 531 Social History Date Type Detail Facility Unknown if ever smoked [email or web address] Other Start: 11-14-2023 End: 02-18-2024 Sex Assigned At [facility] Start: 11-14-2023 End: 02-18-2024 No illicit drug use No illicit drug use [facility] Start: 01-04-2016 End: 09-13-2022 Tobacco smoking status NHIS Never smoked tobacco (finding) [facility] Start: 1980 Sex Assigned At Female [facility] Start: 01-04-2016 Tobacco use and exposure Smokeless tobacco non-user [facility] Start: 02-18-2024 Alcohol intake 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 (finding) [facility] Adult Depression Screening Assessment 2 [facility] Start: 05-16-2022 Gender identity Identifies as female gender (finding) [facility] Start: 03-10-2024 End: 08-07-2024 Alcoholic beverage intake Current drinker of alcohol (finding) [facility] Start: 03-10-2024 Alcohol Comment occasionally [facility] Start: 10-15-2024 End: 12-03-2024 Sex Female (finding) [facility] NEGATED: Highlighted row Denies Caffeine use Denies Caffeine use -[facility] DO Work Phone: Medical Equipment Procedure Code Equipment Code Equipment Origin al Text Equipment Identifier Dates Blood Sugar Diagnostic (Onetouch Ultra Test) strip Start: 05-18-2024 Blood Sugar Diagnostic strip Start: 02-18-2024 End: 05-18-2024 Blood Sugar Diagnostic (Onetouch Ultra Test) strip Start: 05-18-2024 Blood Sugar Diagnostic strip Start: 02-18-2024 End: 05-18-2024 Blood Sugar Diagnostic (Onetouch Ultra Test) strip Start: 05-18-2024 Blood Sugar Diagnostic strip Start: 02-18-2024 End: 05-18-2024 Blood Sugar Diagnostic (Onetouch Ultra Test) strip Start: 05-18-2024 Blood Sugar Diagnostic strip Start: 02-18-2024 End: 05-18-2024 Clinical Notes 05-03-2022 to 01-11-2025 Telephone Encounter - Talisha Rose MA - 01/11/2025 2:07 PM EDTTelephone Encounter - Talisha Rose MA - 01/11/2025 2:07 PM EDT Note Date & Type Note Facility 01-11-2025 Telephone encount er Note Orders faxed. Patient informed. Talisha Rose MA January 11, 2025 2:07 PM [facility] 01-11-2025 Miscellaneous Notes Formattin g of this note might be different from the original. Orders faxed. Patient informed. Talisha Rose MA January 11, 2025 2:07 PM 11/11/24 RUQ US report was faxed to office from [facility].: Fatty liver, 8 mm CBD liekly due to physiologic ectasia. Sending as update. Will scan in [facility]. Please advise if any other orders needed. Thank you Liv Castelan RN documented in this encounter [facility] 12-23-2024 Telephone encount er Note 11/11/24 RUQ US report was faxed to office from [facility].: Fatty liver, 8 mm CBD liekly due to physiologic ectasia. Sending as update. Will scan in [facility]. Please advise if any other orders needed. Thank you Liv Castelan RN [facility] 11-11-2024 Radiology Diagnostic study note [place] [address] Ultrasound Report Signed Patient: Mamadou Murphy MR#: [id number] : 1980 Acct:[id number] Age/Sex: 44 / F ADM Date: 5 Loc: Room: Type: [facility] Attending Dr: Samantha Trinh Jr, DO Ordering Provider: Samantha Trinh Jr, DO Date of Service: 11/11/24 US/US abdomen limited: R79.89 Copies to: Samantha Trinh Jr, DO~ LIMITED ABDOMINAL ULTRASOUND: CLINICAL HISTORY: Right upper quadrant pain, elevated liver enzymes COMPARISON: None TECHNIQUE: Grayscale and color Doppler images of the right upper quadrant organswere obtained. FINDINGS: Pancreas: Suboptimally visualized pancreas appears grossly unremarkable as visualized. Liver: 20 cm in length with increased echogenicity suggestive of fatty infiltration. Gallbladder: Surgically absent CBD: 8.3 US/US abdomen limited IMPRESSION: Fatty infiltration liver. 8mm common bile duct likely due to physiologic ectasia Impression dictated by: Kris Apodaca M.D.11/11/2024 9:33 AM Dictation Location: [place] [address] Tech: Missy Clayton Transcribed By: IVA 11/11/24932 Dictated By: Kris Apodaca MD 11/11/24930 Signed By: 11/11/24932 [facility] Work Phone: 10-20-2024 Telephone encount er Note Lab orders and US order faxed to [facility] [phone]. Confirmation received that the fax did go through Juancarlos Murguia LPN [facility] 10-20-2024 Miscellaneous Notes Formattin g of this note might be different from the original. Lab orders and US order faxed to [facility] [phone]. Confirmation received that the fax did go through Juancarlos Murguia LPN Can orders please be sent to [facility]. Thank you Liv Castelan RN Mamadou is calling Samantha Trinh Jr., DO today to request lab orders and ultrasound orders to be faxed to [facility] fax#[phone]. Patient has been identified by name and birthdate. Duration of symptoms: N/A Person calling: self Call patient at: on cell [phone] (home) [phone] (cell) Was an appointment scheduled: No Closing statement: Results or non-symptom based questions: Thank you for calling [facility], your call will be returned within the next business day. Bernie Diaz documented in this encounter [facility] 10-19-2024 Telephone encount er Note Can orders please be sent to [facility]. Thank you Liv Castelan RN [facility] 10-19-2024 Telephone encount er Note Mamadou is calling Samantha Trinh Jr., DO today to request lab orders and ultrasound orders to be faxed to [facility] fax#[phone]. Patient has been identified by name and birthdate. Duration of symptoms: N/A Person calling: self Call patient at: on cell [phone] (home) [phone] (cell) Was an appointment scheduled: No Closing statement: Results or non-symptom based questions: Thank you for calling [facility], your call will be returned within the next business day. Bernie Diaz [facility] 10-14-2024 Evaluation note Diagnosis Onset Date Resolution Fatigue acute October 14 8:04am Type 2 diabetes mellitus with hyperglycemia acute October 14, 025 8:04am [facility] Work Phone: 1(304) 406-407603-26-2025 Evaluation note* Diagnosis Onset Date Resolution Status Admit Date Fatigue acute October 14 8:04am Type 2 diabetes mellitus wit h hyperglycemia acute October 14, 2024 8:04am Elevated LFTs acute October 20, 2024 8:28am Gastro-esophageal reflux dis ease without esophagitis acute October 20, 025 8:28am Type 2 diabetes mellitus wit h hyperglycemia acute October 20, 2024 8:28am [facility] Work Phone: [phone]) 623-283601-17-2025 Instructions* Patient Instructions* Samantha Trinh Jr., DO - 08/07/2024 10:16 AM EST Maintain omeprazole 40 mg twice daily Start Levsin as needed for abd pain / IBS documented [facility] History of Present illness Narrative* Samantha Trinh Jr., DO - 08/07/2024 9:40 AM EST Patient presents [...] Personal history of colonic polyps per Samantha Trinh Jr, DO - Normal esophagus. - Z-line [...] hx of villous adenoma polyp. Sees Dr. Trinh/GI next colonoscopy is due this year. PAST [...] polyps - ICD9: V12.72, ICD10: Z86.0101 Samantha Trinh Jr. documented in this encounterTri[facility]-2025 NoteHNO ID: [id number] Author: SAMANTHA TRINH JR, DO Service: ? Author Type: Physician [...] Personal history of colonic polyps per Samantha Trinh Jr, DO - Normal esophagus. - Z-line [...] hx of villous adenoma polyp. Sees Dr. Trinh/GI next colonoscopy is due this year. PAST [...] ASSESSMENT/PLAN: 43 y/o female (more content not included)...[facility]08-27-2024 Telephone encounter Note* Telephone Encounter - Indira Torres MA - 03/17/2024 12:51 PM EDT Recall entered [facility]08-27-2024 Telephone encounter Note* Telephone Encounter - Indira Torres MA - 03/17/2024 12:51 PM EDT ----- Message from Liv Romeo sent at 03/13/2024 1:49 PM EDT ----- ----- Message ----- From: Samantha Trinh Jr., DO Sent: 03/13/2024 7:57 AM EDT To: Liv Castelan RN Esophagitis noted, maintain omeprazole, start Carafate for 4 wks. Colonoscopy recommended in 5 yrs. Samantha Trinh Jr., DO [facility]08-27-2024 Miscellaneous Notes* Telephone Encounter - Indira Torres MA - 03/17/2024 12:51 PM EDT Recall entered * Telephone Encounter - Indira Torres MA - 03/17/2024 12:51 PM EDT ----- Message from Liv Romeo sent at 03/13/2024 1:49 PM EDT ----- ----- Message ----- From: Samantha Trinh Jr., DO Sent: 03/13/2024 7:57 AM EDT To: Liv Castelan RN Esophagitis noted, maintain omeprazole, start Carafate for 4 wks. Colonoscopy recommended in 5 yrs. Samantha Trinh Jr., DO documented in this encounter[facility] Telephone encounter Note * Telephone Encounter - Indira Torres MA - 03/16/2024 9:10 AM EDT Recall entered [facility]08-26-2024 Telephone encounter Note* Telephone Encounter - Indira Torres MA - 03/16/2024 9:10 AM EDT ----- Message from Liv Romeo sent at 03/13/2024 1:49 PM EDT ----- ----- Message ----- From: Samantha Trinh Jr., DO Sent: 03/13/2024 7:57 AM EDT To: Liv Castelan RN Esophagitis noted, maintain omeprazole, start Carafate for 4 wks. Colonoscopy recommended in 5 yrs. Samantha Trinh Jr., DO [facility]08-26-2024 Miscellaneous Notes* Telephone Encounter - Indira Torres MA - 03/16/2024 9:10 AM EDT Recall entered * Telephone Encounter - Indira Torres MA - 03/16/2024 9:10 AM EDT ----- Message from Liv Romeo sent at 03/13/2024 1:49 PM EDT ----- ----- Message ----- From: Samantha Trinh Jr., DO Sent: 03/13/2024 7:57 AM EDT To: Liv Castelan RN Esophagitis noted, maintain omeprazole, start Carafate for 4 wks. Colonoscopy recommended in 5 yrs. Samantha Trinh Jr., DO documented in this encounterTri[facility] Nurse Note* Dakotah Del Castillo RN - 03/10/2024 9:27 AM EDT POST OP LEARNING RESPONSE INSTRUCTION PROVIDED TO: Patient METHOD OF INSTRUCTION: Individual instruction PATIENT / FAMILY RESPONSE: Information received as demonstrated by interest and questions FOLLOW-UP PLAN: Patient instructed to call with any further issues SUPPLEMENTAL MATERIAL: None REFERRAL (RECOMMENDATION): None Electronically Signed By: Dakotah Del Castillo RN In Department: [facility] END[facility]08-20-2024 Nurse Note* Dakotah Del Castillo RN - 03/10/2024 9:27 AM EDT POST OP LEARNING RESPONSE INSTRUCTION PROVIDED TO: Patient METHOD OF INSTRUCTION: Individual instruction PATIENT / FAMILY RESPONSE: Information received as demonstrated by interest and questions FOLLOW-UP PLAN: Patient instructed to call with any further issues SUPPLEMENTAL MATERIAL: None REFERRAL (RECOMMENDATION): None Electronically Signed By: Dakotah Del Castillo RN In Department: [facility] ENDOSCOPY [facility] * Alma Delia Crawford RN - 03/10/2024 8:45 AM EDT PRE OP LEARNING ASSESSMENT PROCEDURE/SURGERY: GI PROCEDURES: EGD & Colonoscopy READINESS TO LEARN COGNITIVE ABILITY: Alert and oriented MOTIVATION TO LEARN: Interested FAMILY SUPPORT: Unable to assess - Family not present PATIENT LEARNS BEST BY: Individual Instruction Verbal Instruction FACTORS AFFECTING LEARNING: None PHYSICAL LIMITATIONS AFFECTING LEARNING: None Electronically Signed By: Alma Delia Crawford RN, RN In Department: [facility] [place] documented in this encounterTri[facility] History and physical note * GayathriSamantha Jr., DO - 03/10/2024 8:45 AM EDT [...] Plan: COLONOSCOPY DIAGNOSTIC, COLONOSCOPY DIAGNOSTIC SIGNATURE: Samantha Trinh Jr., DO PATIENT NAME: Mamadou Lowery DATE: March 10, 2024 TIME: 8:36 AM PAGER/CONTACT #: [facility]08-20-2024 History and physical note* Samantha Trinh Jr., DO - 03/10/2024 8:45 AM EDT [...] Plan: COLONOSCOPY DIAGNOSTIC, COLONOSCOPY DIAGNOSTIC SIGNATURE: Samantha Trinh Jr., DO PATIENT NAME: Mamadou Lowery DATE: March 10, 2024 TIME: 8:36 AM PAGER/CONTACT #: documented in this encounterTri[facility] Nurse Note* Alma Delia Crawford RN - 03/10/2024 8:45 AM EDT PRE OP LEARNING ASSESSMENT PROCEDURE/SURGERY: GI PROCEDURES: EGD & Colonoscopy READINESS TO LEARN COGNITIVE ABILITY: Alert and oriented MOTIVATION TO LEARN: Interested FAMILY SUPPORT: Unable to assess - Family not present PATIENT LEARNS BEST BY: Individual Instruction Verbal Instruction FACTORS AFFECTING LEARNING: None PHYSICAL LIMITATIONS AFFECTING LEARNING: None Electronically Signed By: Alma Delia Crawford, RN, RN In Department: [facility] [place] [facility]07-31-2024 Telephone encounter Note* Telephone Encounter - Taryn Isabel MA - 02/19/2024 11:24 AM EDT Received records from [facility] physicians and scanned into patients chart. 2017 Colonoscopy record received and scanned in. Taryn Isabel MA [facility]07-31-2024 Miscellaneous Notes* Telephone Encounter - Taryn Isabel MA - 02/19/2024 11:24 AM EDT Received records from [facility] physicians and scanned into patients chart. 2016 Colonoscopy record received and scanned in. Taryn Isabel MA documented in this encounterTri[facility]07-30-2024 History of Present illness Narrative* Samantha Trinh Jr., - 02/18/2024 1:20 PM EDT Patient presents with: Establish Care: Want to re establish as a pt again Previous patient from [facility] [place] HPI: Mamadou Lowery, 43 year old female, [...] hx of villous adenoma polyp. Sees Dr. Trinh/GI next colonoscopy is due this year. PAST [...] ICD9: 564.1, ICD10: K58.2 - dicyclomine Samantha Trinh Jr. documented in this encounterTrihealth [facility]07-30-2024 NoteHNO ID: [id number] Author: SAMANTHA TRINH JR, DO Service: ? Author Type: Physician Type: Progress Notes Filed: 02/18/2024 13:33 Note Text: Patient presents with: Establish Care: Want to re establish as a pt again Previous patient from [facility] [place] HPI: Mamadou Lowery, 43 year old female, [...] hx of villous adenoma polyp. Sees Dr. Trinh/GI next colonoscopy is due this year. PAST [...] ICD9: 564.1, ICD10: K58.2 - dicyclomine Samantha Trinh Jr.[facility]07-30-2024 Instructions* Patient Instructions* Samantha Trinh Jr., DO - 02/18/2024 1:17 PM EDT Images from the original note were not included. Records release from [facility] Bowel Preparation Instructions for: Miralax-Gatorade Preparations IF [...] If you do not have a responsible semi truck driver (family member or friend) withyou to take you home, your exam cannot be done with sedation and will be cancelled. Please bring a list of all of your current medications, including any Zwyu-bll-Kgxqdgf medications with you. Medications If you take [...] your exam. 2 06/2019 documented in this encounterTri[facility] Evaluation note* Encounter Date Diagnosis Assessment Notes Treatment Notes Treatment Clinical Notes Aug, Acute COVID-19 (ICD-10 - U07.1) Pt agrees to paxlovid. Reviewed quarantine protocol per the CDC. States her breathing is ok, just notes increased fatigue. [email or web address] Other 10-22-2022 History of Present illness Narrative* 41-year-old is being seen in cardiology consultation regarding shortness of breath and palpitations. 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 [...] to callif further questions arise, * Sincerely, [facility] [employer] DO Work Phone: [phone] Evaluation note* Encounter Date Diagnosis Assessment Notes Treatment Notes Treatment Clinical Notes Apr, Scratches (ICD-10 - T14.8XXA) TdaP updated in office today, Recommend keep area clean and dry. May use bacitracin as needed. [email or web address] Other Chief complaint Narrative - ReportedMAMADOU LOWERY is being seen for a cardiovascular evaluation . SARA CP LABILE BP. [facility] [employer] DO Work Phone: [place] complaint Narrative - ReportedMAMADOU LOWERY is being seen for a cardiovascular evaluation . SARA CP LABILE BP. [facility] [employer] DO Work Phone: Evaluation noteNo InformationNort [employer] Other Evaluation noteNo assessment information available [facility] Work Phone: Evaluation note* Diagnosis Personal history of colonic polyps- Primary Gastroesophageal reflux disease, unspecified whether esophagitis present Irritable bowel syndrome with both constipation and diarrhea documented in this encounter [facility]* Diagnosis Onset Date Resolution Status Fibromyalgia acute Lumbar spondylolysis acute Type 2 diabetes mellitus with hyperglycemia acute [facility] Work Phone: Evaluation note* Diagnosis Gastroesophageal reflux disease, unspecified whether esophagitis present Personal history of colonic polyps documented in this encounter [facility]* Diagnosis Gastroesophageal reflux disease without esophagitis- Primary Esophageal reflux Irritable bowel syndrome with diarrhea Irritable bowel syndrome Personal history of adenomatous and serrated colon polyps documented in this encounter [facility]* Diagnosis Elevated LFTs- Primary Other abnormal blood chemistry documented in this encounter [facility] general Narrative - Reported* Type Description Date Medical History GERD Medical History villous colon polyp Surgical History LAB PONCHO 2005 Surgical History hysterectomy 2020 Hospitalization History see above [email or web address] Other History of Present illness Narrative* Patient [...] arise, * Sincerely, * Julieta Sanford MD [place] [address] DO Work Phone: Hospital Discharge instructions Additional Instructions Please talk to your provider about possible causes of liver inflammation and possibly discontinuing your Ozempic.[facility] Work Phone: Reason for referral (narrative)* Outpatient Procedure (Routine) - Authorized Specialty Diagnoses / Procedures Referred By Indira beasley Referred To Contact [facility] Diagnoses Personal history of colonic polyps Procedures COLONOSCOPY DIAGNOSTIC COLONOSCOPY FLX DX W/COLLJ SPEC WHEN PFRMSamantha Malagon Jr., DO [address] [place] [address] [facility] [address] [place] [address] Referral ID Status Reason Start Date Expiration Date Visits Requested Visits Authorized [id number] Authorized Auto-Generat ed Referral 02/18/2024 02/17/2025 1 1 * Outpatient Procedure (Routine) - Authorized Specialty Diagnoses / Procedures Referred By Indira beasley Referred To Contact [facility] Diagnoses Gastroesophageal reflux disease, unspecified whether esophagitis present Procedures EGD DIAGNOSTIC ESOPHAGOGASTRODUODENOSC OPY TRANSORAL DIAGNOSTIC Samantha Trinh Jr., DO [address] [place] [address] [place] [id number] Referral ID Status Reason Start Date Expiration Date Visits Requested Visits Authorized [id number] Authorized Auto-Generat ed Referral 02/18/2024 02/17/2025 1 1 [facility] for referral (narrative)* Outpatient Procedure (Routine) - Closed Specialty Diagnoses / Procedures Referred By Contac t Referred To Contact [facility] Diagnoses Personal history of colonic polyps Procedures COLONOSCOPY DIAGNOSTIC COLONOSCOPY FLX DX W/COLLJ SPEC WHEN PFRMD Samantha Trinh Jr., DO [address] [place] [address] [place] [id number] Referral ID Status Reason Start Date Expiration Date V isits Requested Visits Authorized [id number] Closed Auto-Generate d Referral 02/18/2024 02/17/2025 1 1 * Outpatient Procedure (Routine) - Closed Specialty Diagnoses / Procedures Referred By Contcyndie t Referred To Contact [facility] Diagnoses Gastroesophageal reflux disease, unspecified whether esophagitis present Procedures EGD DIAGNOSTIC ESOPHAGOGASTRODUODENOSC OPY TRANSORAL DIAGNOSTIC Samantha Trihn Jr., DO [address] [place] [address] [address] Referral ID Status Reason Start Date Expiration Date V isits Requested Visits Authorized [id number] Closed Auto-Generate d Referral 02/18/2024 02/17/2025 1 1 [facility] for visit Narrative* Outpatient Procedure (Routine) - Closed Specialty Diagnoses / Procedures Referred By Contac t Referred To Contact [facility] Diagnoses Personal history of colonic polyps Procedures COLONOSCOPY DIAGNOSTIC COLONOSCOPY FLX DX W/COLLJ SPEC WHEN PFRMD Samantha Trinh Jr., DO [address] [place] [address] [facility] [address] [place] [address] Referral ID Status Reason Start Date Expiration Date V isits Requested Visits Authorized [id number] Closed Auto-Generate d Referral 02/18/2024 02/17/2025 1 1 [facility] Summary Purpose Family History Unknown Family Member Name Dates Details Family [...] malignant neoplasm: Mother(V16.9, Z80.9) Status:Active Advance Directives Advance Directive Response Recorded Date/ Time Advance Directives Yes May 09, 2017 11:00am Chief Complaint MAMADOU LOWERY is being seen for follow up GXT. Chief Complaint and Reason for Visit Chief Complaint [facility]- yes on ins Chief Complaint [facility]- yes on ins Recheck for DM M43.06 Reason for Visit Fibromyalgia Lumbar spondylolysis Type 2 diabetes mellitus with hyperglycemia Chief Complaint Admit Date Blood surgar concerns October 14, 2024 8 :04am blood sugar elevated October 15, 2024 11 :13am Reason for Visit Admit Date Fatigue October 14, 2024 8:0 4am Type 2 diabetes mellitus with hyperglyce [place] October 14, 2024 8:04am Chief Complaint Admit Date Blood surgar concerns October 14, 2024 8 :04am blood sugar elevated October 15, 2024 11 :13am [facility]; abd pain/elevated LFTs October 20, 2024 8:28am R79.89 K31.9 R10.13 October 29, 2024 3:4 1pm Reason for Visit Admit Date Fatigue October 14, 2024 8:0 4am Type 2 diabetes mellitus with hyperglyce [place] October 14, 2024 8:04am Elevated LFTs October 20, 2024 8:28 am Gastro-esophageal reflux disease without esophagitis October 20, 2024 8:28am Type 2 diabetes mellitus with hyperglyce [place] October 20, 2024 8:28am Chief Complaint Admit Date Blood surgar concerns October 14, 2024 8 :04am blood sugar elevated October 15, 2024 11 :13am [facility]; abd pain/elevated LFTs October 20, 2024 8:28am R79.89 K31.9 R10.13 October 29, 2024 3:4 1pm R79.89 November 11, 2024 6:5 8am Chief Complaint Admit Date Blood surgar concerns October 14, 2024 8 :04am blood sugar elevated October 15, 2024 11 :13am [facility]; abd pain/elevated LFTs October 20, 2024 8:28am R79.89 K31.9 R10.13 October 29, 2024 3:4 1pm R79.89 November 11, 2024 6:5 8am diabetes F/U December 03, 2024 2:44p m Additional Source Comments INFORMATION SOURCE (unrecogn ized section and content) DATE CREATED AUTHOR 03/16/2021 [facility] DATE CREATED AUTHOR AUTHOR'S ORGANIZ ATION 11/03/2022 [facility] DATE CREATED AUTHOR AUTHOR'S ORGANIZ ATION 11/08/2022 [facility] DATE CREATED AUTHOR AUTHOR'S ORGANIZ ATION 11/28/2022 [facility] DATE CREATED AUTHOR AUTHOR'S ORGANIZ ATION 06/08/2023 [facility] DATE CREATED AUTHOR AUTHOR'S ORGANIZ ATION 05/24/2024 [facility] Special[facility] DATE CREATED AUTHOR AUTHOR'S ORGANIZ ATION 10/24/2024 [facility] DATE CREATED AUTHOR AUTHOR'S ORGANIZ ATION 11/15/2024 [facility] REASON FOR VISIT (unrecogniz ed section and content) Reason Comments Establish Care Want to re establish as a pt again Reason Comments Received Outside Medical Records Reason Comments Follow Up Reason Comments Orders Care Teams (unrecognized sec tion and content) Team Status: Active Member Role Status Dates Daniel Estrada DO Family Provider Active Jessica Ruiz MD Primary Care Provider Active Team Status: Inactive Member Role Status Dates Jessica Ruiz MD Primary Care Provider Active Start: January 31, 2024 End: January 31, 2024 Neha Mckeon APRN Attending Provider Active Start: January 31, 2024 End: January 31, 2024 Rn Unit Manager Relationship Specialty Start Date End Date Jessica Ruiz MD [address] [place] [phone] PCP - General Family Medicine 12/28/15 Jessica Ruiz MD [address] [place] [address] Referring Family Medicine 10/03/23 Rn Unit Manager Relationship Specialty Start Date End Date Jessica Ruiz MD [address] [place] [phone] PCP - General Family Medicine 12/28/15 Jessica Ruiz MD [address] [place] [phone] Referring Family Medicine 10/03/23 Rn Unit Manager Relationship Specialty Start Date End Date Jessica Ruiz MD [address] [place] [phone] PCP - General Family Medicine 12/28/15 Jessica Ruiz MD [address] [place] [phone] Referring Family Medicine 10/03/23 Team Status: Inactive [...] March 16, 2024 End: March 16, 2024 Rn Unit Manager Relationship Specialty Start Date End Date Jessica Ruiz MD [address] [facility] [place] [phone] PCP - General Family Medicine 12/28/15 Jessica Ruiz MD [address] [place] [address] Referring Family Medicine 10/03/23 Rn Unit Manager Relationship Specialty Start Date End Date Jessica Ruiz MD [address] [facility] [place] [phone] PCP - General Family Medicine 12/28/15 [place] [address] [place] [address], [place] [address] Referring Family Medicine 10/03/23 Team Status: Inactive [...] October 15, 2024 End: October 15, 2024 Rn Unit Manager Relationship Specialty Start Date End Date Jessica Ruiz MD [address] [facility] ([facility]], [place] [id number] PCP - General Family Medicine 12/28/15 Jessica Ruiz MD [address] [place] [address] [place] [address] Referring Family Medicine 10/03/23 Team Status: Active Member Role Status Dates Jessica Ruiz MD Primary Care Provide r, Attending Provider Active Start: October 17, 2024 Team Status: Inactive Member Role Status Dates Jessica Ruiz MD Primary Care Provide r, Attending Provider Active Start: October 20, 2024 End: October 20, 2024 Team Status: Inactive Member Role Status Dates Jessica Ruiz MD Primary Care Provider Active Start: October 29, 2024 End: October 29, 2024 Samantha Trinh Jr, DO Attending Provider Active S tart: October 29, 2024 End: October 29, 2024 Team Status: Inactive Member Role Status Tara Ruiz MD Primary Care Provider Active Start: November 11, 2024 End: November 11, 2024 Samantha Trinh Jr, DO Attending Provider Active S tart: November 11, 2024 End: November 11, 2024 Team Status: Inactive Member Role Status Dates Jessica Ruiz MD Primary Care Provide r, Attending Provider Active Start: December 03, 2024 End: December 03, 2024 Goals (unrecognized section and content) Goals may be documented in a n alternate section Source Comments (unrecognize d section and content) In the event this informatio n is protected by the Federal Confidentiality of Alcohol and Drug Abuse Patient Records regulations: The Federal rules restrict any use of the information to criminally investigate or prosecute any alcohol or drug abuse patient.[facility] the event this information is protected by the Federal Confidentiality of Alcohol and Drug Abuse Patient Records regulations: The Federal rules restrict any use of the information to criminally investigate or prosecute any alcohol or drug abuse patient.[facility] the event this information is protected by the Federal Confidentiality of Alcohol and Drug Abuse Patient Records regulations: The Federal rules restrict any use of the information to criminally investigate or prosecute any alcohol or drug abuse patient.[facility] the event this information is protected by the Federal Confidentiality of Alcohol and Drug Abuse Patient Records regulations: The Federal rules restrict any use of the information to criminally investigate or prosecute any alcohol or drug abuse patient.[facility] Hospital[facility] the event this information is protected by the Federal Confidentiality of Alcohol and Drug Abuse Patient Records regulations: The Federal rules restrict any use of the information to criminally investigate or prosecute any alcohol or drug abuse patient.[facility] Hospital[facility] the event this information is protected by the Federal Confidentiality of Alcohol and Drug Abuse Patient Records regulations: The Federal rules restrict any use of the information to criminally investigate or prosecute any alcohol or drug abuse patient.[facility] HospitalIn the event this information is protected by the Federal Confidentiality of Alcohol and Drug Abuse Patient Records regulations: The Federal rules restrict any use of the information to criminally investigate or prosecute any alcohol or drug abuse patient.[facility] HospitalIn the event this information is protected by the Federal Confidentiality of Alcohol and Drug Abuse Patient Records regulations: The Federal rules restrict any use of the information to criminally investigate or prosecute any alcohol or drug abuse patient.[facility] FOR RECORDS PERTAINING TO PATIENTS WHO [...] BE BASED ON THE PRIMARY CLINICAL RECORDS. [facility]. provides no warranty or guarantee of the accuracy or completeness of information in this document.
[2025-03-12 13:09] LABS: Age Gdln ACOG Testing Note (.); IGP, Aptima HPV, rfx 16/18,45 Note (.)
== END 2025-03-09 16:07 | disposition home or self-care (01) ==
LOC: LAB 16:06
PROVIDERS: PCP Family Medicine; Visit Provider Obstetrics & Gynecology
DX: Z01.419 Encounter for gynecological examination (general) (routine) without abnormal findings (principal)
CPT/HCPCS: 87624; 88175